=== PATIENT | female | born 1940 | race African-American/Black ===

== ENCOUNTER 2017-05-11 15:29 | Inpatient (IN) | payer OTHER, MEDICAID ==
--- NOTE | 2017-05-11 17:21 | DR.GENAD ---
HPI - PCP Primary Care Physician: RACHEAL - Complaint/Symptoms Chief Complaint Doctors Comments: Patient sent from [facility] for evaluation of stool coming from her vaginal tract today. Family states she has been in the [facility] for five years and they are not sure if she has ever had a colonoscopy. States she has not had a escudero cath recently. Family denies fever , chills, or SOB. Chief Complaint:: [facility] STAFF STATES PT HAS STOOL COMING FROM VAGINA. UPON ARRIVAL TO ED NOTED SOFT STOOL TO BE COMING FROM VAGINA. - Nurses notes reviewed Nurses Notes Review: Yes - Source History Provided: Family Member, EMS - Mode of Arrival Mode of Arrival: Stretcher - Timing Onset of Chief Complaint: 05/11/17 Came on: Suddenly - Duration Duration: Constant How lon Duration: Days - Location Location: stool from vaginal area - Severity Severity: Mild - Modifying Factors Worsens:: nothing Improves:: nothing PMH - PMH Past Medical History: Yes Past Medical History: Alzheimers, Arthritis, CHF, Hypertension Past Surgical History: Yes Surgical History: Joint Replacement - Family History History of Family Medical Conditions: Yes Family Medical History: Diabetes Mellitus, Cancer, Hypertension - Social History Does any household member use tobacco: No Alcohol Use: None Do you use any recreational Drugs:: No Lives With: Other Lives Where: Care Home - infectious screening In the last 2 months have you had wt loss of >10#?: NO Have you had fever, night sweats or hemotysis?: No Have you traveled outside the country in the last 6 months?: No Isolation: Standard ROS - Review of Systems Constitutional: No Symptoms Reported Eyes: No Symptoms Reported ENTM: No Symptoms Reported Respiratoy: No Symptoms Reported Cardiovascular: No Symptoms Reported Gastrointestinal/Abdominal: No Symptoms Reported Genitourinary: No Symptoms Reported Neurological: No Symptoms Reported, Problems Walking Musculoskeletal: No Symptoms Reported Integumentary: No Symptoms Reported Hematologic/Lymphatic: No Symptoms Reported Endocrine: No Symptoms Reported Psychiatric: No Symptoms Reported PE - Vital Signs Vitals: Temperature 98.6 F Pulse Rate 73 Respiratory Rate 20 Blood Pressure [Right Arm] 133/66 Blood Pressure [Left Arm] 122/67 Blood Pressure 114/77 O2 Sat by Pulse Oximetry 98 - General Limitations: Language Barrier, Altered Mental Status General Appearance: Alert, In No Apparent Distress - Head Head Exam: Normal Inspection, Atraumatic, Normocephalic - Eyes Eye exam: Normal Appearance, PERRL, EOMI. negative: Scleral Icterus, Conjunctival Injection, Nystagmus, Miosis, Mydrasis, Periorbital Swelling, Periorbital Tenderness, Other - ENT ENT Exam: Normal Exam, Normal Oropharynx, Normal External Ear Exam, Mucous Membranes Moist, TM's Normal Bilaterally External Ear Exam: Normal External Inspection TM/Canal Exam: Bilateral Normal Nose Exam: Normal Nose Exam Mouth Exam: Normal Inspection Throat Exam: Normal Inspection - Neck Neck Exam: Normal Inspection, Full ROM, Trachea Midline - Chest Chest Inspection: Normal Inspection, Symmetric Chest Wall Rise - Respiratory Respiratory Exam: Bilateral Clear to Auscultation - Cardiovascular Cardiovascular Exam: Regular Rate, Normal Rhythm, Normal Heart Sounds - Abdominal Exam Abdominal Exam: Normal Inspection, Normal Bowel Sounds, Soft Abdominal Tenderness: negative: RUQ, RLQ, LUQ, LLQ, Epigastrium, Suprapubic, Diffuse, Mild, Moderate, Severe, Other - Extremities Extremities Exam: Normal Inspection, Normal Capillary Refill. negative: Full ROM - Back Back Exam: Normal Inspection, Full ROM - Neurologic Neurological Exam: Alert, Reflexes Normal. negative: Oriented X3 (non verbal), Normal Gait (gait not tested) - Psychiatric Psychiatric Exam: Normal Affect, Normal Mood (patient non verbal) - Skin Skin Exam: Warm, Dry, Intact, Normal Color - Other Exam Other Exam: Vaginal area with copious brown watery stool in posterior vaginal vault; unable to palpate a defiet in vaginal wall. Course - Consultation Called: 19:58 Call Returned: 19:58 (Dr. Camejo states to admit to hospitalist) Consultation Comments: 2020 Dr. Bill said to admit. - Education/Counseling Education/Counseling: Family Educated On: Treatment, Diagnosis, Needs for Follow Up ROR - Labs Reviewed Laboratory Results Reviewed?: Yes (all labs and x-ray results reviewed and discussed with patient) Result Diagrams: 05/11/17 18:05 05/11/17 18:05 Laboratory: WBC 6.9 X10^3/uL (3.6-10.0) 05/11/17 18:05 RBC 4.56 X10^6/uL (3.5-5.4) 05/11/17 18:05 Hgb 13.6 g/dL (12.0-16.0) 05/11/17 18:05 Hct 40.0 % (36.0-47.0) 05/11/17 18:05 MCV 87.7 fL (80.0-100.0) 05/11/17 18:05 MCH 29.9 pg (27.0-34.0) 05/11/17 18:05 MCHC 34.1 g/dL (33.0-35.0) 05/11/17 18:05 RDW 13.0 % (11.6-16.5) 05/11/17 18: Plt Count 206 X10^3/uL (150.0-450.0) 05/11/17 18:05 Plt Count Comment Adequate (ADEQUATE) 05/11/17 18: MPV 8.1 fL (7.4-11.0) 05/11/17 18:05 Neut % 38.6 % (42.0-75.0) L 05/11/17 18: Lymph % 50.7 % (21.0-51.0) 05/11/17 18:05 [place] % 8.7 % (0.0-13.0) 05/11/17 18:05 Eos % 1.2 % (0.9-2.9) 05/11/17 18:05 Baso % 0.8 % (0.2-1.0) 05/11/17 18:05 Neut # 2.6 x10^3/uL (2.2-4.8) 05/11/17 18:05 Lymph # 3.5 X10^3/uL (1.3-2.9) H 05/11/17 18:05 [place] # 0.6 x10^3/uL (0.3-0.8) 05/11/17 18:05 Eos # 0.1 x10^3/uL (0.0-0.2) 05/11/17 18:05 Baso # 0.1 X10^3/uL (0.0-0.1) 05/11/17 18:05 Absolute Nucleated RBC 0.2 /100WBC 05/11/17 18:05 Plt Clumps, EDTA Few 05/11/17 18:05 Plt Morphology Comment Normal (NORMAL) 05/11/17 18: RBC Morphology Normal (NORMAL) 05/11/17 18:05 Sodium 137 mmol/L (136-145) 05/11/17 18:05 Corrected Sodium 137 mmol/L (136-145) 05/11/17 18:05 Potassium 4.9 mmol/L (3.5-5.1) 05/11/17 18:05 Chloride 102 mmol/L (98-107) 05/11/17 18:05 Carbon Dioxide 22.7 mmol/L (21-32) 05/11/17 18:05 BUN 16 mg/dL (7-18) 05/11/17 18:05 Creatinine 0.68 mg/dL (0.55-1.02) 05/11/17 18:05 Est GFR (MDRD) Af Amer > 60 (>60) 05/11/17 18:05 Est GFR (MDRD) Non-Af > 60 (>60) 05/11/17 18:05 Glucose 111 mg/dL (65-99) H 05/11/17 18:05 Calcium 9.5 mg/dL (8.5-10.1) 05/11/17 18:05 Corrected Calcium 10.1 mg/dL (8.5-10.1) 05/11/17 18:05 Total Bilirubin 0.40 mg/dL (0.2-1.0) 05/11/17 18:05 AST 37 Units/L (15-37) 05/11/17 18:05 ALT 20 Units/L (12-78) 05/11/17 18:05 Alkaline Phosphatase 89 Units/L (46-116) 05/11/17 18:05 Total Protein 7.3 g/dL (6.4-8.2) 05/11/17 18:05 Albumin 3.3 g/dL (3.4-5.0) L 05/11/17 18:05 Globulin 4.0 g/dL (2.5-4.5) 05/11/17 18:05 Albumin/Globulin Ratio 0.8 Ratio (1.1-2.1) L 05/11/17 18:05 Amylase 45 Units/L (25-115) 05/11/17 18:05 Lipase 94 Units/L (73-393) 05/11/17 18:05 Specimen Type Catherized urine 05/11/17 18:22 Urine Color Yellow (YELLOW) 05/11/17 18: Urine Appearance Clear (CLEAR) 05/11/17 18:22 Urine pH 5.0 (5.0 - 8.0) 05/11/17 18:22 Ur Specific [place] 1.025 (1.000-1.030) 05/11/17 18:22 Urine Protein Negative (NEGATIVE) 05/11/17 18:22 Urine Glucose (UA) Negative (NEGATIVE) 05/11/17 18:22 Urine Ketones Negative (NEGATIVE) 05/11/17 18:22 Urine Occult Blood 2+ (NEGATIVE) 05/11/17 18:22 Urine Nitrite Negative (NEGATIVE) 05/11/17 18:22 Urine Bilirubin Negative (NEGATIVE) 05/11/17 18:22 Urine Urobilinogen 1+ (NORMAL) 05/11/17 18:22 Ur Leukocyte Esterase 1+ (NEGATIVE) 05/11/17 18:22 Urine RBC 3-7 /HPF (NONE SEEN) 05/11/17 18:22 Urine WBC 0-2 /HPF (NONE SEEN) 05/11/17 18:22 Ur Squamous Epith Cells Rare /HPF (NEGATIVE) 05/11/17 18:22 Urine Bacteria Negative /HPF (NEGATIVE) 05/11/17 18:22 Ur Culture Indicated? No/not indicated 05/11/17 18:22 - XRAY XRAY Interpreted by: Radiologist (CT abdomen: small amount of air within vagina suggest colo vaginal fistula) - Diagnosis Discharge Problem: Colovaginal fistula, Hyperglycemia, Alzheimer disease, Diabetes mellitus - Discharge Plan Disposition: 09 ADMITTED INPATIENT Condition: Stable - Follow ups/Referrals Follow ups/Referrals: Dao Ugalde [Primary Care Provider] - 3 days - Instructions
--- NOTE | 2017-05-11 18:00 | CT ---
HISTORY: Stool coming from vagina Study: CT abdomen pelvis without contrast Comparison: None Technique: Axial noncontrast images with coronal and sagittal reformats. Dose reduction procedures we re used with mA/kv adjusted for body size. This examination is limited due to the lack of intravenous and the lack of oral contrast. Resolution is also decreased due to artifact from the patient's arms being with over the abdomen. This represents suboptimal positioning. Findings: The lung bases are clear. The liver, spleen, adrenal glands, and pancreas are within normal limits on ly to the limitations of an unenhanced examination. No opaque stones are visible within the gallbladd er. The kidneys are unobstructed and without stones. Calcific atherosclerotic change is present in a nondilated abdominal aorta. No intraperitoneal or retroperitoneal lymphadenopathy of significance is identified. There are no findings suggestive of colitis. The appendix is not identified with absolute certainty. There are no secondary signs of appendicitis present. Examination of the pelvis demonstra jami no evidence for pelvic masses, pelvic fluid, or pelvic lymphadenopathy. No bladder abnormality is identified. There is some air within the vagina which could be related to a colovaginal fistula or c ould be related to recent instrumentation if the history is consistent. Further evaluation could incl ude barium enema, flexible sigmoidoscopy, or colposcopy. No lytic or blastic skeletal lesions are malorie ntified. IMPRESSION: Small amount of air within the vagina which could be related to a colo vaginal fistula or recent inst rumentation/examination if the history is consistent. A colo vaginal fistula is not identified but ca nnot be excluded. Further evaluation could include flexible sigmoidoscopy, barium enema, or colposcop y Reported By:
[2017-05-11 18:36] LABS: BILIRUBIN,URINE NEGATIVE (NEGATIVE); BLOOD/HEMOGLOBIN,URINE 2+ (NEGATIVE); GLUCOSE, URINE NEGATIVE (NEGATIVE); KETONES,URINE NEGATIVE (NEGATIVE); LEUKOCYTE ESTERASE ,URINE 1+ (NEGATIVE); NITRITES,URINE NEGATIVE (NEGATIVE); PROTEIN,URINE NEGATIVE (NEGATIVE); UROBILINOGEN,URINE 1+ (NORMAL)
[2017-05-11 18:46] LABS: ALANINE AMINOTRANSFERASE 20 Units/L (12-78); ALBUMIN 3.3 g/dL (3.4-5.0); ALKALINE PHOSPHATASE 89 Units/L (46-116); AMYLASE 45 Units/L (25-115); BLOOD UREA NITROGEN 16 mg/dL (7-18); CALCIUM 9.5 mg/dL (8.5-10.1); CARBON DIOXIDE 22.7 mmol/L (21-32); CHLORIDE 102 mmol/L (98-107); COR CA(FOR HYPOALB) 10.1 mg/dL (8.5-10.1); COR NA(FOR HYPERGLY) 137 mmol/L (136-145); CREATININE 0.68 mg/dL (0.55-1.02); LIPASE 94 Units/L (73-393); SODIUM 137 mmol/L (136-145); TOTAL PROTEIN 7.3 g/dL (6.4-8.2); eGFR BLACK RACES > 60 (>60); eGFR NON BLACK RACES > 60 (>60)
[2017-05-11 18:49] LABS: ASPARTATE AMINO TRANSFERASE 37 Units/L (15-37)
[2017-05-11 18:55] LABS: BASOPHILS # (AUTO) 0.1 X10^3/uL (0.0-0.1); BASOPHILS % (AUTO) 0.8 % (0.2-1.0); EOSINOPHILS # (AUTO) 0.1 x10^3/uL (0.0-0.2); EOSINOPHILS % (AUTO) 1.2 % (0.9-2.9); HEMOGLOBIN 13.6 g/dL (12.0-16.0); LYMPHOCYTES # (AUTO) 3.5 X10^3/uL (1.3-2.9); LYMPHOCYTES % (AUTO) 50.7 % (21.0-51.0); MEAN CORPUSCULAR HEMOGLOBIN 29.9 pg (27.0-34.0); MEAN CORPUSCULAR HGB CONC 34.1 g/dL (33.0-35.0); MEAN CORPUSCULAR VOLUME 87.7 fL (80.0-100.0); MEAN PLATELET VOLUME 8.1 fL (7.4-11.0); MONOCYTES # (AUTO) 0.6 x10^3/uL (0.3-0.8); MONOCYTES % (AUTO) 8.7 % (0.0-13.0); NEUTROPHILS # (AUTO) 2.6 x10^3/uL (2.2-4.8); NEUTROPHILS % (AUTO) 38.6 % (42.0-75.0); PLATELET COUNT 206 X10^3/uL (150.0-450.0); RED BLOOD COUNT 4.56 X10^6/uL (3.5-5.4)
[2017-05-11 19:01] LABS: APPEARANCE,URINE CLEAR (CLEAR); BACTERIA,URINE NEGATIVE /HPF (NEGATIVE); COLOR,URINE YELLOW (YELLOW); SQUAMOUS EPITHELIAL CELL,UR RARE /HPF (NEGATIVE)
[2017-05-11 19:05] LABS: PLATELET MORPHOLOGY COMMENT NORMAL (NORMAL); WHITE BLOOD COUNT 6.9 X10^3/uL (3.6-10.0)
[2017-05-11] MEDS ORDERED: ZOSYN VIAL 3.375 GM 3.375 GM in NS 100 ML IV + SPIKE MINIBAG* 100 ML IV ONE (19:53)
[2017-05-11] MEDS ORDERED: PEPCID TAB 20 MG PO PRN (20:27)
[2017-05-11] MEDS ORDERED: ZOFRAN INJ 4 MG VIAL IVP PRN (20:27)
[2017-05-11] MEDS ORDERED: MORPHINE SULFATE INJ 2 MG INJ IVP PRN (20:27)
[2017-05-11] MEDS: ZOSYN VIAL 3.375 GM 3.375 GM in NS 100 ML IV + SPIKE MINIBAG* 100 ML IV SCH (22:45)
[2017-05-11] MEDS: NS 1/2 + KCL 20 MEQ/L 1,000 ML IV SCH (22:45)
[2017-05-12] MEDS: ZOSYN VIAL 3.375 GM 3.375 GM in NS 100 ML IV + SPIKE MINIBAG* 100 ML IV SCH ×4 (00:55→21:14)
[2017-05-12] MEDS: NS 1/2 + KCL 20 MEQ/L 1,000 ML IV SCH ×4 (06:09→20:27)
[2017-05-12 06:25] VITALS: BMI 24.6
[2017-05-12 06:41] LABS: BASOPHILS % (AUTO) 0.9 % (0.2-1.0); EOSINOPHILS # (AUTO) 0.1 x10^3/uL (0.0-0.2); EOSINOPHILS % (AUTO) 1.9 % (0.9-2.9); HEMATOCRIT 37.5 % (36.0-47.0); HEMOGLOBIN 12.7 g/dL (12.0-16.0); LYMPHOCYTES # (AUTO) 2.1 X10^3/uL (1.3-2.9); LYMPHOCYTES % (AUTO) 46.3 % (21.0-51.0); MEAN CORPUSCULAR HEMOGLOBIN 29.9 pg (27.0-34.0); MEAN PLATELET VOLUME 7.4 fL (7.4-11.0); MONOCYTES # (AUTO) 0.5 x10^3/uL (0.3-0.8); MONOCYTES % (AUTO) 10.5 % (0.0-13.0); NEUTROPHILS # (AUTO) 1.8 x10^3/uL (2.2-4.8); NEUTROPHILS % (AUTO) 40.4 % (42.0-75.0); PLATELET COUNT 259 X10^3/uL (150.0-450.0); RED BLOOD COUNT 4.26 X10^6/uL (3.5-5.4); RED CELL DISTRIBUTION WIDTH 12.9 % (11.6-16.5); WHITE BLOOD COUNT 4.5 X10^3/uL (3.6-10.0)
[2017-05-12 06:54] LABS: ALANINE AMINOTRANSFERASE 14 Units/L (12-78); ALBUMIN 3.1 g/dL (3.4-5.0); ALKALINE PHOSPHATASE 81 Units/L (46-116); ASPARTATE AMINO TRANSFERASE 16 Units/L (15-37); BLOOD UREA NITROGEN 12 mg/dL (7-18); CALCIUM 9.2 mg/dL (8.5-10.1); CARBON DIOXIDE 23.3 mmol/L (21-32); CHLORIDE 104 mmol/L (98-107); COR CA(FOR HYPOALB) 9.9 mg/dL (8.5-10.1); CREATININE 0.51 mg/dL (0.55-1.02); SODIUM 137 mmol/L (136-145); TOTAL PROTEIN 6.8 g/dL (6.4-8.2); eGFR BLACK RACES > 60 (>60); eGFR NON BLACK RACES > 60 (>60)
[2017-05-12] MEDS ORDERED: PATIENT'S HOME MEDICATION (Amlodipine Besylate [Amlodipine Besylate] 5 MG) PO SCH (09:15)
[2017-05-12] MEDS: NAMENDA TAB 10 MG PO SCH ×2 (11:51→20:28)
[2017-05-12] MEDS: GLUCOPHAGE XR PO SCH ×2 (11:51→20:27)
[2017-05-12] MEDS: LOTENSIN TAB 10 MG PO SCH ×2 (11:51→20:27)
[2017-05-12] MEDS: NORVASC TAB 5 MG PO SCH ×2 (11:51→20:28)
[2017-05-12] MEDS ORDERED: NS 250 ML IV 250 ML IV ONE (15:28)
[2017-05-12] MEDS: LIPITOR TAB 20 MG PO SCH (20:28)
[2017-05-12] MEDS ORDERED: ATORVASTATIN CALCIUM 20 MG PO SCH (21:00)
[2017-05-13] MEDS: NS 1/2 + KCL 20 MEQ/L 1,000 ML IV SCH ×4 (05:15→21:19)
[2017-05-13] MEDS: ZOSYN VIAL 3.375 GM 3.375 GM in NS 100 ML IV + SPIKE MINIBAG* 100 ML IV SCH ×3 (05:15→21:22)
[2017-05-13 06:12] LABS: BASOPHILS # (AUTO) 0.1 X10^3/uL (0.0-0.1); EOSINOPHILS % (AUTO) 0.7 % (0.9-2.9); HEMATOCRIT 39.2 % (36.0-47.0); HEMOGLOBIN 13.3 g/dL (12.0-16.0); LYMPHOCYTES % (AUTO) 34.1 % (21.0-51.0); MEAN CORPUSCULAR HEMOGLOBIN 29.8 pg (27.0-34.0); MEAN CORPUSCULAR HGB CONC 33.9 g/dL (33.0-35.0); MEAN CORPUSCULAR VOLUME 87.9 fL (80.0-100.0); MEAN PLATELET VOLUME 7.2 fL (7.4-11.0); MONOCYTES # (AUTO) 0.7 x10^3/uL (0.3-0.8); MONOCYTES % (AUTO) 11.6 % (0.0-13.0); NEUTROPHILS # (AUTO) 3.1 x10^3/uL (2.2-4.8); NEUTROPHILS % (AUTO) 52.6 % (42.0-75.0); PLATELET COUNT 299 X10^3/uL (150.0-450.0); RED BLOOD COUNT 4.46 X10^6/uL (3.5-5.4); RED CELL DISTRIBUTION WIDTH 12.8 % (11.6-16.5); WHITE BLOOD COUNT 5.9 X10^3/uL (3.6-10.0)
[2017-05-13 06:33] LABS: ALANINE AMINOTRANSFERASE 22 Units/L (12-78); ALKALINE PHOSPHATASE 90 Units/L (46-116); ASPARTATE AMINO TRANSFERASE 22 Units/L (15-37); BLOOD UREA NITROGEN 8 mg/dL (7-18); CALCIUM 9.7 mg/dL (8.5-10.1); CARBON DIOXIDE 21.9 mmol/L (21-32); CHLORIDE 103 mmol/L (98-107); COR CA(FOR HYPOALB) 10.5 mg/dL (8.5-10.1); COR NA(FOR HYPERGLY) 137 mmol/L (136-145); SODIUM 136 mmol/L (136-145); TOTAL PROTEIN 7.1 g/dL (6.4-8.2); eGFR BLACK RACES > 60 (>60); eGFR NON BLACK RACES > 60 (>60)
--- NOTE | 2017-05-13 08:13 | DR.H&P ---
H&P - History & Physical for Day of: H&P Date: 05/11/17 - Chief Complaint Chief Complaint: stool from vaginal tract - Allergies Allergies/Adverse Reactions: Allergies Allergy/AdvReac Type Severity Reaction Status Date / Time No Known Drug Allergies Allergy Verified 05/11/17 17:23 - History of Present Illness History of Present Illness: is a 76 year old patient of ours who resides at [facility]. She was brought to ER from [place] with staff reporting that patient has stool coming from her vaginal tract. Patient exam noted copious watery stool in posterior vaginal vault. On arrival, vitals were 98.6, 73, 20, 98%, RA, 114/77. Labs were obtained. Abnormal lab values include the following: Glucose 111, Albumin 3.3, Albumin/Globulin 0.8. Urinalysis revealed: Catherized Urine Color Yellow, Occult blood 2+, Urobilinogen 1+, RBC 3-7, WBC 0-2. An abdomen/pelvis CT was obtained and revealed: Small amount of air within the vagina which could be related to colov aginal fistula or recent instrumentation/examination if the history is consistent. A colo vaginal fistula is not identified but cannot be excluded. Further evaluation could include flexible sigmoidoscopy, barium enema, or colposcopy. We admitted patient for further treatment and evaluation. We will consult with , General surgery. Patient will be gently hydrated with follow up labs in the am. Patient will be treated with aggressive antibiotic therapy as well as pain and nausea. - Past Medical History Past Medical History: Alzheimers, Arthritis, CHF, Dementia, Dyslipidemia, Hypertension - Past Surgical History Surgical History: Joint Replacement - Family History Family Medical History: Diabetes Mellitus, Cancer, Hypertension - Social History Does any household member use tobacco: No Alcohol Use: None Drug Use: None - Medications Home Medications: Memantine HCl [Namenda Tab 10 mg] 10 mg PO BID 05/11/17 [History Confirmed 05/11] Metformin-ER (Ext Rel) [GLUCOPHAGE XR 500 MG (24hr Ext Rel) *] 500 mg PO BID 05/26 [History Confirmed 05/11/17] - Review of Systems Constitutional: No Symptoms Reported. denies: See HPI, Fever, Chills, Sweats, Weakness, Malaise, Other Eyes: No Symptoms Reported. denies: See HPI, Pain, Vision Change, Conjunctivae Inflammation, Eyelid Inflammation, Redness, Other ENT: No Symptoms Reported. denies: See HPI, Ear Pain, Ear Discharge, Nose Pain , Nose Discharge, Nose Congestion, Mouth Pain, Mouth Swelling, Throat Pain, Throat Swelling, Other Respiratory: No Symptoms Reported. denies: See HPI, Cough, Dry, Shortness of Breath, Hemoptysis, SOB with Excertion, Pleuritic Pain, Sputum, Wheezing, Other Cardiovascular: No Symptoms Reported. denies: Chest Pain, See HPI, Palpitations , Orthopnea, Paroxysmal Noc. Dyspnea, Edema, Light Headedness, Other Gastrointestinal: No Symptoms Reported. denies: See HPI, Nausea, Vomiting, Abdominal Pain, Diarrhea, Constipation, Melena, Hematochezia, Other Genitourinary: No Symptoms Reported. denies: See HPI, Dysuria, Frequency, Incontinence, Hematuria, Retention, Other Musculoskeletal: No Symptoms Reported. denies: See HPI, Shoulder Pain, Arm Pain , Back Pain, Hand Pain, Leg Pain, Foot Pain, Neck Pain, Other Skin: No Symptoms Reported. denies: See HPI, Rash, Lesions, Jaundice, Bruising , Wound, Ecchymosis, Other Neurological: Confusion - Physical Exam Vital Signs: Temperature 97.8 F Pulse Rate [Apical] 94 Pulse Rate 73 Respiratory Rate 20 Blood Pressure [Right Arm] 144/69 Blood Pressure [Left Arm] 122/67 Blood Pressure 114/77 O2 Sat by Pulse Oximetry 98 Oriented: Not Oriented (dementia) Eyes: Normal. negative: Blurred Vision, Diplopia, Discharge, Pain, Redness, Photophobia, Other Ear: Normal. negative: Right, Left, Swelling, Ecchymosis, Hemotypanum, Abrasion , Laceration Nose: Normal. negative: Injected, Discharge, Blood, Other Throat: Normal. negative: Tonsillar Hypertrophy, Red, Exudate, Dry, Other Respiratory: Clear Throughout Cardiovascular: Normal. negative: S3, S4, Murmur : Normal. negative: Dysuria, Hematuria, Frequency, Discharge, Testicular Pain , Bleeding, , Other Auscultation: Bowel Sounds: Normal. negative: Bruit, Absent, Increased, Decreased, High Pitched, Other Palpation: Normal. negative: Spleen Enlarged, Liver Enlarged, Mass Pulsatile, Other Tenderness: Normal Skin: Normal Musculoskeletal: Normal Psychiatric: Normal Mood Description: Calm Affect: Normal Speech Pattern: Clear - Assessment/Plan (1) Colovaginal fistula Status: Acute Plan: surgical consult, continue to monitor
[2017-05-13] MEDS ORDERED: DIPRIVAN VIAL ONE (09:29)
[2017-05-13] MEDS ORDERED: NORCURON INJ 10 MG VIAL ONE (09:29)
[2017-05-13] MEDS ORDERED: ULTANE GAS IN ONE (09:29)
[2017-05-13] MEDS ORDERED: LR 1000 ML IV 1,000 ML IV ONE (10:11)
[2017-05-13] MEDS ORDERED: ANCEF 1 GM IV PREMIX* 1 GM/50 ML BAG IV ONE (10:11)
--- NOTE | 2017-05-13 10:29 | RAD ---
History: Preop for fistula repair Study: Portable AP chest Comparison: November 21, 2016 Findings: There is limited inspiration of grossly clear lungs. The heart size is normal and the aorta is tortuous. There is no edema or effusion. Impression: No evidence for acute cardiopulmonary disease Reported By:
[2017-05-13] MEDS ORDERED: DILAUDID INJ ONE (12:07)
[2017-05-13] MEDS ORDERED: FENTANYL INJ 100 mcg ONE (12:07)
[2017-05-13] MEDS ORDERED: BACITRACIN VIAL ONE (12:19)
[2017-05-13] MEDS ORDERED: ROBINUL ONE (12:31)
[2017-05-13] MEDS ORDERED: QUELICIN (OR ANECTINE) ONE (12:31)
[2017-05-13] MEDS ORDERED: NEOSTIGMINE INJ ONE (12:31)
[2017-05-13] MEDS ORDERED: ZOFRAN INJ 4 MG VIAL IVP PRN (13:55)
[2017-05-13] MEDS ORDERED: REGLAN INJ 10 MG VIAL IVP PRN (13:55)
[2017-05-13] MEDS ORDERED: PHENERGAN INJ 25 MG IVP PRN (13:55)
[2017-05-13] MEDS ORDERED: BENADRYL INJ 50 MG VIAL IVP PRN (13:55)
[2017-05-13] MEDS ORDERED: DILAUDID INJ IVP PRN (13:55)
[2017-05-13] MEDS: GLUCOPHAGE XR PO SCH ×2 (14:23→21:20)
[2017-05-13] MEDS: NAMENDA TAB 10 MG PO SCH ×2 (16:39→21:29)
[2017-05-13] MEDS: LOTENSIN TAB 10 MG PO SCH ×2 (16:39→21:21)
[2017-05-13] MEDS: NORVASC TAB 5 MG PO SCH ×2 (16:39→21:21)
--- NOTE | 2017-05-13 21:00 | OR.GENERIC ---
Post-Op Note Generic - Post-Op Note Operative Report: Post operative note . Pt was examined under sedation with a finding of large amount of stool in the vagina and normal rectal exam. laparatomy and completer diverting colostomy of the Transverse Colon was done .. Pt did well with minimal blood loss . will start feeding in Am . on IV ATB ..
[2017-05-13] MEDS: LIPITOR TAB 20 MG PO SCH (21:20)
[2017-05-14] MEDS: NS 1/2 + KCL 20 MEQ/L 1,000 ML IV SCH ×3 (04:00→23:58)
[2017-05-14] MEDS ORDERED: NS 100 ML IV 100 ML IV ONE (04:04)
[2017-05-14] MEDS: ZOSYN VIAL 3.375 GM 3.375 GM in NS 100 ML IV + SPIKE MINIBAG* 100 ML IV SCH ×3 (05:53→22:59)
[2017-05-14 06:14] LABS: BASOPHILS # (AUTO) 0.1 X10^3/uL (0.0-0.1); BASOPHILS % (AUTO) 0.7 % (0.2-1.0); EOSINOPHILS % (AUTO) 0.1 % (0.9-2.9); HEMATOCRIT 36.3 % (36.0-47.0); HEMOGLOBIN 12.4 g/dL (12.0-16.0); LYMPHOCYTES # (AUTO) 1.7 X10^3/uL (1.3-2.9); MEAN CORPUSCULAR HGB CONC 34.3 g/dL (33.0-35.0); MEAN CORPUSCULAR VOLUME 87.5 fL (80.0-100.0); MEAN PLATELET VOLUME 7.3 fL (7.4-11.0); MONOCYTES # (AUTO) 0.8 x10^3/uL (0.3-0.8); NEUTROPHILS # (AUTO) 6.9 x10^3/uL (2.2-4.8); NEUTROPHILS % (AUTO) 73.2 % (42.0-75.0); PLATELET COUNT 238 X10^3/uL (150.0-450.0); RED BLOOD COUNT 4.14 X10^6/uL (3.5-5.4); RED CELL DISTRIBUTION WIDTH 12.7 % (11.6-16.5); WHITE BLOOD COUNT 9.4 X10^3/uL (3.6-10.0)
[2017-05-14 06:23] LABS: ALANINE AMINOTRANSFERASE 20 Units/L (12-78); ALBUMIN 2.8 g/dL (3.4-5.0); ALKALINE PHOSPHATASE 81 Units/L (46-116); ASPARTATE AMINO TRANSFERASE 24 Units/L (15-37); BLOOD UREA NITROGEN 7 mg/dL (7-18); CALCIUM 9.3 mg/dL (8.5-10.1); CARBON DIOXIDE 23.5 mmol/L (21-32); CHLORIDE 103 mmol/L (98-107); COR CA(FOR HYPOALB) 10.3 mg/dL (8.5-10.1); COR NA(FOR HYPERGLY) 136 mmol/L (136-145); CREATININE 0.67 mg/dL (0.55-1.02); SODIUM 135 mmol/L (136-145); TOTAL PROTEIN 6.9 g/dL (6.4-8.2); eGFR BLACK RACES > 60 (>60); eGFR NON BLACK RACES > 60 (>60)
--- NOTE | 2017-05-14 08:43 | DR.PROGNOT ---
Hospital Progress Notes - Progress Note for Day of: Progress Note Date: 05/14/17 - Chief Complaint Chief Complaint: S/P diverting colostomy for colo- vaginal fistula day 1 . doing fairly well , no nausea or vomiting ,. will advance her diet . - Past Medical Family Social History Past Med/Fam/Surg Hx: No changes since H&P Allergies: Allergies No Known Drug Allergies Allergy (Verified 05/11/17 17:23) - Review Of Systems ROS: No change since H&P - Vital Signs Vital Signs: Temperature 98.4 F Pulse Rate [Apical] 82 Pulse Rate 67 Respiratory Rate 16 Blood Pressure [Right Arm] 129/60 Blood Pressure [Left Arm] 122/67 Blood Pressure 103/58 O2 Sat by Pulse Oximetry 98 - Physical Exam Oriented: Not Oriented (dementia) Eyes: Normal. negative: Blurred Vision, Diplopia, Discharge, Pain, Redness, Photophobia, Other Ear: Normal. negative: Right, Left, Swelling, Ecchymosis, Hemotypanum, Abrasion , Laceration Nose: Normal. negative: Injected, Discharge, Blood, Other Throat: Normal. negative: Tonsillar Hypertrophy, Red, Exudate, Dry, Other Cardiovascular: Normal. negative: S3, S4, Murmur : negative: Dysuria, Hematuria, Frequency, Discharge, Testicular Pain, Bleeding, , Other (stool in the vagina) GI:Auscultation: Normal. negative: Bruit, Absent, Increased, Decreased, High Pitched, Other GI:Palpation: Normal. negative: Spleen Enlarged, Liver Enlarged, Mass Pulsatile , Other GI: Tenderness: Epigastric (small amount of stool in the colostomy bag , soft abdomen , BS+) Skin: Normal Musculoskeletal: Normal Psychiatric: Normal Mood Description: Calm Affect: Normal Speech Pattern: Unclear, Delayed - Laboratory and Diagnostics Result Diagrams: 05/14/17 05:45 05/14/17 05:45 Labs: Laboratory WBC 9.4 X10^3/uL (3.6-10.0) 05/14/17 05:45 RBC 4.14 X10^6/uL (3.5-5.4) 05/14/17 05:45 Hgb 12.4 g/dL (12.0-16.0) 05/14/17 05:45 Hct 36.3 % (36.0-47.0) 05/14/17 05:45 MCV 87.5 fL (80.0-100.0) 05/14/17 05:45 MCH 30.0 pg (27.0-34.0) 05/14/17 05:45 MCHC 34.3 g/dL (33.0-35.0) 05/14/17 05:45 RDW 12.7 % (11.6-16.5) 05/14/17 05:45 Plt Count 238 X10^3/uL (150.0-450.0) 05/14/17 05:45 Plt Count Comment Adequate (ADEQUATE) 05/11/17 18:05 MPV 7.3 fL (7.4-11.0) L 05/14/17 05:45 Neut % 73.2 % (42.0-75.0) 05/14/17 05:45 Lymph % 18.0 % (21.0-51.0) L 05/14/17 05:45 [place] % 8.0 % (0.0-13.0) 05/14/17 05:45 Eos % 0.1 % (0.9-2.9) L 05/14/17 05:45 Baso % 0.7 % (0.2-1.0) 05/14/17 05:45 Neut # 6.9 x10^3/uL (2.2-4.8) H 05/14/17 05:45 Lymph # 1.7 X10^3/uL (1.3-2.9) 05/14/17 05:45 [place] # 0.8 x10^3/uL (0.3-0.8) 05/14/17 05:45 Eos # 0.0 x10^3/uL (0.0-0.2) 05/14/17 05:45 Baso # 0.1 X10^3/uL (0.0-0.1) 05/14/17 05:45 Absolute Nucleated RBC 0.0 /100WBC 05/14/17 05:45 Plt Clumps, EDTA Few 05/11/17 18:05 Plt Morphology Comment Normal (NORMAL) 05/11/17 18:05 RBC Morphology Normal (NORMAL) 05/11/17 18:05 Sodium 135 mmol/L (136-145) L 05/14/17 05:45 Corrected Sodium 136 mmol/L (136-145) 05/14/17 05:45 Potassium 4.6 mmol/L (3.5-5.1) 05/14/17 05:45 Chloride 103 mmol/L (98-107) 05/14/17 05:45 Carbon Dioxide 23.5 mmol/L (21-32) 05/14/17 05:45 BUN 7 mg/dL (7-18) 05/14/17 05:45 Creatinine 0.67 mg/dL (0.55-1.02) 05/14/17 05:45 Est GFR (MDRD) Af Amer > 60 (>60) 05/14/17 05:45 Est GFR (MDRD) Non-Af > 60 (>60) 05/14/17 05:45 Glucose 133 mg/dL (65-99) H 05/14/17 05:45 POC Glucose (mg/dL) 131 mg/dL (65-99) H 05/14/17 05:45 Calcium 9.3 mg/dL (8.5-10.1) 05/14/17 05:45 Corrected Calcium 10.3 mg/dL (8.5-10.1) H 05/14/17 05:45 Total Bilirubin 0.80 mg/dL (0.2-1.0) 05/14/17 05:45 AST 24 Units/L (15-37) 05/14/17 05:45 ALT 20 Units/L (12-78) 05/14/17 05:45 Alkaline Phosphatase 81 Units/L (46-116) 05/14/17 05:45 Total Protein 6.9 g/dL (6.4-8.2) 05/14/17 05:45 Albumin 2.8 g/dL (3.4-5.0) L 05/14/17 05:45 Globulin 4.1 g/dL (2.5-4.5) 05/14/17 05:45 Albumin/Globulin Ratio 0.7 Ratio (1.1-2.1) L 05/14/17 05:45 Amylase 45 Units/L (25-115) 05/11/17 18:05 Lipase 94 Units/L (73-393) 05/11/17 18:05 Specimen Type Catherized urine 05/11/17 18:22 Urine Color Yellow (YELLOW) 05/11/17 18:22 Urine Appearance Clear (CLEAR) 05/11/17 18:22 Urine pH 5.0 (5.0 - 8.0) 05/11/17 18:22 Ur Specific [place] 1.025 (1.000-1.030) 05/11/17 18:22 Urine Protein Negative (NEGATIVE) 05/11/17 18:22 Urine Glucose (UA) Negative (NEGATIVE) 05/11/17 18:22 Urine Ketones Negative (NEGATIVE) 05/11/17 18:22 Urine Occult Blood 2+ (NEGATIVE) 05/11/17 18:22 Urine Nitrite Negative (NEGATIVE) 05/11/17 18:22 Urine Bilirubin Negative (NEGATIVE) 05/11/17 18:22 Urine Urobilinogen 1+ (NORMAL) 05/11/17 18:22 Ur Leukocyte Esterase 1+ (NEGATIVE) 05/11/17 18:22 Urine RBC 3-7 /HPF (NONE SEEN) 05/11/17 18:22 Urine WBC 0-2 /HPF (NONE SEEN) 05/11/17 18:22 Ur Squamous Epith Cells Rare /HPF (NEGATIVE) 05/11/17 18:22 Urine Bacteria Negative /HPF (NEGATIVE) 05/11/17 18:22 Ur Culture Indicated? No/not indicated 05/11/17 18:22 - Assessment and Plan 1: colo vaginal fistula , s/p diverting colostomy. started on liquid diet . when tolerated and the colostomy is functioning Pt could be d/c and will follow in the long-term .. - Problem Patient Problems: Patient Problems Colovaginal fistula (Acute) N82.4 Hyperglycemia (Acute) R73.9 Alzheimer disease (Chronic) G30.9 Diabetes mellitus (Chronic) E11.9
--- NOTE | 2017-05-14 11:28 | PCM.PROG ---
Progress Note - Progress Note for Day of Date: 05/12/17 - Subjective Subjective: WAS ADMITTED FOR A COLOVAGINAL FISTULA AND HYPERGLYCEMIA. TODAY, SHE IS LYING IN BED WITH EYES CLOSED ON MORNING ROUNDS. FAMILY REPORTS THAT PATIENT HAS BEEN IN NO DISTRESS THROUGHOUT THE NIGHT. ON EXAMINATION, HEART IS REGULAR IN RATE AND RHYTHM. BILATERAL LUNGS ARE NOTED WITH DIMINISHED LUNG SOUNDS THROUGHOUT. ABDOMEN IS ROUND, SOFT, AND NON-TENDER. NORMAL BOWEL SOUNDS NOTED IN ALL QUADRANTS. THERE IS A ELISE CATHETER NOTED TO BEDSIDE DRAINAGE. HER VITALS THIS MORNING ARE 98.6-79-14-99%-139/78. LABS WERE OBTAINED. PATIENT IS HEMODYNAMICALLY STABLE TODAY. CONSULTED WITH PATIENT THIS MORNING AND PLANS TO TAKE PATIENT TO THE OR TOMORROW MORNING FOR POSSIBLE COLOSTOMY. WE ARE IN AGREEMENT WITH PLAN. WE WILL CONTINUE WITH CURRENT PLAN OF CARE AND IV ANTIBIOTICS TODAY. WE PLAN TO FOLLOW UP WITH AM LABS AND CONTINUE TO MONITOR PATIENT. - Past Medical Family Social History Past Med/Fam/Surg Hx: No changes since H&P Allergies: Allergies No Known Drug Allergies Allergy (Verified 05/11/17 17:23) - Review of Systems ROS: No change since H&P - Vital Signs and I&O's Vital Signs: Temperature 98.7 F Pulse Rate [Apical] 73 Pulse Rate 67 Respiratory Rate 16 Blood Pressure [Right Arm] 118/58 Blood Pressure [Left Arm] 122/67 Blood Pressure 103/58 O2 Sat by Pulse Oximetry 98 Intake and Output: Intake & Output 05/11/17 05/12/17 05/13/17 05/14/17 11:59 11:59 11:59 11:59 Intake Total 850 3146 2400 Output Total 575 2800 3575 Balance 275 346 -1175 - Physical Exam Oriented: Not Oriented (dementia) Eyes: Normal. negative: Blurred Vision, Diplopia, Discharge, Pain, Redness, Photophobia, Other Ear: Normal. negative: Right, Left, Swelling, Ecchymosis, Hemotypanum, Abrasion , Laceration Nose: Normal. negative: Injected, Discharge, Blood, Other Throat: Normal. negative: Tonsillar Hypertrophy, Red, Exudate, Dry, Other Respiratory: Diminished Cardiovascular: Normal. negative: S3, S4, Murmur : Other (STOOL IN THE VAGINA ) Auscultation: Bowel Sounds: Normal. negative: Bruit, Absent, Increased, Decreased, High Pitched, Other Palpation: Normal Tenderness: Normal Skin: Normal Musculoskeletal: Normal Psychiatric: Normal Mood Description: Calm Affect: Normal Speech Pattern: Unclear, Delayed - Laboratory and Diagnostics Result Diagrams: 05/14/17 05:45 05/14/17 05:45 Labs: Laboratory WBC 9.4 X10^3/uL (3.6-10.0) 05/14/17 05:45 RBC 4.14 X10^6/uL (3.5-5.4) 05/14/17 05:45 Hgb 12.4 g/dL (12.0-16.0) 05/14/17 05:45 Hct 36.3 % (36.0-47.0) 05/14/17 05:45 MCV 87.5 fL (80.0-100.0) 05/14/17 05:45 MCH 30.0 pg (27.0-34.0) 05/14/17 05:45 MCHC 34.3 g/dL (33.0-35.0) 05/14/17 05:45 RDW 12.7 % (11.6-16.5) 05/14/17 05:45 Plt Count 238 X10^3/uL (150.0-450.0) 05/14/17 05:45 Plt Count Comment Adequate (ADEQUATE) 05/11/17 18:05 MPV 7.3 fL (7.4-11.0) L 05/14/17 05:45 Neut % 73.2 % (42.0-75.0) 05/14/17 05:45 Lymph % 18.0 % (21.0-51.0) L 05/14/17 05:45 [place] % 8.0 % (0.0-13.0) 05/14/17 05:45 Eos % 0.1 % (0.9-2.9) L 05/14/17 05:45 Baso % 0.7 % (0.2-1.0) 05/14/17 05:45 Neut # 6.9 x10^3/uL (2.2-4.8) H 05/14/17 05:45 Lymph # 1.7 X10^3/uL (1.3-2.9) 05/14/17 05:45 [place] # 0.8 x10^3/uL (0.3-0.8) 05/14/17 05:45 Eos # 0.0 x10^3/uL (0.0-0.2) 05/14/17 05:45 Baso # 0.1 X10^3/uL (0.0-0.1) 05/14/17 05:45 Absolute Nucleated RBC 0.0 /100WBC 05/14/17 05:45 Plt Clumps, EDTA Few 05/11/17 18:05 Plt Morphology Comment Normal (NORMAL) 05/11/17 18:05 RBC Morphology Normal (NORMAL) 05/11/17 18:05 Sodium 135 mmol/L (136-145) L 05/14/17 05:45 Corrected Sodium 136 mmol/L (136-145) 05/14/17 05:45 Potassium 4.6 mmol/L (3.5-5.1) 05/14/17 05:45 Chloride 103 mmol/L (98-107) 05/14/17 05:45 Carbon Dioxide 23.5 mmol/L (21-32) 05/14/17 05:45 BUN 7 mg/dL (7-18) 05/14/17 05:45 Creatinine 0.67 mg/dL (0.55-1.02) 05/14/17 05:45 Est GFR (MDRD) Af Amer > 60 (>60) 05/14/17 05:45 Est GFR (MDRD) Non-Af > 60 (>60) 05/14/17 05:45 Glucose 133 mg/dL (65-99) H 05/14/17 05:45 POC Glucose (mg/dL) 131 mg/dL (65-99) H 05/14/17 05:45 Calcium 9.3 mg/dL (8.5-10.1) 05/14/17 05:45 Corrected Calcium 10.3 mg/dL (8.5-10.1) H 05/14/17 05:45 Total Bilirubin 0.80 mg/dL (0.2-1.0) 05/14/17 05:45 AST 24 Units/L (15-37) 05/14/17 05:45 ALT 20 Units/L (12-78) 05/14/17 05:45 Alkaline Phosphatase 81 Units/L (46-116) 05/14/17 05:45 Total Protein 6.9 g/dL (6.4-8.2) 05/14/17 05:45 Albumin 2.8 g/dL (3.4-5.0) L 05/14/17 05:45 Globulin 4.1 g/dL (2.5-4.5) 05/14/17 05:45 Albumin/Globulin Ratio 0.7 Ratio (1.1-2.1) L 05/14/17 05:45 Amylase 45 Units/L (25-115) 05/11/17 18:05 Lipase 94 Units/L (73-393) 05/11/17 18:05 Specimen Type Catherized urine 05/11/17 18:22 Urine Color Yellow (YELLOW) 05/11/17 18:22 Urine Appearance Clear (CLEAR) 05/11/17 18:22 Urine pH 5.0 (5.0 - 8.0) 05/11/17 18:22 Ur Specific [place] 1.025 (1.000-1.030) 05/11/17 18:22 Urine Protein Negative (NEGATIVE) 05/11/17 18:22 Urine Glucose (UA) Negative (NEGATIVE) 05/11/17 18:22 Urine Ketones Negative (NEGATIVE) 05/11/17 18:22 Urine Occult Blood 2+ (NEGATIVE) 05/11/17 18:22 Urine Nitrite Negative (NEGATIVE) 05/11/17 18:22 Urine Bilirubin Negative (NEGATIVE) 05/11/17 18:22 Urine Urobilinogen 1+ (NORMAL) 05/11/17 18:22 Ur Leukocyte Esterase 1+ (NEGATIVE) 05/11/17 18:22 Urine RBC 3-7 /HPF (NONE SEEN) 05/11/17 18:22 Urine WBC 0-2 /HPF (NONE SEEN) 05/11/17 18:22 Ur Squamous Epith Cells Rare /HPF (NEGATIVE) 05/11/17 18:22 Urine Bacteria Negative /HPF (NEGATIVE) 05/11/17 18:22 Ur Culture Indicated? No/not indicated 05/11/17 18:22 - Plan (1) Colovaginal fistula Status: Acute Plan: POSSIBLE COLOSTOMY TOMORROW, continue to monitor (2) Alzheimer disease Status: Chronic Qualifiers: Alzheimer's disease onset: unspecified onset Dementia behavioral disturbance: without behavioral disturbance Qualified Code(s): G30.9 - Alzheimer's disease, unspecified; F02.80 - Dementia in other diseases classified elsewhere without behavioral disturbance; F02.80 - Dementia in other diseases classified elsewhere without behavioral disturbance; F02.80 - Dementia in other diseases classified elsewhere without behavioral disturbance Plan: CONTINUE NAMENDA, CONTINUE TO MONITOR (3) Diabetes mellitus Status: Chronic Qualifiers: Diabetes mellitus type: type 2 Diabetes mellitus complication status: with unspecified complications Diabetes mellitus chcf insulin use: with termite control servicer use Qualified Code(s): E11.8 - Type 2 diabetes mellitus with unspecified complications; Z79.4 - senior living (current) use of insulin; Z79.4 - emt intermediate ( current) use of insulin; Z79.4 - emt intermediate (current) use of insulin; Z79.4 - senior living (current) use of insulin Plan: CONTINUE GLUCOPHAGE, CONTINUE TO MONITOR (4) CHF (congestive heart failure) Status: Chronic Qualifiers: Heart failure type: unspecified Heart failure chronicity: chronic Qualified Code(s): I50.9 - Heart failure, unspecified Plan: CONTINUE NORVASC, CONTIUE LOTENSIN, CONTINUE TO MONITOR (5) Hypertension Status: Chronic Qualifiers: Hypertension type: essential hypertension Qualified Code(s): I10 - Essential (primary) hypertension Plan: CONTINUE NORVASC, CONTIUE LOTENSIN, CONTINUE TO MONITOR (6) Hyperlipidemia Status: Acute Qualifiers: Hyperlipidemia type: mixed hyperlipidemia Qualified Code(s): E78.2 - Mixed hyperlipidemia Plan: CONTINUE LIPITOR, CONTINUE TO MONITOR
--- NOTE | 2017-05-14 11:34 | PCM.PROG ---
Progress Note - Progress Note for Day of Date: 05/13/17 - Subjective Subjective: WAS ADMITTED FOR A COLOVAGINAL FISTULA AND HYPERGLYCEMIA. PLANS TO TAKE PATIENT TO THE OR THIS MORNING FOR POSSIBLE COLOSTOMY. TODAY, SHE IS LYING IN BED WITH EYES CLOSED ON MORNING ROUNDS. ON EXAMINATION, HEART IS REGULAR IN RATE AND RHYTHM. BILATERAL LUNGS ARE NOTED WITH DIMINISHED LUNG SOUNDS THROUGHOUT. ABDOMEN IS ROUND, SOFT, AND NON-TENDER. NORMAL BOWEL SOUNDS NOTED IN ALL QUADRANTS. THERE IS A ELISE CATHETER NOTED TO BEDSIDE DRAINAGE. SHE CONTINUES WITH STOOL IN VAGINAL TRACT. HER VITALS THIS MORNING ARE 97.8-94-20-98%-144/69. LABS WERE OBTAINED. PATIENT REMAINS HEMODYNAMICALLY STABLE TODAY. WE WILL CONTINUE WITH CURRENT PLAN OF CARE AND IV ANTIBIOTICS TODAY AND WILL MONITOR PATIENT AFTER SHE RETURNS FROM SURGERY. WE PLAN TO FOLLOW UP WITH AM LABS AND CONTINUE TO MONITOR PATIENT. - Past Medical Family Social History Past Med/Fam/Surg Hx: No changes since H&P Allergies: Allergies No Known Drug Allergies Allergy (Verified 05/11/17 17:23) - Review of Systems ROS: No change since H&P - Vital Signs and I&O's Vital Signs: Temperature 98.7 F Pulse Rate [Apical] 73 Pulse Rate 67 Respiratory Rate 16 Blood Pressure [Right Arm] 118/58 Blood Pressure [Left Arm] 122/67 Blood Pressure 103/58 O2 Sat by Pulse Oximetry 98 Intake and Output: Intake & Output 05/11/17 05/12/17 05/13/17 05/14/17 11:59 11:59 11:59 11:59 Intake Total 850 3146 2400 Output Total 575 2800 3575 Balance 275 346 -1175 - Physical Exam Oriented: Not Oriented (dementia) Eyes: Normal. negative: Blurred Vision, Diplopia, Discharge, Pain, Redness, Photophobia, Other Ear: Normal. negative: Right, Left, Swelling, Ecchymosis, Hemotypanum, Abrasion , Laceration Nose: Normal. negative: Injected, Discharge, Blood, Other Throat: Normal. negative: Tonsillar Hypertrophy, Red, Exudate, Dry, Other Respiratory: Diminished Cardiovascular: Normal. negative: S3, S4, Murmur : Other (STOOL IN THE VAGINA ) Auscultation: Bowel Sounds: Normal. negative: Bruit, Absent, Increased, Decreased, High Pitched, Other Palpation: Normal Tenderness: Normal Skin: Normal Musculoskeletal: Normal Psychiatric: Normal Mood Description: Calm Affect: Normal Speech Pattern: Unclear, Delayed - Laboratory and Diagnostics Result Diagrams: 05/14/17 05:45 05/14/17 05:45 Labs: Laboratory WBC 9.4 X10^3/uL (3.6-10.0) 05/14/17 05:45 RBC 4.14 X10^6/uL (3.5-5.4) 05/14/17 05:45 Hgb 12.4 g/dL (12.0-16.0) 05/14/17 05:45 Hct 36.3 % (36.0-47.0) 05/14/17 05:45 MCV 87.5 fL (80.0-100.0) 05/14/17 05:45 MCH 30.0 pg (27.0-34.0) 05/14/17 05:45 MCHC 34.3 g/dL (33.0-35.0) 05/14/17 05:45 RDW 12.7 % (11.6-16.5) 05/14/17 05:45 Plt Count 238 X10^3/uL (150.0-450.0) 05/14/17 05:45 Plt Count Comment Adequate (ADEQUATE) 05/11/17 18:05 MPV 7.3 fL (7.4-11.0) L 05/14/17 05:45 Neut % 73.2 % (42.0-75.0) 05/14/17 05:45 Lymph % 18.0 % (21.0-51.0) L 05/14/17 05:45 [place] % 8.0 % (0.0-13.0) 05/14/17 05:45 Eos % 0.1 % (0.9-2.9) L 05/14/17 05:45 Baso % 0.7 % (0.2-1.0) 05/14/17 05:45 Neut # 6.9 x10^3/uL (2.2-4.8) H 05/14/17 05:45 Lymph # 1.7 X10^3/uL (1.3-2.9) 05/14/17 05:45 [place] # 0.8 x10^3/uL (0.3-0.8) 05/14/17 05:45 Eos # 0.0 x10^3/uL (0.0-0.2) 05/14/17 05:45 Baso # 0.1 X10^3/uL (0.0-0.1) 05/14/17 05:45 Absolute Nucleated RBC 0.0 /100WBC 05/14/17 05:45 Plt Clumps, EDTA Few 05/11/17 18:05 Plt Morphology Comment Normal (NORMAL) 05/11/17 18:05 RBC Morphology Normal (NORMAL) 05/11/17 18:05 Sodium 135 mmol/L (136-145) L 05/14/17 05:45 Corrected Sodium 136 mmol/L (136-145) 05/14/17 05:45 Potassium 4.6 mmol/L (3.5-5.1) 05/14/17 05:45 Chloride 103 mmol/L (98-107) 05/14/17 05:45 Carbon Dioxide 23.5 mmol/L (21-32) 05/14/17 05:45 BUN 7 mg/dL (7-18) 05/14/17 05:45 Creatinine 0.67 mg/dL (0.55-1.02) 05/14/17 05:45 Est GFR (MDRD) Af Amer > 60 (>60) 05/14/17 05:45 Est GFR (MDRD) Non-Af > 60 (>60) 05/14/17 05:45 Glucose 133 mg/dL (65-99) H 05/14/17 05:45 POC Glucose (mg/dL) 131 mg/dL (65-99) H 05/14/17 05:45 Calcium 9.3 mg/dL (8.5-10.1) 05/14/17 05:45 Corrected Calcium 10.3 mg/dL (8.5-10.1) H 05/14/17 05:45 Total Bilirubin 0.80 mg/dL (0.2-1.0) 05/14/17 05:45 AST 24 Units/L (15-37) 05/14/17 05:45 ALT 20 Units/L (12-78) 05/14/17 05:45 Alkaline Phosphatase 81 Units/L (46-116) 05/14/17 05:45 Total Protein 6.9 g/dL (6.4-8.2) 05/14/17 05:45 Albumin 2.8 g/dL (3.4-5.0) L 05/14/17 05:45 Globulin 4.1 g/dL (2.5-4.5) 05/14/17 05:45 Albumin/Globulin Ratio 0.7 Ratio (1.1-2.1) L 05/14/17 05:45 Amylase 45 Units/L (25-115) 05/11/17 18:05 Lipase 94 Units/L (73-393) 05/11/17 18:05 Specimen Type Catherized urine 05/11/17 18:22 Urine Color Yellow (YELLOW) 05/11/17 18:22 Urine Appearance Clear (CLEAR) 05/11/17 18:22 Urine pH 5.0 (5.0 - 8.0) 05/11/17 18:22 Ur Specific [place] 1.025 (1.000-1.030) 05/11/17 18:22 Urine Protein Negative (NEGATIVE) 05/11/17 18:22 Urine Glucose (UA) Negative (NEGATIVE) 05/11/17 18:22 Urine Ketones Negative (NEGATIVE) 05/11/17 18:22 Urine Occult Blood 2+ (NEGATIVE) 05/11/17 18:22 Urine Nitrite Negative (NEGATIVE) 05/11/17 18:22 Urine Bilirubin Negative (NEGATIVE) 05/11/17 18:22 Urine Urobilinogen 1+ (NORMAL) 05/11/17 18:22 Ur Leukocyte Esterase 1+ (NEGATIVE) 05/11/17 18:22 Urine RBC 3-7 /HPF (NONE SEEN) 05/11/17 18:22 Urine WBC 0-2 /HPF (NONE SEEN) 05/11/17 18:22 Ur Squamous Epith Cells Rare /HPF (NEGATIVE) 05/11/17 18:22 Urine Bacteria Negative /HPF (NEGATIVE) 05/11/17 18:22 Ur Culture Indicated? No/not indicated 05/11/17 18:22 - Plan (1) Colovaginal fistula Status: Acute Plan: POSSIBLE COLOSTOMY TODAY, continue to monitor (2) Alzheimer disease Status: Chronic Qualifiers: Alzheimer's disease onset: unspecified onset Dementia behavioral disturbance: without behavioral disturbance Qualified Code(s): G30.9 - Alzheimer's disease, unspecified; F02.80 - Dementia in other diseases classified elsewhere without behavioral disturbance; F02.80 - Dementia in other diseases classified elsewhere without behavioral disturbance; F02.80 - Dementia in other diseases classified elsewhere without behavioral disturbance Plan: CONTINUE NAMENDA, CONTINUE TO MONITOR (3) Diabetes mellitus Status: Chronic Qualifiers: Diabetes mellitus type: type 2 Diabetes mellitus complication status: with unspecified complications Diabetes mellitus usp insulin use: with buttermaker helper use Qualified Code(s): E11.8 - Type 2 diabetes mellitus with unspecified complications; Z79.4 - vermin exterminator (current) use of insulin; Z79.4 - vermin exterminator ( current) use of insulin; Z79.4 - vermin exterminator (current) use of insulin; Z79.4 - vermin exterminator (current) use of insulin Plan: CONTINUE GLUCOPHAGE, CONTINUE TO MONITOR (4) CHF (congestive heart failure) Status: Chronic Qualifiers: Heart failure type: unspecified Heart failure chronicity: chronic Qualified Code(s): I50.9 - Heart failure, unspecified Plan: CONTINUE NORVASC, CONTIUE LOTENSIN, CONTINUE TO MONITOR (5) Hypertension Status: Chronic Qualifiers: Hypertension type: essential hypertension Qualified Code(s): I10 - Essential (primary) hypertension Plan: CONTINUE NORVASC, CONTIUE LOTENSIN, CONTINUE TO MONITOR (6) Hyperlipidemia Status: Acute Qualifiers: Hyperlipidemia type: mixed hyperlipidemia Qualified Code(s): E78.2 - Mixed hyperlipidemia Plan: CONTINUE LIPITOR, CONTINUE TO MONITOR
[2017-05-14] MEDS: NAMENDA TAB 10 MG PO SCH ×2 (12:59→21:30)
[2017-05-14] MEDS: LOTENSIN TAB 10 MG PO SCH ×2 (12:59→21:30)
[2017-05-14] MEDS: NORVASC TAB 5 MG PO SCH ×2 (12:59→21:30)
[2017-05-14] MEDS: GLUCOPHAGE XR PO SCH ×2 (12:59→21:30)
[2017-05-14 20:07] LABS: HEMATOCRIT 38.7 % (36.0-47.0); HEMOGLOBIN 13.2 g/dL (12.0-16.0)
[2017-05-14] MEDS: LIPITOR TAB 20 MG PO SCH (21:30)
[2017-05-15] MEDS ORDERED: NS 100 ML IV 100 ML IV ONE (05:21)
[2017-05-15] MEDS ORDERED: NS 250 ML IV 250 ML IV ONE (05:36)
[2017-05-15] MEDS: NS 1/2 + KCL 20 MEQ/L 1,000 ML IV SCH ×3 (06:10→21:56)
[2017-05-15] MEDS: ZOSYN VIAL 3.375 GM 3.375 GM in NS 100 ML IV + SPIKE MINIBAG* 100 ML IV SCH (06:11)
[2017-05-15 06:18] LABS: BASOPHILS # (AUTO) 0.1 X10^3/uL (0.0-0.1); BASOPHILS % (AUTO) 0.9 % (0.2-1.0); EOSINOPHILS % (AUTO) 0.4 % (0.9-2.9); HEMOGLOBIN 12.3 g/dL (12.0-16.0); LYMPHOCYTES # (AUTO) 1.8 X10^3/uL (1.3-2.9); LYMPHOCYTES % (AUTO) 22.6 % (21.0-51.0); MEAN CORPUSCULAR HEMOGLOBIN 30.1 pg (27.0-34.0); MEAN CORPUSCULAR HGB CONC 34.2 g/dL (33.0-35.0); MEAN PLATELET VOLUME 7.3 fL (7.4-11.0); MONOCYTES # (AUTO) 0.8 x10^3/uL (0.3-0.8); MONOCYTES % (AUTO) 10.2 % (0.0-13.0); NEUTROPHILS # (AUTO) 5.3 x10^3/uL (2.2-4.8); NEUTROPHILS % (AUTO) 65.9 % (42.0-75.0); PLATELET COUNT 240 X10^3/uL (150.0-450.0); RED CELL DISTRIBUTION WIDTH 12.8 % (11.6-16.5)
[2017-05-15 06:28] LABS: ALANINE AMINOTRANSFERASE 19 Units/L (12-78); ALBUMIN 2.7 g/dL (3.4-5.0); ALKALINE PHOSPHATASE 81 Units/L (46-116); ASPARTATE AMINO TRANSFERASE 20 Units/L (15-37); BLOOD UREA NITROGEN 6 mg/dL (7-18); CALCIUM 9.6 mg/dL (8.5-10.1); CARBON DIOXIDE 21.9 mmol/L (21-32); CHLORIDE 101 mmol/L (98-107); COR CA(FOR HYPOALB) 10.6 mg/dL (8.5-10.1); COR NA(FOR HYPERGLY) 134 mmol/L (136-145); CREATININE 0.68 mg/dL (0.55-1.02); SODIUM 133 mmol/L (136-145); TOTAL PROTEIN 6.8 g/dL (6.4-8.2); eGFR BLACK RACES > 60 (>60); eGFR NON BLACK RACES > 60 (>60)
[2017-05-15] MEDS: GLUCOPHAGE XR PO SCH (09:19)
[2017-05-15] MEDS: NORVASC TAB 5 MG PO SCH ×2 (09:19→21:55)
[2017-05-15] MEDS: NAMENDA TAB 10 MG PO SCH ×2 (09:20→21:56)
[2017-05-15] MEDS: LOTENSIN TAB 10 MG PO SCH ×2 (09:20→21:55)
--- NOTE | 2017-05-15 12:27 | DR.PROGNOT ---
Hospital Progress Notes - Progress Note for Day of: Progress Note Date: 05/15/17 - Chief Complaint Chief Complaint: S/P diverting colostomy for colo- vaginal fistula day 2 . doing fairly well , no nausea or vomiting ,. small amount of stool in colostomy bag. will advance her diet . ok to d/c in am - Past Medical Family Social History Past Med/Fam/Surg Hx: No changes since H&P Allergies: Allergies No Known Drug Allergies Allergy (Verified 05/11/17 17:23) - Review Of Systems ROS: No change since H&P - Vital Signs Vital Signs: Temperature 99.8 F Pulse Rate [Apical] 83 Pulse Rate 67 Respiratory Rate 15 Blood Pressure [Right Arm] 122/65 Blood Pressure [Left Arm] 122/67 Blood Pressure 103/58 O2 Sat by Pulse Oximetry 97 - Physical Exam Oriented: Not Oriented (dementia) Eyes: Normal. negative: Blurred Vision, Diplopia, Discharge, Pain, Redness, Photophobia, Other Ear: Normal. negative: Right, Left, Swelling, Ecchymosis, Hemotypanum, Abrasion , Laceration Nose: Normal. negative: Injected, Discharge, Blood, Other Throat: Normal. negative: Tonsillar Hypertrophy, Red, Exudate, Dry, Other Respiratory: Diminished Cardiovascular: Normal. negative: S3, S4, Murmur : Other (STOOL IN THE VAGINA ) GI:Auscultation: Normal. negative: Bruit, Absent, Increased, Decreased, High Pitched, Other GI:Palpation: Normal GI: Tenderness: Normal (soft abdomrn with good BS . colostomy is functioning now.) Skin: Normal Musculoskeletal: Normal Psychiatric: Normal Mood Description: Calm Affect: Normal Speech Pattern: Unclear, Delayed - Laboratory and Diagnostics Result Diagrams: 05/15/17 05:55 05/15/17 05:55 Labs: Laboratory WBC 8.0 X10^3/uL (3.6-10.0) 05/15/17 05:55 RBC 4.10 X10^6/uL (3.5-5.4) 05/15/17 05:55 Hgb 12.3 g/dL (12.0-16.0) 05/15/17 05:55 Hct 36.0 % (36.0-47.0) 05/15/17 05:55 MCV 88.0 fL (80.0-100.0) 05/15/17 05:55 MCH 30.1 pg (27.0-34.0) 05/15/17 05:55 MCHC 34.2 g/dL (33.0-35.0) 05/15/17 05:55 RDW 12.8 % (11.6-16.5) 05/15/17 05:55 Plt Count 240 X10^3/uL (150.0-450.0) 05/15/17 05:55 Plt Count Comment Adequate (ADEQUATE) 05/11/17 18:05 MPV 7.3 fL (7.4-11.0) L 05/15/17 05:55 Neut % 65.9 % (42.0-75.0) 05/15/17 05:55 Lymph % 22.6 % (21.0-51.0) 05/15/17 05:55 [place] % 10.2 % (0.0-13.0) 05/15/17 05:55 Eos % 0.4 % (0.9-2.9) L 05/15/17 05:55 Baso % 0.9 % (0.2-1.0) 05/15/17 05:55 Neut # 5.3 x10^3/uL (2.2-4.8) H 05/15/17 05:55 Lymph # 1.8 X10^3/uL (1.3-2.9) 05/15/17 05:55 [place] # 0.8 x10^3/uL (0.3-0.8) 05/15/17 05:55 Eos # 0.0 x10^3/uL (0.0-0.2) 05/15/17 05:55 Baso # 0.1 X10^3/uL (0.0-0.1) 05/15/17 05:55 Absolute Nucleated RBC 0.0 /100WBC 05/15/17 05:55 Plt Clumps, EDTA Few 05/11/17 18:05 Plt Morphology Comment Normal (NORMAL) 05/11/17 18:05 RBC Morphology Normal (NORMAL) 05/11/17 18:05 Sodium 133 mmol/L (136-145) L 05/15/17 05:55 Corrected Sodium 134 mmol/L (136-145) L 05/15/17 05:55 Potassium 4.5 mmol/L (3.5-5.1) 05/15/17 05:55 Chloride 101 mmol/L (98-107) 05/15/17 05:55 Carbon Dioxide 21.9 mmol/L (21-32) 05/15/17 05:55 BUN 6 mg/dL (7-18) L 05/15/17 05:55 Creatinine 0.68 mg/dL (0.55-1.02) 05/15/17 05:55 Est GFR (MDRD) Af Amer > 60 (>60) 05/15/17 05:55 Est GFR (MDRD) Non-Af > 60 (>60) 05/15/17 05:55 Glucose 134 mg/dL (65-99) H 05/15/17 05:55 POC Glucose (mg/dL) 131 mg/dL (65-99) H 05/15/17 11:39 Calcium 9.6 mg/dL (8.5-10.1) 05/15/17 05:55 Corrected Calcium 10.6 mg/dL (8.5-10.1) H 05/15/17 05:55 Total Bilirubin 1.00 mg/dL (0.2-1.0) 05/15/17 05:55 AST 20 Units/L (15-37) 05/15/17 05:55 ALT 19 Units/L (12-78) 05/15/17 05:55 Alkaline Phosphatase 81 Units/L (46-116) 05/15/17 05:55 Total Protein 6.8 g/dL (6.4-8.2) 05/15/17 05:55 Albumin 2.7 g/dL (3.4-5.0) L 05/15/17 05:55 Globulin 4.1 g/dL (2.5-4.5) 05/15/17 05:55 Albumin/Globulin Ratio 0.7 Ratio (1.1-2.1) L 05/15/17 05:55 Amylase 45 Units/L (25-115) 05/11/17 18:05 Lipase 94 Units/L (73-393) 05/11/17 18:05 Specimen Type Catherized urine 05/11/17 18:22 Urine Color Yellow (YELLOW) 05/11/17 18:22 Urine Appearance Clear (CLEAR) 05/11/17 18:22 Urine pH 5.0 (5.0 - 8.0) 05/11/17 18:22 Ur Specific [place] 1.025 (1.000-1.030) 05/11/17 18:22 Urine Protein Negative (NEGATIVE) 05/11/17 18:22 Urine Glucose (UA) Negative (NEGATIVE) 05/11/17 18:22 Urine Ketones Negative (NEGATIVE) 05/11/17 18:22 Urine Occult Blood 2+ (NEGATIVE) 05/11/17 18:22 Urine Nitrite Negative (NEGATIVE) 05/11/17 18:22 Urine Bilirubin Negative (NEGATIVE) 05/11/17 18:22 Urine Urobilinogen 1+ (NORMAL) 05/11/17 18:22 Ur Leukocyte Esterase 1+ (NEGATIVE) 05/11/17 18:22 Urine RBC 3-7 /HPF (NONE SEEN) 05/11/17 18:22 Urine WBC 0-2 /HPF (NONE SEEN) 05/11/17 18:22 Ur Squamous Epith Cells Rare /HPF (NEGATIVE) 05/11/17 18:22 Urine Bacteria Negative /HPF (NEGATIVE) 05/11/17 18:22 Ur Culture Indicated? No/not indicated 05/11/17 18:22 - Assessment and Plan 1: colo vaginal fistula , s/p diverting colostomy. started on full liquid diet . could be d/c in am and will follow in the [facility] .. - Problem Patient Problems: Patient Problems Colovaginal fistula (Acute) N82.4 Hyperglycemia (Acute) R73.9 Hyperlipidemia (Acute) E78.5 Alzheimer disease (Chronic) G30.9 Diabetes mellitus (Chronic) E11.9
[2017-05-15] MEDS: ZOSYN VIAL 3.375 GM 3.375 GM in NS 100 ML IV 100 ML IV SCH ×2 (16:05→21:55)
[2017-05-15] MEDS: LIPITOR TAB 20 MG PO SCH (21:56)
[2017-05-16] MEDS: GLUCOPHAGE XR PO SCH ×2 (00:30→09:30)
[2017-05-16] MEDS: NS 1/2 + KCL 20 MEQ/L 1,000 ML IV SCH ×2 (04:50→13:13)
[2017-05-16] MEDS: ZOSYN VIAL 3.375 GM 3.375 GM in NS 100 ML IV 100 ML IV SCH (06:03)
[2017-05-16 06:12] LABS: BASOPHILS # (AUTO) 0.1 X10^3/uL (0.0-0.1); BASOPHILS % (AUTO) 0.6 % (0.2-1.0); HEMATOCRIT 42.1 % (36.0-47.0); HEMOGLOBIN 14.3 g/dL (12.0-16.0); LYMPHOCYTES # (AUTO) 0.9 X10^3/uL (1.3-2.9); LYMPHOCYTES % (AUTO) 8.6 % (21.0-51.0); MEAN CORPUSCULAR HEMOGLOBIN 29.8 pg (27.0-34.0); MEAN CORPUSCULAR HGB CONC 33.9 g/dL (33.0-35.0); MEAN CORPUSCULAR VOLUME 87.9 fL (80.0-100.0); MEAN PLATELET VOLUME 7.4 fL (7.4-11.0); MONOCYTES # (AUTO) 0.6 x10^3/uL (0.3-0.8); MONOCYTES % (AUTO) 5.7 % (0.0-13.0); NEUTROPHILS # (AUTO) 9.1 x10^3/uL (2.2-4.8); NEUTROPHILS % (AUTO) 85.1 % (42.0-75.0); PLATELET COUNT 305 X10^3/uL (150.0-450.0); RED BLOOD COUNT 4.79 X10^6/uL (3.5-5.4); RED CELL DISTRIBUTION WIDTH 12.8 % (11.6-16.5); WHITE BLOOD COUNT 10.7 X10^3/uL (3.6-10.0)
[2017-05-16 06:22] LABS: ALANINE AMINOTRANSFERASE 16 Units/L (12-78); ALBUMIN 2.6 g/dL (3.4-5.0); ALKALINE PHOSPHATASE 87 Units/L (46-116); ASPARTATE AMINO TRANSFERASE 16 Units/L (15-37); BLOOD UREA NITROGEN 11 mg/dL (7-18); CALCIUM 9.7 mg/dL (8.5-10.1); CARBON DIOXIDE 19.3 mmol/L (21-32); CHLORIDE 98 mmol/L (98-107); COR CA(FOR HYPOALB) 10.8 mg/dL (8.5-10.1); COR NA(FOR HYPERGLY) 133 mmol/L (136-145); CREATININE 0.69 mg/dL (0.55-1.02); SODIUM 131 mmol/L (136-145); TOTAL PROTEIN 7.1 g/dL (6.4-8.2); eGFR BLACK RACES > 60 (>60); eGFR NON BLACK RACES > 60 (>60)
[2017-05-16] MEDS: NORVASC TAB 5 MG PO SCH (09:30)
[2017-05-16] MEDS: NAMENDA TAB 10 MG PO SCH (09:30)
[2017-05-16] MEDS: LOTENSIN TAB 10 MG PO SCH (09:30)
[2017-05-16 12:33] VITALS: BP 132/80
== END 2017-05-16 12:45 | DRG 395 ==
LOC: ER 16:01 → ICU 20:26 → MED/SURG 20:26 → UNDOADMIN 20:26
PROVIDERS: ADMIT Internal Medicine; ATTEND Internal Medicine
PROC: 0D1L0Z4 Bypass Transverse Colon to Cutaneous, Open Approach (ICD-10-PCS; principal; 2017-05-12)
DX: N82.4 Other female intestinal-genital tract fistulae (principal); E11.65 Type 2 diabetes mellitus with hyperglycemia; G30.8 Other Alzheimer's disease; F02.80 Dementia in other diseases classified elsewhere, unspecified severity, without behavioral disturbance, psychotic disturbance, mood disturbance, and anxiety; E78.2 Mixed hyperlipidemia; I10 Essential (primary) hypertension; Z79.4 Long term (current) use of insulin; I50.9 Heart failure, unspecified
CPT/HCPCS: 36415; 71045; 74176; 80053; 81001; 82150; 83690; 85014; 85018; 85025; 93005; 99100; 99283; 99285; A4216; A4222; J7030; J0330; J0690; J1170; J2270; J2543; J2710; J3010; J3490; J7120

== ENCOUNTER → 2017-05-17 | Outpatient (CLI) | payer OTHER, MEDICAID ==
[2017-05-16 12:33] VITALS: BP 132/80
[~2017-05-17] MED LIST: ZOSYN VIAL 3.375 GM IV ONE
--- NOTE | 2017-05-17 11:01 | RAD ---
Examination: KUB History: Postop fistula repair Findings: There is gaseous dilatation of scattered segments of small bowel and colon. No extraluminal air is detected. No mass formation or visceral enlargement is noted. The retroperitoneal structures are obscured by bowel content. Impression: Nonobstructive intestinal distention. Reported By:
== END | disposition home or self-care (01) | DRG 392 ==
LOC: RAD 09:48
PROVIDERS: ATTEND Internal Medicine
DX: R11.2 Nausea with vomiting, unspecified (principal); K63.89 Other specified diseases of intestine
CPT/HCPCS: 74018

== ENCOUNTER 2017-05-23 11:09 | Day surgery (SDC) | payer OTHER, MEDICAID ==
[~2017-05-23 11:09] MED LIST changes: +D5 LR 1000 ML 1,000 ML IV ONE; -ZOSYN VIAL 3.375 GM IV ONE
[2017-05-23] MEDS ORDERED: DIPRIVAN VIAL 20 ML ONE (12:30)
[2017-05-23 13:35] VITALS: BP 133/70
[2017-05-23] MEDS ORDERED: ANCEF VIAL 1 GM ONE (14:15)
[2017-05-26] MEDS ORDERED: ZOSYN VIAL 3.375 GM IV ONE (21:40)
[2017-05-26] MEDS ORDERED: NS 100 ML IV + SPIKE MINIBAG* 100 ML IV ONE (21:43)
[2017-05-30] MEDS ORDERED: ZOSYN VIAL 3.375 GM IV ONE (00:39)
== END 2017-05-23 13:25 | DRG 392 ==
LOC: SURG1 11:09
PROVIDERS: ATTEND Internal Medicine Gastroenterology
PROC: 0DH63UZ Insertion of Feeding Device into Stomach, Percutaneous Approach (ICD-10-PCS; 2017-05-23)
PROC: 0DJ08ZZ Inspection of Upper Intestinal Tract, Via Natural or Artificial Opening Endoscopic (ICD-10-PCS; principal; 2017-05-23 18:00)
DX: R13.19 Other dysphagia (principal); K29.60 Other gastritis without bleeding; R63.8 Other symptoms and signs concerning food and fluid intake; K29.80 Duodenitis without bleeding
CPT/HCPCS: 99100; A4217; J0690; J2543; J3490; J7120

== ENCOUNTER 2017-10-22 17:36 | Observation (INO) ==
[2017-10-22] MEDS ORDERED: ZOFRAN INJ 4 MG VIAL IVP PRN (18:46)
[2017-10-22 19:21] LABS: BASOPHILS # (AUTO) 0.1 X10^3/uL (0.0-0.1); BASOPHILS % (AUTO) 0.4 % (0.2-1.0); HEMATOCRIT 43.5 % (36.0-47.0); HEMOGLOBIN 14.6 g/dL (12.0-16.0); LYMPHOCYTES # (AUTO) 0.9 X10^3/uL (1.3-2.9); LYMPHOCYTES % (AUTO) 6.7 % (21.0-51.0); MEAN CORPUSCULAR HEMOGLOBIN 30.3 pg (27.0-34.0); MEAN CORPUSCULAR HGB CONC 33.6 g/dL (33.0-35.0); MEAN CORPUSCULAR VOLUME 90.3 fL (80.0-100.0); MEAN PLATELET VOLUME 7.9 fL (7.4-11.0); MONOCYTES # (AUTO) 0.8 x10^3/uL (0.3-0.8); MONOCYTES % (AUTO) 6.6 % (0.0-13.0); NEUTROPHILS % (AUTO) 86.3 % (42.0-75.0); PLATELET COUNT 357 X10^3/uL (150.0-450.0); RED BLOOD COUNT 4.82 X10^6/uL (3.5-5.4); RED CELL DISTRIBUTION WIDTH 13.7 % (11.6-16.5); WHITE BLOOD COUNT 12.7 X10^3/uL (3.6-10.0)
[2017-10-22 19:32] LABS: ALANINE AMINOTRANSFERASE 26 Units/L (12-78); ALBUMIN 3.7 g/dL (3.4-5.0); ALKALINE PHOSPHATASE 93 Units/L (46-116); ASPARTATE AMINO TRANSFERASE 18 Units/L (15-37); BLOOD UREA NITROGEN 27 mg/dL (7-18); CALCIUM 11.7 mg/dL (8.5-10.1); CARBON DIOXIDE 29.3 mmol/L (21-32); CHLORIDE 99 mmol/L (98-107); COR NA(FOR HYPERGLY) 142 mmol/L (136-145); CREATININE 0.87 mg/dL (0.55-1.02); SODIUM 136 mmol/L (136-145); TOTAL PROTEIN 8.4 g/dL (6.4-8.2); eGFR NON BLACK RACES > 60 (>60)
[2017-10-22] MEDS: NS 1000 ML 1,000 ML IV SCH (21:09)
[2017-10-22] MEDS: PEPCID 20 MG IV PREMIX* 20 MG/50 ML BAG IV SCH ×2 (21:10→21:12)
[2017-10-22] MEDS: HumuLIN R SC PRN (21:10)
[2017-10-22] MEDS: PROTONIX INJ 40 MG VIAL IVP SCH (21:11)
[2017-10-22] MEDS ORDERED: LOPRESSOR TAB 25 MG PO ONE (22:43)
[2017-10-23 05:48] LABS: BASOPHILS # (AUTO) 0.1 X10^3/uL (0.0-0.1); BASOPHILS % (AUTO) 0.6 % (0.2-1.0); HEMATOCRIT 39.9 % (36.0-47.0); HEMOGLOBIN 13.4 g/dL (12.0-16.0); LYMPHOCYTES # (AUTO) 2.3 X10^3/uL (1.3-2.9); LYMPHOCYTES % (AUTO) 17.2 % (21.0-51.0); MEAN CORPUSCULAR HEMOGLOBIN 30.3 pg (27.0-34.0); MEAN CORPUSCULAR HGB CONC 33.7 g/dL (33.0-35.0); MEAN CORPUSCULAR VOLUME 89.9 fL (80.0-100.0); MONOCYTES # (AUTO) 1.5 x10^3/uL (0.3-0.8); MONOCYTES % (AUTO) 11.2 % (0.0-13.0); NEUTROPHILS # (AUTO) 9.4 x10^3/uL (2.2-4.8); PLATELET COUNT 275 X10^3/uL (150.0-450.0); RED BLOOD COUNT 4.44 X10^6/uL (3.5-5.4); RED CELL DISTRIBUTION WIDTH 13.7 % (11.6-16.5); WHITE BLOOD COUNT 13.3 X10^3/uL (3.6-10.0)
[2017-10-23 06:09] LABS: ALANINE AMINOTRANSFERASE 24 Units/L (12-78); ALBUMIN 3.1 g/dL (3.4-5.0); ALKALINE PHOSPHATASE 78 Units/L (46-116); ASPARTATE AMINO TRANSFERASE 23 Units/L (15-37); BLOOD UREA NITROGEN 29 mg/dL (7-18); CARBON DIOXIDE 26.7 mmol/L (21-32); CHLORIDE 105 mmol/L (98-107); COR CA(FOR HYPOALB) 11.7 mg/dL (8.5-10.1); COR NA(FOR HYPERGLY) 140 mmol/L (136-145); CREATININE 0.63 mg/dL (0.55-1.02); SODIUM 139 mmol/L (136-145); TOTAL PROTEIN 7.4 g/dL (6.4-8.2); eGFR NON BLACK RACES > 60 (>60)
--- NOTE | 2017-10-23 06:49 | RAD ---
HISTORY: Nausea, vomiting Study: KUB Comparison: 10/22/2017 Findings: There is a gastrostomy tube present. The abdominal gas pattern is nonspecific and nonobstructive. No abnormal masses or abnormal calcifications are identified. The regional skeleton is intact. IMPRESSION: No significant abnormality identified Reported By:
[2017-10-23] MEDS: PEPCID 20 MG IV PREMIX* 20 MG/50 ML BAG IV SCH ×2 (09:01→20:51)
[2017-10-23] MEDS: PROTONIX INJ 40 MG VIAL IVP SCH ×2 (09:02→20:51)
[2017-10-23] MEDS: NS 1000 ML 1,000 ML IV SCH ×2 (11:26→20:50)
[2017-10-23] MEDS: HumuLIN R SC PRN (12:03)
--- NOTE | 2017-10-23 18:42 | DR.CONSULT ---
Consult - Consultation for Day of: Date: 10/23/17 - Chief Complaint Chief Complaint: Patient referred for coffee ground emesis and peg tube complications. Patient with AMS and will not respond to questions - History of Present Illness History of Present Illness: Patient is a 77yo femalw who was referred for coffee ground emesis and peg tube complications. Patient with AMS and will not respond to questions. Patient was taken to the ER on 10/21/17 due to pulling gastrostomy tube out. gastrostomy tube was replaced in ER, Patient was then taken to the ER on 10/22/17 due to coffee ground emesis that started on 10/21/17. Patient has not had any more coffee ground emesis since admission. gastrostomy tube noted in place without reddness or edema. Patient also noted with colostomy in place that was placed due to colovaginal fistula. Last EGD was 05/23 which showed erosive gastritis and duodenitis and gastrostomy tube was placed at this time. Unable to obtian review of systems. Hgb stable at 13.4 - Past Medical History Past Medical History: Hypertension, Dyslipidemia, Alzheimers, Dementia, Arthritis, CHF Additional Medical History: H/O colovaginal fistula - Past Surgical History Surgical History: Ortho Surgery, Other Additional Surgical History: Complete diverting colostomy of transverse colon - Family History Family Medical History: Diabetes Mellitus, Cancer, Hypertension - Social History Does patient currently use any type of tobacco product: No Have you used tobacco products in the last 12 months: No Type of Tobacco Use: None Does any household member use tobacco: No Alcohol Use: None Drug Use: None - Medications Home Medications: No Known Drug Allergies Allergy (Verified 10/22/17 21:23) CONTINUE taking the following medications amlodipine 5 mg FEEDING TUBE BID 10/22/17 [History] atorvastatin 20 mg FEEDING TUBE HS 10/22/17 [History] memantine 10 mg FEEDING TUBE BID 10/22/17 [History] metformin 500 mg PO BID 10/22/17 [History] metoprolol tartrate 25 mg FEEDING TUBE BID 10/22/17 [History] - Physical Exam Vital Signs: Temperature 98.9 F Pulse Rate [Left Radial] 99 Respiratory Rate 16 Blood Pressure [Right Arm] 115/66 Blood Pressure [Left Arm] 122/67 Blood Pressure 164/84 O2 Sat by Pulse Oximetry 97 Oriented: Unable to test Eyes: Normal Ear: Normal Nose: Normal Throat: Normal Respiratory: Clear Throughout Cardiovascular: Normal : Normal Auscultation: Bowel Sounds: Normal Palpation: Normal. negative: Spleen Enlarged, Liver Enlarged, Mass Pulsatile Tenderness: Normal, Other (gastrostomy tube noted in place, colostomy noted in palce as well) Skin: Normal - Plan Plan: Assessment. 1. Coffee ground emesis r/o gastric ulcer, gastric adenocarcinoma. 2. gastrostomy tube malfunction. 3. GERD. Plan. 1. EGD in am , Hold gastrostomy tube feedings until EGD, Monitor Hgb, Transfuse as needed. 2. Protonix IV. Plan reviewed with Dr. Hatfield - Allergies Allergies/Adverse Reactions: Allergies Allergy/AdvReac Type Severity Reaction Status Date / Time No Known Drug Allergies Allergy Verified 10/22/17 21:23
--- NOTE | 2017-10-23 21:42 | DR.H&P ---
H&P - History & Physical for Day of: H&P Date: 10/22/17 - Chief Complaint Chief Complaint: COFFEE GROUND EMESIS - History of Present Illness History of Present Illness: IS A 77 YEAR OLD PATIENT OF OURS. SHE IS A RESIDENT OF [facility]. PATIENT PRESENTED A DIRECT ADMISSION WITH [facility] COMPLAINING OF PATIENT HAVING COFFEE GROUND EMESIS. SHE WAS TAKEN TO THE ER ON 10/21/17 DUE TO PULLING GASTRSTOMY TUBE OUT. TUBE WAS REPLACED IN THE ER. STAFF REPORTS THAT SHE BEGAN WITH COFFEE GROUND EMESIS TODAY. ON ADMISSION, GASTROSTOMY TUBE IS IN [place] WITH NO REDNESS OR EDEMA NOTED TO SITE. SHE IS ALSO NOTED WITH A COLOSTOMY IN PLACE. ON ARRIVAL, VITALS WERE 97.1-125-22-92%-143/78. LABS WERE OBTAINED. ABNORMAL LAB VALUES INCLUDE THE FOLLOWING: WBC 12.7, BUN 27, GLUCOSE 364, CALCIUUM 11.7, TOTAL PROTEIN 8.4, GLOBULIN 4.7. KUB OBTAINED AND REVEALED NO SIGNIFICACNT ABNORMALITY IDENTIFIED. WE ORDERED FOR STAFF TO COLLECT EMESIS FOR GASTROOCCULT. WE STARTED PATIENT ON PEPCID, PROTONIX, AND NORMAL SALINE AT 80ML/HR. WE PLAN TO MONITOR H&H AND CONSULT , SAND CUTTER. OTHERWISE, WE WILL FOLLOW UP WITH AM LABS AND CONTINUE TO MONITOR PATIENT. - Past Medical History Past Medical History: Hypertension, Dyslipidemia, Alzheimers, Dementia, Arthritis, CHF Additional Medical History: H/O colovaginal fistula - Past Surgical History Surgical History: Ortho Surgery, Other Additional Surgical History: Complete diverting colostomy of transverse colon - Family History Family Medical History: Diabetes Mellitus, Cancer, Hypertension - Social History Does patient currently use any type of tobacco product: No Have you used tobacco products in the last 12 months: No Type of Tobacco Use: None Does any household member use tobacco: No Alcohol Use: None Drug Use: None - Medications Home Medications: No Known Drug Allergies Allergy (Verified 10/22/17 21:23) CONTINUE taking the following medications amlodipine 5 mg FEEDING TUBE BID 10/22/17 [History] atorvastatin 20 mg FEEDING TUBE HS 10/22/17 [History] memantine 10 mg FEEDING TUBE BID 10/22/17 [History] metformin 500 mg PO BID 10/22/17 [History] metoprolol tartrate 25 mg FEEDING TUBE BID 10/22/17 [History] - Review of Systems Constitutional: No Symptoms Reported Eyes: No Symptoms Reported ENT: No Symptoms Reported Respiratory: No Symptoms Reported Cardiovascular: No Symptoms Reported Gastrointestinal: Nausea, Vomiting Genitourinary: No Symptoms Reported Musculoskeletal: No Symptoms Reported Skin: No Symptoms Reported Neurological: Other (ALTERED MENTAL STATUS ) - Physical Exam Vital Signs: Temperature 99.7 F Pulse Rate [Left Radial] 102 Respiratory Rate 18 Blood Pressure [Right Arm] 131/66 Blood Pressure [Left Arm] 122/67 Blood Pressure 164/84 O2 Sat by Pulse Oximetry 98 Oriented: Unable to test Eyes: Normal Ear: Normal Nose: Normal Throat: Normal Respiratory: Diminished Throughout Cardiovascular: Tachycardia. negative: S3, S4, Murmur : Normal Auscultation: Bowel Sounds: Normal Palpation: Normal Tenderness: Normal Skin: Normal Musculoskeletal: Normal Psychiatric: Other (AMS) Mood Description: Calm Affect: Normal - Assessment/Plan (1) Nausea & vomiting Qualifiers: Vomiting type: hematemesis Qualified Code(s): K92.0 - Hematemesis Status: Acute Plan: ADMIT, GASTROOCCULT, MONITOR H&H, CONSULT GI, CONTINUE TO MONITOR (2) Altered mental status Qualifiers: Altered mental status type: transient alteration of awareness Qualified Code(s): R40.4 - Transient alteration of awareness Status: Acute - Allergies Allergies/Adverse Reactions: Allergies Allergy/AdvReac Type Severity Reaction Status Date / Time No Known Drug Allergies Allergy Verified 10/22/17 21:23
[2017-10-24 06:11] LABS: BASOPHILS # (AUTO) 0.1 X10^3/uL (0.0-0.1); EOSINOPHILS % (AUTO) 0.3 % (0.9-2.9); HEMATOCRIT 37.9 % (36.0-47.0); HEMOGLOBIN 12.6 g/dL (12.0-16.0); LYMPHOCYTES # (AUTO) 2.9 X10^3/uL (1.3-2.9); LYMPHOCYTES % (AUTO) 33.8 % (21.0-51.0); MEAN CORPUSCULAR HEMOGLOBIN 30.3 pg (27.0-34.0); MEAN CORPUSCULAR HGB CONC 33.3 g/dL (33.0-35.0); MEAN CORPUSCULAR VOLUME 90.9 fL (80.0-100.0); MONOCYTES # (AUTO) 0.8 x10^3/uL (0.3-0.8); MONOCYTES % (AUTO) 9.3 % (0.0-13.0); NEUTROPHILS # (AUTO) 4.8 x10^3/uL (2.2-4.8); NEUTROPHILS % (AUTO) 55.6 % (42.0-75.0); PLATELET COUNT 236 X10^3/uL (150.0-450.0); RED BLOOD COUNT 4.17 X10^6/uL (3.5-5.4); RED CELL DISTRIBUTION WIDTH 13.9 % (11.6-16.5); WHITE BLOOD COUNT 8.6 X10^3/uL (3.6-10.0)
[2017-10-24 06:23] VITALS: BMI 23.3
[2017-10-24 06:45] LABS: ALANINE AMINOTRANSFERASE 20 Units/L (12-78); ALBUMIN 2.9 g/dL (3.4-5.0); ALKALINE PHOSPHATASE 72 Units/L (46-116); ASPARTATE AMINO TRANSFERASE 22 Units/L (15-37); BLOOD UREA NITROGEN 15 mg/dL (7-18); CALCIUM 9.9 mg/dL (8.5-10.1); CARBON DIOXIDE 25.5 mmol/L (21-32); CHLORIDE 110 mmol/L (98-107); COR CA(FOR HYPOALB) 10.8 mg/dL (8.5-10.1); COR NA(FOR HYPERGLY) 145 mmol/L (136-145); CREATININE 0.62 mg/dL (0.55-1.02); SODIUM 144 mmol/L (136-145); TOTAL PROTEIN 6.8 g/dL (6.4-8.2); eGFR NON BLACK RACES > 60 (>60)
[2017-10-24] MEDS ORDERED: POTASSIUM CHL 60 MEQ/NS 0.45% 500 ML IV PRN (07:14)
[2017-10-24] MEDS ORDERED: POTASSIUM CHL 40 MEQ/NS 0.45% 500 ML IV PRN (07:14)
[2017-10-24] MEDS ORDERED: POTASSIUM CHLORIDE LIQ 20 MEQ UDC PO PRN (07:14)
[2017-10-24] MEDS ORDERED: K-RIDER 10 MEQ/NS 100 ML 10 MEQ/100 ML BAG IV PRN (07:14)
[2017-10-24] MEDS ORDERED: K-LYTE EFFERVESCENT PO PRN (07:14)
[2017-10-24] MEDS: PROTONIX INJ 40 MG VIAL IVP SCH (08:25)
[2017-10-24] MEDS: PEPCID 20 MG IV PREMIX* 20 MG/50 ML BAG IV SCH (08:25)
[2017-10-24] MEDS: NS 1000 ML 1,000 ML IV SCH ×2 (10:07→15:06)
[2017-10-24] MEDS ORDERED: DIPRIVAN VIAL 20 ML ONE (12:41)
[2017-10-24 16:04] VITALS: BP 126/86
--- NOTE | 2017-11-04 08:29 | PCM.PROG ---
Progress Note - Progress Note for Day of Date of Exam: 10/23/17 - Subjective Subjective: WAS ADMITTED FOR REPORTS OF COFFEE GROUND EMESIS AND PEG TUBE COMPLICATIONS. TODAY, SHE IS LYING IN BED WITH EYES CLOSED ON MORNING ROUNDS. SHE IS RESPONSIVE TO VERBAL STIMULI. STAFF AND FAMILY DENY COFFEE GROUND EMESIS SINCE ADMISSION. ON EXAMINATION, HEART IS REGULAR IN RATE AND RHYTHM. BILATERAL LUNGS ARE NOTED WITH DIMINISHED LUNG SOUNDS THROUGHOUT. ABDOMEN IS ROUND, SOFT, AND NOTED WITH A COLOSTOMY AND GASTROSTOMY TUBE IN PLACE WITHOUT REDNESS OR EDEMA. HER VITALS THIS MORNING WERE 99.1-98-20-97%-148/ 67. LABS WERE OBTAINED THIS MORNING. ABNORMAL LAB VALUES INCLUDE THE FOLLOWING: WBC 13.3, BUN 29, GLUCOSE 151, ALBUMIN 3.1. A KUB WAS OBTAINED THIS MORNING AND REVEALED: There is a gastrostomy tube present. The abdominal gas pattern is nonspecific and nonobstructive. No abnormal masses or abnormal calcifications are identified. The regional skeleton is intact. WILL CONSULT WITH PATIENT TODAY. OTHERWISE, WE WILL CONTINUE TO MONITOR H&H AND VITALS. WE WILL FOLLOW UP WITH AM LABS. - Past Medical Family Social History Past Med/Fam/Surg Hx: No changes since H&P Allergies: Allergies No Known Drug Allergies Allergy (Verified 10/22/17 21:23) - Review of Systems ROS: No change since H&P - Vital Signs and I&O's Vital Signs: Temperature 98.2 F Pulse Rate [Left Radial] 92 Respiratory Rate 18 Blood Pressure [Right Arm] 126/86 Blood Pressure [Left Arm] 122/67 Blood Pressure 164/84 O2 Sat by Pulse Oximetry 97 - Physical Exam Oriented: Unable to test Eyes: Normal Ear: Normal Nose: Normal Throat: Normal Respiratory: Normal Cardiovascular: Normal. negative: S3, S4, Murmur : Normal Auscultation: Bowel Sounds: Normal Palpation: Normal Tenderness: Normal Skin: Normal Musculoskeletal: Normal Psychiatric: Other (AMS) Mood Description: Calm Affect: Normal Speech Pattern: Unclear - Laboratory and Diagnostics Result Diagrams: 10/24/17 05:30 10/24/17 16:10 Labs: Laboratory WBC 8.6 X10^3/uL (3.6-10.0) 10/24/17 05:30 RBC 4.17 X10^6/uL (3.5-5.4) 10/24/17 05:30 Hgb 12.6 g/dL (12.0-16.0) 10/24/17 05:30 Hct 37.9 % (36.0-47.0) 10/24/17 05:30 MCV 90.9 fL (80.0-100.0) 10/24/17 05:30 MCH 30.3 pg (27.0-34.0) 10/24/17 05:30 MCHC 33.3 g/dL (33.0-35.0) 10/24/17 05:30 RDW 13.9 % (11.6-16.5) 10/24/17 05:30 Plt Count 236 X10^3/uL (150.0-450.0) 10/24/17 05:30 MPV 8.0 fL (7.4-11.0) 10/24/17 05:30 Neut % (Auto) 55.6 % (42.0-75.0) 10/24/17 05:30 Lymph % (Auto) 33.8 % (21.0-51.0) 10/24/17 05:30 [place] % (Auto) 9.3 % (0.0-13.0) 10/24/17 05:30 Eos % (Auto) 0.3 % (0.9-2.9) L 10/24/17 05:30 Baso % (Auto) 1.0 % (0.2-1.0) 10/24/17 05:30 Neut # (Auto) 4.8 x10^3/uL (2.2-4.8) 10/24/17 05:30 Lymph # (Auto) 2.9 X10^3/uL (1.3-2.9) 10/24/17 05:30 [place] # (Auto) 0.8 x10^3/uL (0.3-0.8) 10/24/17 05:30 Eos # (Auto) 0.0 x10^3/uL (0.0-0.2) 10/24/17 05:30 Baso # (Auto) 0.1 X10^3/uL (0.0-0.1) 10/24/17 05:30 Absolute Nucleated RBC 0.0 /100WBC 10/24/17 05:30 Sodium 144 mmol/L (136-145) 10/24/17 05:30 Corrected Sodium 145 mmol/L (136-145) 10/24/17 05:30 Potassium 3.4 mmol/L (3.5-5.1) L 10/24/17 16:10 Chloride 110 mmol/L (98-107) H 10/24/17 05:30 Carbon Dioxide 25.5 mmol/L (21-32) 10/24/17 05:30 BUN 15 mg/dL (7-18) 10/24/17 05:30 Creatinine 0.62 mg/dL (0.55-1.02) 10/24/17 05:30 Est GFR (MDRD) Af Amer > 60 (>60) 10/24/17 05:30 Est GFR (MDRD) Non-Af > 60 (>60) 10/24/17 05:30 Glucose 149 mg/dL (65-99) H 10/24/17 05:30 POC Glucose (mg/dL) 135 mg/dL (65-99) H 10/24/17 11:15 Calcium 9.9 mg/dL (8.5-10.1) 10/24/17 05:30 Corrected Calcium 10.8 mg/dL (8.5-10.1) H 10/24/17 05:30 Magnesium 1.8 mg/dL (1.7-2.9) 10/24/17 05:30 Total Bilirubin 0.60 mg/dL (0.2-1.0) 10/24/17 05:30 AST 22 Units/L (15-37) 10/24/17 05:30 ALT 20 Units/L (12-78) 10/24/17 05:30 Alkaline Phosphatase 72 Units/L (46-116) 10/24/17 05:30 Total Protein 6.8 g/dL (6.4-8.2) 10/24/17 05:30 Albumin 2.9 g/dL (3.4-5.0) L 10/24/17 05:30 Globulin 3.9 g/dL (2.5-4.5) 10/24/17 05:30 Albumin/Globulin Ratio 0.7 Ratio (1.1-2.1) L 10/24/17 05:30 - Plan (1) Nausea & vomiting Status: Acute Qualifiers: Vomiting type: hematemesis Qualified Code(s): K92.0 - Hematemesis Plan: PEPCID, PROTONIX, GASTROOCCULT, MONITOR H&H, CONSULT GI, CONTINUE TO MONITOR (2) Altered mental status Status: Acute Qualifiers: Altered mental status type: transient alteration of awareness Qualified Code(s): R40.4 - Transient alteration of awareness Plan: CONTINUE TO MONITOR
--- NOTE | 2017-12-03 21:49 | DR.CARTERD ---
- Discharge Summary for: Discharge Summary for Date of:: 10/24/17 - Admission Date Date of Admission: 10/22/17 - Admission Diagnoses Admission Diagnosis: (1) Altered mental status (2) Nausea & vomiting - Discharge Date Discharge Date: 10/24/17 - Discharge Diagnoses Discharge Diagnosis: (1) Altered mental status (2) Nausea & vomiting - Hospital Course Hospital Course: DAY ONE, MS. CHAVEZ IS A 77 YEAR OLD PATIENT OF OURS. SHE IS A RESIDENT OF [facility]. PATIENT PRESENTED A DIRECT ADMISSION WITH [facility] COMPLAINING OF PATIENT HAVING COFFEE GROUND EMESIS. SHE WAS TAKEN TO THE ER ON 10/21/17 DUE TO PULLING GASTROSTOMY TUBE OUT. TUBE WAS REPLACED IN THE ER. STAFF REPORTED THAT SHE BEGAN WITH COFFEE GROUND EMESIS THIS DAY. ON ADMISSION, GASTROSTOMY TUBE WAS IN [place] WITH NO REDNESS OR EDEMA NOTED TO SITE. SHE WAS ALSO NOTED WITH A COLOSTOMY IN PLACE. ON ARRIVAL, VITALS WERE 97.1-125-22-92%- 143/78. LABS WERE OBTAINED. ABNORMAL LAB VALUES INCLUDED THE FOLLOWING: WBC 12.7 , BUN 27, GLUCOSE 364, CALCIUUM 11.7, TOTAL PROTEIN 8.4, GLOBULIN 4.7. KUB OBTAINED AND REVEALED NO SIGNIFICACNT ABNORMALITY IDENTIFIED. WE ORDERED FOR STAFF TO COLLECT EMESIS FOR GASTROOCCULT. WE STARTED PATIENT ON PEPCID, PROTONIX , AND NORMAL SALINE AT 80ML/HR. WE MONITOR H&H AND CONSULTED , BAGMAN/WOMAN. WE CONTINUED TO MONITOR PATIENT. DAY TWO, MS. BURROWS WAS ADMITTED FOR REPORTS OF COFFEE GROUND EMESIS AND PEG TUBE COMPLICATIONS. SHE WAS LYING IN BED WITH EYES CLOSED ON MORNING ROUNDS. SHE WAS RESPONSIVE TO VERBAL STIMULI. STAFF AND FAMILY DENIED COFFEE GROUND EMESIS SINCE ADMISSION. ON EXAMINATION, HEART WAS REGULAR IN RATE AND RHYTHM. BILATERAL LUNGS WERE NOTED WITH DIMINISHED LUNG SOUNDS THROUGHOUT. ABDOMEN WAS ROUND, SOFT, AND NOTED WITH A COLOSTOMY AND GASTROSTOMY TUBE IN PLACE WITHOUT REDNESS OR EDEMA. HER VITALS WERE 99.1-98-20-97%-148/67. LABS WERE OBTAINED. ABNORMAL LAB VALUES INCLUDED THE FOLLOWING: WBC 13.3, BUN 29, GLUCOSE 151, ALBUMIN 3.1. A KUB WAS OBTAINED AND REVEALED: There is a gastrostomy tube present. The abdominal gas pattern is nonspecific and nonobstructive. No abnormal masses or abnormal calcifications are identified. The regional skeleton is intact. TONNY COHEN WITH DR. LOO CONSULTED WITH PATIENT AND RECOMMENDED EGD THE FOLLOWING MORNING. WE WERE IN AGREEMENT AND HELD TUBE FEEDINGS. WE CONTINUED TO MONITOR H&H AND VITALS. DAY THREE, PATIENT WAS TAKEN TO THE OR FOR EGD PER DR. LOO. DR. LOO REPORTED : ESOPHAGEAL ULCERS AFFECTING THE LOWER HALF OF THE ESOPHAGUS, LARGE HIATAL HERNIA, ANTRAL GASTRITIS; THE GASTROSTOMY TUBE WAS IN GOOD POSITION. DR. LOO ALSO RECOMMENDED TO CONTINUE PATIENT ON TUBE FEEDINGS AND PPI UPON DISCHARGE. PATIENT NOTED WITH NO FURTHER COFFEE GROUND EMESIS. WE PLANNED FOR DISCHARGE. INSTRUCTIONS FOR MEDICATIONS AND FOLLOW UP WERE DISCUSSED WITH PATIENT AND FAMILY, BOTH VOICED UNDERSTANDING. PATIENT DISCHARGED TO [facility] IN STABLE CONDITION WITH STAFF. - Discharge Medications Discharge Medications: Home Medication List amlodipine 5 mg FEEDING TUBE BID 10/22/17 [History] atorvastatin 20 mg FEEDING TUBE HS 10/22/17 [History] memantine 10 mg FEEDING TUBE BID 10/22/17 [History] metformin 500 mg PO BID 10/22/17 [History] metoprolol tartrate 25 mg FEEDING TUBE BID 10/22/17 [History] famotidine [Pepcid] 40 mg FEEDING TUBE BID #60 tab 10/24/17 [Rx] Prescriptions: famotidine [Pepcid] Dao Ugalde - Discharge Disposition Discharge Disposition: WE WILL FOLLOW UP WITH PATIENT AT [facility] IN ONE WEEK.
== END 2017-10-24 16:10 ==
LOC: MED/SURG
PROVIDERS: ADMIT Internal Medicine; ATTEND Internal Medicine
DX: K29.60 Other gastritis without bleeding; K44.9 Diaphragmatic hernia without obstruction or gangrene; E11.65 Type 2 diabetes mellitus with hyperglycemia; K92.0 Hematemesis; I10 Essential (primary) hypertension; R13.11 Dysphagia, oral phase; E78.2 Mixed hyperlipidemia; K21.9 Gastro-esophageal reflux disease without esophagitis; K94.23 Gastrostomy malfunction; R41.82 Altered mental status, unspecified; K22.10 Ulcer of esophagus without bleeding; D72.828 Other elevated white blood cell count
CPT/HCPCS: 36415; 74000; 74018; 80053; 82947; 83735; 84132; 85025; 94760; 99100; 99282; A4216; A4222; C9113; S0028; A4217; G0378; J1815; J2704; J3480; J7030

== ENCOUNTER 2018-08-20 07:45 | Observation (INO) ==
[2018-08-20] MEDS ORDERED: LR 1000 ML IV 1,000 ML ONE (07:54)
[2018-08-20] MEDS ORDERED: DIPRIVAN VIAL 20 ML ONE ×2 (08:26→08:52)
[2018-08-20] MEDS ORDERED: LEVAQUIN PREMIX IV 500 MG 500 MG/100 ML BAG ONE (08:29)
--- NOTE | 2018-08-20 09:35 | OR.GENERIC ---
Post-Op Note Generic - Post-Op Note Operative Report: po !-EGD 2- removal of an old PEG tube . 3-placement of a new PEG tube more medial to the old one in a new location . Pt did well .. will keep NPO for 24h .
[2018-08-20] MEDS ORDERED: D5 1/2 NS 1000 ML 1,000 ML ONE (09:45)
[2018-08-20] MEDS: D5 1/2 NS 1000 ML 1,000 ML IV SCH ×2 (09:48→17:24)
[2018-08-20] MEDS ORDERED: STERILE WATER IRRIGATION ONE (09:51)
[2018-08-20 10:10] VITALS: BMI 25.7
[2018-08-20] MEDS ORDERED: MORPHINE SULFATE INJ 2 MG INJ IVP PRN (11:51)
--- NOTE | 2018-08-20 13:23 | DR.PROGNOT ---
Hospital Progress Notes - Progress Note for Day of: Progress Note Date: 08/20/18 - Chief Complaint Chief Complaint: Pt is admitted after EGD and placement of a new PEG feeding tube away from the old one which was close to the colostomy .( pt was having feeding material in the colostomy bag raising the possibility of gastro-colic fistula ) . 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 Pt is diabetic as well . 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 DM. h/o colo-vaginal fistula required diverting colostomy . possible new gastro- colic fistula required relocating the PEG tube . 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 on IV ATB for 24h , NPO for now .
[2018-08-20] MEDS ORDERED: PHARMACY CONSULT - DOSE _____ XX SCH (15:00)
[2018-08-21] MEDS: D5 1/2 NS 1000 ML 1,000 ML IV SCH ×3 (01:03→10:00)
[2018-08-21 05:35] LABS: BASOPHILS % (AUTO) 0.5 % (0.2-1.0); EOSINOPHILS % (AUTO) 0.1 % (0.9-2.9); HEMATOCRIT 34.8 % (36.0-47.0); HEMOGLOBIN 11.6 g/dL (12.0-16.0); LYMPHOCYTES # (AUTO) 1.8 X10^3/uL (1.3-2.9); LYMPHOCYTES % (AUTO) 23.6 % (21.0-51.0); MEAN CORPUSCULAR HEMOGLOBIN 30.5 pg (27.0-34.0); MEAN CORPUSCULAR HGB CONC 33.4 g/dL (33.0-35.0); MEAN CORPUSCULAR VOLUME 91.3 fL (80.0-100.0); MEAN PLATELET VOLUME 8.8 fL (7.4-11.0); MONOCYTES # (AUTO) 0.9 x10^3/uL (0.3-0.8); MONOCYTES % (AUTO) 11.5 % (0.0-13.0); NEUTROPHILS # (AUTO) 4.8 x10^3/uL (2.2-4.8); NEUTROPHILS % (AUTO) 64.3 % (42.0-75.0); PLATELET COUNT 237 X10^3/uL (150.0-450.0); RED BLOOD COUNT 3.81 X10^6/uL (3.5-5.4); RED CELL DISTRIBUTION WIDTH 14.2 % (11.6-16.5); WHITE BLOOD COUNT 7.5 X10^3/uL (3.6-10.0)
[2018-08-21 05:44] LABS: ALANINE AMINOTRANSFERASE 41 Units/L (12-78); ALBUMIN 2.6 g/dL (3.4-5.0); ALKALINE PHOSPHATASE 114 Units/L (46-116); ASPARTATE AMINO TRANSFERASE 24 Units/L (15-37); BLOOD UREA NITROGEN 7 mg/dL (7-18); CALCIUM 9.6 mg/dL (8.5-10.1); CARBON DIOXIDE 26.3 mmol/L (21-32); CHLORIDE 101 mmol/L (98-107); COR CA(FOR HYPOALB) 10.7 mg/dL (8.5-10.1); COR NA(FOR HYPERGLY) 138 mmol/L (136-145); CREATININE 0.55 mg/dL (0.55-1.02); SODIUM 135 mmol/L (136-145); TOTAL PROTEIN 6.5 g/dL (6.4-8.2); eGFR NON BLACK RACES > 60 (>60)
[2018-08-21] MEDS ORDERED: LOVENOX INJ 40 MG SYR SC SCH (09:00)
[2018-08-21] MEDS ORDERED: HumuLIN R SUBCUT PRN (10:31)
--- NOTE | 2018-08-21 10:58 | DR.PROGNOT ---
Hospital Progress Notes - Progress Note for Day of: Progress Note Date: 08/21/18 - Chief Complaint Chief Complaint: doing well PO relocating PEG tube awy from colostomy . will start feeding and possible discharge later on .. 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 .) Ear: Normal Nose: Normal Throat: Normal Respiratory: Normal Cardiovascular: Normal : Other (incontinent to urine .) GI:Auscultation: Normal (has new PEG feeding tube and colostomy in the epiga strium .) GI:Palpation: Normal GI: Tenderness: Normal Mood Description: Calm Speech Pattern: Unclear, Aphasic - Laboratory and Diagnostics Result Diagrams: 08/21/18 04:42 08/21/18 04:42 Labs: Laboratory WBC 7.5 X10^3/uL (3.6-10.0) 08/21/18 04:42 RBC 3.81 X10^6/uL (3.5-5.4) 08/21/18 04:42 Hgb 11.6 g/dL (12.0-16.0) L 08/21/18 04:42 Hct 34.8 % (36.0-47.0) L 08/21/18 04:42 MCV 91.3 fL (80.0-100.0) 08/21/18 04:42 MCH 30.5 pg (27.0-34.0) 08/21/18 04:42 MCHC 33.4 g/dL (33.0-35.0) 08/21/18 04:42 RDW 14.2 % (11.6-16.5) 08/21/18 04:42 Plt Count 237 X10^3/uL (150.0-450.0) 08/21/18 04:42 MPV 8.8 fL (7.4-11.0) 08/21/18 04:42 Neut % (Auto) 64.3 % (42.0-75.0) 08/21/18 04:42 Lymph % (Auto) 23.6 % (21.0-51.0) 08/21/18 04:42 [place] % (Auto) 11.5 % (0.0-13.0) 08/21/18 04:42 Eos % (Auto) 0.1 % (0.9-2.9) L 08/21/18 04:42 Baso % (Auto) 0.5 % (0.2-1.0) 08/21/18 04:42 Neut # (Auto) 4.8 x10^3/uL (2.2-4.8) 08/21/18 04:42 Lymph # (Auto) 1.8 X10^3/uL (1.3-2.9) 08/21/18 04:42 [place] # (Auto) 0.9 x10^3/uL (0.3-0.8) H 08/21/18 04:42 Eos # (Auto) 0.0 x10^3/uL (0.0-0.2) 08/21/18 04:42 Baso # (Auto) 0.0 X10^3/uL (0.0-0.1) 08/21/18 04:42 Absolute Nucleated RBC 0.0 /100WBC 08/21/18 04:42 Sodium 135 mmol/L (136-145) L 08/21/18 04:42 Corrected Sodium 138 mmol/L (136-145) 08/21/18 04:42 Potassium 3.6 mmol/L (3.5-5.1) 08/21/18 04:42 Chloride 101 mmol/L (98-107) 08/21/18 04:42 Carbon Dioxide 26.3 mmol/L (21-32) 08/21/18 04:42 BUN 7 mg/dL (7-18) 08/21/18 04:42 Creatinine 0.55 mg/dL (0.55-1.02) 08/21/18 04:42 Est GFR (MDRD) Af Amer > 60 (>60) 08/21/18 04:42 Est GFR (MDRD) Non-Af > 60 (>60) 08/21/18 04:42 Glucose 232 mg/dL (65-99) H 08/21/18 04:42 POC Glucose (mg/dL) 228 mg/dL (65-99) H 08/21/18 05:57 Calcium 9.6 mg/dL (8.5-10.1) 08/21/18 04:42 Corrected Calcium 10.7 mg/dL (8.5-10.1) H 08/21/18 04:42 Total Bilirubin 0.60 mg/dL (0.2-1.0) 08/21/18 04:42 AST 24 Units/L (15-37) 08/21/18 04:42 ALT 41 Units/L (12-78) 08/21/18 04:42 Alkaline Phosphatase 114 Units/L (46-116) 08/21/18 04:42 Total Protein 6.5 g/dL (6.4-8.2) 08/21/18 04:42 Albumin 2.6 g/dL (3.4-5.0) L 08/21/18 04:42 Globulin 3.9 g/dL (2.5-4.5) 08/21/18 04:42 Albumin/Globulin Ratio 0.7 Ratio (1.1-2.1) L 08/21/18 04:42 - Assessment and Plan 1: s/p EGD and placement of new PEG feeding tube away from the old colostomy. D M. h/o colo-vaginal fistula required diverting colostomy . possible new gastro- colic fistula required relocating the PEG tube . 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 on IV ATB for 24h ,. to start feeding this am possible discharge .
[2018-08-21 12:09] VITALS: BP 122/66
[2018-08-21] MEDS ORDERED: SNACK - Diabetic Appropriate PO SCH (20:00)
== END 2018-08-21 13:50 ==
LOC: SURG1 07:45 → MED/SURG 07:45
PROVIDERS: ADMIT Surgery; ATTEND Surgery
DX: K94.29 Other complications of gastrostomy; R62.7 Adult failure to thrive; K94.23 Gastrostomy malfunction; R13.10 Dysphagia, unspecified; K29.70 Gastritis, unspecified, without bleeding
CPT/HCPCS: 36415; 80053; 85025; 99100; A4222; G0378; J1650; J1815; J1956; J2704; J7120; S5010

== ENCOUNTER 2018-08-21 21:18 | Inpatient (IN) ==
--- NOTE | 2018-08-21 22:03 | DR.NAUSEAF ---
HPI Time Seen Time Seen by Provider: 08/21/18 21:56 HPI Comment HPI Comment: PATIENT IS 77YR OLD FEMALE FROM THE SNF WITH VOMITING. HER DAUGHTER SAID SHE IS HAVING ABDOMINAL PAIN. SHE HAD A NEW PEG TUBE PLACE YESTERDAY AND THE OLD PEG TUBE REMOVED BECAUSE HER COLOSTOMY WAS CLOSE TO OLD PEG TUBE WITH POSSIBILITY OF FISTULAR. WENT TO SNF TODAY WHEN VOMING WAS NOTED AFTER TUBE FEEDING AND SHE WAS ALSO RUNNING FEVER. PATIENT HAVE DEMENTIA. SHE IS IMMOBILE. Complaints Chief Complaint Doctors Comments: VOMITING AT SNF TWICE AFTER PEG TUBE FEEDING. Chief Complaint:: STATED THAT PATIENT JUST GOT OUT HOSPITAL TODAY AFTER HAVING A PROCEDURE DONE AND HAS THROWED UP X2 CREAM MILK COLOR EMISIS. Reviewed Nurses Notes Reviewed: Yes Source History Provided: Family Member and Alf Mode of Arrival Mode of Arrival: Stretcher Timing Onset of Chief Complaint: 08/21/18 Context Onset: After Eating (AFTER PRG TUBE FEEDING.) PMH PMH Past Medical History: Yes Past Medical History: Alzheimers, Arthritis, CHF, Dementia, Dyslipidemia and Hypertension Past Surgical History: Yes Surgical History: Other Family History History of Family Medical Conditions: Yes Family Medical History: Diabetes Mellitus, Cancer and Hypertension Social History Alcohol Use: None Do you use any recreational Drugs:: No infectious screening Have you traveled outside the country in the last 6 months?: No ROS Review of Systems Constitutional: See HPI and Fever (AT SNF, FEVER NOTED.) Eyes: See HPI; negative Eye Pain and Discharge ENTM: negative See HPI, Ear Discharge, Nose Discharge, Epistaxis and Nose Congestion Respiratoy: See HPI; negative Moist Cough, Short of Breath and Wheezing Cardiovascular: See HPI; negative Chest Pain, Edema and Palpitations Gastrointestinal/Abdominal: See HPI, Abdominal Pain and Vomiting Genitourinary: See HPI and Other (URINARY INCONTINENCE IN DIAPER.) Neurological: Problems Walking (IMMOBILE IN BED.) Musculoskeletal: See HPI Integumentary: See HPI Hematologic/Lymphatic: Easy Bruising; negative Swollen Glands Endocrine: See HPI Psychiatric: See HPI PE Vital Signs Vitals: Temperature 98.5 F Pulse Rate [Apical] 66 Pulse Rate [Brachial] 76 Pulse Rate 75 Respiratory Rate 18 Blood Pressure [Right Arm] 117/55 Blood Pressure [Left Arm] 114/55 Blood Pressure 129/94 O2 Sat by Pulse Oximetry 96 General Limitations: Altered Mental Status General Appearance: Alert and In No Apparent Distress Head Head Exam: Normal Inspection Eyes Eye exam: PERRL; negative Scleral Icterus and Conjunctival Injection ENT ENT Exam: Normal Oropharynx, Normal External Ear Exam and TM's Normal Bilaterally Neck Neck Exam: Trachea Midline; negative Tenderness and Lymphadenopathy Chest Chest Inspection: Symmetric Chest Wall Rise; negative Tenderness Respiratory Respiratory Exam: negative Accessory Muscle Use, Chest Wall Tenderness and Respiratory Distress Respiratory Exam: Bilateral: Rhonchi and Lower: Rhonchi Cardiovascular Cardiovascular Exam: Regular Rate, Normal Rhythm and Normal Heart Sounds; negative Systolic Murmur and Diastolic Murmur Abdominal Exam Abdominal Exam: Normal Bowel Sounds, Tenderness and Other (PEG TUBE AND COLOSTOMY PRESENT.) Abdominal Tenderness: Diffuse and Moderate Rectal Rectal Exam: Deferred External Exam: Female: Deferred : Speculum Exam (Female): Deferred : Bimanual Exam (female): Deferred Extremities Extremities Exam: Joint Swelling and Calf Tenderness Back Back Exam: Tenderness Neurologic Neurological Exam: Alert and Other (DEMENTIA. ALERT.) Psychiatric Psychiatric Exam: Other (DEMENTIA.) Skin Skin Exam: Dry COURSE Treatment Treatment: SEE ORDERS. Consultation Consultation Comments: DISCUSS PATIENT WITH DR. DAVALOS WHO PLACE G TUBE. WANT PATIENT ADMITTED. DR. SPRINGER WILL ADMIT PATIENT. Education/Counseling Education/Counseling: Family Educated On: Diagnosis ROR Labs Reviewed Laboratory Results Reviewed?: Yes Result Diagrams: 08/27/18 05:45 08/27/18 05:45 Laboratory: 08/23/18 17:54 Blood Blood Culture - Final 08/23/18 17:49 Blood Blood Culture - Final 08/25/18 17:15 Stool Stool Culture - Final 08/25/18 17:15 Stool - Final 08/23/18 08:00 Urine,[place] Urine Culture - Final WBC 5.8 X10^3/uL (3.6-10.0) 08/27/18 05:45 RBC 3.42 X10^6/uL (3.5-5.4) L 08/27/18 05:45 Hgb 10.6 g/dL (12.0-16.0) L 08/27/18 05:45 Hct 31.2 % (36.0-47.0) L 08/27/18 05:45 MCV 91.1 fL (80.0-100.0) 08/27/18 05:45 MCH 31.1 pg (27.0-34.0) 08/27/18 05:45 MCHC 34.1 g/dL (33.0-35.0) 08/27/18 05:45 RDW 14.0 % (11.6-16.5) 08/27/18 05:45 Plt Count 232 X10^3/uL (150.0-450.0) 08/27/18 05:45 MPV 7.5 fL (7.4-11.0) 08/27/18 05:45 Neut % (Auto) 55.7 % (42.0-75.0) 08/27/18 05:45 Lymph % (Auto) 32.1 % (21.0-51.0) 08/27/18 05:45 [place] % (Auto) 9.1 % (0.0-13.0) 08/27/18 05:45 Eos % (Auto) 2.6 % (0.9-2.9) 08/27/18 05:45 Baso % (Auto) 0.5 % (0.2-1.0) 08/27/18 05:45 Neut # (Auto) 3.2 x10^3/uL (2.2-4.8) 08/27/18 05:45 Lymph # (Auto) 1.9 X10^3/uL (1.3-2.9) 08/27/18 05:45 [place] # (Auto) 0.5 x10^3/uL (0.3-0.8) 08/27/18 05:45 Eos # (Auto) 0.2 x10^3/uL (0.0-0.2) 08/27/18 05:45 Baso # (Auto) 0.0 X10^3/uL (0.0-0.1) 08/27/18 05:45 Absolute Nucleated RBC 0.1 /100WBC 08/27/18 05:45 Sodium 142 mmol/L (136-145) 08/27/18 05:45 Corrected Sodium TNP 08/27/18 05:45 Potassium 3.7 mmol/L (3.5-5.1) 08/27/18 05:45 Chloride 107 mmol/L (98-107) 08/27/18 05:45 Carbon Dioxide 26.2 mmol/L (21-32) 08/27/18 05:45 BUN 3 mg/dL (7-18) L 08/27/18 05:45 Creatinine 0.57 mg/dL (0.55-1.02) 08/27/18 05:45 Est GFR (MDRD) Af Amer > 60 (>60) 08/27/18 05:45 Est GFR (MDRD) Non-Af > 60 (>60) 08/27/18 05:45 Glucose 106 mg/dL (65-99) H 08/27/18 05:45 POC Glucose (mg/dL) 167 mg/dL (65-99) H 08/27/18 12:00 Calcium 8.8 mg/dL (8.5-10.1) 08/27/18 05:45 Corrected Calcium 10.3 mg/dL (8.5-10.1) H 08/27/18 05:45 Magnesium 1.7 mg/dL (1.7-2.9) 08/25/18 05:28 Total Bilirubin 0.30 mg/dL (0.2-1.0) 08/27/18 05:45 AST 19 Units/L (15-37) 08/27/18 05:45 ALT 18 Units/L (12-78) 08/27/18 05:45 Alkaline Phosphatase 76 Units/L (46-116) 08/27/18 05:45 Total Protein 5.8 g/dL (6.4-8.2) L 08/27/18 05:45 Albumin 2.1 g/dL (3.4-5.0) L 08/27/18 05:45 Globulin 3.7 g/dL (2.5-4.5) 08/27/18 05:45 Albumin/Globulin Ratio 0.6 Ratio (1.1-2.1) L 08/27/18 05:45 Amylase 44 Units/L (25-115) 08/21/18 23:45 Lipase 69 Units/L (73-393) L 08/21/18 23:45 Specimen Type Catherized urine 08/23/18 08:00 Urine Color Brown (YELLOW) 08/23/18 08:00 Urine Appearance Cloudy (CLEAR) 08/23/18 08:00 Urine pH 6.5 (5.0 - 8.0) 08/23/18 08:00 Ur Specific [place] 1.025 (1.000-1.030) 08/23/18 08:00 Urine Protein 3+ (NEGATIVE) 08/23/18 08:00 Urine Glucose (UA) 3+ (NEGATIVE) 08/23/18 08:00 Urine Ketones 2+ (NEGATIVE) 08/23/18 08:00 Urine Occult Blood 5+ (NEGATIVE) 08/23/18 08:00 Urine Nitrite Positive (NEGATIVE) 08/23/18 08:00 Urine Bilirubin Negative (NEGATIVE) 08/23/18 08:00 Urine Urobilinogen Normal (NORMAL) 08/23/18 08:00 Ur Leukocyte Esterase 2+ (NEGATIVE) 08/23/18 08:00 Urine RBC Tntc /HPF (NONE SEEN) 08/23/18 08:00 Urine WBC 3-5 /HPF (NONE SEEN) 08/23/18 08:00 Ur Squamous Epith Cells Few /HPF (NEGATIVE) 08/23/18 08:00 Calcium Oxalate Crystal Rare /HPF (NEGATIVE) 08/23/18 08:00 Amorphous Sediment 2+ /HPF (NEGATIVE) 08/23/18 08:00 Urine Bacteria Trace /HPF (NEGATIVE) 08/23/18 08:00 Hyaline Casts Rare /LPF (NEGATIVE) 08/23/18 08:00 Urine Mucus Moderate /HPF (NEGATIVE) 08/23/18 08:00 Ur Culture Indicated? Yes/culture set up 08/23/18 08:00 Stool Description 10g,brown,liquid 08/25/18 17:15 Stl Occult Blood (IFOB) Negative (NEGATIVE) 08/25/18 17:15 Stool for White Cells Positive (NEGATIVE) A 08/25/18 17:15 Stl C. diff Tox B Gene Negative (NEGATIVE) 08/25/18 17:15 Stl C. diff [id number] Negative (NEGATIVE) 08/25/18 17:15 XRAY XRAY Interpreted by: Radiologist XRAY Findings: REPORT NOTED. Opioid Opioid Risk Tool Age (Rick box if 16-45): No Total: 0 Total Score Risk Category: Low Risk Copyright: [facility] predicting aberrant behaviors Diagnosis Discharge Problem: Vomiting Qualifiers: Vomiting type: bilious vomiting Nausea presence: with nausea Qualified Code(s): R11.14 - Bilious vomiting Abdominal pain Qualifiers: Abdominal location: generalized Qualified Code(s): R10.84 - Generalized abdominal pain Fever Qualifiers: Fever type: unspecified Qualified Code(s): R50.9 - Fever, unspecified
[2018-08-21 23:54] LABS: BASOPHILS % (AUTO) 0.3 % (0.2-1.0); EOSINOPHILS % (AUTO) 0.3 % (0.9-2.9); HEMOGLOBIN 13.2 g/dL (12.0-16.0); LYMPHOCYTES # (AUTO) 0.5 X10^3/uL (1.3-2.9); LYMPHOCYTES % (AUTO) 5.9 % (21.0-51.0); MEAN CORPUSCULAR HGB CONC 33.9 g/dL (33.0-35.0); MEAN CORPUSCULAR VOLUME 91.6 fL (80.0-100.0); MONOCYTES # (AUTO) 0.5 x10^3/uL (0.3-0.8); MONOCYTES % (AUTO) 6.2 % (0.0-13.0); NEUTROPHILS # (AUTO) 7.4 x10^3/uL (2.2-4.8); NEUTROPHILS % (AUTO) 87.3 % (42.0-75.0); PLATELET COUNT 272 X10^3/uL (150.0-450.0); RED BLOOD COUNT 4.25 X10^6/uL (3.5-5.4); RED CELL DISTRIBUTION WIDTH 14.4 % (11.6-16.5); WHITE BLOOD COUNT 8.4 X10^3/uL (3.6-10.0)
[2018-08-22 00:07] LABS: ALANINE AMINOTRANSFERASE 38 Units/L (12-78); ALBUMIN 3.1 g/dL (3.4-5.0); ALKALINE PHOSPHATASE 132 Units/L (46-116); AMYLASE 44 Units/L (25-115); ASPARTATE AMINO TRANSFERASE 23 Units/L (15-37); BLOOD UREA NITROGEN 7 mg/dL (7-18); CARBON DIOXIDE 24.5 mmol/L (21-32); CHLORIDE 102 mmol/L (98-107); COR CA(FOR HYPOALB) 11.7 mg/dL (8.5-10.1); COR NA(FOR HYPERGLY) 142 mmol/L (136-145); CREATININE 0.68 mg/dL (0.55-1.02); LIPASE 69 Units/L (73-393); SODIUM 137 mmol/L (136-145); TOTAL PROTEIN 7.7 g/dL (6.4-8.2); eGFR NON BLACK RACES > 60 (>60)
--- NOTE | 2018-08-22 01:44 | RAD ---
Abdomen single view : Vomiting and PEG tube placement Comparison: 07/17/2018 Findings: Peg tube projects over the abdomen, with contrast seen in the stomach duodenum. No convincing evidence of extravasation seen. Small-bowel dilatation noted. Impression: After injection, there is contrast seen over the pelvis. This could reflect extravasation. This could be on the surface of the patient as well. Follow-up is recommended to exclude leak. Small bowel obstruction is suggested. Given recent procedure, ileus is possible. THE AVAILABILITY OF THE REPORT AND FINDINGS WERE COMMUNICATED TO Dr. Osuna by Dr. Cunningham on 08/22/2018 Time called 1:40 a.m. Reported By:
[2018-08-22] MEDS: NS 1000 ML 1,000 ML IV SCH (05:15)
[2018-08-22] MEDS: ZOFRAN INJ 4 MG VIAL IVP PRN (05:15)
[2018-08-22] MEDS: PEPCID 20 MG IV PREMIX* 20 MG/50 ML BAG IV PRN (05:15)
[2018-08-22 06:06] VITALS: BMI 26.3
[2018-08-22] MEDS ORDERED: PHARMACY CONSULT - DOSE _____ XX SCH (10:00)
[2018-08-22] MEDS: LEVAQUIN PREMIX IV 500 MG 500 MG/100 ML BAG IV SCH (10:54)
[2018-08-22] MEDS: FORTAZ or TAZICEF VIAL INJ IVP SCH ×3 (10:54→21:47)
--- NOTE | 2018-08-22 16:14 | RAD ---
HISTORY: Small-bowel obstruction Study: Flat and upright views of the abdomen. Comparison: None Findings: Evaluation of the abdomen demonstrates a number of dilated loops of small bowel without distal bowel gas. Oral contrast appears to be within the stomach. No free air. No pathological soft tissue mass or calcification can be observed. The bony structures are grossly intact. IMPRESSION: 1. Findings suggestive high-grade small bowel obstruction. Reported By:
--- NOTE | 2018-08-22 21:50 | DR.PROGNOT ---
Hospital Progress Notes - Progress Note for Day of: Progress Note Date: 08/22/18 - Chief Complaint Chief Complaint: Pt is admitted with nausea , vomiting for several hours . she is S/P relocation of an old PEG feeding tube which was done without complications .last xray showed dilated small bowel loops R/O SBO vs Ileus . - Past Medical Family Social History Past Med/Fam/Surg Hx: No changes since H&P Allergies: Allergies No Known Drug Allergies Allergy (Verified 05/02/18 14:58) - Review Of Systems ROS: No change since H&P - Vital Signs Vital Signs: Temperature 98.6 F Pulse Rate [Brachial] 110 Pulse Rate 119 Respiratory Rate 18 Blood Pressure [Right Arm] 130/86 Blood Pressure [Left Arm] 100/72 Blood Pressure 129/94 O2 Sat by Pulse Oximetry 98 - Physical Exam Oriented: Normal, Unable to test Ear: Normal Nose: Normal Throat: Normal Respiratory: Rhonchi GI:Palpation: Other (soft abdomen with + BS..diffuse tenderness ) Speech Pattern: Unclear - Laboratory and Diagnostics Result Diagrams: 08/21/18 23:45 08/21/18 23:45 Labs: Laboratory WBC 8.4 X10^3/uL (3.6-10.0) 08/21/18 23:45 RBC 4.25 X10^6/uL (3.5-5.4) 08/21/18 23:45 Hgb 13.2 g/dL (12.0-16.0) 08/21/18 23:45 Hct 39.0 % (36.0-47.0) 08/21/18 23:45 MCV 91.6 fL (80.0-100.0) 08/21/18 23:45 MCH 31.0 pg (27.0-34.0) 08/21/18 23:45 MCHC 33.9 g/dL (33.0-35.0) 08/21/18 23:45 RDW 14.4 % (11.6-16.5) 08/21/18 23:45 Plt Count 272 X10^3/uL (150.0-450.0) 08/21/18 23:45 MPV 8.0 fL (7.4-11.0) 08/21/18 23:45 Neut % (Auto) 87.3 % (42.0-75.0) H 08/21/18 23:45 Lymph % (Auto) 5.9 % (21.0-51.0) L 08/21/18 23:45 [place] % (Auto) 6.2 % (0.0-13.0) 08/21/18 23:45 Eos % (Auto) 0.3 % (0.9-2.9) L 08/21/18 23:45 Baso % (Auto) 0.3 % (0.2-1.0) 08/21/18 23:45 Neut # (Auto) 7.4 x10^3/uL (2.2-4.8) H 08/21/18 23:45 Lymph # (Auto) 0.5 X10^3/uL (1.3-2.9) L 08/21/18 23:45 [place] # (Auto) 0.5 x10^3/uL (0.3-0.8) 08/21/18 23:45 Eos # (Auto) 0.0 x10^3/uL (0.0-0.2) 08/21/18 23:45 Baso # (Auto) 0.0 X10^3/uL (0.0-0.1) 08/21/18 23:45 Absolute Nucleated RBC 0.1 /100WBC 08/21/18 23:45 Sodium 137 mmol/L (136-145) 08/21/18 23:45 Corrected Sodium 142 mmol/L (136-145) 08/21/18 23:45 Potassium 3.6 mmol/L (3.5-5.1) 08/21/18 23:45 Chloride 102 mmol/L (98-107) 08/21/18 23:45 Carbon Dioxide 24.5 mmol/L (21-32) 08/21/18 23:45 BUN 7 mg/dL (7-18) 08/21/18 23:45 Creatinine 0.68 mg/dL (0.55-1.02) 08/21/18 23:45 Est GFR (MDRD) Af Amer > 60 (>60) 08/21/18 23:45 Est GFR (MDRD) Non-Af > 60 (>60) 08/21/18 23:45 Glucose 292 mg/dL (65-99) H 08/21/18 23:45 Calcium 11.0 mg/dL (8.5-10.1) H 08/21/18 23:45 Corrected Calcium 11.7 mg/dL (8.5-10.1) H 08/21/18 23:45 Total Bilirubin 0.80 mg/dL (0.2-1.0) 08/21/18 23:45 AST 23 Units/L (15-37) 08/21/18 23:45 ALT 38 Units/L (12-78) 08/21/18 23:45 Alkaline Phosphatase 132 Units/L (46-116) H 08/21/18 23:45 Total Protein 7.7 g/dL (6.4-8.2) 08/21/18 23:45 Albumin 3.1 g/dL (3.4-5.0) L 08/21/18 23:45 Globulin 4.6 g/dL (2.5-4.5) H 08/21/18 23:45 Albumin/Globulin Ratio 0.7 Ratio (1.1-2.1) L 08/21/18 23:45 Amylase 44 Units/L (25-115) 08/21/18 23:45 Lipase 69 Units/L (73-393) L 08/21/18 23:45 - Assessment and Plan 1: partial SBO vs Ileus . s/p new PEG feeding tube and old colostomy . Pt is confined to bed and non verbal . will keep NPO for now ,IVF and observation ..
--- NOTE | 2018-08-22 22:05 | DR.H&P ---
H&P - History & Physical for Day of: H&P Date: 08/22/18 - Chief Complaint Chief Complaint: VOMITING - History of Present Illness History of Present Illness: IS A 77 YEAR OLD PATIENT OF OURS WHO IS A RESIDENT OF [facility] [place]. SHE WAS DISCHARGED HOME FROM THE HOSPITAL YESTERDAY FOLLOWING PLACEMENT OF PEG TUBE. STAFF REPORTS THAT PATIENT WAS TOLERATING HER FEEDINGS WELL PRIOR TO DISCHARGE. ALF STAFF REPORTS THAT AFTER HER BOLUS FEEDINGS, SHE BEGAN TO VOMIT MILK COLORED EMESIS. SHE ALSO HAD AN ELEVATED TEMPERATURE AT HOME. ON ARRIVAL TO THE ER, VITALS WERE 98.7-115-20-93%-112/65. LABS WERE OBTAINED. ABNORMAL LAB VALUES INCLUDE THE FOLLOWING: GLUCOSE 292, CALCIUM 11.0, ALK PHOS 132, ALBUMIN 3.1, GLOBULIN 4.6, LIPASE 69. AN EKG WAS OBTAINED AND REVEALED: SINUS TACHYCARDIA WITH HR 111. KUB OBTAINED AND REVEALED: After injection, there is contrast seen over the pelvis. This could reflect extravasation. This could be on the surface of the patient as well. Follow-up is recommended to exclude leak. Small bowel obstruction is suggested. Given recent procedure, ileus is possible. WAS NOTIFIED AND WILL CONSULT WITH PATIENT THIS MORNING. WE ADMITTED PATIENT FOR FURTHER EVALUATION AND TREATMENT OF SMALL BOWEL OBSTRUCTION, ABDOMINAL PAIN, AND FEVER. SHE WAS STARTED ON NORMAL SALINE AT 125ML/HR AND PEPCID 20MG IV BID. WE WILL ALSO START IV FORTAZ AND LEVAQUIN. OTHERWISE, WE WILL FOLLOW UP WITH AM LABS AND CONTINUE TO MONITOR. - Past Medical History Past Medical History: Hypertension, Dyslipidemia, Alzheimers, Dementia, Arthritis, CHF Additional Medical History: H/O colovaginal fistula - Past Surgical History Surgical History: Bowel Resection, Other Additional Surgical History: Complete diverting colostomy of transverse colon - Family History Family Medical History: Diabetes Mellitus, Cancer, Hypertension - Social History Alcohol Use: None Drug Use: None Prescription drug monitoring program results: PDMP reviewed and no concerns id entified - Medications Home Medications: No Known Drug Allergies Allergy (Verified 05/02/18 14:58) CONTINUE taking the following medications atorvastatin [Lipitor] 20 mg FEEDING TUBE HS 08/22/18 [History] - Review of Systems Constitutional: Fever, Weakness Eyes: No Symptoms Reported ENT: No Symptoms Reported Respiratory: No Symptoms Reported Cardiovascular: No Symptoms Reported Gastrointestinal: Nausea, Vomiting, Abdominal Pain Genitourinary: No Symptoms Reported Musculoskeletal: No Symptoms Reported Skin: No Symptoms Reported Neurological: Weakness - Physical Exam Vital Signs: Temperature 98.6 F Pulse Rate [Brachial] 110 Pulse Rate 119 Respiratory Rate 18 Blood Pressure [Right Arm] 130/86 Blood Pressure [Left Arm] 100/72 Blood Pressure 129/94 O2 Sat by Pulse Oximetry 98 Oriented: Person, Unable to test Eyes: Normal Ear: Normal Nose: Normal Throat: Normal Respiratory: Diminished Throughout Cardiovascular: Normal. negative: S3, S4, Murmur : Normal Auscultation: Bowel Sounds: Normal Palpation: Normal Tenderness: Mild. negative: Rebound, Guarding, Rigidity Skin: Normal Musculoskeletal: Normal Psychiatric: Normal Mood Description: Calm Affect: Normal Speech Pattern: Clear - Assessment/Plan (1) Small bowel obstruction Status: Acute Plan: ADMIT, IV FLUIDS, IV FORTAZ, IV LEVAQUIN, IV PEPCID, CONTINUE TO MONITOR (2) Problem with gastrostomy tube Status: Acute (3) Nausea & vomiting Qualifiers: Vomiting type: hematemesis Qualified Code(s): K92.0 - Hematemesis Status: Acute Plan: IV ZOFRAN, CONTINUE TO MONITOR - Allergies Allergies/Adverse Reactions: Allergies Allergy/AdvReac Type Severity Reaction Status Date / Time No Known Drug Allergies Allergy Verified 05/02/18 14:58
[2018-08-23] MEDS: NS 1000 ML 1,000 ML IV SCH ×3 (02:30→23:19)
[2018-08-23 05:37] LABS: BASOPHILS # (AUTO) 0.1 X10^3/uL (0.0-0.1); BASOPHILS % (AUTO) 0.5 % (0.2-1.0); HEMATOCRIT 36.6 % (36.0-47.0); HEMOGLOBIN 12.1 g/dL (12.0-16.0); LYMPHOCYTES % (AUTO) 9.4 % (21.0-51.0); MEAN CORPUSCULAR HEMOGLOBIN 30.5 pg (27.0-34.0); MEAN CORPUSCULAR VOLUME 92.3 fL (80.0-100.0); MEAN PLATELET VOLUME 8.2 fL (7.4-11.0); MONOCYTES # (AUTO) 0.8 x10^3/uL (0.3-0.8); NEUTROPHILS # (AUTO) 8.3 x10^3/uL (2.2-4.8); NEUTROPHILS % (AUTO) 82.1 % (42.0-75.0); PLATELET COUNT 268 X10^3/uL (150.0-450.0); RED BLOOD COUNT 3.97 X10^6/uL (3.5-5.4); RED CELL DISTRIBUTION WIDTH 14.3 % (11.6-16.5); WHITE BLOOD COUNT 10.1 X10^3/uL (3.6-10.0)
[2018-08-23 05:56] LABS: ALANINE AMINOTRANSFERASE 32 Units/L (12-78); ALBUMIN 2.6 g/dL (3.4-5.0); ALKALINE PHOSPHATASE 106 Units/L (46-116); ASPARTATE AMINO TRANSFERASE 19 Units/L (15-37); BLOOD UREA NITROGEN 11 mg/dL (7-18); CALCIUM 10.2 mg/dL (8.5-10.1); CARBON DIOXIDE 27.6 mmol/L (21-32); CHLORIDE 107 mmol/L (98-107); COR CA(FOR HYPOALB) 11.3 mg/dL (8.5-10.1); COR NA(FOR HYPERGLY) 146 mmol/L (136-145); SODIUM 143 mmol/L (136-145); TOTAL PROTEIN 6.8 g/dL (6.4-8.2); eGFR NON BLACK RACES > 60 (>60)
--- NOTE | 2018-08-23 06:02 | RAD ---
Examination: Abdomen, two views History: Obstruction Comparison 08/22/2018 Findings: Supine and semi-erect views of abdomen demonstrate gaseous distention of bowel, primarily small intestine. There is a paucity of colon gas. Contrast material is noted in the stomach. The right diaphragm is obscured. Airspace disease/pleural effusion may be present at the right base. Impression: Continued selective distention of small bowel which may indicate mechanical obstruction. No definite free air identified although a full upright view of the abdomen was not obtained for confident exclusion of perforation. Pleural-parenchymal opacity right lung base. Correlate with standard chest radiographs. Reported By:
[2018-08-23] MEDS: FORTAZ or TAZICEF VIAL INJ IVP SCH ×3 (06:25→21:05)
[2018-08-23] MEDS ORDERED: POTASSIUM CHL 60 MEQ/NS 0.45% 500 ML IV PRN (07:43)
[2018-08-23] MEDS ORDERED: K-DUR TAB 20 MEQ PO PRN (07:43)
[2018-08-23] MEDS ORDERED: POTASSIUM CHL 40 MEQ/NS 0.45% 500 ML IV PRN (07:43)
[2018-08-23] MEDS ORDERED: POTASSIUM CHLORIDE LIQ 20 MEQ UDC PO PRN (07:43)
[2018-08-23] MEDS ORDERED: MICRO K EXTEN CAP 10 MEQ PO PRN (07:43)
[2018-08-23] MEDS ORDERED: KLOR-CON PO PRN (07:43)
[2018-08-23] MEDS: PEPCID 20 MG IV PREMIX* 20 MG/50 ML BAG IV PRN (08:38)
[2018-08-23] MEDS: LEVAQUIN PREMIX IV 500 MG 500 MG/100 ML BAG IV SCH (08:38)
[2018-08-23 09:13] LABS: APPEARANCE,URINE CLOUDY (CLEAR); BILIRUBIN,URINE NEGATIVE (NEGATIVE); BLOOD/HEMOGLOBIN,URINE 5+ (NEGATIVE); COLOR,URINE BROWN (YELLOW); GLUCOSE, URINE 3+ (NEGATIVE); KETONES,URINE 2+ (NEGATIVE); LEUKOCYTE ESTERASE ,URINE 2+ (NEGATIVE); NITRITES,URINE POSITIVE (NEGATIVE); PH,URINE 6.5 (5.0 - 8.0); PROTEIN,URINE 3+ (NEGATIVE); UROBILINOGEN,URINE NORMAL (NORMAL)
[2018-08-23 09:14] LABS: AMORPHOUS SEDIMENT,UR 2+ /HPF (NEGATIVE); BACTERIA,URINE TRACE /HPF (NEGATIVE); HYALINE CASTS, URINE RARE /LPF (NEGATIVE); RBC,URINE TNTC /HPF (NONE SEEN); SQUAMOUS EPITHELIAL CELL,UR FEW /HPF (NEGATIVE)
[2018-08-23 09:15] LABS: MUCUS,URINE MODERATE /HPF (NEGATIVE)
[2018-08-23] MEDS ORDERED: HumuLIN R SC PRN (09:21)
[2018-08-23] MEDS: MAGNESIUM SULFATE 1 GRAM/100 mL PREMIX 1 GM/100 ML BAG IV PRN ×2 (11:09→12:00)
[2018-08-23 11:21] LABS: CALCIUM OXALATE CRYSTALS,UR RARE /HPF (NEGATIVE)
--- NOTE | 2018-08-23 12:15 | DR.PROGNOT ---
Hospital Progress Notes - Progress Note for Day of: Progress Note Date: 08/23/18 - Chief Complaint Chief Complaint: no vomiting today . having low grade fever ,. abdominal xray still showing moderate dilated small bowel loops . colostomy is not functioning yet . - Past Medical Family Social History Past Med/Fam/Surg Hx: No changes since H&P Allergies: Allergies No Known Drug Allergies Allergy (Verified 05/02/18 14:58) - Review Of Systems ROS: No change since H&P - Vital Signs Vital Signs: Temperature 99.1 F Pulse Rate [Brachial] 107 Pulse Rate 119 Respiratory Rate 18 Blood Pressure [Right Arm] 133/81 Blood Pressure [Left Arm] 100/72 Blood Pressure 129/94 O2 Sat by Pulse Oximetry 98 - Physical Exam Oriented: Not Oriented Eyes: Normal Ear: Normal Nose: Normal Throat: Normal Respiratory: Rhonchi Cardiovascular: Normal. negative: S3, S4, Murmur : Normal GI:Auscultation: Decreased GI:Palpation: Normal (diffuse mid abdominal tenderness , no leakage around the PEG tube , BS + ) GI: Tenderness: Mild. negative: Rebound, Guarding, Rigidity Skin: Normal Musculoskeletal: Normal Psychiatric: Normal Mood Description: Calm Affect: Normal Speech Pattern: Aphasic - Laboratory and Diagnostics Result Diagrams: 08/23/18 05:13 08/23/18 05:13 Labs: Laboratory WBC 10.1 X10^3/uL (3.6-10.0) H 08/23/18 05:13 RBC 3.97 X10^6/uL (3.5-5.4) 08/23/18 05:13 Hgb 12.1 g/dL (12.0-16.0) 08/23/18 05:13 Hct 36.6 % (36.0-47.0) 08/23/18 05:13 MCV 92.3 fL (80.0-100.0) 08/23/18 05:13 MCH 30.5 pg (27.0-34.0) 08/23/18 05:13 MCHC 33.0 g/dL (33.0-35.0) 08/23/18 05:13 RDW 14.3 % (11.6-16.5) 08/23/18 05:13 Plt Count 268 X10^3/uL (150.0-450.0) 08/23/18 05:13 MPV 8.2 fL (7.4-11.0) 08/23/18 05:13 Neut % (Auto) 82.1 % (42.0-75.0) H 08/23/18 05:13 Lymph % (Auto) 9.4 % (21.0-51.0) L 08/23/18 05:13 [place] % (Auto) 8.0 % (0.0-13.0) 08/23/18 05:13 Eos % (Auto) 0.0 % (0.9-2.9) L 08/23/18 05:13 Baso % (Auto) 0.5 % (0.2-1.0) 08/23/18 05:13 Neut # (Auto) 8.3 x10^3/uL (2.2-4.8) H 08/23/18 05:13 Lymph # (Auto) 1.0 X10^3/uL (1.3-2.9) L 08/23/18 05:13 [place] # (Auto) 0.8 x10^3/uL (0.3-0.8) 08/23/18 05:13 Eos # (Auto) 0.0 x10^3/uL (0.0-0.2) 08/23/18 05:13 Baso # (Auto) 0.1 X10^3/uL (0.0-0.1) 08/23/18 05:13 Absolute Nucleated RBC 0.0 /100WBC 08/23/18 05:13 Sodium 143 mmol/L (136-145) 08/23/18 05:13 Corrected Sodium 146 mmol/L (136-145) H 08/23/18 05:13 Potassium 3.6 mmol/L (3.5-5.1) 08/23/18 05:13 Chloride 107 mmol/L (98-107) 08/23/18 05:13 Carbon Dioxide 27.6 mmol/L (21-32) 08/23/18 05:13 BUN 11 mg/dL (7-18) 08/23/18 05:13 Creatinine 0.50 mg/dL (0.55-1.02) L 08/23/18 05:13 Est GFR (MDRD) Af Amer > 60 (>60) 08/23/18 05:13 Est GFR (MDRD) Non-Af > 60 (>60) 08/23/18 05:13 Glucose 226 mg/dL (65-99) H 08/23/18 05:13 POC Glucose (mg/dL) 248 mg/dL (65-99) H 08/23/18 11:03 Calcium 10.2 mg/dL (8.5-10.1) H 08/23/18 05:13 Corrected Calcium 11.3 mg/dL (8.5-10.1) H 08/23/18 05:13 Magnesium 1.8 mg/dL (1.7-2.9) 08/23/18 05:13 Total Bilirubin 0.60 mg/dL (0.2-1.0) 08/23/18 05:13 AST 19 Units/L (15-37) 08/23/18 05:13 ALT 32 Units/L (12-78) 08/23/18 05:13 Alkaline Phosphatase 106 Units/L (46-116) 08/23/18 05:13 Total Protein 6.8 g/dL (6.4-8.2) 08/23/18 05:13 Albumin 2.6 g/dL (3.4-5.0) L 08/23/18 05:13 Globulin 4.2 g/dL (2.5-4.5) 08/23/18 05:13 Albumin/Globulin Ratio 0.6 Ratio (1.1-2.1) L 08/23/18 05:13 Amylase 44 Units/L (25-115) 08/21/18 23:45 Lipase 69 Units/L (73-393) L 08/21/18 23:45 Specimen Type Catherized urine 08/23/18 08:00 Urine Color Brown (YELLOW) 08/23/18 08:00 Urine Appearance Cloudy (CLEAR) 08/23/18 08:00 Urine pH 6.5 (5.0 - 8.0) 08/23/18 08:00 Ur Specific [place] 1.025 (1.000-1.030) 08/23/18 08:00 Urine Protein 3+ (NEGATIVE) 08/23/18 08:00 Urine Glucose (UA) 3+ (NEGATIVE) 08/23/18 08:00 Urine Ketones 2+ (NEGATIVE) 08/23/18 08:00 Urine Occult Blood 5+ (NEGATIVE) 08/23/18 08:00 Urine Nitrite Positive (NEGATIVE) 08/23/18 08:00 Urine Bilirubin Negative (NEGATIVE) 08/23/18 08:00 Urine Urobilinogen Normal (NORMAL) 08/23/18 08:00 Ur Leukocyte Esterase 2+ (NEGATIVE) 08/23/18 08:00 Urine RBC Tntc /HPF (NONE SEEN) 08/23/18 08:00 Urine WBC 3-5 /HPF (NONE SEEN) 08/23/18 08:00 Ur Squamous Epith Cells Few /HPF (NEGATIVE) 08/23/18 08:00 Calcium Oxalate Crystal Rare /HPF (NEGATIVE) 08/23/18 08:00 Amorphous Sediment 2+ /HPF (NEGATIVE) 08/23/18 08:00 Urine Bacteria Trace /HPF (NEGATIVE) 08/23/18 08:00 Hyaline Casts Rare /LPF (NEGATIVE) 08/23/18 08:00 Urine Mucus Moderate /HPF (NEGATIVE) 08/23/18 08:00 Ur Culture Indicated? Yes/culture set up 08/23/18 08:00 - Assessment and Plan 1: partial SBO vs Ileus . s/p new PEG feeding tube and old colostomy . Pt is confined to bed and nonverbal . will keep NPO for now , PEG tube to gravity drainage , IVF and control of Diabetes . DVT prophylaxis . repeat abdominal and chest xray . - Problem Patient Problems: Patient Problems Small bowel obstruction (Acute) K56.687
--- NOTE | 2018-08-23 12:27 | RAD ---
Examination: Portable AP chest History: Follow-up Comparison reference: Earlier today, 08/23/2018 Findings: A follow-up portable AP view of the chest was obtained and submitted. There is no image designation that the study was performed with the patient either recumbent or upright. Pulmonary volumes are reduced. Bibasal atelectasis identified with possible small right pleural effusion. There is contrast material noted within the stomach. Distended bowel is noted in the upper abdomen. Impression: Intestinal distention as before which may explain the elevated diaphragm and reduced pulmonary volumes. Mild bibasal atelectasis and possible small right pleural effusion. Reported By:
[2018-08-23] MEDS: TOPROL XL PO SCH ×2 (13:33→20:47)
[2018-08-23] MEDS: K-RIDER 10 MEQ/NS 100 ML 10 MEQ/100 ML BAG IV PRN ×2 (13:34→15:00)
[2018-08-23] MEDS: LOVENOX INJ 40 MG SYR SC SCH (20:45)
[2018-08-23] MEDS: MORPHINE SULFATE INJ 2 MG INJ IVP PRN (22:05)
[2018-08-24] MEDS: FORTAZ or TAZICEF VIAL INJ IVP SCH ×3 (05:28→21:06)
[2018-08-24 05:34] LABS: BASOPHILS % (AUTO) 0.3 % (0.2-1.0); EOSINOPHILS % (AUTO) 0.1 % (0.9-2.9); HEMATOCRIT 34.6 % (36.0-47.0); HEMOGLOBIN 11.4 g/dL (12.0-16.0); LYMPHOCYTES # (AUTO) 1.2 X10^3/uL (1.3-2.9); LYMPHOCYTES % (AUTO) 18.7 % (21.0-51.0); MEAN CORPUSCULAR HEMOGLOBIN 30.6 pg (27.0-34.0); MEAN CORPUSCULAR VOLUME 92.7 fL (80.0-100.0); MEAN PLATELET VOLUME 7.8 fL (7.4-11.0); MONOCYTES # (AUTO) 0.6 x10^3/uL (0.3-0.8); MONOCYTES % (AUTO) 9.5 % (0.0-13.0); NEUTROPHILS # (AUTO) 4.8 x10^3/uL (2.2-4.8); NEUTROPHILS % (AUTO) 71.4 % (42.0-75.0); PLATELET COUNT 235 X10^3/uL (150.0-450.0); RED BLOOD COUNT 3.73 X10^6/uL (3.5-5.4); RED CELL DISTRIBUTION WIDTH 14.3 % (11.6-16.5); WHITE BLOOD COUNT 6.7 X10^3/uL (3.6-10.0)
[2018-08-24 05:56] LABS: ALANINE AMINOTRANSFERASE 24 Units/L (12-78); ALBUMIN 2.3 g/dL (3.4-5.0); ALKALINE PHOSPHATASE 89 Units/L (46-116); ASPARTATE AMINO TRANSFERASE 17 Units/L (15-37); BLOOD UREA NITROGEN 10 mg/dL (7-18); CALCIUM 9.6 mg/dL (8.5-10.1); CARBON DIOXIDE 29.2 mmol/L (21-32); CHLORIDE 110 mmol/L (98-107); COR NA(FOR HYPERGLY) 148 mmol/L (136-145); CREATININE 0.56 mg/dL (0.55-1.02); SODIUM 147 mmol/L (136-145); eGFR NON BLACK RACES > 60 (>60)
--- NOTE | 2018-08-24 06:02 | RAD ---
Acute abdominal series, three views Indication: G-tube drainage, SBO Comparison: Chest and abdominal radiograph 08/23/2018 Findings: The heart is stable in size. Lungs are again hypoinflated. Hazy right basilar opacities, suggestive for a small layering effusion and mild bibasilar atelectasis are unchanged. No definite acute alveolar infiltrate is identified. No pneumothorax. Percutaneous gastrostomy tube projecting over the mid abdomen noted. There is persistent diffuse small bowel dilatation with relative paucity of bowel gas within the distal colon and rectum, appearing overall unchanged since prior exam. No definite free air is identified. Impression: Stable small right pleural effusion and bibasilar atelectasis. Diffuse small bowel dilatation with paucity of distal colonic gas, unchanged since prior exam and suggestive for persistent small bowel obstruction. Reported By:
[2018-08-24] MEDS: K-RIDER 10 MEQ/NS 100 ML 10 MEQ/100 ML BAG IV PRN ×4 (06:39→11:36)
[2018-08-24] MEDS: PEPCID 20 MG IV PREMIX* 20 MG/50 ML BAG IV PRN (07:09)
[2018-08-24] MEDS: ZOFRAN INJ 4 MG VIAL IVP PRN (07:10)
[2018-08-24] MEDS: LEVAQUIN PREMIX IV 500 MG 500 MG/100 ML BAG IV SCH (08:42)
[2018-08-24] MEDS: LOVENOX INJ 40 MG SYR SC SCH (08:42)
[2018-08-24] MEDS: TOPROL XL PO SCH ×2 (08:43→21:06)
[2018-08-24] MEDS: NS 1000 ML 1,000 ML IV SCH ×3 (08:43→21:06)
--- NOTE | 2018-08-24 19:04 | DR.PROGNOT ---
Hospital Progress Notes - Progress Note for Day of: Progress Note Date: 08/24/18 - Chief Complaint Chief Complaint: no vomiting today . having low grade fever ,. abdominal xray still showing moderate dilated small bowel loops . colostomy is not functioning yet . - Past Medical Family Social History Past Med/Fam/Surg Hx: No changes since H&P Allergies: Allergies No Known Drug Allergies Allergy (Verified 05/02/18 14:58) - Review Of Systems ROS: No change since H&P - Vital Signs Vital Signs: Temperature 97.9 F Pulse Rate [Apical] 80 Pulse Rate [Brachial] 78 Pulse Rate 82 Respiratory Rate 18 Blood Pressure [Right Arm] 119/68 Blood Pressure [Left Arm] 100/72 Blood Pressure 129/94 O2 Sat by Pulse Oximetry 98 - Physical Exam Oriented: Not Oriented Eyes: Normal Ear: Normal Nose: Normal Throat: Normal Respiratory: Rhonchi Cardiovascular: Normal. negative: S3, S4, Murmur : Normal GI:Auscultation: Decreased GI:Palpation: Normal (diffuse mid abdominal tenderness , no leakage around the PEG tube , BS + ) GI: Tenderness: Mild. negative: Rebound, Guarding, Rigidity Skin: Normal Musculoskeletal: Normal Psychiatric: Normal Mood Description: Calm Affect: Normal Speech Pattern: Aphasic - Laboratory and Diagnostics Result Diagrams: 08/24/18 05:15 08/24/18 13:22 Labs: 08/23/18 08:00 Urine,[place] Urine Culture - Preliminary Laboratory WBC 6.7 X10^3/uL (3.6-10.0) 08/24/18 05:15 RBC 3.73 X10^6/uL (3.5-5.4) 08/24/18 05:15 Hgb 11.4 g/dL (12.0-16.0) L 08/24/18 05:15 Hct 34.6 % (36.0-47.0) L 08/24/18 05:15 MCV 92.7 fL (80.0-100.0) 08/24/18 05:15 MCH 30.6 pg (27.0-34.0) 08/24/18 05:15 MCHC 33.0 g/dL (33.0-35.0) 08/24/18 05:15 RDW 14.3 % (11.6-16.5) 08/24/18 05:15 Plt Count 235 X10^3/uL (150.0-450.0) 08/24/18 05:15 MPV 7.8 fL (7.4-11.0) 08/24/18 05:15 Neut % (Auto) 71.4 % (42.0-75.0) 08/24/18 05:15 Lymph % (Auto) 18.7 % (21.0-51.0) L 08/24/18 05:15 [place] % (Auto) 9.5 % (0.0-13.0) 08/24/18 05:15 Eos % (Auto) 0.1 % (0.9-2.9) L 08/24/18 05:15 Baso % (Auto) 0.3 % (0.2-1.0) 08/24/18 05:15 Neut # (Auto) 4.8 x10^3/uL (2.2-4.8) 08/24/18 05:15 Lymph # (Auto) 1.2 X10^3/uL (1.3-2.9) L 08/24/18 05:15 [place] # (Auto) 0.6 x10^3/uL (0.3-0.8) 08/24/18 05:15 Eos # (Auto) 0.0 x10^3/uL (0.0-0.2) 08/24/18 05:15 Baso # (Auto) 0.0 X10^3/uL (0.0-0.1) 08/24/18 05:15 Absolute Nucleated RBC 0.0 /100WBC 08/24/18 05:15 Sodium 147 mmol/L (136-145) H 08/24/18 05:15 Corrected Sodium 148 mmol/L (136-145) H 08/24/18 05:15 Potassium 3.8 mmol/L (3.5-5.1) 08/24/18 13:22 Chloride 110 mmol/L (98-107) H 08/24/18 05:15 Carbon Dioxide 29.2 mmol/L (21-32) 08/24/18 05:15 BUN 10 mg/dL (7-18) 08/24/18 05:15 Creatinine 0.56 mg/dL (0.55-1.02) 08/24/18 05:15 Est GFR (MDRD) Af Amer > 60 (>60) 08/24/18 05:15 Est GFR (MDRD) Non-Af > 60 (>60) 08/24/18 05:15 Glucose 159 mg/dL (65-99) H 08/24/18 05:15 POC Glucose (mg/dL) 117 mg/dL (65-99) H 08/24/18 16:53 Calcium 9.6 mg/dL (8.5-10.1) 08/24/18 05:15 Corrected Calcium 11.0 mg/dL (8.5-10.1) H 08/24/18 05:15 Magnesium 2.0 mg/dL (1.7-2.9) 08/24/18 05:15 Total Bilirubin 0.50 mg/dL (0.2-1.0) 08/24/18 05:15 AST 17 Units/L (15-37) 08/24/18 05:15 ALT 24 Units/L (12-78) 08/24/18 05:15 Alkaline Phosphatase 89 Units/L (46-116) 08/24/18 05:15 Total Protein 6.0 g/dL (6.4-8.2) L 08/24/18 05:15 Albumin 2.3 g/dL (3.4-5.0) L 08/24/18 05:15 Globulin 3.7 g/dL (2.5-4.5) 08/24/18 05:15 Albumin/Globulin Ratio 0.6 Ratio (1.1-2.1) L 08/24/18 05:15 Amylase 44 Units/L (25-115) 08/21/18 23:45 Lipase 69 Units/L (73-393) L 08/21/18 23:45 Specimen Type Catherized urine 08/23/18 08:00 Urine Color Brown (YELLOW) 08/23/18 08:00 Urine Appearance Cloudy (CLEAR) 08/23/18 08:00 Urine pH 6.5 (5.0 - 8.0) 08/23/18 08:00 Ur Specific [place] 1.025 (1.000-1.030) 08/23/18 08:00 Urine Protein 3+ (NEGATIVE) 08/23/18 08:00 Urine Glucose (UA) 3+ (NEGATIVE) 08/23/18 08:00 Urine Ketones 2+ (NEGATIVE) 08/23/18 08:00 Urine Occult Blood 5+ (NEGATIVE) 08/23/18 08:00 Urine Nitrite Positive (NEGATIVE) 08/23/18 08:00 Urine Bilirubin Negative (NEGATIVE) 08/23/18 08:00 Urine Urobilinogen Normal (NORMAL) 08/23/18 08:00 Ur Leukocyte Esterase 2+ (NEGATIVE) 08/23/18 08:00 Urine RBC Tntc /HPF (NONE SEEN) 08/23/18 08:00 Urine WBC 3-5 /HPF (NONE SEEN) 08/23/18 08:00 Ur Squamous Epith Cells Few /HPF (NEGATIVE) 08/23/18 08:00 Calcium Oxalate Crystal Rare /HPF (NEGATIVE) 08/23/18 08:00 Amorphous Sediment 2+ /HPF (NEGATIVE) 08/23/18 08:00 Urine Bacteria Trace /HPF (NEGATIVE) 08/23/18 08:00 Hyaline Casts Rare /LPF (NEGATIVE) 08/23/18 08:00 Urine Mucus Moderate /HPF (NEGATIVE) 08/23/18 08:00 Ur Culture Indicated? Yes/culture set up 08/23/18 08:00 - Assessment and Plan 1: partial SBO vs Ileus . s/p placement of a new PEG feeding tube. Pt is confined to bed and nonverbal . will keep NPO for now except for meds . PEG tube to gravity drainage , IVF and control of Diabetes . DVT prophylaxis . repeat abdominal in am - Problem Patient Problems: Patient Problems Small bowel obstruction (Acute) K56.324
--- NOTE | 2018-08-24 21:28 | PCM.PROG ---
Progress Note - Progress Note for Day of Date of Exam: 08/23/18 - Subjective Subjective: WAS ADMITTED FOR SMALL BOWEL OBSTRUCTION, NAUSEA/VOMITING, AND DRAINING FROM PEG TUBE. TODAY, SHE IS LYING IN BED WITH EYES CLOSED ON MORNING ROUNDS. SHE OPENS EYES TO VERBAL STIMULI, BUT SHE IS NON-VERBAL. SHE HAS A HISTORY OF DEMENTIA. ON EXAMINATION, HEART IS REGULAR IN RATE AND RHYTHM. BILATERAL LUNGS ARE NOTED WITH DIMINISHED LUNG SOUNDS THROUGHOUT. ABDOMEN IS NOTED WITH COLOSTOMY AND PEG TUBE. HER VITALS THIS MORNING ARE 99.1-107-18-98%-133/81. LABS WERE OBTAINED. ABNORMAL LAB VALUES INCLUDE THE FOLLOWING: WBC 10.1, CREATININE 0.50, GLUCOSE 226, ALBUMIN 2.6. A URINALYSIS WAS OBTAINED THIS MORNING AND REVEALED: WBC 3-5, RBC TNTC, LEUKOCYTES 2+, BACTERIA TRACE. URINE AND BLOOD CULTURES PENDING. AN ABDOMINAL SERIES WAS OBTAINED AND REVEALED: Continued selective distention of small bowel which may indicate mechanical obstruction. No definite free air identified although a full upright view of the abdomen was not obtained for confident exclusion of perforation. Pleural-parenchymal opacity right lung base. Correlate with standard chest radiographs. A CHEST XRAY WAS OBTAINED AND REVEALED: Intestinal distention as before which may explain the elevated diaphragm and reduced pulmonary volumes. Mild bibasal atelectasis and possible small right pleural effusion. WILL CONTINUE TO MONITOR PATIENT. OTHERWISE, WE WILL CONTINUE TO KEEP PATIENT NPO TODAY AND CONTINUE WITH CURRENT PLAN OF CARE. WE WILL FOLLOW UP WITH AM LABS AND CONTINUE TO MONITOR. - Past Medical Family Social History Past Med/Fam/Surg Hx: No changes since H&P Allergies: Allergies No Known Drug Allergies Allergy (Verified 05/02/18 14:58) - Review of Systems ROS: No change since H&P - Vital Signs and I&O's Vital Signs: Temperature 97.9 F Pulse Rate [Apical] 80 Pulse Rate [Brachial] 86 Pulse Rate 82 Respiratory Rate 18 Blood Pressure [Right Arm] 128/82 Blood Pressure [Left Arm] 100/72 Blood Pressure 129/94 O2 Sat by Pulse Oximetry 100 Intake and Output: Intake & Output 08/22/18 08/23/18 08/24/18 08/25/18 11:59 11:59 11:59 11:59 Intake Total 2100 / 2100 2460 / 2460 1560 / 1560 Output Total 450 / 450 1550 / 1550 550 / 550 Balance 1650 / 1650 910 / 910 1010 / 1010 - Physical Exam Oriented: Not Oriented Eyes: Normal Ear: Normal Nose: Normal Throat: Normal Respiratory: Diminished Cardiovascular: Normal. negative: S3, S4, Murmur : Normal Auscultation: Bowel Sounds: Decreased Palpation: Normal Tenderness: Mild. negative: Rebound, Guarding, Rigidity Skin: Normal Musculoskeletal: Normal Psychiatric: Normal Mood Description: Calm Affect: Normal Speech Pattern: Aphasic - Laboratory and Diagnostics Result Diagrams: 08/24/18 05:15 08/24/18 13:22 Labs: 08/23/18 08:00 Urine,[place] Urine Culture - Preliminary Laboratory WBC 6.7 X10^3/uL (3.6-10.0) 08/24/18 05:15 RBC 3.73 X10^6/uL (3.5-5.4) 08/24/18 05:15 Hgb 11.4 g/dL (12.0-16.0) L 08/24/18 05:15 Hct 34.6 % (36.0-47.0) L 08/24/18 05:15 MCV 92.7 fL (80.0-100.0) 08/24/18 05:15 MCH 30.6 pg (27.0-34.0) 08/24/18 05:15 MCHC 33.0 g/dL (33.0-35.0) 08/24/18 05:15 RDW 14.3 % (11.6-16.5) 08/24/18 05:15 Plt Count 235 X10^3/uL (150.0-450.0) 08/24/18 05:15 MPV 7.8 fL (7.4-11.0) 08/24/18 05:15 Neut % (Auto) 71.4 % (42.0-75.0) 08/24/18 05:15 Lymph % (Auto) 18.7 % (21.0-51.0) L 08/24/18 05:15 [place] % (Auto) 9.5 % (0.0-13.0) 08/24/18 05:15 Eos % (Auto) 0.1 % (0.9-2.9) L 08/24/18 05:15 Baso % (Auto) 0.3 % (0.2-1.0) 08/24/18 05:15 Neut # (Auto) 4.8 x10^3/uL (2.2-4.8) 08/24/18 05:15 Lymph # (Auto) 1.2 X10^3/uL (1.3-2.9) L 08/24/18 05:15 [place] # (Auto) 0.6 x10^3/uL (0.3-0.8) 08/24/18 05:15 Eos # (Auto) 0.0 x10^3/uL (0.0-0.2) 08/24/18 05:15 Baso # (Auto) 0.0 X10^3/uL (0.0-0.1) 08/24/18 05:15 Absolute Nucleated RBC 0.0 /100WBC 08/24/18 05:15 Sodium 147 mmol/L (136-145) H 08/24/18 05:15 Corrected Sodium 148 mmol/L (136-145) H 08/24/18 05:15 Potassium 3.8 mmol/L (3.5-5.1) 08/24/18 13:22 Chloride 110 mmol/L (98-107) H 08/24/18 05:15 Carbon Dioxide 29.2 mmol/L (21-32) 08/24/18 05:15 BUN 10 mg/dL (7-18) 08/24/18 05:15 Creatinine 0.56 mg/dL (0.55-1.02) 08/24/18 05:15 Est GFR (MDRD) Af Amer > 60 (>60) 08/24/18 05:15 Est GFR (MDRD) Non-Af > 60 (>60) 08/24/18 05:15 Glucose 159 mg/dL (65-99) H 08/24/18 05:15 POC Glucose (mg/dL) 87 mg/dL (65-99) 08/24/18 20:54 Calcium 9.6 mg/dL (8.5-10.1) 08/24/18 05:15 Corrected Calcium 11.0 mg/dL (8.5-10.1) H 08/24/18 05:15 Magnesium 2.0 mg/dL (1.7-2.9) 08/24/18 05:15 Total Bilirubin 0.50 mg/dL (0.2-1.0) 08/24/18 05:15 AST 17 Units/L (15-37) 08/24/18 05:15 ALT 24 Units/L (12-78) 08/24/18 05:15 Alkaline Phosphatase 89 Units/L (46-116) 08/24/18 05:15 Total Protein 6.0 g/dL (6.4-8.2) L 08/24/18 05:15 Albumin 2.3 g/dL (3.4-5.0) L 08/24/18 05:15 Globulin 3.7 g/dL (2.5-4.5) 08/24/18 05:15 Albumin/Globulin Ratio 0.6 Ratio (1.1-2.1) L 08/24/18 05:15 Amylase 44 Units/L (25-115) 08/21/18 23:45 Lipase 69 Units/L (73-393) L 08/21/18 23:45 Specimen Type Catherized urine 08/23/18 08:00 Urine Color Brown (YELLOW) 08/23/18 08:00 Urine Appearance Cloudy (CLEAR) 08/23/18 08:00 Urine pH 6.5 (5.0 - 8.0) 08/23/18 08:00 Ur Specific [place] 1.025 (1.000-1.030) 08/23/18 08:00 Urine Protein 3+ (NEGATIVE) 08/23/18 08:00 Urine Glucose (UA) 3+ (NEGATIVE) 08/23/18 08:00 Urine Ketones 2+ (NEGATIVE) 08/23/18 08:00 Urine Occult Blood 5+ (NEGATIVE) 08/23/18 08:00 Urine Nitrite Positive (NEGATIVE) 08/23/18 08:00 Urine Bilirubin Negative (NEGATIVE) 08/23/18 08:00 Urine Urobilinogen Normal (NORMAL) 08/23/18 08:00 Ur Leukocyte Esterase 2+ (NEGATIVE) 08/23/18 08:00 Urine RBC Tntc /HPF (NONE SEEN) 08/23/18 08:00 Urine WBC 3-5 /HPF (NONE SEEN) 08/23/18 08:00 Ur Squamous Epith Cells Few /HPF (NEGATIVE) 08/23/18 08:00 Calcium Oxalate Crystal Rare /HPF (NEGATIVE) 08/23/18 08:00 Amorphous Sediment 2+ /HPF (NEGATIVE) 08/23/18 08:00 Urine Bacteria Trace /HPF (NEGATIVE) 08/23/18 08:00 Hyaline Casts Rare /LPF (NEGATIVE) 08/23/18 08:00 Urine Mucus Moderate /HPF (NEGATIVE) 08/23/18 08:00 Ur Culture Indicated? Yes/culture set up 08/23/18 08:00 - Plan (1) Small bowel obstruction Status: Acute Plan: ADMIT, IV FLUIDS, IV FORTAZ, IV LEVAQUIN, IV PEPCID, CONTINUE TO MONITOR (2) Problem with gastrostomy tube Status: Acute (3) Nausea & vomiting Status: Acute Qualifiers: Vomiting type: hematemesis Qualified Code(s): K92.0 - Hematemesis Plan: IV ZOFRAN, CONTINUE TO MONITOR (4) Urinary tract infection Status: Acute Qualifiers: Urinary tract infection type: acute cystitis Hematuria presence: with hematuria Qualified Code(s): N30.01 - Acute cystitis with hematuria Plan: IV ANTIBIOTICS, IV FLUIDS, CONTINUE TO MONITOR
[2018-08-25] MEDS: NS 1000 ML 1,000 ML IV SCH ×2 (04:48→18:00)
[2018-08-25] MEDS: FORTAZ or TAZICEF VIAL INJ IVP SCH ×3 (05:45→21:00)
[2018-08-25 06:12] LABS: BASOPHILS % (AUTO) 0.8 % (0.2-1.0); EOSINOPHILS # (AUTO) 0.1 x10^3/uL (0.0-0.2); HEMATOCRIT 31.5 % (36.0-47.0); HEMOGLOBIN 10.5 g/dL (12.0-16.0); LYMPHOCYTES # (AUTO) 1.6 X10^3/uL (1.3-2.9); LYMPHOCYTES % (AUTO) 29.1 % (21.0-51.0); MEAN CORPUSCULAR HEMOGLOBIN 30.7 pg (27.0-34.0); MEAN CORPUSCULAR HGB CONC 33.5 g/dL (33.0-35.0); MEAN CORPUSCULAR VOLUME 91.6 fL (80.0-100.0); MEAN PLATELET VOLUME 7.5 fL (7.4-11.0); MONOCYTES # (AUTO) 0.5 x10^3/uL (0.3-0.8); MONOCYTES % (AUTO) 9.5 % (0.0-13.0); NEUTROPHILS # (AUTO) 3.4 x10^3/uL (2.2-4.8); NEUTROPHILS % (AUTO) 59.6 % (42.0-75.0); PLATELET COUNT 231 X10^3/uL (150.0-450.0); RED BLOOD COUNT 3.44 X10^6/uL (3.5-5.4); RED CELL DISTRIBUTION WIDTH 13.4 % (11.6-16.5); WHITE BLOOD COUNT 5.6 X10^3/uL (3.6-10.0)
[2018-08-25 06:36] LABS: ALANINE AMINOTRANSFERASE 21 Units/L (12-78); ALBUMIN 2.1 g/dL (3.4-5.0); ALKALINE PHOSPHATASE 79 Units/L (46-116); ASPARTATE AMINO TRANSFERASE 19 Units/L (15-37); BLOOD UREA NITROGEN 5 mg/dL (7-18); CALCIUM 9.2 mg/dL (8.5-10.1); CARBON DIOXIDE 30.2 mmol/L (21-32); CHLORIDE 107 mmol/L (98-107); COR CA(FOR HYPOALB) 10.7 mg/dL (8.5-10.1); CREATININE 0.49 mg/dL (0.55-1.02); SODIUM 144 mmol/L (136-145); TOTAL PROTEIN 5.7 g/dL (6.4-8.2); eGFR NON BLACK RACES > 60 (>60)
--- NOTE | 2018-08-25 06:38 | RAD ---
HISTORY: G-tube drainage Study: Flat and upright abdomen, AP chest Comparison: 08/24/2018 Findings: There is an ostomy in the left mid abdomen. There is a G-tube present with its tip to the right of the lumbar spine. Its precise location is indeterminate. There is some contrast present in the right colon and appendix. The abdominal gas pattern is nonspecific and nonobstructive. No abnormal masses or abnormal calcifications are identified. The heart remains enlarged. Pulmonary venous congestion is present. The lungs are hypo inflated. Right pleural effusion and right lung infiltrates are present. The left lung is clear. IMPRESSION: Nonspecific bowel gas pattern. G tube tip in the upper abdomen to the right the lumbar spine. Its precise location is indeterminate. Nonspecific bowel gas pattern Moderate cardiomegaly with pulmonary venous congestion Right lung infiltrates and right pleural effusion Reported By:
[2018-08-25] MEDS: K-RIDER 10 MEQ/NS 100 ML 10 MEQ/100 ML BAG IV PRN ×2 (06:42→08:30)
[2018-08-25] MEDS: LEVAQUIN PREMIX IV 500 MG 500 MG/100 ML BAG IV SCH (08:21)
[2018-08-25] MEDS: LOVENOX INJ 40 MG SYR SC SCH (08:21)
[2018-08-25] MEDS: TOPROL XL PO SCH (08:21)
[2018-08-25] MEDS: DUONEB 0.5 MG/3 MG NEB SCH ×4 (09:45→20:00)
--- NOTE | 2018-08-25 13:36 | DR.PROGNOT ---
Hospital Progress Notes - Progress Note for Day of: Progress Note Date: 08/25/18 - Chief Complaint Chief Complaint: colostomy is functioning today and abdominal xray showed no obstruction . Pt is more alert today . - Past Medical Family Social History Past Med/Fam/Surg Hx: No changes since H&P Allergies: Allergies No Known Drug Allergies Allergy (Verified 05/02/18 14:58) - Review Of Systems ROS: No change since H&P - Vital Signs Vital Signs: Temperature 98.8 F Pulse Rate [Apical] 83 Pulse Rate [Brachial] 96 Pulse Rate 90 Respiratory Rate 18 Blood Pressure [Right Arm] 128/57 Blood Pressure [Left Arm] 100/72 Blood Pressure 129/94 O2 Sat by Pulse Oximetry 98 - Physical Exam Oriented: Not Oriented Eyes: Normal Ear: Normal Nose: Normal Throat: Normal Respiratory: Diminished Cardiovascular: Normal. negative: S3, S4, Murmur : Normal GI:Auscultation: Decreased GI:Palpation: Normal GI: Tenderness: Mild. negative: Rebound, Guarding, Rigidity Skin: Normal Musculoskeletal: Normal Psychiatric: Normal Mood Description: Calm Affect: Normal Speech Pattern: Aphasic - Laboratory and Diagnostics Result Diagrams: 08/25/18 05:28 08/25/18 05:28 Labs: 08/23/18 17:54 Blood Blood Culture - Preliminary 08/23/18 17:49 Blood Blood Culture - Preliminary 08/23/18 08:00 Urine,[place] Urine Culture - Final Laboratory WBC 5.6 X10^3/uL (3.6-10.0) 08/25/18 05:28 RBC 3.44 X10^6/uL (3.5-5.4) L 08/25/18 05:28 Hgb 10.5 g/dL (12.0-16.0) L 08/25/18 05:28 Hct 31.5 % (36.0-47.0) L 08/25/18 05:28 MCV 91.6 fL (80.0-100.0) 08/25/18 05:28 MCH 30.7 pg (27.0-34.0) 08/25/18 05:28 MCHC 33.5 g/dL (33.0-35.0) 08/25/18 05:28 RDW 13.4 % (11.6-16.5) 08/25/18 05:28 Plt Count 231 X10^3/uL (150.0-450.0) 08/25/18 05:28 MPV 7.5 fL (7.4-11.0) 08/25/18 05:28 Neut % (Auto) 59.6 % (42.0-75.0) 08/25/18 05:28 Lymph % (Auto) 29.1 % (21.0-51.0) 08/25/18 05:28 [place] % (Auto) 9.5 % (0.0-13.0) 08/25/18 05:28 Eos % (Auto) 1.0 % (0.9-2.9) 08/25/18 05:28 Baso % (Auto) 0.8 % (0.2-1.0) 08/25/18 05:28 Neut # (Auto) 3.4 x10^3/uL (2.2-4.8) 08/25/18 05:28 Lymph # (Auto) 1.6 X10^3/uL (1.3-2.9) 08/25/18 05:28 [place] # (Auto) 0.5 x10^3/uL (0.3-0.8) 08/25/18 05:28 Eos # (Auto) 0.1 x10^3/uL (0.0-0.2) 08/25/18 05:28 Baso # (Auto) 0.0 X10^3/uL (0.0-0.1) 08/25/18 05:28 Absolute Nucleated RBC 0.2 /100WBC 08/25/18 05:28 Sodium 144 mmol/L (136-145) 08/25/18 05:28 Corrected Sodium TNP 08/25/18 05:28 Potassium 3.1 mmol/L (3.5-5.1) L 08/25/18 05:28 Chloride 107 mmol/L (98-107) 08/25/18 05:28 Carbon Dioxide 30.2 mmol/L (21-32) 08/25/18 05:28 BUN 5 mg/dL (7-18) L 08/25/18 05:28 Creatinine 0.49 mg/dL (0.55-1.02) L 08/25/18 05:28 Est GFR (MDRD) Af Amer > 60 (>60) 08/25/18 05:28 Est GFR (MDRD) Non-Af > 60 (>60) 08/25/18 05:28 Glucose 93 mg/dL (65-99) 08/25/18 05:28 POC Glucose (mg/dL) 146 mg/dL (65-99) H 08/25/18 12:06 Calcium 9.2 mg/dL (8.5-10.1) 08/25/18 05:28 Corrected Calcium 10.7 mg/dL (8.5-10.1) H 08/25/18 05:28 Magnesium 1.7 mg/dL (1.7-2.9) 08/25/18 05:28 Total Bilirubin 0.40 mg/dL (0.2-1.0) 08/25/18 05:28 AST 19 Units/L (15-37) 08/25/18 05:28 ALT 21 Units/L (12-78) 08/25/18 05:28 Alkaline Phosphatase 79 Units/L (46-116) 08/25/18 05:28 Total Protein 5.7 g/dL (6.4-8.2) L 08/25/18 05:28 Albumin 2.1 g/dL (3.4-5.0) L 08/25/18 05:28 Globulin 3.6 g/dL (2.5-4.5) 08/25/18 05:28 Albumin/Globulin Ratio 0.6 Ratio (1.1-2.1) L 08/25/18 05:28 Amylase 44 Units/L (25-115) 08/21/18 23:45 Lipase 69 Units/L (73-393) L 08/21/18 23:45 Specimen Type Catherized urine 08/23/18 08:00 Urine Color Brown (YELLOW) 08/23/18 08:00 Urine Appearance Cloudy (CLEAR) 08/23/18 08:00 Urine pH 6.5 (5.0 - 8.0) 08/23/18 08:00 Ur Specific [place] 1.025 (1.000-1.030) 08/23/18 08:00 Urine Protein 3+ (NEGATIVE) 08/23/18 08:00 Urine Glucose (UA) 3+ (NEGATIVE) 08/23/18 08:00 Urine Ketones 2+ (NEGATIVE) 08/23/18 08:00 Urine Occult Blood 5+ (NEGATIVE) 08/23/18 08:00 Urine Nitrite Positive (NEGATIVE) 08/23/18 08:00 Urine Bilirubin Negative (NEGATIVE) 08/23/18 08:00 Urine Urobilinogen Normal (NORMAL) 08/23/18 08:00 Ur Leukocyte Esterase 2+ (NEGATIVE) 08/23/18 08:00 Urine RBC Tntc /HPF (NONE SEEN) 08/23/18 08:00 Urine WBC 3-5 /HPF (NONE SEEN) 08/23/18 08:00 Ur Squamous Epith Cells Few /HPF (NEGATIVE) 08/23/18 08:00 Calcium Oxalate Crystal Rare /HPF (NEGATIVE) 08/23/18 08:00 Amorphous Sediment 2+ /HPF (NEGATIVE) 08/23/18 08:00 Urine Bacteria Trace /HPF (NEGATIVE) 08/23/18 08:00 Hyaline Casts Rare /LPF (NEGATIVE) 08/23/18 08:00 Urine Mucus Moderate /HPF (NEGATIVE) 08/23/18 08:00 Ur Culture Indicated? Yes/culture set up 08/23/18 08:00 - Assessment and Plan 1: resolving partial SBO vs Ileus . s/p placement of a new PEG feeding tube . Pt is confined to bed. will start fedding today . - Problem Patient Problems: Patient Problems Small bowel obstruction (Acute) K56.609 Urinary tract infection (Acute) N39.0
[2018-08-25 17:58] LABS: STOOL FOR WBC POSITIVE (NEGATIVE)
--- NOTE | 2018-08-25 19:41 | PCM.PROG ---
Progress Note - Progress Note for Day of Date of Exam: 08/24/18 - Subjective Subjective: WAS ADMITTED FOR SMALL BOWEL OBSTRUCTION, NAUSEA/VOMITING, AND DRAINING FROM PEG TUBE. TODAY, SHE IS LYING IN BED WITH EYES CLOSED ON MORNING ROUNDS. SHE OPENS EYES TO VERBAL STIMULI, BUT SHE IS NON-VERBAL. SHE HAS A HISTORY OF DEMENTIA. ON EXAMINATION, HEART IS REGULAR IN RATE AND RHYTHM. BILATERAL LUNGS ARE NOTED WITH DIMINISHED LUNG SOUNDS THROUGHOUT. ABDOMEN IS NOTED WITH COLOSTOMY AND PEG TUBE. HER VITALS THIS MORNING ARE 99.0-80-18-100%-130/63. LABS WERE OBTAINED. ABNORMAL LAB VALUES INCLUDE THE FOLLOWING: HGB 11.4, HCT 34.6, SODIUM 147, POTASSIUM 3.1, CHLORIDE 110, GLUCOSE 159, TOTAL PROTEIN 6.0, ALBUMIN 2.3. AN ABDOMINAL SERIES WAS OBTAINED AND REVEALED: Stable small right pleural effusion and bibasilar atelectasis. Diffuse small bowel dilatation with paucity of distal colonic gas, unchanged since prior exam and suggestive for persistent small bowel obstruction. COLOSTOMY IS NOT FUNCTIONING AT THIS TIME. SHE IS CURRENTLY RECEIVING IV FLUIDS AND IV ANTIBIOTICS. NG TUBE IS HOOKED TO DRAINAGE BY GRAVITY. WILL CONTINUE TO MONITOR PATIENT. OTHERWISE, WE WILL CONTINUE TO KEEP PATIENT NPO TODAY AND CONTINUE WITH CURRENT PLAN OF CARE. WE WILL FOLLOW UP WITH AM LABS AND CONTINUE TO MONITOR. - Past Medical Family Social History Past Med/Fam/Surg Hx: No changes since H&P Allergies: Allergies No Known Drug Allergies Allergy (Verified 05/02/18 14:58) - Review of Systems ROS: No change since H&P - Vital Signs and I&O's Vital Signs: Temperature 97.5 F Pulse Rate [Apical] 93 Pulse Rate [Brachial] 79 Pulse Rate 72 Respiratory Rate 18 Blood Pressure [Right Arm] 125/64 Blood Pressure [Left Arm] 127/74 Blood Pressure 129/94 O2 Sat by Pulse Oximetry 95 Intake and Output: Intake & Output 08/23/18 08/24/18 08/25/18 08/26/18 11:59 11:59 11:59 11:59 Intake Total 2100 / 2100 2460 / 2460 3572 / 3572 0 / 0 Output Total 450 / 450 1550 / 1550 2200 / 2200 450 / 450 Balance 1650 / 1650 910 / 910 1372 / 1372 -450 / -450 - Physical Exam Oriented: Not Oriented Eyes: Normal Ear: Normal Nose: Normal Throat: Normal Respiratory: Diminished Cardiovascular: Normal. negative: S3, S4, Murmur : Normal Auscultation: Bowel Sounds: Decreased Tenderness: Mild. negative: Rebound, Guarding, Rigidity Skin: Normal Musculoskeletal: Normal Psychiatric: Normal Mood Description: Calm Affect: Normal Speech Pattern: Aphasic - Laboratory and Diagnostics Result Diagrams: 08/25/18 05:28 08/25/18 05:28 Labs: 08/25/18 17:15 Stool - Final 08/23/18 17:54 Blood Blood Culture - Preliminary 08/23/18 17:49 Blood Blood Culture - Preliminary 08/23/18 08:00 Urine,[place] Urine Culture - Final Laboratory WBC 5.6 X10^3/uL (3.6-10.0) 08/25/18 05:28 RBC 3.44 X10^6/uL (3.5-5.4) L 08/25/18 05:28 Hgb 10.5 g/dL (12.0-16.0) L 08/25/18 05:28 Hct 31.5 % (36.0-47.0) L 08/25/18 05:28 MCV 91.6 fL (80.0-100.0) 08/25/18 05:28 MCH 30.7 pg (27.0-34.0) 08/25/18 05:28 MCHC 33.5 g/dL (33.0-35.0) 08/25/18 05:28 RDW 13.4 % (11.6-16.5) 08/25/18 05:28 Plt Count 231 X10^3/uL (150.0-450.0) 08/25/18 05:28 MPV 7.5 fL (7.4-11.0) 08/25/18 05:28 Neut % (Auto) 59.6 % (42.0-75.0) 08/25/18 05:28 Lymph % (Auto) 29.1 % (21.0-51.0) 08/25/18 05:28 [place] % (Auto) 9.5 % (0.0-13.0) 08/25/18 05:28 Eos % (Auto) 1.0 % (0.9-2.9) 08/25/18 05:28 Baso % (Auto) 0.8 % (0.2-1.0) 08/25/18 05:28 Neut # (Auto) 3.4 x10^3/uL (2.2-4.8) 08/25/18 05:28 Lymph # (Auto) 1.6 X10^3/uL (1.3-2.9) 08/25/18 05:28 [place] # (Auto) 0.5 x10^3/uL (0.3-0.8) 08/25/18 05:28 Eos # (Auto) 0.1 x10^3/uL (0.0-0.2) 08/25/18 05:28 Baso # (Auto) 0.0 X10^3/uL (0.0-0.1) 08/25/18 05:28 Absolute Nucleated RBC 0.2 /100WBC 08/25/18 05:28 Sodium 144 mmol/L (136-145) 08/25/18 05:28 Corrected Sodium TNP 08/25/18 05:28 Potassium 3.1 mmol/L (3.5-5.1) L 08/25/18 05:28 Chloride 107 mmol/L (98-107) 08/25/18 05:28 Carbon Dioxide 30.2 mmol/L (21-32) 08/25/18 05:28 BUN 5 mg/dL (7-18) L 08/25/18 05:28 Creatinine 0.49 mg/dL (0.55-1.02) L 08/25/18 05:28 Est GFR (MDRD) Af Amer > 60 (>60) 08/25/18 05:28 Est GFR (MDRD) Non-Af > 60 (>60) 08/25/18 05:28 Glucose 93 mg/dL (65-99) 08/25/18 05:28 POC Glucose (mg/dL) 109 mg/dL (65-99) H 08/25/18 16:54 Calcium 9.2 mg/dL (8.5-10.1) 08/25/18 05:28 Corrected Calcium 10.7 mg/dL (8.5-10.1) H 08/25/18 05:28 Magnesium 1.7 mg/dL (1.7-2.9) 08/25/18 05:28 Total Bilirubin 0.40 mg/dL (0.2-1.0) 08/25/18 05:28 AST 19 Units/L (15-37) 08/25/18 05:28 ALT 21 Units/L (12-78) 08/25/18 05:28 Alkaline Phosphatase 79 Units/L (46-116) 08/25/18 05:28 Total Protein 5.7 g/dL (6.4-8.2) L 08/25/18 05:28 Albumin 2.1 g/dL (3.4-5.0) L 08/25/18 05:28 Globulin 3.6 g/dL (2.5-4.5) 08/25/18 05:28 Albumin/Globulin Ratio 0.6 Ratio (1.1-2.1) L 08/25/18 05:28 Amylase 44 Units/L (25-115) 08/21/18 23:45 Lipase 69 Units/L (73-393) L 08/21/18 23:45 Specimen Type Catherized urine 08/23/18 08:00 Urine Color Brown (YELLOW) 08/23/18 08:00 Urine Appearance Cloudy (CLEAR) 08/23/18 08:00 Urine pH 6.5 (5.0 - 8.0) 08/23/18 08:00 Ur Specific [place] 1.025 (1.000-1.030) 08/23/18 08:00 Urine Protein 3+ (NEGATIVE) 08/23/18 08:00 Urine Glucose (UA) 3+ (NEGATIVE) 08/23/18 08:00 Urine Ketones 2+ (NEGATIVE) 08/23/18 08:00 Urine Occult Blood 5+ (NEGATIVE) 08/23/18 08:00 Urine Nitrite Positive (NEGATIVE) 08/23/18 08:00 Urine Bilirubin Negative (NEGATIVE) 08/23/18 08:00 Urine Urobilinogen Normal (NORMAL) 08/23/18 08:00 Ur Leukocyte Esterase 2+ (NEGATIVE) 08/23/18 08:00 Urine RBC Tntc /HPF (NONE SEEN) 08/23/18 08:00 Urine WBC 3-5 /HPF (NONE SEEN) 08/23/18 08:00 Ur Squamous Epith Cells Few /HPF (NEGATIVE) 08/23/18 08:00 Calcium Oxalate Crystal Rare /HPF (NEGATIVE) 08/23/18 08:00 Amorphous Sediment 2+ /HPF (NEGATIVE) 08/23/18 08:00 Urine Bacteria Trace /HPF (NEGATIVE) 08/23/18 08:00 Hyaline Casts Rare /LPF (NEGATIVE) 08/23/18 08:00 Urine Mucus Moderate /HPF (NEGATIVE) 08/23/18 08:00 Ur Culture Indicated? Yes/culture set up 08/23/18 08:00 Stool Description 10g,brown,liquid 08/25/18 17:15 Stl Occult Blood (IFOB) Negative (NEGATIVE) 08/25/18 17:15 Stool for White Cells Positive (NEGATIVE) A 08/25/18 17:15 Stl C. diff Tox B Gene Negative (NEGATIVE) 08/25/18 17:15 Stl C. diff [id number]-NAP1-BI Negative (NEGATIVE) 08/25/18 17:15 - Plan (1) Small bowel obstruction Status: Acute Plan: ADMIT, IV FLUIDS, IV FORTAZ, IV LEVAQUIN, IV PEPCID, CONTINUE TO MONITOR (2) Problem with gastrostomy tube Status: Acute (3) Nausea & vomiting Status: Acute Qualifiers: Vomiting type: hematemesis Qualified Code(s): K92.0 - Hematemesis Plan: IV ZOFRAN, CONTINUE TO MONITOR (4) Urinary tract infection Status: Acute Qualifiers: Urinary tract infection type: acute cystitis Hematuria presence: with hematuria Qualified Code(s): N30.01 - Acute cystitis with hematuria Plan: IV ANTIBIOTICS, IV FLUIDS, CONTINUE TO MONITOR
[2018-08-25] MEDS: LOPRESSOR TAB 25 MG PO SCH (20:35)
[2018-08-26] MEDS: NORCO 5/325 MG TAB PO PRN ×2 (01:37→15:15)
[2018-08-26] MEDS: NS 1000 ML 1,000 ML IV SCH ×3 (03:00→22:00)
[2018-08-26] MEDS: FORTAZ or TAZICEF VIAL INJ IVP SCH ×3 (06:00→22:00)
--- NOTE | 2018-08-26 06:05 | RAD ---
HISTORY: Small-bowel obstruction Study: Flat and upright abdomen, AP chest Comparison: 08/25/2018 Findings: The heart is enlarged. Pulmonary venous congestion is present. Right pleural effusion and right lung infiltrates are unchanged. There is now a left pleural effusion present. The visualized left lung appears clear. There is a PEG tube present in the right upper quadrant its precise location is indeterminate. The abdominal gas pattern is nonspecific and nonobstructive. No pneumoperitoneum is identified. The regional skeleton is intact. IMPRESSION: Nonspecific bowel gas pattern Moderate cardiomegaly with pulmonary venous congestion No change right lung infiltrates right pleural effusion Small left pleural effusion Reported By:
[2018-08-26 06:08] LABS: BASOPHILS % (AUTO) 0.5 % (0.2-1.0); EOSINOPHILS # (AUTO) 0.1 x10^3/uL (0.0-0.2); EOSINOPHILS % (AUTO) 0.9 % (0.9-2.9); HEMATOCRIT 30.5 % (36.0-47.0); HEMOGLOBIN 10.3 g/dL (12.0-16.0); LYMPHOCYTES % (AUTO) 27.1 % (21.0-51.0); MEAN CORPUSCULAR HEMOGLOBIN 30.9 pg (27.0-34.0); MEAN CORPUSCULAR HGB CONC 33.9 g/dL (33.0-35.0); MEAN CORPUSCULAR VOLUME 91.2 fL (80.0-100.0); MEAN PLATELET VOLUME 7.2 fL (7.4-11.0); MONOCYTES # (AUTO) 0.6 x10^3/uL (0.3-0.8); MONOCYTES % (AUTO) 8.4 % (0.0-13.0); NEUTROPHILS # (AUTO) 4.6 x10^3/uL (2.2-4.8); NEUTROPHILS % (AUTO) 63.1 % (42.0-75.0); PLATELET COUNT 233 X10^3/uL (150.0-450.0); RED BLOOD COUNT 3.34 X10^6/uL (3.5-5.4); RED CELL DISTRIBUTION WIDTH 13.8 % (11.6-16.5); WHITE BLOOD COUNT 7.3 X10^3/uL (3.6-10.0)
[2018-08-26 06:27] LABS: ALANINE AMINOTRANSFERASE 15 Units/L (12-78); ALKALINE PHOSPHATASE 75 Units/L (46-116); ASPARTATE AMINO TRANSFERASE 19 Units/L (15-37); BLOOD UREA NITROGEN 5 mg/dL (7-18); CALCIUM 8.9 mg/dL (8.5-10.1); CARBON DIOXIDE 28.2 mmol/L (21-32); CHLORIDE 104 mmol/L (98-107); COR CA(FOR HYPOALB) 10.5 mg/dL (8.5-10.1); COR NA(FOR HYPERGLY) 138 mmol/L (136-145); SODIUM 138 mmol/L (136-145); TOTAL PROTEIN 5.5 g/dL (6.4-8.2); eGFR NON BLACK RACES > 60 (>60)
[2018-08-26] MEDS: LEVAQUIN PREMIX IV 500 MG 500 MG/100 ML BAG IV SCH (08:41)
[2018-08-26] MEDS: LOVENOX INJ 40 MG SYR SC SCH (08:41)
[2018-08-26] MEDS: LOPRESSOR TAB 25 MG PO SCH ×2 (08:41→20:56)
[2018-08-26] MEDS: DUONEB 0.5 MG/3 MG NEB SCH ×4 (09:07→21:07)
--- NOTE | 2018-08-26 14:06 | PCM.PROG ---
Progress Note - Progress Note for Day of Date of Exam: 08/25/18 - Subjective Subjective: WAS ADMITTED FOR SMALL BOWEL OBSTRUCTION, NAUSEA/VOMITING, AND DRAINING FROM PEG TUBE. TODAY, SHE IS ALERT, SITTING UP IN BED ON MORNING ROUNDS. SHE HAS A HISTORY OF DEMENTIA. ON EXAMINATION, HEART IS REGULAR IN RATE AND RHYTHM. BILATERAL LUNGS ARE NOTED WITH DIMINISHED LUNG SOUNDS THROUGHOUT. ABDOMEN IS NOTED WITH COLOSTOMY AND PEG TUBE. THERE IS DECREASED DRAINAGE FROM PEG TUBE NOTED. THERE IS STOOL IN HER COLOSTOMY BAG THIS MORNING. HER VITALS THIS MORNING ARE 98.8-83-18-100%-128/58. LABS WERE OBTAINED. ABNORMAL LAB VALUES INCLUDE THE FOLLOWING: RBC 3.44, HGB 10.5, HCT 31.5, POTASSIUM 3.1, BUN 5, CREATININ 0.49, TOTAL PROTEIN 5.7, ALBUMIN 2.1. STOOLS WERE POSTIVE FOR WHITE CELLS. AN ABDOMINAL SERIES WAS OBTAINED AND REVEALED: Nonspecific bowel gas pattern. G tube tip in the upper abdomen to the right the lumbar spine. Its precise location is indeterminate. Nonspecific bowel gas pattern. Moderate cardiomegaly with pulmonary venous congestion. Right lung infiltrates and right pleural effusion. SHE IS CURRENTLY RECEIVING IV FLUIDS AND IV ANTIBIOTICS. PEG TUBE IS HOOKED TO DRAINAGE BY GRAVITY. WILL CONTINUE TO MONITOR PATIENT. OTHERWISE, WE WILL CONTINUE WITH CURRENT PLAN OF CARE TODAY. WE WILL FOLLOW UP WITH AM LABS AND CONTINUE TO MONITOR. - Past Medical Family Social History Past Med/Fam/Surg Hx: No changes since H&P Allergies: Allergies No Known Drug Allergies Allergy (Verified 05/02/18 14:58) - Review of Systems ROS: No change since H&P - Vital Signs and I&O's Vital Signs: Temperature 99.2 F Pulse Rate [Apical] 66 Pulse Rate [Brachial] 80 Pulse Rate 76 Respiratory Rate 18 Blood Pressure [Right Arm] 119/62 Blood Pressure [Left Arm] 114/55 Blood Pressure 129/94 O2 Sat by Pulse Oximetry 94 Intake and Output: Intake & Output 08/24/18 08/25/18 08/26/18 08/27/18 11:59 11:59 11:59 11:59 Intake Total 2460 / 2460 3572 / 3572 2300 / 2300 Output Total 1550 / 1550 2200 / 2200 900 / 900 Balance 910 / 910 1372 / 1372 1400 / 1400 - Physical Exam Oriented: Not Oriented Eyes: Normal Ear: Normal Nose: Normal Throat: Normal Respiratory: Diminished Cardiovascular: Normal. negative: S3, S4, Murmur : Normal Auscultation: Bowel Sounds: Decreased Tenderness: Mild. negative: Rebound, Guarding, Rigidity Skin: Normal Musculoskeletal: Normal Psychiatric: Normal Mood Description: Calm Affect: Normal Speech Pattern: Aphasic - Laboratory and Diagnostics Result Diagrams: 08/26/18 05:45 08/26/18 05:45 Labs: 08/25/18 17:15 Stool Stool Culture - Preliminary 08/25/18 17:15 Stool - Final 08/23/18 17:54 Blood Blood Culture - Preliminary 08/23/18 17:49 Blood Blood Culture - Preliminary 08/23/18 08:00 Urine,[place] Urine Culture - Final Laboratory WBC 7.3 X10^3/uL (3.6-10.0) 08/26/18 05:45 RBC 3.34 X10^6/uL (3.5-5.4) L 08/26/18 05:45 Hgb 10.3 g/dL (12.0-16.0) L 08/26/18 05:45 Hct 30.5 % (36.0-47.0) L 08/26/18 05:45 MCV 91.2 fL (80.0-100.0) 08/26/18 05:45 MCH 30.9 pg (27.0-34.0) 08/26/18 05:45 MCHC 33.9 g/dL (33.0-35.0) 08/26/18 05:45 RDW 13.8 % (11.6-16.5) 08/26/18 05:45 Plt Count 233 X10^3/uL (150.0-450.0) 08/26/18 05:45 MPV 7.2 fL (7.4-11.0) L 08/26/18 05:45 Neut % (Auto) 63.1 % (42.0-75.0) 08/26/18 05:45 Lymph % (Auto) 27.1 % (21.0-51.0) 08/26/18 05:45 [place] % (Auto) 8.4 % (0.0-13.0) 08/26/18 05:45 Eos % (Auto) 0.9 % (0.9-2.9) 08/26/18 05:45 Baso % (Auto) 0.5 % (0.2-1.0) 08/26/18 05:45 Neut # (Auto) 4.6 x10^3/uL (2.2-4.8) 08/26/18 05:45 Lymph # (Auto) 2.0 X10^3/uL (1.3-2.9) 08/26/18 05:45 [place] # (Auto) 0.6 x10^3/uL (0.3-0.8) 08/26/18 05:45 Eos # (Auto) 0.1 x10^3/uL (0.0-0.2) 08/26/18 05:45 Baso # (Auto) 0.0 X10^3/uL (0.0-0.1) 08/26/18 05:45 Absolute Nucleated RBC 0.0 /100WBC 08/26/18 05:45 Sodium 138 mmol/L (136-145) 08/26/18 05:45 Corrected Sodium 138 mmol/L (136-145) 08/26/18 05:45 Potassium 3.9 mmol/L (3.5-5.1) 08/26/18 05:45 Chloride 104 mmol/L (98-107) 08/26/18 05:45 Carbon Dioxide 28.2 mmol/L (21-32) 08/26/18 05:45 BUN 5 mg/dL (7-18) L 08/26/18 05:45 Creatinine 0.50 mg/dL (0.55-1.02) L 08/26/18 05:45 Est GFR (MDRD) Af Amer > 60 (>60) 08/26/18 05:45 Est GFR (MDRD) Non-Af > 60 (>60) 08/26/18 05:45 Glucose 115 mg/dL (65-99) H 08/26/18 05:45 POC Glucose (mg/dL) 163 mg/dL (65-99) H 08/26/18 11:46 Calcium 8.9 mg/dL (8.5-10.1) 08/26/18 05:45 Corrected Calcium 10.5 mg/dL (8.5-10.1) H 08/26/18 05:45 Magnesium 1.7 mg/dL (1.7-2.9) 08/25/18 05:28 Total Bilirubin 0.40 mg/dL (0.2-1.0) 08/26/18 05:45 AST 19 Units/L (15-37) 08/26/18 05:45 ALT 15 Units/L (12-78) 08/26/18 05:45 Alkaline Phosphatase 75 Units/L (46-116) 08/26/18 05:45 Total Protein 5.5 g/dL (6.4-8.2) L 08/26/18 05:45 Albumin 2.0 g/dL (3.4-5.0) L 08/26/18 05:45 Globulin 3.5 g/dL (2.5-4.5) 08/26/18 05:45 Albumin/Globulin Ratio 0.6 Ratio (1.1-2.1) L 08/26/18 05:45 Amylase 44 Units/L (25-115) 08/21/18 23:45 Lipase 69 Units/L (73-393) L 08/21/18 23:45 Specimen Type Catherized urine 08/23/18 08:00 Urine Color Brown (YELLOW) 08/23/18 08:00 Urine Appearance Cloudy (CLEAR) 08/23/18 08:00 Urine pH 6.5 (5.0 - 8.0) 08/23/18 08:00 Ur Specific [place] 1.025 (1.000-1.030) 08/23/18 08:00 Urine Protein 3+ (NEGATIVE) 08/23/18 08:00 Urine Glucose (UA) 3+ (NEGATIVE) 08/23/18 08:00 Urine Ketones 2+ (NEGATIVE) 08/23/18 08:00 Urine Occult Blood 5+ (NEGATIVE) 08/23/18 08:00 Urine Nitrite Positive (NEGATIVE) 08/23/18 08:00 Urine Bilirubin Negative (NEGATIVE) 08/23/18 08:00 Urine Urobilinogen Normal (NORMAL) 08/23/18 08:00 Ur Leukocyte Esterase 2+ (NEGATIVE) 08/23/18 08:00 Urine RBC Tntc /HPF (NONE SEEN) 08/23/18 08:00 Urine WBC 3-5 /HPF (NONE SEEN) 08/23/18 08:00 Ur Squamous Epith Cells Few /HPF (NEGATIVE) 08/23/18 08:00 Calcium Oxalate Crystal Rare /HPF (NEGATIVE) 08/23/18 08:00 Amorphous Sediment 2+ /HPF (NEGATIVE) 08/23/18 08:00 Urine Bacteria Trace /HPF (NEGATIVE) 08/23/18 08:00 Hyaline Casts Rare /LPF (NEGATIVE) 08/23/18 08:00 Urine Mucus Moderate /HPF (NEGATIVE) 08/23/18 08:00 Ur Culture Indicated? Yes/culture set up 08/23/18 08:00 Stool Description 10g,brown,liquid 08/25/18 17:15 Stl Occult Blood (IFOB) Negative (NEGATIVE) 08/25/18 17:15 Stool for White Cells Positive (NEGATIVE) A 08/25/18 17:15 Stl C. diff Tox B Gene Negative (NEGATIVE) 08/25/18 17:15 Stl C. diff [id number]-BI Negative (NEGATIVE) 08/25/18 17:15 - Plan (1) Small bowel obstruction Status: Acute Plan: ADMIT, IV FLUIDS, IV FORTAZ, IV LEVAQUIN, IV PEPCID, CONTINUE TO MONITOR (2) Problem with gastrostomy tube Status: Acute (3) Nausea & vomiting Status: Acute Qualifiers: Vomiting type: hematemesis Qualified Code(s): K92.0 - Hematemesis Plan: IV ZOFRAN, CONTINUE TO MONITOR (4) Urinary tract infection Status: Acute Qualifiers: Urinary tract infection type: acute cystitis Hematuria presence: with hematuria Qualified Code(s): N30.01 - Acute cystitis with hematuria Plan: IV ANTIBIOTICS, IV FLUIDS, CONTINUE TO MONITOR
--- NOTE | 2018-08-26 14:56 | PCM.PROG ---
Progress Note - Progress Note for Day of Date of Exam: 08/26/18 - Subjective Subjective: WAS ADMITTED FOR SMALL BOWEL OBSTRUCTION, NAUSEA/VOMITING, AND DRAINING FROM PEG TUBE. TODAY, SHE IS ALERT, SITTING UP IN BED ON MORNING ROUNDS. SHE HAS A HISTORY OF DEMENTIA. ON EXAMINATION, HEART IS REGULAR IN RATE AND RHYTHM. BILATERAL LUNGS ARE NOTED WITH DIMINISHED LUNG SOUNDS THROUGHOUT. ABDOMEN IS NOTED WITH COLOSTOMY AND PEG TUBE. THERE IS DECREASED DRAINAGE FROM PEG TUBE NOTED. THERE IS STOOL IN HER COLOSTOMY BAG THIS MORNING. HER VITALS THIS MORNING ARE 98.9-77-18-96%-119/62. LABS WERE OBTAINED. ABNORMAL LAB VALUES INCLUDE THE FOLLOWING: RBC 3.34, HGB 10.3, HCT 30.5, BUN 5, CREATININE 0.50, GLUCOSE 115, TOTAL PROTEIN 5.5, ALBUMIN 2.0. STOOLS WERE POSTIVE FOR WHITE CELLS. AN ABDOMINAL SERIES WAS OBTAINED AND REVEALED: Nonspecific bowel gas pattern. Moderate cardiomegaly with pulmonary venous congestion. No change right lung infiltrates right pleural effusion. Small left pleural effusion. SHE IS CURRENTLY RECEIVING IV FLUIDS AND IV ANTIBIOTICS. STARTED FEEDING THROUGH THE PEG TUBE YESTERDAY. SHE HAS TOLERATED WELL. WILL CONTINUE TO MONITOR PATIENT. WE WILL CONTINUE WITH CURRENT PLAN OF CARE TODAY. OTHERWISE, WE WILL FOLLOW UP WITH AM LABS AND CONTINUE TO MONITOR. - Past Medical Family Social History Past Med/Fam/Surg Hx: No changes since H&P Allergies: Allergies No Known Drug Allergies Allergy (Verified 05/02/18 14:58) - Review of Systems ROS: No change since H&P - Vital Signs and I&O's Vital Signs: Temperature 99.2 F Pulse Rate [Apical] 66 Pulse Rate [Brachial] 80 Pulse Rate 76 Respiratory Rate 18 Blood Pressure [Right Arm] 119/62 Blood Pressure [Left Arm] 114/55 Blood Pressure 129/94 O2 Sat by Pulse Oximetry 94 Intake and Output: Intake & Output 08/24/18 08/25/18 08/26/18 08/27/18 11:59 11:59 11:59 11:59 Intake Total 2460 / 2460 3572 / 3572 2300 / 2300 Output Total 1550 / 1550 2200 / 2200 900 / 900 Balance 910 / 910 1372 / 1372 1400 / 1400 - Physical Exam Oriented: Not Oriented Eyes: Normal Ear: Normal Nose: Normal Throat: Normal Respiratory: Diminished Cardiovascular: Normal. negative: S3, S4, Murmur : Normal Auscultation: Bowel Sounds: Decreased Tenderness: Mild. negative: Rebound, Guarding, Rigidity Skin: Normal Musculoskeletal: Normal Psychiatric: Normal Mood Description: Calm Affect: Normal Speech Pattern: Aphasic - Laboratory and Diagnostics Result Diagrams: 08/26/18 05:45 08/26/18 05:45 Labs: 08/25/18 17:15 Stool Stool Culture - Preliminary 08/25/18 17:15 Stool - Final 08/23/18 17:54 Blood Blood Culture - Preliminary 08/23/18 17:49 Blood Blood Culture - Preliminary 08/23/18 08:00 Urine,[place] Urine Culture - Final Laboratory WBC 7.3 X10^3/uL (3.6-10.0) 08/26/18 05:45 RBC 3.34 X10^6/uL (3.5-5.4) L 08/26/18 05:45 Hgb 10.3 g/dL (12.0-16.0) L 08/26/18 05:45 Hct 30.5 % (36.0-47.0) L 08/26/18 05:45 MCV 91.2 fL (80.0-100.0) 08/26/18 05:45 MCH 30.9 pg (27.0-34.0) 08/26/18 05:45 MCHC 33.9 g/dL (33.0-35.0) 08/26/18 05:45 RDW 13.8 % (11.6-16.5) 08/26/18 05:45 Plt Count 233 X10^3/uL (150.0-450.0) 08/26/18 05:45 MPV 7.2 fL (7.4-11.0) L 08/26/18 05:45 Neut % (Auto) 63.1 % (42.0-75.0) 08/26/18 05:45 Lymph % (Auto) 27.1 % (21.0-51.0) 08/26/18 05:45 [place] % (Auto) 8.4 % (0.0-13.0) 08/26/18 05:45 Eos % (Auto) 0.9 % (0.9-2.9) 08/26/18 05:45 Baso % (Auto) 0.5 % (0.2-1.0) 08/26/18 05:45 Neut # (Auto) 4.6 x10^3/uL (2.2-4.8) 08/26/18 05:45 Lymph # (Auto) 2.0 X10^3/uL (1.3-2.9) 08/26/18 05:45 [place] # (Auto) 0.6 x10^3/uL (0.3-0.8) 08/26/18 05:45 Eos # (Auto) 0.1 x10^3/uL (0.0-0.2) 08/26/18 05:45 Baso # (Auto) 0.0 X10^3/uL (0.0-0.1) 08/26/18 05:45 Absolute Nucleated RBC 0.0 /100WBC 08/26/18 05:45 Sodium 138 mmol/L (136-145) 08/26/18 05:45 Corrected Sodium 138 mmol/L (136-145) 08/26/18 05:45 Potassium 3.9 mmol/L (3.5-5.1) 08/26/18 05:45 Chloride 104 mmol/L (98-107) 08/26/18 05:45 Carbon Dioxide 28.2 mmol/L (21-32) 08/26/18 05:45 BUN 5 mg/dL (7-18) L 08/26/18 05:45 Creatinine 0.50 mg/dL (0.55-1.02) L 08/26/18 05:45 Est GFR (MDRD) Af Amer > 60 (>60) 08/26/18 05:45 Est GFR (MDRD) Non-Af > 60 (>60) 08/26/18 05:45 Glucose 115 mg/dL (65-99) H 08/26/18 05:45 POC Glucose (mg/dL) 163 mg/dL (65-99) H 08/26/18 11:46 Calcium 8.9 mg/dL (8.5-10.1) 08/26/18 05:45 Corrected Calcium 10.5 mg/dL (8.5-10.1) H 08/26/18 05:45 Magnesium 1.7 mg/dL (1.7-2.9) 08/25/18 05:28 Total Bilirubin 0.40 mg/dL (0.2-1.0) 08/26/18 05:45 AST 19 Units/L (15-37) 08/26/18 05:45 ALT 15 Units/L (12-78) 08/26/18 05:45 Alkaline Phosphatase 75 Units/L (46-116) 08/26/18 05:45 Total Protein 5.5 g/dL (6.4-8.2) L 08/26/18 05:45 Albumin 2.0 g/dL (3.4-5.0) L 08/26/18 05:45 Globulin 3.5 g/dL (2.5-4.5) 08/26/18 05:45 Albumin/Globulin Ratio 0.6 Ratio (1.1-2.1) L 08/26/18 05:45 Amylase 44 Units/L (25-115) 08/21/18 23:45 Lipase 69 Units/L (73-393) L 08/21/18 23:45 Specimen Type Catherized urine 08/23/18 08:00 Urine Color Brown (YELLOW) 08/23/18 08:00 Urine Appearance Cloudy (CLEAR) 08/23/18 08:00 Urine pH 6.5 (5.0 - 8.0) 08/23/18 08:00 Ur Specific [place] 1.025 (1.000-1.030) 08/23/18 08:00 Urine Protein 3+ (NEGATIVE) 08/23/18 08:00 Urine Glucose (UA) 3+ (NEGATIVE) 08/23/18 08:00 Urine Ketones 2+ (NEGATIVE) 08/23/18 08:00 Urine Occult Blood 5+ (NEGATIVE) 08/23/18 08:00 Urine Nitrite Positive (NEGATIVE) 08/23/18 08:00 Urine Bilirubin Negative (NEGATIVE) 08/23/18 08:00 Urine Urobilinogen Normal (NORMAL) 08/23/18 08:00 Ur Leukocyte Esterase 2+ (NEGATIVE) 08/23/18 08:00 Urine RBC Tntc /HPF (NONE SEEN) 08/23/18 08:00 Urine WBC 3-5 /HPF (NONE SEEN) 08/23/18 08:00 Ur Squamous Epith Cells Few /HPF (NEGATIVE) 08/23/18 08:00 Calcium Oxalate Crystal Rare /HPF (NEGATIVE) 08/23/18 08:00 Amorphous Sediment 2+ /HPF (NEGATIVE) 08/23/18 08:00 Urine Bacteria Trace /HPF (NEGATIVE) 08/23/18 08:00 Hyaline Casts Rare /LPF (NEGATIVE) 08/23/18 08:00 Urine Mucus Moderate /HPF (NEGATIVE) 08/23/18 08:00 Ur Culture Indicated? Yes/culture set up 08/23/18 08:00 Stool Description 10g,brown,liquid 08/25/18 17:15 Stl Occult Blood (IFOB) Negative (NEGATIVE) 08/25/18 17:15 Stool for White Cells Positive (NEGATIVE) A 08/25/18 17:15 Stl C. diff Tox B Gene Negative (NEGATIVE) 08/25/18 17:15 Stl C. diff [id number] Negative (NEGATIVE) 08/25/18 17:15 - Plan (1) Small bowel obstruction Status: Acute Plan: ADMIT, IV FLUIDS, IV FORTAZ, IV LEVAQUIN, IV PEPCID, CONTINUE TO MONITOR (2) Problem with gastrostomy tube Status: Acute (3) Nausea & vomiting Status: Acute Qualifiers: Vomiting type: hematemesis Qualified Code(s): K92.0 - Hematemesis Plan: IV ZOFRAN, CONTINUE TO MONITOR (4) Urinary tract infection Status: Acute Qualifiers: Urinary tract infection type: acute cystitis Hematuria presence: with hematuria Qualified Code(s): N30.01 - Acute cystitis with hematuria Plan: IV ANTIBIOTICS, IV FLUIDS, CONTINUE TO MONITOR
--- NOTE | 2018-08-26 15:23 | DR.PROGNOT ---
Hospital Progress Notes - Progress Note for Day of: Progress Note Date: 08/26/18 - Chief Complaint Chief Complaint: colostomy is functioning today and abdominal xray showed no obstruction . tolerating tube feeding. Pt is more alert today . chest xray still showing Rt pleural effusion - Past Medical Family Social History Past Med/Fam/Surg Hx: No changes since H&P Allergies: Allergies No Known Drug Allergies Allergy (Verified 05/02/18 14:58) - Review Of Systems ROS: No change since H&P - Vital Signs Vital Signs: Temperature 99.2 F Pulse Rate [Apical] 66 Pulse Rate [Brachial] 80 Pulse Rate 76 Respiratory Rate 18 Blood Pressure [Right Arm] 119/62 Blood Pressure [Left Arm] 114/55 Blood Pressure 129/94 O2 Sat by Pulse Oximetry 94 - Physical Exam Oriented: Not Oriented Eyes: Normal Ear: Normal Nose: Normal Throat: Normal Respiratory: Diminished Cardiovascular: Normal. negative: S3, S4, Murmur : Normal GI:Auscultation: Decreased GI:Palpation: Normal GI: Tenderness: Mild. negative: Rebound, Guarding, Rigidity Skin: Normal Musculoskeletal: Normal Psychiatric: Normal Mood Description: Calm Affect: Normal Speech Pattern: Aphasic - Laboratory and Diagnostics Result Diagrams: 08/26/18 05:45 08/26/18 05:45 Labs: 08/25/18 17:15 Stool Stool Culture - Preliminary 08/25/18 17:15 Stool - Final 08/23/18 17:54 Blood Blood Culture - Preliminary 08/23/18 17:49 Blood Blood Culture - Preliminary 08/23/18 08:00 Urine,[place] Urine Culture - Final Laboratory WBC 7.3 X10^3/uL (3.6-10.0) 08/26/18 05:45 RBC 3.34 X10^6/uL (3.5-5.4) L 08/26/18 05:45 Hgb 10.3 g/dL (12.0-16.0) L 08/26/18 05:45 Hct 30.5 % (36.0-47.0) L 08/26/18 05:45 MCV 91.2 fL (80.0-100.0) 08/26/18 05:45 MCH 30.9 pg (27.0-34.0) 08/26/18 05:45 MCHC 33.9 g/dL (33.0-35.0) 08/26/18 05:45 RDW 13.8 % (11.6-16.5) 08/26/18 05:45 Plt Count 233 X10^3/uL (150.0-450.0) 08/26/18 05:45 MPV 7.2 fL (7.4-11.0) L 08/26/18 05:45 Neut % (Auto) 63.1 % (42.0-75.0) 08/26/18 05:45 Lymph % (Auto) 27.1 % (21.0-51.0) 08/26/18 05:45 [place] % (Auto) 8.4 % (0.0-13.0) 08/26/18 05:45 Eos % (Auto) 0.9 % (0.9-2.9) 08/26/18 05:45 Baso % (Auto) 0.5 % (0.2-1.0) 08/26/18 05:45 Neut # (Auto) 4.6 x10^3/uL (2.2-4.8) 08/26/18 05:45 Lymph # (Auto) 2.0 X10^3/uL (1.3-2.9) 08/26/18 05:45 [place] # (Auto) 0.6 x10^3/uL (0.3-0.8) 08/26/18 05:45 Eos # (Auto) 0.1 x10^3/uL (0.0-0.2) 08/26/18 05:45 Baso # (Auto) 0.0 X10^3/uL (0.0-0.1) 08/26/18 05:45 Absolute Nucleated RBC 0.0 /100WBC 08/26/18 05:45 Sodium 138 mmol/L (136-145) 08/26/18 05:45 Corrected Sodium 138 mmol/L (136-145) 08/26/18 05:45 Potassium 3.9 mmol/L (3.5-5.1) 08/26/18 05:45 Chloride 104 mmol/L (98-107) 08/26/18 05:45 Carbon Dioxide 28.2 mmol/L (21-32) 08/26/18 05:45 BUN 5 mg/dL (7-18) L 08/26/18 05:45 Creatinine 0.50 mg/dL (0.55-1.02) L 08/26/18 05:45 Est GFR (MDRD) Af Amer > 60 (>60) 08/26/18 05:45 Est GFR (MDRD) Non-Af > 60 (>60) 08/26/18 05:45 Glucose 115 mg/dL (65-99) H 08/26/18 05:45 POC Glucose (mg/dL) 163 mg/dL (65-99) H 08/26/18 11:46 Calcium 8.9 mg/dL (8.5-10.1) 08/26/18 05:45 Corrected Calcium 10.5 mg/dL (8.5-10.1) H 08/26/18 05:45 Magnesium 1.7 mg/dL (1.7-2.9) 08/25/18 05:28 Total Bilirubin 0.40 mg/dL (0.2-1.0) 08/26/18 05:45 AST 19 Units/L (15-37) 08/26/18 05:45 ALT 15 Units/L (12-78) 08/26/18 05:45 Alkaline Phosphatase 75 Units/L (46-116) 08/26/18 05:45 Total Protein 5.5 g/dL (6.4-8.2) L 08/26/18 05:45 Albumin 2.0 g/dL (3.4-5.0) L 08/26/18 05:45 Globulin 3.5 g/dL (2.5-4.5) 08/26/18 05:45 Albumin/Globulin Ratio 0.6 Ratio (1.1-2.1) L 08/26/18 05:45 Amylase 44 Units/L (25-115) 08/21/18 23:45 Lipase 69 Units/L (73-393) L 08/21/18 23:45 Specimen Type Catherized urine 08/23/18 08:00 Urine Color Brown (YELLOW) 08/23/18 08:00 Urine Appearance Cloudy (CLEAR) 08/23/18 08:00 Urine pH 6.5 (5.0 - 8.0) 08/23/18 08:00 Ur Specific [place] 1.025 (1.000-1.030) 08/23/18 08:00 Urine Protein 3+ (NEGATIVE) 08/23/18 08:00 Urine Glucose (UA) 3+ (NEGATIVE) 08/23/18 08:00 Urine Ketones 2+ (NEGATIVE) 08/23/18 08:00 Urine Occult Blood 5+ (NEGATIVE) 08/23/18 08:00 Urine Nitrite Positive (NEGATIVE) 08/23/18 08:00 Urine Bilirubin Negative (NEGATIVE) 08/23/18 08:00 Urine Urobilinogen Normal (NORMAL) 08/23/18 08:00 Ur Leukocyte Esterase 2+ (NEGATIVE) 08/23/18 08:00 Urine RBC Tntc /HPF (NONE SEEN) 08/23/18 08:00 Urine WBC 3-5 /HPF (NONE SEEN) 08/23/18 08:00 Ur Squamous Epith Cells Few /HPF (NEGATIVE) 08/23/18 08:00 Calcium Oxalate Crystal Rare /HPF (NEGATIVE) 08/23/18 08:00 Amorphous Sediment 2+ /HPF (NEGATIVE) 08/23/18 08:00 Urine Bacteria Trace /HPF (NEGATIVE) 08/23/18 08:00 Hyaline Casts Rare /LPF (NEGATIVE) 08/23/18 08:00 Urine Mucus Moderate /HPF (NEGATIVE) 08/23/18 08:00 Ur Culture Indicated? Yes/culture set up 08/23/18 08:00 Stool Description 10g,brown,liquid 08/25/18 17:15 Stl Occult Blood (IFOB) Negative (NEGATIVE) 08/25/18 17:15 Stool for White Cells Positive (NEGATIVE) A 08/25/18 17:15 Stl C. diff Tox B Gene Negative (NEGATIVE) 08/25/18 17:15 Stl C. diff [id number] Negative (NEGATIVE) 08/25/18 17:15 - Assessment and Plan 1: resolving partial SBO vs Ileus . s/p placement of a new PEG feeding tube . Pt is confined to bed. Rt pleural effusion . same feeding .. - Problem Patient Problems: Patient Problems Small bowel obstruction (Acute) K56.609 Urinary tract infection (Acute) N39.0
[2018-08-26] MEDS: PEPCID 20 MG IV PREMIX* 20 MG/50 ML BAG IV PRN (15:30)
[2018-08-27] MEDS: NS 1000 ML 1,000 ML IV SCH ×2 (03:25→13:11)
[2018-08-27] MEDS: FORTAZ or TAZICEF VIAL INJ IVP SCH ×2 (05:45→14:31)
[2018-08-27] MEDS: MORPHINE SULFATE INJ 2 MG INJ IVP PRN (05:46)
[2018-08-27 06:13] LABS: BASOPHILS % (AUTO) 0.5 % (0.2-1.0); EOSINOPHILS # (AUTO) 0.2 x10^3/uL (0.0-0.2); EOSINOPHILS % (AUTO) 2.6 % (0.9-2.9); HEMATOCRIT 31.2 % (36.0-47.0); HEMOGLOBIN 10.6 g/dL (12.0-16.0); LYMPHOCYTES # (AUTO) 1.9 X10^3/uL (1.3-2.9); LYMPHOCYTES % (AUTO) 32.1 % (21.0-51.0); MEAN CORPUSCULAR HEMOGLOBIN 31.1 pg (27.0-34.0); MEAN CORPUSCULAR HGB CONC 34.1 g/dL (33.0-35.0); MEAN CORPUSCULAR VOLUME 91.1 fL (80.0-100.0); MEAN PLATELET VOLUME 7.5 fL (7.4-11.0); MONOCYTES # (AUTO) 0.5 x10^3/uL (0.3-0.8); MONOCYTES % (AUTO) 9.1 % (0.0-13.0); NEUTROPHILS # (AUTO) 3.2 x10^3/uL (2.2-4.8); NEUTROPHILS % (AUTO) 55.7 % (42.0-75.0); PLATELET COUNT 232 X10^3/uL (150.0-450.0); RED BLOOD COUNT 3.42 X10^6/uL (3.5-5.4); WHITE BLOOD COUNT 5.8 X10^3/uL (3.6-10.0)
--- NOTE | 2018-08-27 06:16 | RAD ---
Chest, one view Indication: Shortness of breath Comparison: 08/26/2018 Findings: There is stable enlargement of the cardiac silhouette. There is persistent pulmonary vascular congestion. Right lung infiltrate and right greater than left pleural effusions are essentially stable since prior exam. No pneumothorax. Impression: Stable moderate cardiomegaly and pulmonary vascular congestion. Unchanged right sided airspace disease and right greater than left pleural effusions. Reported By:
[2018-08-27 06:41] LABS: ALANINE AMINOTRANSFERASE 18 Units/L (12-78); ALBUMIN 2.1 g/dL (3.4-5.0); ALKALINE PHOSPHATASE 76 Units/L (46-116); ASPARTATE AMINO TRANSFERASE 19 Units/L (15-37); BLOOD UREA NITROGEN 3 mg/dL (7-18); CALCIUM 8.8 mg/dL (8.5-10.1); CARBON DIOXIDE 26.2 mmol/L (21-32); CHLORIDE 107 mmol/L (98-107); COR CA(FOR HYPOALB) 10.3 mg/dL (8.5-10.1); CREATININE 0.57 mg/dL (0.55-1.02); SODIUM 142 mmol/L (136-145); TOTAL PROTEIN 5.8 g/dL (6.4-8.2); eGFR NON BLACK RACES > 60 (>60)
--- NOTE | 2018-08-27 08:15 | DR.PROGNOT ---
Hospital Progress Notes - Progress Note for Day of: Progress Note Date: 08/27/18 - Chief Complaint Chief Complaint: colostomy is functioning well . abdominal xray showed no obstruction . tolerating tube feeding. chest xray still showing bilateral pleural effusion Rt more than the Lt . - Past Medical Family Social History Past Med/Fam/Surg Hx: No changes since H&P Allergies: Allergies No Known Drug Allergies Allergy (Verified 05/02/18 14:58) - Review Of Systems ROS: No change since H&P - Vital Signs Vital Signs: Temperature 99.0 F Pulse Rate [Apical] 66 Pulse Rate [Brachial] 76 Pulse Rate 68 Respiratory Rate 18 Blood Pressure [Right Arm] 118/74 Blood Pressure [Left Arm] 114/55 Blood Pressure 129/94 O2 Sat by Pulse Oximetry 99 - Physical Exam Oriented: Not Oriented Eyes: Normal Ear: Normal Nose: Normal Throat: Normal Respiratory: Diminished Cardiovascular: Normal. negative: S3, S4, Murmur : Normal GI:Auscultation: Decreased GI:Palpation: Normal GI: Tenderness: Mild. negative: Rebound, Guarding, Rigidity Skin: Normal Musculoskeletal: Normal Psychiatric: Normal Mood Description: Calm Affect: Normal Speech Pattern: Aphasic - Laboratory and Diagnostics Result Diagrams: 08/27/18 05:45 08/27/18 05:45 Labs: 08/25/18 17:15 Stool Stool Culture - Preliminary 08/25/18 17:15 Stool - Final 08/23/18 17:54 Blood Blood Culture - Preliminary 08/23/18 17:49 Blood Blood Culture - Preliminary 08/23/18 08:00 Urine,[place] Urine Culture - Final Laboratory WBC 5.8 X10^3/uL (3.6-10.0) 08/27/18 05:45 RBC 3.42 X10^6/uL (3.5-5.4) L 08/27/18 05:45 Hgb 10.6 g/dL (12.0-16.0) L 08/27/18 05:45 Hct 31.2 % (36.0-47.0) L 08/27/18 05:45 MCV 91.1 fL (80.0-100.0) 08/27/18 05:45 MCH 31.1 pg (27.0-34.0) 08/27/18 05:45 MCHC 34.1 g/dL (33.0-35.0) 08/27/18 05:45 RDW 14.0 % (11.6-16.5) 08/27/18 05:45 Plt Count 232 X10^3/uL (150.0-450.0) 08/27/18 05:45 MPV 7.5 fL (7.4-11.0) 08/27/18 05:45 Neut % (Auto) 55.7 % (42.0-75.0) 08/27/18 05:45 Lymph % (Auto) 32.1 % (21.0-51.0) 08/27/18 05:45 [place] % (Auto) 9.1 % (0.0-13.0) 08/27/18 05:45 Eos % (Auto) 2.6 % (0.9-2.9) 08/27/18 05:45 Baso % (Auto) 0.5 % (0.2-1.0) 08/27/18 05:45 Neut # (Auto) 3.2 x10^3/uL (2.2-4.8) 08/27/18 05:45 Lymph # (Auto) 1.9 X10^3/uL (1.3-2.9) 08/27/18 05:45 [place] # (Auto) 0.5 x10^3/uL (0.3-0.8) 08/27/18 05:45 Eos # (Auto) 0.2 x10^3/uL (0.0-0.2) 08/27/18 05:45 Baso # (Auto) 0.0 X10^3/uL (0.0-0.1) 08/27/18 05:45 Absolute Nucleated RBC 0.1 /100WBC 08/27/18 05:45 Sodium 142 mmol/L (136-145) 08/27/18 05:45 Corrected Sodium TNP 08/27/18 05:45 Potassium 3.7 mmol/L (3.5-5.1) 08/27/18 05:45 Chloride 107 mmol/L (98-107) 08/27/18 05:45 Carbon Dioxide 26.2 mmol/L (21-32) 08/27/18 05:45 BUN 3 mg/dL (7-18) L 08/27/18 05:45 Creatinine 0.57 mg/dL (0.55-1.02) 08/27/18 05:45 Est GFR (MDRD) Af Amer > 60 (>60) 08/27/18 05:45 Est GFR (MDRD) Non-Af > 60 (>60) 08/27/18 05:45 Glucose 106 mg/dL (65-99) H 08/27/18 05:45 POC Glucose (mg/dL) 109 mg/dL (65-99) H 08/27/18 05:36 Calcium 8.8 mg/dL (8.5-10.1) 08/27/18 05:45 Corrected Calcium 10.3 mg/dL (8.5-10.1) H 08/27/18 05:45 Magnesium 1.7 mg/dL (1.7-2.9) 08/25/18 05:28 Total Bilirubin 0.30 mg/dL (0.2-1.0) 08/27/18 05:45 AST 19 Units/L (15-37) 08/27/18 05:45 ALT 18 Units/L (12-78) 08/27/18 05:45 Alkaline Phosphatase 76 Units/L (46-116) 08/27/18 05:45 Total Protein 5.8 g/dL (6.4-8.2) L 08/27/18 05:45 Albumin 2.1 g/dL (3.4-5.0) L 08/27/18 05:45 Globulin 3.7 g/dL (2.5-4.5) 08/27/18 05:45 Albumin/Globulin Ratio 0.6 Ratio (1.1-2.1) L 08/27/18 05:45 Amylase 44 Units/L (25-115) 08/21/18 23:45 Lipase 69 Units/L (73-393) L 08/21/18 23:45 Specimen Type Catherized urine 08/23/18 08:00 Urine Color Brown (YELLOW) 08/23/18 08:00 Urine Appearance Cloudy (CLEAR) 08/23/18 08:00 Urine pH 6.5 (5.0 - 8.0) 08/23/18 08:00 Ur Specific [place] 1.025 (1.000-1.030) 08/23/18 08:00 Urine Protein 3+ (NEGATIVE) 08/23/18 08:00 Urine Glucose (UA) 3+ (NEGATIVE) 08/23/18 08:00 Urine Ketones 2+ (NEGATIVE) 08/23/18 08:00 Urine Occult Blood 5+ (NEGATIVE) 08/23/18 08:00 Urine Nitrite Positive (NEGATIVE) 08/23/18 08:00 Urine Bilirubin Negative (NEGATIVE) 08/23/18 08:00 Urine Urobilinogen Normal (NORMAL) 08/23/18 08:00 Ur Leukocyte Esterase 2+ (NEGATIVE) 08/23/18 08:00 Urine RBC Tntc /HPF (NONE SEEN) 08/23/18 08:00 Urine WBC 3-5 /HPF (NONE SEEN) 08/23/18 08:00 Ur Squamous Epith Cells Few /HPF (NEGATIVE) 08/23/18 08:00 Calcium Oxalate Crystal Rare /HPF (NEGATIVE) 08/23/18 08:00 Amorphous Sediment 2+ /HPF (NEGATIVE) 08/23/18 08:00 Urine Bacteria Trace /HPF (NEGATIVE) 08/23/18 08:00 Hyaline Casts Rare /LPF (NEGATIVE) 08/23/18 08:00 Urine Mucus Moderate /HPF (NEGATIVE) 08/23/18 08:00 Ur Culture Indicated? Yes/culture set up 08/23/18 08:00 Stool Description 10g,brown,liquid 08/25/18 17:15 Stl Occult Blood (IFOB) Negative (NEGATIVE) 08/25/18 17:15 Stool for White Cells Positive (NEGATIVE) A 08/25/18 17:15 Stl C. diff Tox B Gene Negative (NEGATIVE) 08/25/18 17:15 Stl C. diff [id number] Negative (NEGATIVE) 08/25/18 17:15 - Assessment and Plan 1: resolved partial SBO . s/p placement of a new PEG feeding tube . Rt pleural effusion . same feeding via PEG tube .. - Problem Patient Problems: Patient Problems Small bowel obstruction (Acute) K56.609 Urinary tract infection (Acute) N39.0
[2018-08-27] MEDS: DUONEB 0.5 MG/3 MG NEB SCH (08:55)
[2018-08-27] MEDS: LOPRESSOR TAB 25 MG PO SCH (09:15)
[2018-08-27] MEDS: LOVENOX INJ 40 MG SYR SC SCH (09:15)
[2018-08-27] MEDS: LEVAQUIN PREMIX IV 500 MG 500 MG/100 ML BAG IV SCH (09:15)
[2018-08-27 14:30] VITALS: BP 117/55
== END 2018-08-27 15:00 | DRG 394 ==
LOC: MED/SURG 21:18 → ER 21:18 → MED/SURG 08-22 05:32
PROVIDERS: ADMIT Internal Medicine; ATTEND Internal Medicine
DX: R10.84 Generalized abdominal pain; N30.01 Acute cystitis with hematuria; E11.65 Type 2 diabetes mellitus with hyperglycemia; K91.89 Other postprocedural complications and disorders of digestive system; I10 Essential (primary) hypertension; F02.80 Dementia in other diseases classified elsewhere, unspecified severity, without behavioral disturbance, psychotic disturbance, mood disturbance, and anxiety; J90 Pleural effusion, not elsewhere classified; E78.2 Mixed hyperlipidemia; J98.11 Atelectasis; G30.8 Other Alzheimer's disease; K94.29 Other complications of gastrostomy; K94.09 Other complications of colostomy; Z74.01 Bed confinement status
CPT/HCPCS: 36415; 71010; 71045; 74000; 74018; 74022; 80053; 81001; 82150; 82270; 83630; 83690; 83735; 84132; 85025; 87040; 87045; 87086; 87427; 87449; 87493; 87899; 93005; 94640; 94760; 96365; 96374; 96375; 99284; A4222; S0028; G0378; J0713; J1650; J1815; J1956; J2270; J2405; J3475; J3480; J7030; J7620

== ENCOUNTER 2018-11-14 15:25 | Inpatient (IN) ==
--- NOTE | 2018-11-14 15:48 | DR.GENAD ---
HPI - PCP Primary Care Physician: Aftab - HPI Comment HPI Comment: Brought in from [place] by daughter who is concerned pt "has not been herself" for the past few days; she appears more somnolent and does not open her eyes when she's called;she has been "spitting up thick, white stuff" after she's fed; she coughs intermittently; no wheezing,fever,chills,abd pain, diarrhea or skin issues per daughter; last in hospital earlier in the year when gt was moved. - Nurses notes reviewed Nurses Notes Review: Yes - Source History Provided: Family Member PMH - PMH Past Medical History: Hypertension, Dyslipidemia, Alzheimers, Dementia, Arthritis, CHF Past Surgical History: Yes Surgical History: Bowel Resection, Other - Family History Family Medical History: Diabetes Mellitus, Cancer, Hypertension - Social History Do you use any recreational Drugs:: No ROS - Review of Systems Constitutional: See HPI, Malaise Eyes: No Symptoms Reported ENTM: No Symptoms Reported Respiratoy: See HPI, Productive Cough Cardiovascular: No Symptoms Reported Gastrointestinal/Abdominal: See HPI, Vomiting Genitourinary: No Symptoms Reported (escudero in place) Neurological: Other (mental status change) Musculoskeletal: No Symptoms Reported Integumentary: No Symptoms Reported Hematologic/Lymphatic: No Symptoms Reported Endocrine: No Symptoms Reported Psychiatric: No Symptoms Reported PE - General Limitations: Altered Mental Status (does not respond verbally) General Appearance: Alert, In No Apparent Distress - Head Head Exam: Normal Inspection, Atraumatic - Neck Neck Exam: Normal Inspection, Trachea Midline - Chest Chest Inspection: Normal Inspection, Symmetric Chest Wall Rise - Respiratory Respiratory Exam: Normal Lung Sounds Bilat Respiratory Exam: Bilateral Clear to Auscultation (anteriorly) - Cardiovascular Cardiovascular Exam: Regular Rate, Normal Rhythm - Abdominal Exam Abdominal Exam: Normal Inspection, Normal Bowel Sounds, Soft - Extremities Extremities Exam: Normal Inspection - Neurologic Neurological Exam: Other (no response although she fights against opening eyelids manually) - Skin Skin Exam: Warm, Dry - Vital Signs Vitals: Temperature 98.6 F Pulse Rate 81 Respiratory Rate 18 Blood Pressure [Right Arm] 117/55 Blood Pressure [Left Arm] 114/55 Blood Pressure 111/67 O2 Sat by Pulse Oximetry 98 Course - Reevaluation 1st: Unchanged ROR - Labs Reviewed Result Diagrams: 11/14/18 15:54 11/14/18 15:54 - XRAY XRAY Interpreted by: Radiologist (limited inspiraion; no definite acute cp disease; ns prominent intestinalgas that may represent gastroenteritis or mild ileus) - Labs Reviewed Laboratory: WBC 19.4 X10^3/uL (3.6-10.0) H 11/14/18 15:54 RBC 4.94 X10^6/uL (3.5-5.4) 11/14/18 15:54 Hgb 14.9 g/dL (12.0-16.0) 11/14/18 15:54 Hct 44.1 % (36.0-47.0) 11/14/18 15:54 MCV 89.2 fL (80.0-100.0) 11/14/18 15:54 MCH 30.1 pg (27.0-34.0) 11/14/18 15:54 MCHC 33.8 g/dL (33.0-35.0) 11/14/18 15:54 RDW 14.1 % (11.6-16.5) 11/14/18 15:54 Plt Count 337 X10^3/uL (150.0-450.0) 11/14/18 15:54 Plt Count Comment Adequate (ADEQUATE) 11/14/18 15:54 MPV 7.2 fL (7.4-11.0) L 11/14/18 15:54 Neut % (Auto) 92.5 % (42.0-75.0) H 11/14/18 15:54 Lymph % (Auto) 2.8 % (21.0-51.0) L 11/14/18 15:54 [place] % (Auto) 4.4 % (0.0-13.0) 11/14/18 15:54 Eos % (Auto) 0.1 % (0.9-2.9) L 11/14/18 15:54 Baso % (Auto) 0.2 % (0.2-1.0) 11/14/18 15:54 Neut # (Auto) 18.0 x10^3/uL (2.2-4.8) H 11/14/18 15:54 Lymph # (Auto) 0.5 X10^3/uL (1.3-2.9) L 11/14/18 15:54 [place] # (Auto) 0.9 x10^3/uL (0.3-0.8) H 11/14/18 15:54 Eos # (Auto) 0.0 x10^3/uL (0.0-0.2) 11/14/18 15:54 Baso # (Auto) 0.0 X10^3/uL (0.0-0.1) 11/14/18 15:54 Absolute Nucleated RBC 0.0 /100WBC 11/14/18 15:54 Total Counted 10 11/14/18 15:54 Neutrophils % (Manual) 91 % (39-76) H 11/14/18 15:54 Band Neutrophils % 3 % (0-10) 11/14/18 15:54 Lymphocytes % (Manual) 5 % (13-43) L 11/14/18 15:54 Monocytes % (Manual) 1 % (4-9) L 11/14/18 15:54 Plt Morphology Comment Normal (NORMAL) 11/14/18 15:54 RBC Morphology Normal (NORMAL) 11/14/18 15:54 Sodium 128 mmol/L (136-145) L 11/14/18 15:54 Corrected Sodium 137 mmol/L (136-145) 11/14/18 15:54 Potassium 2.8 mmol/L (3.5-5.1) L* 11/14/18 15:54 Chloride 92 mmol/L (98-107) L 11/14/18 15:54 Carbon Dioxide 16.9 mmol/L (21-32) L 11/14/18 15:54 BUN 50 mg/dL (7-18) H 11/14/18 15:54 Creatinine 1.32 mg/dL (0.55-1.02) H 11/14/18 15:54 Est GFR (MDRD) Af Amer 50 (>60) L 11/14/18 15:54 Est GFR (MDRD) Non-Af 41 (>60) L 11/14/18 15:54 Glucose 465 mg/dL (65-99) H 11/14/18 15:54 Calcium 10.6 mg/dL (8.5-10.1) H 11/14/18 15:54 Corrected Calcium 11.3 mg/dL (8.5-10.1) H 11/14/18 15:54 Total Bilirubin 0.80 mg/dL (0.2-1.0) 11/14/18 15:54 AST 34 Units/L (15-37) 11/14/18 15:54 ALT 35 Units/L (12-78) 11/14/18 15:54 Alkaline Phosphatase 105 Units/L (46-116) 11/14/18 15:54 Total Protein 7.9 g/dL (6.4-8.2) 11/14/18 15:54 Albumin 3.1 g/dL (3.4-5.0) L 11/14/18 15:54 Globulin 4.8 g/dL (2.5-4.5) H 11/14/18 15:54 Albumin/Globulin Ratio 0.6 Ratio (1.1-2.1) L 11/14/18 15:54 Specimen Type Catherized urine 11/14/18 16:40 Urine Color Yellow (YELLOW) 11/14/18 16:40 Urine Appearance Clear (CLEAR) 11/14/18 16:40 Urine pH 6.0 (5.0 - 8.0) 11/14/18 16:40 Ur Specific [place] 1.015 (1.000-1.030) 11/14/18 16:40 Urine Protein 2+ (NEGATIVE) 11/14/18 16:40 Urine Glucose (UA) 3+ (NEGATIVE) 11/14/18 16:40 Urine Ketones Negative (NEGATIVE) 11/14/18 16:40 Urine Occult Blood 1+ (NEGATIVE) 11/14/18 16:40 Urine Nitrite Negative (NEGATIVE) 11/14/18 16:40 Urine Bilirubin Negative (NEGATIVE) 11/14/18 16:40 Urine Urobilinogen Normal (NORMAL) 11/14/18 16:40 Ur Leukocyte Esterase 1+ (NEGATIVE) 11/14/18 16:40 Urine RBC 0-2 /HPF (0-3) 11/14/18 16:40 Urine WBC 5-10 /HPF (0-5) A 11/14/18 16:40 Ur Squamous Epith Cells Rare /HPF (NEGATIVE) 11/14/18 16:40 Urine Bacteria Negative /HPF (NEGATIVE) 11/14/18 16:40 Hyaline Casts Numerous /LPF (NEGATIVE) 11/14/18 16:40 Urine Mucus Moderate /HPF (NEGATIVE) 11/14/18 16:40 Ur Culture Indicated? Yes/culture set up 11/14/18 16:40 Acetone, Semi-Quant Negative (NEGATIVE) 11/14/18 15:54 Opioid - Opioid Risk Tool Total: 0 Total Score Risk Category: Low Risk - Diagnosis Discharge Problem: Hyponatremia, Hypokalemia, Cystitis Altered mental status Qualifiers: Altered mental status type: somnolence Qualified Code(s): R40.0 - Somnolence - Discharge Plan Disposition: ADMITTED INPATIENT Condition: Stable
[2018-11-14 16:03] LABS: BASOPHILS % (AUTO) 0.2 % (0.2-1.0); EOSINOPHILS % (AUTO) 0.1 % (0.9-2.9); HEMATOCRIT 44.1 % (36.0-47.0); HEMOGLOBIN 14.9 g/dL (12.0-16.0); LYMPHOCYTES # (AUTO) 0.5 X10^3/uL (1.3-2.9); LYMPHOCYTES % (AUTO) 2.8 % (21.0-51.0); MEAN CORPUSCULAR HEMOGLOBIN 30.1 pg (27.0-34.0); MEAN CORPUSCULAR HGB CONC 33.8 g/dL (33.0-35.0); MEAN CORPUSCULAR VOLUME 89.2 fL (80.0-100.0); MEAN PLATELET VOLUME 7.2 fL (7.4-11.0); MONOCYTES # (AUTO) 0.9 x10^3/uL (0.3-0.8); MONOCYTES % (AUTO) 4.4 % (0.0-13.0); NEUTROPHILS % (AUTO) 92.5 % (42.0-75.0); PLATELET COUNT 337 X10^3/uL (150.0-450.0); RED BLOOD COUNT 4.94 X10^6/uL (3.5-5.4); RED CELL DISTRIBUTION WIDTH 14.1 % (11.6-16.5); WHITE BLOOD COUNT 19.4 X10^3/uL (3.6-10.0)
[2018-11-14 16:08] LABS: CALCIUM 10.6 mg/dL (8.5-10.1); CARBON DIOXIDE 16.9 mmol/L (21-32); CREATININE 1.32 mg/dL (0.55-1.02)
[2018-11-14 16:13] LABS: ALBUMIN 3.1 g/dL (3.4-5.0); COR CA(FOR HYPOALB) 11.3 mg/dL (8.5-10.1); TOTAL PROTEIN 7.9 g/dL (6.4-8.2)
[2018-11-14 16:15] LABS: BAND NEUTROPHILS % 3 % (0-10); PLATELET MORPHOLOGY COMMENT NORMAL (NORMAL)
[2018-11-14 16:51] LABS: BILIRUBIN,URINE NEGATIVE (NEGATIVE); BLOOD/HEMOGLOBIN,URINE 1+ (NEGATIVE); GLUCOSE, URINE 3+ (NEGATIVE); KETONES,URINE NEGATIVE (NEGATIVE); LEUKOCYTE ESTERASE ,URINE 1+ (NEGATIVE); NITRITES,URINE NEGATIVE (NEGATIVE); PROTEIN,URINE 2+ (NEGATIVE); UROBILINOGEN,URINE NORMAL (NORMAL)
[2018-11-14] MEDS ORDERED: NS + KCL 40 MEQ/L 1,000 ML IV SCH (17:00)
[2018-11-14 17:01] LABS: APPEARANCE,URINE CLEAR (CLEAR); BACTERIA,URINE NEGATIVE /HPF (NEGATIVE); COLOR,URINE YELLOW (YELLOW); HYALINE CASTS, URINE NUMEROUS /LPF (NEGATIVE); MUCUS,URINE MODERATE /HPF (NEGATIVE); RBC,URINE 0-2 /HPF (0-3); SQUAMOUS EPITHELIAL CELL,UR RARE /HPF (NEGATIVE)
[2018-11-14] MEDS ORDERED: NS + KCL 20 MEQ/L 1,000 ML ONE (17:08)
[2018-11-14] MEDS: NS + KCL 20 MEQ/L 1,000 ML IV SCH (17:11)
[2018-11-14] MEDS ORDERED: ROCEPHIN VIAL 1 GRAM IVP ONE (17:42)
[2018-11-14] MEDS ORDERED: NS + KCL 20 MEQ/L 1,000 ML IV SCH (18:00)
[2018-11-14] MEDS: HumuLIN R SC PRN ×2 (18:04→22:44)
[2018-11-14 18:49] VITALS: BMI 23.1
[2018-11-15] MEDS: NS + KCL 20 MEQ/L 1,000 ML IV SCH ×3 (02:35→18:26)
[2018-11-15] MEDS: HumuLIN R SC PRN ×4 (05:36→20:44)
[2018-11-15 06:09] LABS: ALANINE AMINOTRANSFERASE 36 Units/L (12-78); ALBUMIN 2.7 g/dL (3.4-5.0); ALKALINE PHOSPHATASE 107 Units/L (46-116); ASPARTATE AMINO TRANSFERASE 37 Units/L (15-37); BLOOD UREA NITROGEN 43 mg/dL (7-18); CALCIUM 10.4 mg/dL (8.5-10.1); CARBON DIOXIDE 21.1 mmol/L (21-32); CHLORIDE 99 mmol/L (98-107); COR CA(FOR HYPOALB) 11.4 mg/dL (8.5-10.1); COR NA(FOR HYPERGLY) 137 mmol/L (136-145); CREATININE 0.93 mg/dL (0.55-1.02); MAGNESIUM 2.1 mg/dL (1.7-2.9); SODIUM 134 mmol/L (136-145); TOTAL PROTEIN 7.6 g/dL (6.4-8.2); eGFR NON BLACK RACES > 60 (>60)
[2018-11-15] MEDS ORDERED: POTASSIUM CHL 60 MEQ/NS 0.45% 500 ML IV PRN (06:13)
[2018-11-15] MEDS ORDERED: POTASSIUM CHLORIDE LIQ 20 MEQ UDC PO PRN (06:13)
[2018-11-15] MEDS ORDERED: POTASSIUM CHL 40 MEQ/NS 0.45% 500 ML IV PRN (06:13)
[2018-11-15] MEDS ORDERED: K-RIDER 10 MEQ/NS 100 ML 10 MEQ/100 ML BAG IV PRN (06:13)
[2018-11-15] MEDS ORDERED: K-DUR TAB 20 MEQ PO PRN (06:13)
[2018-11-15] MEDS ORDERED: MICRO K EXTEN CAP 10 MEQ PO PRN (06:13)
[2018-11-15] MEDS ORDERED: KLOR-CON PO PRN (06:13)
[2018-11-15 07:04] LABS: HEMOGLOBIN 14.7 g/dL (12.0-16.0)
[2018-11-15 07:08] LABS: BASOPHILS % (AUTO) 0.2 % (0.2-1.0); HEMATOCRIT 43.5 % (36.0-47.0); LYMPHOCYTES % (AUTO) 4.7 % (21.0-51.0); MEAN CORPUSCULAR HEMOGLOBIN 29.8 pg (27.0-34.0); MEAN CORPUSCULAR HGB CONC 33.8 g/dL (33.0-35.0); MEAN CORPUSCULAR VOLUME 88.3 fL (80.0-100.0); MONOCYTES # (AUTO) 1.3 x10^3/uL (0.3-0.8); MONOCYTES % (AUTO) 6.2 % (0.0-13.0); NEUTROPHILS # (AUTO) 19.3 x10^3/uL (2.2-4.8); NEUTROPHILS % (AUTO) 88.9 % (42.0-75.0); PLATELET COUNT 347 X10^3/uL (150.0-450.0); RED BLOOD COUNT 4.93 X10^6/uL (3.5-5.4); RED CELL DISTRIBUTION WIDTH 14.2 % (11.6-16.5); WHITE BLOOD COUNT 21.7 X10^3/uL (3.6-10.0)
[2018-11-15 07:36] LABS: BAND NEUTROPHILS % 12 % (0-10); PLATELET MORPHOLOGY COMMENT NORMAL (NORMAL)
[2018-11-15] MEDS: ROCEPHIN VIAL 1 GRAM IVP SCH (08:58)
[2018-11-15] MEDS: DUONEB 0.5 MG/3 MG NEB SCH ×4 (09:56→21:14)
--- NOTE | 2018-11-15 11:05 | RAD ---
Examination: AP chest History: CHF CAD Comparison 11/14/2018 Findings: Heart size probably normal although the cardiac margins are partly obscured by marked elevation of the diaphragm and low lung volumes. There is mild bibasal atelectasis, accentuated by diaphragm position. Impression: Bibasal dependent atelectasis, associated with marked expiratory phase exam. Reported By:
[2018-11-15] MEDS: PEPCID 20 MG IV PREMIX* 20 MG/50 ML BAG IV SCH ×2 (11:25→20:20)
[2018-11-15] MEDS: NORCO 5/325 MG TAB PO PRN ×2 (11:26→20:21)
[2018-11-15] MEDS: NORVASC TAB 5 MG PO SCH ×2 (11:26→20:22)
[2018-11-15] MEDS: LOPRESSOR TAB 25 MG PO SCH ×2 (11:26→20:23)
[2018-11-15] MEDS: MILK OF MAGNESIA PO SCH ×2 (11:26→20:21)
[2018-11-15] MEDS: NAMENDA TAB 10 MG PO SCH ×2 (11:26→20:22)
[2018-11-15] MEDS: LIPITOR TAB 20 MG PO SCH (20:22)
[2018-11-15 22:56] LABS: BILIRUBIN,URINE NEGATIVE (NEGATIVE); BLOOD/HEMOGLOBIN,URINE 4+ (NEGATIVE); GLUCOSE, URINE 1+ (NEGATIVE); KETONES,URINE NEGATIVE (NEGATIVE); LEUKOCYTE ESTERASE ,URINE 1+ (NEGATIVE); NITRITES,URINE NEGATIVE (NEGATIVE); PROTEIN,URINE 2+ (NEGATIVE); UROBILINOGEN,URINE NORMAL (NORMAL)
[2018-11-15 23:08] LABS: APPEARANCE,URINE CLEAR (CLEAR); COLOR,URINE YELLOW (YELLOW)
[2018-11-15 23:22] LABS: BACTERIA,URINE NEGATIVE /HPF (NEGATIVE); SQUAMOUS EPITHELIAL CELL,UR FEW /HPF (NEGATIVE)
[2018-11-16] MEDS: NS + KCL 20 MEQ/L 1,000 ML IV SCH ×4 (04:18→18:24)
[2018-11-16] MEDS: DUONEB 0.5 MG/3 MG NEB SCH ×4 (05:21→23:30)
[2018-11-16 05:55] LABS: BASOPHILS % (AUTO) 0.3 % (0.2-1.0); HEMATOCRIT 40.8 % (36.0-47.0); HEMOGLOBIN 14.1 g/dL (12.0-16.0); LYMPHOCYTES # (AUTO) 1.1 X10^3/uL (1.3-2.9); LYMPHOCYTES % (AUTO) 7.1 % (21.0-51.0); MEAN CORPUSCULAR HEMOGLOBIN 30.3 pg (27.0-34.0); MEAN CORPUSCULAR HGB CONC 34.5 g/dL (33.0-35.0); MEAN CORPUSCULAR VOLUME 87.8 fL (80.0-100.0); MEAN PLATELET VOLUME 8.1 fL (7.4-11.0); MONOCYTES # (AUTO) 1.6 x10^3/uL (0.3-0.8); MONOCYTES % (AUTO) 10.8 % (0.0-13.0); NEUTROPHILS # (AUTO) 12.3 x10^3/uL (2.2-4.8); NEUTROPHILS % (AUTO) 81.8 % (42.0-75.0); PLATELET COUNT 300 X10^3/uL (150.0-450.0); RED BLOOD COUNT 4.64 X10^6/uL (3.5-5.4)
[2018-11-16 06:02] LABS: ALANINE AMINOTRANSFERASE 60 Units/L (12-78); ALBUMIN 2.4 g/dL (3.4-5.0); ALKALINE PHOSPHATASE 116 Units/L (46-116); ASPARTATE AMINO TRANSFERASE 72 Units/L (15-37); BLOOD UREA NITROGEN 35 mg/dL (7-18); CALCIUM 9.9 mg/dL (8.5-10.1); CARBON DIOXIDE 20.9 mmol/L (21-32); CHLORIDE 105 mmol/L (98-107); COR CA(FOR HYPOALB) 11.2 mg/dL (8.5-10.1); COR NA(FOR HYPERGLY) 139 mmol/L (136-145); CREATININE 0.83 mg/dL (0.55-1.02); SODIUM 137 mmol/L (136-145); eGFR NON BLACK RACES > 60 (>60)
[2018-11-16] MEDS: HumuLIN R SC PRN ×3 (06:35→16:50)
[2018-11-16] MEDS: LOPRESSOR TAB 25 MG PO SCH ×2 (08:46→20:17)
[2018-11-16] MEDS: MILK OF MAGNESIA PO SCH ×2 (08:46→20:17)
[2018-11-16] MEDS: NAMENDA TAB 10 MG PO SCH ×2 (08:46→20:18)
[2018-11-16] MEDS: ROCEPHIN VIAL 1 GRAM IVP SCH (08:47)
[2018-11-16] MEDS: PEPCID 20 MG IV PREMIX* 20 MG/50 ML BAG IV SCH ×2 (08:47→20:16)
[2018-11-16] MEDS: NORVASC TAB 5 MG PO SCH ×2 (08:47→20:18)
[2018-11-16] MEDS ORDERED: PHARMACY CONSULT - DOSE _____ XX SCH (12:00)
[2018-11-16] MEDS: REQUIP PO SCH ×2 (13:32→21:16)
--- NOTE | 2018-11-16 19:41 | DR.H&P ---
H&P - History & Physical for Day of: H&P Date: 11/14/18 - Chief Complaint Chief Complaint: ALTERED MENTAL STATUS, DROWSINESS - History of Present Illness History of Present Illness: IS A 78 YEAR OLD PATIENT OF OURS WHO IS A RESIDENT OF [facility]. SHE PRESENTED TO THE ER WITH PATIENTS DAUGHTER REPORTING ALTERED MENTAL STATUS. 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 PATIENTS DAUGHTER REPORTS THAT SHE IS DROWSIER THAN USUAL AND IS COUGHING UP THICK, WHITE SPUTUM. DAUGHTER REPORTS THAT THERE IS NO WHEEZING, FEVER, OR DIARRHEA. ON ARRIVAL, VITALS WERE 98.6-81-18-98%-111/67. LABS WERE OBTAINED. ABNORMAL LAB VALUES INCLUDE THE FOLLOWING: WBC 19.4, SODIUM 128, POTASSIUM 2.8, CHLORIDE 92, CARBON DIOXIDE 16.9, BUN 50, CREATININE 1.32, GLUCOSE 465, CALCIUM 10.6, ALBUMIN 3.1, GLOBULIN 4.8, ACETONES NEGATIVE. A URINALYSIS WAS OBTIANED AND REVEALED: WBC 5-10, RBC 0- 2, LEUKOCYTES 1+, BACTERIA NEGATIVE, OCCULT BLOOD 1+. URINE CULTURE AND BLOOD CULTURES ARE PENDING. SHE WAS GIVEN ROCEPHIN 1G IV DAILY IN THE ER. SHE WAS ADMITTED FOR FURTHER EVALUATION AND TREATMENT OF CYSTITIS, AMS, HYPONATREMIA, HYPOKALEMIA, AND DIABETES WITH HYPERTENSION. SHE WAS STARTED ON NORMAL SALINE WITH 20MEQ KCL AT 100ML/HR, ROCEPHIN 1G IV DAILY, AND HUMULIN R SLIDING SCALE. WE PLAN TO FOLLOW UP WITH AM LABS AND CONTINUE TO MONITOR. - Past Medical History Past Medical History: Hypertension, Dyslipidemia, Alzheimers, Dementia, Arthritis, CHF Additional Medical History: H/O colovaginal fistula - Past Surgical History Surgical History: Bowel Resection, Other Additional Surgical History: Complete diverting colostomy of transverse colon - Family History Family Medical History: Diabetes Mellitus, Cancer, Hypertension - Social History Does patient currently use any type of tobacco product: No Have you used tobacco products in the last 12 months: No Type of Tobacco Use: None Does any household member use tobacco: No Alcohol Use: None Drug Use: Prescription Drugs Prescription drug monitoring program results: PDMP was not reviewed - Medications Home Medications: No Known Drug Allergies Allergy (Verified 05/02/18 14:58) - Review of Systems Constitutional: Weakness. denies: Fever Eyes: No Symptoms Reported ENT: No Symptoms Reported Respiratory: Cough, Sputum Cardiovascular: No Symptoms Reported Gastrointestinal: No Symptoms Reported Genitourinary: No Symptoms Reported Musculoskeletal: No Symptoms Reported Skin: No Symptoms Reported Neurological: Weakness - Physical Exam Vital Signs: Temperature 98.0 F Pulse Rate [Left Radial] 95 Pulse Rate 121 Respiratory Rate 18 Blood Pressure [Right Arm] 111/67 Blood Pressure [Left Arm] 114/74 Blood Pressure 128/70 O2 Sat by Pulse Oximetry 95 Oriented: Unable to test Eyes: Normal Ear: Normal Nose: Normal Throat: Normal Respiratory: Diminished Throughout Cardiovascular: Tachycardia. negative: S3, S4, Murmur : Normal Auscultation: Bowel Sounds: Normal Palpation: Normal Tenderness: Suprapubic, Mild. negative: Rebound, Guarding, Rigidity Skin: Normal Musculoskeletal: Normal Psychiatric: Other Mood Description: Calm, Flat Affect: Flat Speech Pattern: Aphasic - Assessment/Plan (1) Cystitis Status: Acute Plan: ADMIT, IV FLUIDS, ROCEPHIN 1G IV DAILY, CONTINUE TO MONITOR (2) Hyponatremia Status: Acute Plan: NORMAL SALINE WITH 20MEQ KCL AT 100ML/HR, CONTINUE TO MONITOR (3) Hypokalemia Status: Acute Plan: NORMAL SALINE WITH 20MEQ KCL AT 100ML/HR, CONTINUE TO MONITOR (4) Altered mental status Qualifiers: Altered mental status type: somnolence Qualified Code(s): R40.0 - Somnolence Status: Acute (5) Diabetes mellitus Qualifiers: Diabetes mellitus type: type 2 Diabetes mellitus terminal supervisor insulin use: with detention use Diabetes mellitus complication status: with other specified complication Qualified Code(s): E11.69 - Type 2 diabetes mellitus with other specified complication; 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
[2018-11-16] MEDS: NORCO 5/325 MG TAB PO PRN (20:17)
[2018-11-16] MEDS: LIPITOR TAB 20 MG PO SCH (20:18)
[2018-11-16] MEDS ORDERED: ZOFRAN INJ 4 MG VIAL IVP PRN (21:23)
[2018-11-16] MEDS ORDERED: ZOFRAN INJ 4 MG VIAL ONE (21:25)
[2018-11-17] MEDS: NORCO 5/325 MG TAB PO PRN ×2 (01:45→10:14)
[2018-11-17] MEDS: NS + KCL 20 MEQ/L 1,000 ML IV SCH ×2 (01:46→10:02)
[2018-11-17] MEDS: REQUIP PO SCH ×3 (05:26→21:17)
[2018-11-17 05:38] LABS: BASOPHILS % (AUTO) 0.4 % (0.2-1.0); EOSINOPHILS % (AUTO) 0.3 % (0.9-2.9); HEMATOCRIT 37.7 % (36.0-47.0); HEMOGLOBIN 12.7 g/dL (12.0-16.0); LYMPHOCYTES % (AUTO) 10.6 % (21.0-51.0); MEAN CORPUSCULAR HEMOGLOBIN 30.2 pg (27.0-34.0); MEAN CORPUSCULAR HGB CONC 33.8 g/dL (33.0-35.0); MEAN CORPUSCULAR VOLUME 89.3 fL (80.0-100.0); MONOCYTES % (AUTO) 10.5 % (0.0-13.0); NEUTROPHILS # (AUTO) 7.2 x10^3/uL (2.2-4.8); NEUTROPHILS % (AUTO) 78.2 % (42.0-75.0); PLATELET COUNT 300 X10^3/uL (150.0-450.0); RED BLOOD COUNT 4.22 X10^6/uL (3.5-5.4); RED CELL DISTRIBUTION WIDTH 14.1 % (11.6-16.5); WHITE BLOOD COUNT 9.2 X10^3/uL (3.6-10.0)
[2018-11-17] MEDS: DUONEB 0.5 MG/3 MG NEB SCH ×3 (05:51→21:22)
[2018-11-17 06:03] LABS: ALANINE AMINOTRANSFERASE 163 Units/L (12-78); ALBUMIN 2.3 g/dL (3.4-5.0); ALKALINE PHOSPHATASE 135 Units/L (46-116); ASPARTATE AMINO TRANSFERASE 214 Units/L (15-37); BLOOD UREA NITROGEN 29 mg/dL (7-18); CALCIUM 9.7 mg/dL (8.5-10.1); CHLORIDE 111 mmol/L (98-107); COR CA(FOR HYPOALB) 11.1 mg/dL (8.5-10.1); COR NA(FOR HYPERGLY) 145 mmol/L (136-145); CREATININE 0.82 mg/dL (0.55-1.02); SODIUM 143 mmol/L (136-145); TOTAL PROTEIN 6.8 g/dL (6.4-8.2); eGFR NON BLACK RACES > 60 (>60)
[2018-11-17 06:14] LABS: ERYTHROCYTE SEDIMENTATION RATE 76 MM/HOUR (0-20)
--- NOTE | 2018-11-17 07:16 | RAD ---
HISTORY: Hypoxia Study: Chest AP portable Comparison: 11/15/2018, 11/14/2018 Findings: The heart is upper limits normal in size. No congestive heart failure is noted. The lungs are markedly hypo inflated but free of acute infiltrates. Bibasilar subsegmental atelectasis is present. No pleural effusions are identified. The bony thorax is unremarkable. IMPRESSION: Lungs hypo inflated but free of acute infiltrates Bibasilar subsegmental atelectasis Reported By:
--- NOTE | 2018-11-17 07:17 | RAD ---
HISTORY: Vomiting Study: KUB Comparison: 11/14/2018 Findings: There is an ostomy in the left mid abdomen. There is a PEG tube present. The abdominal gas pattern is nonspecific and nonobstructive. A large amount of stool is not identified. No abnormal masses or significant abnormal calcifications are identified. IMPRESSION: Nonspecific nonobstructive bowel gas pattern with very little stool identified. Reported By:
[2018-11-17] MEDS: ROCEPHIN VIAL 1 GRAM IVP SCH (09:54)
[2018-11-17] MEDS: LOVENOX INJ 40 MG SYR SC SCH (09:54)
[2018-11-17] MEDS: MILK OF MAGNESIA PO SCH ×2 (09:54→21:17)
[2018-11-17] MEDS: NAMENDA TAB 10 MG PO SCH ×2 (09:55→21:17)
[2018-11-17] MEDS: NORVASC TAB 5 MG PO SCH ×2 (09:55→21:17)
[2018-11-17] MEDS: PEPCID 20 MG IV PREMIX* 20 MG/50 ML BAG IV SCH ×2 (09:56→20:51)
[2018-11-17] MEDS: LOPRESSOR TAB 25 MG PO SCH ×2 (09:56→21:16)
[2018-11-17] MEDS: GLUCOPHAGE XR PO SCH ×2 (10:19→21:16)
[2018-11-17] MEDS ORDERED: STERILE WATER IRRIGATION ONE (10:32)
[2018-11-17] MEDS: HumuLIN R SC PRN (12:46)
[2018-11-17] MEDS ORDERED: NS 1000 ML 1,000 ML ONE (16:39)
[2018-11-17] MEDS: NS 1000 ML 1,000 ML IV SCH (17:45)
--- NOTE | 2018-11-17 19:55 | PCM.PROG ---
Progress Note - Progress Note for Day of Date of Exam: 11/15/18 - Subjective Subjective: WAS ADMITTED FOR TREATMENT OF CYSTITIS, AMS, HYPONATREMIA, AND HYPOKALEMIA. SHE REMAINS LETHARGIC THIS MORNING. ON EXAMINATION, HEART IS REGULAR IN RATE AND RHYTHM. BILATERAL LUNGS ARE NOTED WITH DIMINISHED LUNG SOUNDS. ABDOMEN IS ROUND, SOFT, AND NOTED WITH NORMAL BOWEL SOUNDS THROUGHOUT. THERE IS PURULENT DRAINAGE NOTED FROM SITE OF PEG TUBE. HER VITALS THIS MORNING ARE 98.8-513-84-18-128/79. LABS WERE OBTAINED. ABNORMAL LAB VALUES INCLUDE THE FOLLOWING: WBC 21.7, SODIUM 134, POTASSIUM 2.7, BUN 43, GLUCOSE 214, CALCIUM 10.4, ALBUMIN 2.7, GLOBULIN 4.9. BLOOD AND URINE CULTURES ARE PENDING. A CHEST XRAY WAS OBTAINED AND REVEALED: Bibasal dependent atelectasis, associated with marked expiratory phase exam. WE WILL CULTURE DRAINAGE FROM PEG TUBE TODAY. SHE IS CURRENTLY RECEIVING IV FLUIDS, ROCEPHIN 1G IV DAILY, AND RESPIRATORY TREATMENTS. TODAY, WE WILL START PEPCID IV AND WILL RESUME HER HOME MEDICATIONS. WE WILL START THE POTASSIUM PROTOCOL. OTHERWISE, WE WILL CONTINUE WITH CURRENT PLAN OF CARE. WE PLAN TO FOLLOW UP WITH AM LABS AND CONTINUE TO MONITOR. - Past Medical Family Social History Past Med/Fam/Surg Hx: No changes since H&P Allergies: Allergies No Known Drug Allergies Allergy (Verified 05/02/18 14:58) - Review of Systems ROS: No change since H&P - Vital Signs and I&O's Vital Signs: Temperature 97.6 F Pulse Rate [Left Radial] 95 Pulse Rate 101 Respiratory Rate 13 Blood Pressure [Right Arm] 111/67 Blood Pressure [Left Arm] 114/74 Blood Pressure 110/66 O2 Sat by Pulse Oximetry 91 Intake and Output: Intake & Output 11/15/18 11/16/18 11/17/18 11/18/18 11:59 11:59 11:59 11:59 Intake Total 1175 / 1175 2510 / 2510 2731 / 2731 741 / 741 Output Total 1350 / 1350 700 / 700 900 / 900 Balance 1175 / 1175 1160 / 1160 2030 / 2030 -159 / -159 - Physical Exam Oriented: Unable to test Eyes: Normal Ear: Normal Nose: Normal Throat: Normal Respiratory: Generalized, Diminished Cardiovascular: Normal. negative: S3, S4, Murmur : Normal Auscultation: Bowel Sounds: Normal Palpation: Normal Tenderness: Diffuse. negative: Rebound, Guarding, Rigidity Skin: Normal Musculoskeletal: Normal Psychiatric: Other Mood Description: Calm, Flat Affect: Flat Speech Pattern: Aphasic - Laboratory and Diagnostics Result Diagrams: 11/17/18 03:56 11/17/18 03:56 Labs: 11/16/18 02:45 Peg Tube Wound Culture - Preliminary 11/15/18 22:30 Urine,Catheterized Urine Culture - Preliminary 11/14/18 17:57 Blood Blood Culture - Preliminary 11/14/18 17:48 Blood Blood Culture - Preliminary 11/14/18 16:40 Urine,Catheterized Urine Culture - Final Laboratory WBC 9.2 X10^3/uL (3.6-10.0) 11/17/18 03:56 RBC 4.22 X10^6/uL (3.5-5.4) 11/17/18 03:56 Hgb 12.7 g/dL (12.0-16.0) 11/17/18 03:56 Hct 37.7 % (36.0-47.0) 11/17/18 03:56 MCV 89.3 fL (80.0-100.0) 11/17/18 03:56 MCH 30.2 pg (27.0-34.0) 11/17/18 03:56 MCHC 33.8 g/dL (33.0-35.0) 11/17/18 03:56 RDW 14.1 % (11.6-16.5) 11/17/18 03:56 Plt Count 300 X10^3/uL (150.0-450.0) 11/17/18 03:56 Plt Count Comment Adequate (ADEQUATE) 11/15/18 04:10 MPV 8.0 fL (7.4-11.0) 11/17/18 03:56 Neut % (Auto) 78.2 % (42.0-75.0) H 11/17/18 03:56 Lymph % (Auto) 10.6 % (21.0-51.0) L 11/17/18 03:56 [place] % (Auto) 10.5 % (0.0-13.0) 11/17/18 03:56 Eos % (Auto) 0.3 % (0.9-2.9) L 11/17/18 03:56 Baso % (Auto) 0.4 % (0.2-1.0) 11/17/18 03:56 Neut # (Auto) 7.2 x10^3/uL (2.2-4.8) H 11/17/18 03:56 Lymph # (Auto) 1.0 X10^3/uL (1.3-2.9) L 11/17/18 03:56 [place] # (Auto) 1.0 x10^3/uL (0.3-0.8) H 11/17/18 03:56 Eos # (Auto) 0.0 x10^3/uL (0.0-0.2) 11/17/18 03:56 Baso # (Auto) 0.0 X10^3/uL (0.0-0.1) 11/17/18 03:56 Absolute Nucleated RBC 0.1 /100WBC 11/17/18 03:56 Total Counted 100 11/15/18 04:10 Neutrophils % (Manual) 80 % (39-76) H 11/15/18 04:10 Band Neutrophils % 12 % (0-10) H 11/15/18 04:10 Lymphocytes % (Manual) 4 % (13-43) L 11/15/18 04:10 Monocytes % (Manual) 4 % (4-9) 11/15/18 04:10 Plt Morphology Comment Normal (NORMAL) 11/15/18 04:10 RBC Morphology Normal (NORMAL) 11/15/18 04:10 ESR 76 MM/HOUR (0-20) H 11/17/18 03:56 Sodium 143 mmol/L (136-145) 11/17/18 03:56 Corrected Sodium 145 mmol/L (136-145) 11/17/18 03:56 Potassium 4.8 mmol/L (3.5-5.1) 11/17/18 03:56 Chloride 111 mmol/L (98-107) H 11/17/18 03:56 Carbon Dioxide 22.0 mmol/L (21-32) 11/17/18 03:56 BUN 29 mg/dL (7-18) H 11/17/18 03:56 Creatinine 0.82 mg/dL (0.55-1.02) 11/17/18 03:56 Est GFR (MDRD) Af Amer > 60 (>60) 11/17/18 03:56 Est GFR (MDRD) Non-Af > 60 (>60) 11/17/18 03:56 Glucose 187 mg/dL (65-99) H 11/17/18 03:56 POC Glucose (mg/dL) 157 mg/dL (65-99) H 11/17/18 16:25 Lactic Acid 2.7 mmol/L (0.4-2.0) H 11/15/18 07:30 Calcium 9.7 mg/dL (8.5-10.1) 11/17/18 03:56 Corrected Calcium 11.1 mg/dL (8.5-10.1) H 11/17/18 03:56 Magnesium 2.1 mg/dL (1.7-2.9) 11/15/18 04:10 Total Bilirubin 1.00 mg/dL (0.2-1.0) 11/17/18 03:56 AST 214 Units/L (15-37) H 11/17/18 03:56 ALT 163 Units/L (12-78) H 11/17/18 03:56 Alkaline Phosphatase 135 Units/L (46-116) H 11/17/18 03:56 Total Protein 6.8 g/dL (6.4-8.2) 11/17/18 03:56 Albumin 2.3 g/dL (3.4-5.0) L 11/17/18 03:56 Globulin 4.5 g/dL (2.5-4.5) 11/17/18 03:56 Albumin/Globulin Ratio 0.5 Ratio (1.1-2.1) L 11/17/18 03:56 Specimen Type Catherized urine 11/15/18 22:30 Urine Color Yellow (YELLOW) 11/15/18 22:30 Urine Appearance Clear (CLEAR) 11/15/18 22:30 Urine pH 6.0 (5.0 - 8.0) 11/15/18 22:30 Ur Specific [place] 1.015 (1.000-1.030) 11/15/18 22:30 Urine Protein 2+ (NEGATIVE) 11/15/18 22:30 Urine Glucose (UA) 1+ (NEGATIVE) 11/15/18 22:30 Urine Ketones Negative (NEGATIVE) 11/15/18 22:30 Urine Occult Blood 4+ (NEGATIVE) 11/15/18 22:30 Urine Nitrite Negative (NEGATIVE) 11/15/18 22:30 Urine Bilirubin Negative (NEGATIVE) 11/15/18 22:30 Urine Urobilinogen Normal (NORMAL) 11/15/18 22:30 Ur Leukocyte Esterase 1+ (NEGATIVE) 11/15/18 22:30 Urine RBC 5-10 /HPF (0-3) A 11/15/18 22:30 Urine WBC 3-5 /HPF (0-5) 11/15/18 22:30 Ur Squamous Epith Cells Few /HPF (NEGATIVE) 11/15/18 22:30 Urine Bacteria Negative /HPF (NEGATIVE) 11/15/18 22:30 Hyaline Casts Numerous /LPF (NEGATIVE) 11/14/18 16:40 Urine Mucus Moderate /HPF (NEGATIVE) 11/14/18 16:40 Ur Culture Indicated? Yes/culture set up 11/15/18 22:30 Acetone, Semi-Quant Negative (NEGATIVE) 11/14/18 15:54 - Plan (1) Cystitis Status: Acute Plan: IV FLUIDS, ROCEPHIN 1G IV DAILY, CONTINUE TO MONITOR (2) Hyponatremia Status: Acute Plan: NORMAL SALINE WITH 20MEQ KCL AT 100ML/HR, CONTINUE TO MONITOR (3) Hypokalemia Status: Acute Plan: NORMAL SALINE WITH 20MEQ KCL AT 100ML/HR, CONTINUE TO MONITOR (4) Altered mental status Status: Acute Qualifiers: Altered mental status type: somnolence Qualified Code(s): R40.0 - Somnolence (5) Diabetes mellitus Status: Chronic Qualifiers: Diabetes mellitus type: type 2 Diabetes mellitus joint terminal attack controller insulin use: with care home use Diabetes mellitus complication status: with other specified complication Qualified Code(s): E11.69 - Type 2 diabetes mellitus with other specified complication; Z79.4 - middle or intermediate school principal (current) use of insulin Plan: HUMULIN R SLIDING SCALE, MONITOR OTBS, CONTINUE TO MONITOR
[2018-11-17] MEDS: LIPITOR TAB 20 MG PO SCH (21:16)
[2018-11-18] MEDS: NS 1000 ML 1,000 ML IV SCH (02:13)
[2018-11-18 04:55] LABS: BASOPHILS % (AUTO) 0.3 % (0.2-1.0); EOSINOPHILS % (AUTO) 0.1 % (0.9-2.9); HEMATOCRIT 34.7 % (36.0-47.0); HEMOGLOBIN 11.6 g/dL (12.0-16.0); LYMPHOCYTES # (AUTO) 1.2 X10^3/uL (1.3-2.9); LYMPHOCYTES % (AUTO) 13.5 % (21.0-51.0); MEAN CORPUSCULAR HEMOGLOBIN 30.3 pg (27.0-34.0); MEAN CORPUSCULAR HGB CONC 33.6 g/dL (33.0-35.0); MEAN CORPUSCULAR VOLUME 90.1 fL (80.0-100.0); MEAN PLATELET VOLUME 7.5 fL (7.4-11.0); MONOCYTES % (AUTO) 11.6 % (0.0-13.0); NEUTROPHILS # (AUTO) 6.4 x10^3/uL (2.2-4.8); NEUTROPHILS % (AUTO) 74.5 % (42.0-75.0); PLATELET COUNT 241 X10^3/uL (150.0-450.0); RED BLOOD COUNT 3.85 X10^6/uL (3.5-5.4); RED CELL DISTRIBUTION WIDTH 14.3 % (11.6-16.5); WHITE BLOOD COUNT 8.7 X10^3/uL (3.6-10.0)
[2018-11-18 05:06] LABS: ALANINE AMINOTRANSFERASE 142 Units/L (12-78); ALBUMIN 2.1 g/dL (3.4-5.0); ALKALINE PHOSPHATASE 130 Units/L (46-116); ASPARTATE AMINO TRANSFERASE 129 Units/L (15-37); BLOOD UREA NITROGEN 21 mg/dL (7-18); CALCIUM 9.1 mg/dL (8.5-10.1); CARBON DIOXIDE 23.5 mmol/L (21-32); COR CA(FOR HYPOALB) 10.6 mg/dL (8.5-10.1); COR NA(FOR HYPERGLY) 150 mmol/L (136-145); CREATININE 0.69 mg/dL (0.55-1.02); SODIUM 149 mmol/L (136-145); TOTAL PROTEIN 6.1 g/dL (6.4-8.2); eGFR NON BLACK RACES > 60 (>60)
[2018-11-18 05:09] LABS: CHLORIDE 116 mmol/L (98-107)
[2018-11-18] MEDS ORDERED: NS 1/2 1000 ML IV 1,000 ML IV ONE ×2 (05:39→16:45)
[2018-11-18] MEDS: NS 1/2 1000 ML IV 1,000 ML IV SCH ×2 (05:42→20:37)
[2018-11-18] MEDS: DUONEB 0.5 MG/3 MG NEB SCH ×5 (06:00→21:08)
[2018-11-18] MEDS: REQUIP PO SCH ×3 (06:10→21:04)
[2018-11-18] MEDS: LOPRESSOR TAB 25 MG PO SCH ×2 (08:01→20:44)
[2018-11-18] MEDS: ROCEPHIN VIAL 1 GRAM IVP SCH (08:01)
[2018-11-18] MEDS: LOVENOX INJ 40 MG SYR SC SCH (08:01)
[2018-11-18] MEDS: NORCO 5/325 MG TAB PO PRN ×2 (08:02→20:45)
[2018-11-18] MEDS: PEPCID 20 MG IV PREMIX* 20 MG/50 ML BAG IV SCH ×2 (08:03→20:44)
[2018-11-18] MEDS: NORVASC TAB 5 MG PO SCH ×2 (08:03→20:44)
[2018-11-18] MEDS: NAMENDA TAB 10 MG PO SCH ×2 (08:03→20:46)
--- NOTE | 2018-11-18 08:58 | CT ---
HISTORY: Abdominal pain, G-tube drainage Study: CT abdomen pelvis with contrast Comparison: 07/18/2018 Technique: Axial post-contrast images with coronal and sagittal reformats. Dose reduction procedures were used with mA/kv adjusted for body size. Findings: There is a small right pleural effusion present. Right basilar lung infiltrate and atelectatic change is present. Left basilar subsegmental atelectatic changes present. The heart is enlarged. There is a small amount of fluid surrounding the liver. The liver appears normal in size and configuration and without significant focal space-occupying disease. The gallbladder is distended and demonstrates stones to be present. There is no evidence for gallbladder wall thickening or pericholecystic fluid to suggest cholecystitis. However if cholecystitis is a clinical consideration nuclear medicine biliary scan would be of further diagnostic value. The spleen is absent. The adrenal glands and pancreas appear within normal limits. The kidneys are unobstructed and without stones or masses. No ureteral calculi are identified. There is a gastrostomy tube intraluminal within the distal stomach. There is an ostomy present in the lower mid abdomen. There does appear to be a parastomal hernia present with a dilated loop of small bowel within the parastomal hernia. More proximally the small bowel is dilated suggestive of at least a partial obstruction. The abdominal aorta demonstrates calcific atherosclerotic change but no significant dilatation. No adenopathy is identified. There are no findings suggestive of diverticulitis or colitis. Examination of the pelvis demonstrated no evidence for pelvic masses, pelvic fluid, or pelvic lymphadenopathy. No bladder abnormality is identified. No lytic or blastic skeletal lesions of significance are identified. 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 Findings indicate at least a partial small bowel obstruction at the level of the ostomy due to the parastomal hernia. Cholelithiasis within a distended gallbladder. No radiographic findings of cholecystitis however if cholecystitis is a clinical consideration nuclear medicine biliary scan would be of further diagnostic value Right basilar lung infiltrate Small right pleural effusion Reported By:
[2018-11-18] MEDS ORDERED: NS IV NR (10:00)
[2018-11-18] MEDS ORDERED: GENTAMICIN IV NR (10:00)
--- NOTE | 2018-11-18 10:28 | PCM.PROG ---
Progress Note - Progress Note for Day of Date of Exam: 11/16/18 - Subjective Subjective: WAS ADMITTED FOR TREATMENT OF CYSTITIS, AMS, HYPONATREMIA, AND HYPOKALEMIA. SHE REMAINS DROWSY THIS MORNING. FAMILY REPORTS THAT SHE HAS BEEN HAVING JERKING MOVEMENTS TO HER LOWER EXTREMITIES. ON EXAMINATION, HEART IS REGULAR IN RATE AND RHYTHM. BILATERAL LUNGS ARE NOTED WITH DIMINISHED LUNG SOUNDS. ABDOMEN IS ROUND, SOFT, AND NOTED WITH NORMAL BOWEL SOUNDS THROUGHOUT. THERE CONTINUES TO BE PURULENT DRAINAGE NOTED FROM SITE OF PEG TUBE. HER VITALS THIS MORNING ARE 97.6-126-21-95%-147/82. LABS WERE OBTAINED. ABNORMAL LAB VALUES INCLUDE THE FOLLOWING: WBC 15.0, CARBON DIOXIDE 20.9, BUN 35, GLUCOSE 200, AST 72, ALBUMIN 2.4, GLOBULIN 4.6. BLOOD, URINE, AND WOUND CULTURES ARE PENDING. SHE IS CURRENTLY RECEIVING IV FLUIDS, ROCEPHIN 1G IV DAILY, PEPCID IV, RESPIRATORY TREATMENTS, AND THE POTASSIUM AND MAGNESIUM PROTOCOL. HER HOME MEDICATIONS WERE RESUMED. TODAY, WE WILL ADD REQUIP 0.5MG PO TID. OTHERWISE, WE WILL CONTINUE WITH CURRENT PLAN OF CARE. WE PLAN TO FOLLOW UP WITH AM LABS AND CONTINUE TO MONITOR. - Past Medical Family Social History Past Med/Fam/Surg Hx: No changes since H&P Allergies: Allergies No Known Drug Allergies Allergy (Verified 05/02/18 14:58) - Review of Systems ROS: No change since H&P - Vital Signs and I&O's Vital Signs: Temperature 97.8 F Pulse Rate [Left Radial] 95 Pulse Rate 111 Respiratory Rate 22 Blood Pressure [Right Arm] 111/67 Blood Pressure [Left Arm] 114/74 Blood Pressure 133/78 O2 Sat by Pulse Oximetry 93 Intake and Output: Intake & Output 11/15/18 11/16/18 11/17/18 11/18/18 11:59 11:59 11:59 11:59 Intake Total 1175 / 1175 2510 / 2510 2731 / 2731 2330 / 2330 Output Total 1350 / 1350 700 / 700 1500 / 1500 Balance 1175 / 1175 1160 / 1160 2030 / 2030 830 / 830 - Physical Exam Oriented: Unable to test Eyes: Normal Ear: Normal Nose: Normal Throat: Normal Respiratory: Generalized, Diminished Cardiovascular: Normal. negative: S3, S4, Murmur : Normal Auscultation: Bowel Sounds: Normal Palpation: Normal Tenderness: Diffuse. negative: Rebound, Guarding, Rigidity Skin: Normal Musculoskeletal: Normal Psychiatric: Other Mood Description: Calm, Flat Affect: Flat Speech Pattern: Aphasic - Laboratory and Diagnostics Result Diagrams: 11/18/18 03:57 11/18/18 03:57 Labs: 11/15/18 22:30 Urine,Catheterized Urine Culture - Final 11/16/18 02:45 Peg Tube Wound Culture - Final Acinetobacter Baumanii/Haemoly Staphylococcus Aureus 11/14/18 17:57 Blood Blood Culture - Preliminary 11/14/18 17:48 Blood Blood Culture - Preliminary 11/14/18 16:40 Urine,Catheterized Urine Culture - Final Laboratory WBC 8.7 X10^3/uL (3.6-10.0) 11/18/18 03:57 RBC 3.85 X10^6/uL (3.5-5.4) 11/18/18 03:57 Hgb 11.6 g/dL (12.0-16.0) L 11/18/18 03:57 Hct 34.7 % (36.0-47.0) L 11/18/18 03:57 MCV 90.1 fL (80.0-100.0) 11/18/18 03:57 MCH 30.3 pg (27.0-34.0) 11/18/18 03:57 MCHC 33.6 g/dL (33.0-35.0) 11/18/18 03:57 RDW 14.3 % (11.6-16.5) 11/18/18 03:57 Plt Count 241 X10^3/uL (150.0-450.0) 11/18/18 03:57 Plt Count Comment Adequate (ADEQUATE) 11/15/18 04:10 MPV 7.5 fL (7.4-11.0) 11/18/18 03:57 Neut % (Auto) 74.5 % (42.0-75.0) 11/18/18 03:57 Lymph % (Auto) 13.5 % (21.0-51.0) L 11/18/18 03:57 [place] % (Auto) 11.6 % (0.0-13.0) 11/18/18 03:57 Eos % (Auto) 0.1 % (0.9-2.9) L 11/18/18 03:57 Baso % (Auto) 0.3 % (0.2-1.0) 11/18/18 03:57 Neut # (Auto) 6.4 x10^3/uL (2.2-4.8) H 11/18/18 03:57 Lymph # (Auto) 1.2 X10^3/uL (1.3-2.9) L 11/18/18 03:57 [place] # (Auto) 1.0 x10^3/uL (0.3-0.8) H 11/18/18 03:57 Eos # (Auto) 0.0 x10^3/uL (0.0-0.2) 11/18/18 03:57 Baso # (Auto) 0.0 X10^3/uL (0.0-0.1) 11/18/18 03:57 Absolute Nucleated RBC 0.0 /100WBC 11/18/18 03:57 Total Counted 100 11/15/18 04:10 Neutrophils % (Manual) 80 % (39-76) H 11/15/18 04:10 Band Neutrophils % 12 % (0-10) H 11/15/18 04:10 Lymphocytes % (Manual) 4 % (13-43) L 11/15/18 04:10 Monocytes % (Manual) 4 % (4-9) 11/15/18 04:10 Plt Morphology Comment Normal (NORMAL) 11/15/18 04:10 RBC Morphology Normal (NORMAL) 11/15/18 04:10 ESR 76 MM/HOUR (0-20) H 11/17/18 03:56 Sodium 149 mmol/L (136-145) H 11/18/18 03:57 Corrected Sodium 150 mmol/L (136-145) H 11/18/18 03:57 Potassium 4.7 mmol/L (3.5-5.1) 11/18/18 03:57 Chloride 116 mmol/L (98-107) H* 11/18/18 03:57 Carbon Dioxide 23.5 mmol/L (21-32) 11/18/18 03:57 BUN 21 mg/dL (7-18) H 11/18/18 03:57 Creatinine 0.69 mg/dL (0.55-1.02) 11/18/18 03:57 Est GFR (MDRD) Af Amer > 60 (>60) 11/18/18 03:57 Est GFR (MDRD) Non-Af > 60 (>60) 11/18/18 03:57 Glucose 154 mg/dL (65-99) H 11/18/18 03:57 POC Glucose (mg/dL) 139 mg/dL (65-99) H 11/18/18 05:47 Lactic Acid 2.7 mmol/L (0.4-2.0) H 11/15/18 07:30 Calcium 9.1 mg/dL (8.5-10.1) 11/18/18 03:57 Corrected Calcium 10.6 mg/dL (8.5-10.1) H 11/18/18 03:57 Magnesium 2.1 mg/dL (1.7-2.9) 11/15/18 04:10 Total Bilirubin 0.70 mg/dL (0.2-1.0) 11/18/18 03:57 AST 129 Units/L (15-37) H 11/18/18 03:57 ALT 142 Units/L (12-78) H 11/18/18 03:57 Alkaline Phosphatase 130 Units/L (46-116) H 11/18/18 03:57 Total Protein 6.1 g/dL (6.4-8.2) L 11/18/18 03:57 Albumin 2.1 g/dL (3.4-5.0) L 11/18/18 03:57 Globulin 4.0 g/dL (2.5-4.5) 11/18/18 03:57 Albumin/Globulin Ratio 0.5 Ratio (1.1-2.1) L 11/18/18 03:57 Specimen Type Catherized urine 11/15/18 22:30 Urine Color Yellow (YELLOW) 11/15/18 22:30 Urine Appearance Clear (CLEAR) 11/15/18 22:30 Urine pH 6.0 (5.0 - 8.0) 11/15/18 22:30 Ur Specific [place] 1.015 (1.000-1.030) 11/15/18 22:30 Urine Protein 2+ (NEGATIVE) 11/15/18 22:30 Urine Glucose (UA) 1+ (NEGATIVE) 11/15/18 22:30 Urine Ketones Negative (NEGATIVE) 11/15/18 22:30 Urine Occult Blood 4+ (NEGATIVE) 11/15/18 22:30 Urine Nitrite Negative (NEGATIVE) 11/15/18 22:30 Urine Bilirubin Negative (NEGATIVE) 11/15/18 22:30 Urine Urobilinogen Normal (NORMAL) 11/15/18 22:30 Ur Leukocyte Esterase 1+ (NEGATIVE) 11/15/18 22:30 Urine RBC 5-10 /HPF (0-3) A 11/15/18 22:30 Urine WBC 3-5 /HPF (0-5) 11/15/18 22:30 Ur Squamous Epith Cells Few /HPF (NEGATIVE) 11/15/18 22:30 Urine Bacteria Negative /HPF (NEGATIVE) 11/15/18 22:30 Hyaline Casts Numerous /LPF (NEGATIVE) 11/14/18 16:40 Urine Mucus Moderate /HPF (NEGATIVE) 11/14/18 16:40 Ur Culture Indicated? Yes/culture set up 11/15/18 22:30 Acetone, Semi-Quant Negative (NEGATIVE) 11/14/18 15:54 - Plan (1) Cystitis Status: Acute Plan: IV FLUIDS, ROCEPHIN 1G IV DAILY, CONTINUE TO MONITOR (2) Hyponatremia Status: Acute Plan: NORMAL SALINE WITH 20MEQ KCL AT 100ML/HR, CONTINUE TO MONITOR (3) Hypokalemia Status: Acute Plan: NORMAL SALINE WITH 20MEQ KCL AT 100ML/HR, CONTINUE TO MONITOR (4) Altered mental status Status: Acute Qualifiers: Altered mental status type: somnolence Qualified Code(s): R40.0 - Somnolence (5) Diabetes mellitus Status: Chronic Qualifiers: Diabetes mellitus type: type 2 Diabetes mellitus custodial insulin use: with custodial use Diabetes mellitus complication status: with other specified complication Qualified Code(s): E11.69 - Type 2 diabetes mellitus with other specified complication; Z79.4 - watermelon harvesting supervisor (current) use of insulin Plan: HUMULIN R SLIDING SCALE, MONITOR OTBS, CONTINUE TO MONITOR
[2018-11-18] MEDS: MILK OF MAGNESIA PO SCH ×2 (10:56→20:47)
[2018-11-18] MEDS ORDERED: GLUCOPHAGE ONE (20:13)
[2018-11-18] MEDS: GLUCOPHAGE PO SCH (20:46)
[2018-11-18] MEDS: LIPITOR TAB 20 MG PO SCH (20:46)
[2018-11-18] MEDS ORDERED: PHARMACY COMMENT IV NR (22:00)
[2018-11-18 22:16] LABS: CREATININE 0.74 mg/dL (0.55-1.02)
[2018-11-18 22:32] LABS: GENTAMICIN,TROUGH 4.7 ug/mL (0-1.9)
--- NOTE | 2018-11-18 23:05 | DR.PROGNOT ---
Hospital Progress Notes - Progress Note for Day of: Progress Note Date: 11/18/18 - Chief Complaint Chief Complaint: colostomy is functioning well and Pt is tolerating tube feeding . no significant leakage around feeding tube .. still dehydrated . - Past Medical Family Social History Past Med/Fam/Surg Hx: No changes since H&P Allergies: Allergies No Known Drug Allergies Allergy (Verified 05/02/18 14:58) - Review Of Systems ROS: No change since H&P - Vital Signs Vital Signs: Temperature 99.9 F Pulse Rate [Left Radial] 95 Pulse Rate 123 Respiratory Rate 26 Blood Pressure [Right Arm] 111/67 Blood Pressure [Left Arm] 114/74 Blood Pressure 119/69 O2 Sat by Pulse Oximetry 95 - Physical Exam Oriented: Unable to test Eyes: Normal Ear: Normal Nose: Normal Throat: Normal Respiratory: Generalized, Diminished Cardiovascular: Normal. negative: S3, S4, Murmur : Normal GI:Auscultation: Normal GI:Palpation: Normal GI: Tenderness: Diffuse (soft abdomen , BS+ ). negative: Rebound, Guarding, Rigidity Skin: Normal Musculoskeletal: Normal Psychiatric: Other Mood Description: Calm, Flat Affect: Flat Speech Pattern: Aphasic - Laboratory and Diagnostics Result Diagrams: 11/18/18 03:57 11/18/18 21:57 Labs: 11/15/18 22:30 Urine,Catheterized Urine Culture - Final 11/16/18 02:45 Peg Tube Wound Culture - Final Acinetobacter Baumanii/Haemoly Staphylococcus Aureus 11/14/18 17:57 Blood Blood Culture - Preliminary 11/14/18 17:48 Blood Blood Culture - Preliminary 11/14/18 16:40 Urine,Catheterized Urine Culture - Final Laboratory WBC 8.7 X10^3/uL (3.6-10.0) 11/18/18 03:57 RBC 3.85 X10^6/uL (3.5-5.4) 11/18/18 03:57 Hgb 11.6 g/dL (12.0-16.0) L 11/18/18 03:57 Hct 34.7 % (36.0-47.0) L 11/18/18 03:57 MCV 90.1 fL (80.0-100.0) 11/18/18 03:57 MCH 30.3 pg (27.0-34.0) 11/18/18 03:57 MCHC 33.6 g/dL (33.0-35.0) 11/18/18 03:57 RDW 14.3 % (11.6-16.5) 11/18/18 03:57 Plt Count 241 X10^3/uL (150.0-450.0) 11/18/18 03:57 Plt Count Comment Adequate (ADEQUATE) 11/15/18 04:10 MPV 7.5 fL (7.4-11.0) 11/18/18 03:57 Neut % (Auto) 74.5 % (42.0-75.0) 11/18/18 03:57 Lymph % (Auto) 13.5 % (21.0-51.0) L 11/18/18 03:57 [place] % (Auto) 11.6 % (0.0-13.0) 11/18/18 03:57 Eos % (Auto) 0.1 % (0.9-2.9) L 11/18/18 03:57 Baso % (Auto) 0.3 % (0.2-1.0) 11/18/18 03:57 Neut # (Auto) 6.4 x10^3/uL (2.2-4.8) H 11/18/18 03:57 Lymph # (Auto) 1.2 X10^3/uL (1.3-2.9) L 11/18/18 03:57 [place] # (Auto) 1.0 x10^3/uL (0.3-0.8) H 11/18/18 03:57 Eos # (Auto) 0.0 x10^3/uL (0.0-0.2) 11/18/18 03:57 Baso # (Auto) 0.0 X10^3/uL (0.0-0.1) 11/18/18 03:57 Absolute Nucleated RBC 0.0 /100WBC 11/18/18 03:57 Total Counted 100 11/15/18 04:10 Neutrophils % (Manual) 80 % (39-76) H 11/15/18 04:10 Band Neutrophils % 12 % (0-10) H 11/15/18 04:10 Lymphocytes % (Manual) 4 % (13-43) L 11/15/18 04:10 Monocytes % (Manual) 4 % (4-9) 11/15/18 04:10 Plt Morphology Comment Normal (NORMAL) 11/15/18 04:10 RBC Morphology Normal (NORMAL) 11/15/18 04:10 ESR 76 MM/HOUR (0-20) H 11/17/18 03:56 Sodium 149 mmol/L (136-145) H 11/18/18 03:57 Corrected Sodium 150 mmol/L (136-145) H 11/18/18 03:57 Potassium 4.7 mmol/L (3.5-5.1) 11/18/18 03:57 Chloride 116 mmol/L (98-107) H* 11/18/18 03:57 Carbon Dioxide 23.5 mmol/L (21-32) 11/18/18 03:57 BUN 21 mg/dL (7-18) H 11/18/18 03:57 Creatinine 0.74 mg/dL (0.55-1.02) 11/18/18 21:57 Est GFR (MDRD) Af Amer > 60 (>60) 11/18/18 03:57 Est GFR (MDRD) Non-Af > 60 (>60) 11/18/18 03:57 Glucose 154 mg/dL (65-99) H 11/18/18 03:57 POC Glucose (mg/dL) 146 mg/dL (65-99) H 11/18/18 20:04 Lactic Acid 2.7 mmol/L (0.4-2.0) H 11/15/18 07:30 Calcium 9.1 mg/dL (8.5-10.1) 11/18/18 03:57 Corrected Calcium 10.6 mg/dL (8.5-10.1) H 11/18/18 03:57 Magnesium 2.1 mg/dL (1.7-2.9) 11/15/18 04:10 Total Bilirubin 0.70 mg/dL (0.2-1.0) 11/18/18 03:57 AST 129 Units/L (15-37) H 11/18/18 03:57 ALT 142 Units/L (12-78) H 11/18/18 03:57 Alkaline Phosphatase 130 Units/L (46-116) H 11/18/18 03:57 Total Protein 6.1 g/dL (6.4-8.2) L 11/18/18 03:57 Albumin 2.1 g/dL (3.4-5.0) L 11/18/18 03:57 Globulin 4.0 g/dL (2.5-4.5) 11/18/18 03:57 Albumin/Globulin Ratio 0.5 Ratio (1.1-2.1) L 11/18/18 03:57 Specimen Type Catherized urine 11/15/18 22:30 Urine Color Yellow (YELLOW) 11/15/18 22:30 Urine Appearance Clear (CLEAR) 11/15/18 22:30 Urine pH 6.0 (5.0 - 8.0) 11/15/18 22:30 Ur Specific [place] 1.015 (1.000-1.030) 11/15/18 22:30 Urine Protein 2+ (NEGATIVE) 11/15/18 22:30 Urine Glucose (UA) 1+ (NEGATIVE) 11/15/18 22:30 Urine Ketones Negative (NEGATIVE) 11/15/18 22:30 Urine Occult Blood 4+ (NEGATIVE) 11/15/18 22:30 Urine Nitrite Negative (NEGATIVE) 11/15/18 22:30 Urine Bilirubin Negative (NEGATIVE) 11/15/18 22:30 Urine Urobilinogen Normal (NORMAL) 11/15/18 22:30 Ur Leukocyte Esterase 1+ (NEGATIVE) 11/15/18 22:30 Urine RBC 5-10 /HPF (0-3) A 11/15/18 22:30 Urine WBC 3-5 /HPF (0-5) 11/15/18 22:30 Ur Squamous Epith Cells Few /HPF (NEGATIVE) 11/15/18 22:30 Urine Bacteria Negative /HPF (NEGATIVE) 11/15/18 22:30 Hyaline Casts Numerous /LPF (NEGATIVE) 11/14/18 16:40 Urine Mucus Moderate /HPF (NEGATIVE) 11/14/18 16:40 Ur Culture Indicated? Yes/culture set up 11/15/18 22:30 Gentamicin Trough 4.7 ug/mL (0-1.9) H 11/18/18 21:57 Acetone, Semi-Quant Negative (NEGATIVE) 11/14/18 15:54 - Assessment and Plan 1: .stoma hernia with improving partial SBO and . electrolyte imbalance and dehydration. to increase feeding and and same care of skin around the PEG tube . - Problem Patient Problems: Patient Problems Altered mental status (Acute) R41.82 Hyponatremia (Acute) E87.1 Hypokalemia (Acute) E87.6 Cystitis (Acute) N30.90
[2018-11-19] MEDS ORDERED: NS 1/2 1000 ML IV 1,000 ML IV ONE ×2 (04:25→15:18)
[2018-11-19] MEDS: NS 1/2 1000 ML IV 1,000 ML IV SCH ×3 (04:50→15:18)
[2018-11-19] MEDS: DUONEB 0.5 MG/3 MG NEB SCH ×5 (04:58→21:48)
[2018-11-19 05:07] LABS: BASOPHILS % (AUTO) 0.2 % (0.2-1.0); EOSINOPHILS % (AUTO) 0.2 % (0.9-2.9); HEMATOCRIT 32.5 % (36.0-47.0); HEMOGLOBIN 10.9 g/dL (12.0-16.0); LYMPHOCYTES # (AUTO) 1.7 X10^3/uL (1.3-2.9); LYMPHOCYTES % (AUTO) 17.7 % (21.0-51.0); MEAN CORPUSCULAR HEMOGLOBIN 30.1 pg (27.0-34.0); MEAN CORPUSCULAR HGB CONC 33.5 g/dL (33.0-35.0); MEAN CORPUSCULAR VOLUME 89.7 fL (80.0-100.0); MEAN PLATELET VOLUME 7.4 fL (7.4-11.0); MONOCYTES # (AUTO) 0.9 x10^3/uL (0.3-0.8); MONOCYTES % (AUTO) 8.7 % (0.0-13.0); NEUTROPHILS # (AUTO) 7.1 x10^3/uL (2.2-4.8); NEUTROPHILS % (AUTO) 73.2 % (42.0-75.0); PLATELET COUNT 233 X10^3/uL (150.0-450.0); RED BLOOD COUNT 3.62 X10^6/uL (3.5-5.4); RED CELL DISTRIBUTION WIDTH 14.1 % (11.6-16.5); WHITE BLOOD COUNT 9.7 X10^3/uL (3.6-10.0)
[2018-11-19 05:26] LABS: ALANINE AMINOTRANSFERASE 101 Units/L (12-78); ALKALINE PHOSPHATASE 142 Units/L (46-116); ASPARTATE AMINO TRANSFERASE 74 Units/L (15-37); BLOOD UREA NITROGEN 15 mg/dL (7-18); CALCIUM 8.6 mg/dL (8.5-10.1); CARBON DIOXIDE 23.4 mmol/L (21-32); CHLORIDE 113 mmol/L (98-107); COR CA(FOR HYPOALB) 10.2 mg/dL (8.5-10.1); COR NA(FOR HYPERGLY) 147 mmol/L (136-145); CREATININE 0.62 mg/dL (0.55-1.02); SODIUM 147 mmol/L (136-145); eGFR NON BLACK RACES > 60 (>60)
[2018-11-19] MEDS: REQUIP PO SCH ×3 (05:55→21:38)
[2018-11-19] MEDS ORDERED: GLUCOPHAGE ONE ×2 (07:53→20:25)
[2018-11-19] MEDS: LOPRESSOR TAB 25 MG PO SCH ×2 (09:55→20:41)
[2018-11-19] MEDS: NORVASC TAB 5 MG PO SCH ×2 (09:55→20:42)
[2018-11-19] MEDS: NAMENDA TAB 10 MG PO SCH ×2 (09:55→20:42)
[2018-11-19] MEDS: ROCEPHIN VIAL 1 GRAM IVP SCH (09:55)
[2018-11-19] MEDS: MILK OF MAGNESIA PO SCH (09:56)
[2018-11-19] MEDS: GLUCOPHAGE PO SCH ×2 (09:56→20:40)
[2018-11-19] MEDS: PEPCID 20 MG IV PREMIX* 20 MG/50 ML BAG IV SCH ×2 (09:56→20:41)
[2018-11-19] MEDS: LOVENOX INJ 40 MG SYR SC SCH (09:57)
[2018-11-19] MEDS: NORCO 5/325 MG TAB PO PRN ×2 (13:40→23:23)
--- NOTE | 2018-11-19 19:19 | PCM.PROG ---
Progress Note - Progress Note for Day of Date of Exam: 11/17/18 - Subjective Subjective: WAS ADMITTED FOR TREATMENT OF CYSTITIS, AMS, HYPONATREMIA, AND HYPOKALEMIA. TODAY, SHE IS LYING IN BED WITH EYES OPEN ON MORNING ROUNDS. FAMILY REPORTS THAT SHE SEEMS TO HAVE RESTED BETTER THROUGHOUT THE NIGHT. ON EXAMINATION, HEART IS REGULAR IN RATE AND RHYTHM. BILATERAL LUNGS ARE NOTED WITH DIMINISHED LUNG SOUNDS. ABDOMEN IS ROUND, SOFT, AND NOTED WITH NORMAL BOWEL SOUNDS THROUGHOUT. THERE CONTINUES TO BE PURULENT DRAINAGE NOTED FROM SITE OF PEG TUBE AND PATIENT MOANS WHEN HER LOWER ABDOMEN IS PALPATED. HER COLOSTOMY HAS BEEN PUTTING OUT VERY LITTLE STOOL. HER VITALS THIS MORNING ARE 98.4-128-20-91%RA-125/69. LABS WERE OBTAINED. ABNORMAL LAB VALUES INCLUDE THE FOLLOWING: CHLORIDE 111, BUN 29, GLUCOSE 187, AST 214, ALT 163, ALK PHOS 135, ALUBMIN 2.3. BLOOD, URINE, AND WOUND CULTURES ARE PENDING. SHE IS CURRENTLY RECEIVING IV FLUIDS, ROCEPHIN 1G IV DAILY, PEPCID IV, RESPIRATORY TREATMENTS, AND THE POTASSIUM AND MAGNESIUM PROTOCOL. HER HOME MEDICATIONS WERE RESUMED. TO DAY, WE WILL OBTAIN AN ABDOMEN/PELVIS CT WITH IV CONTRAST. OTHERWISE, WE WILL CONTINUE WITH CURRENT PLAN OF CARE. WE PLAN TO FOLLOW UP WITH AM LABS AND CONTINUE TO MONITOR. - Past Medical Family Social History Past Med/Fam/Surg Hx: No changes since H&P Allergies: Allergies No Known Drug Allergies Allergy (Verified 05/02/18 14:58) - Review of Systems ROS: No change since H&P - Vital Signs and I&O's Vital Signs: Temperature 97.9 F Pulse Rate [Left Radial] 95 Pulse Rate 94 Respiratory Rate 26 Blood Pressure [Right Arm] 111/67 Blood Pressure [Left Arm] 114/74 Blood Pressure 117/71 O2 Sat by Pulse Oximetry 93 Intake and Output: Intake & Output 11/17/18 11/18/18 11/19/18 11/20/18 11:59 11:59 11:59 11:59 Intake Total 2731 / 2731 2450 / 2450 1967 1020 / 1020 Output Total 700 / 700 1500 / 1500 1200 / 1200 475 / 475 Balance 2030 950 / 950 768 / 768 545 / 545 - Physical Exam Oriented: Unable to test Eyes: Normal Ear: Normal Nose: Normal Throat: Normal Respiratory: Generalized, Diminished Cardiovascular: Normal. negative: S3, S4, Murmur : Normal Auscultation: Bowel Sounds: Normal Palpation: Normal Tenderness: Diffuse (soft abdomen , BS+ ). negative: Rebound, Guarding, Rigidity Skin: Normal Musculoskeletal: Normal Psychiatric: Other Mood Description: Calm, Flat Affect: Flat Speech Pattern: Aphasic - Laboratory and Diagnostics Result Diagrams: 11/19/18 04:01 11/19/18 04:01 Labs: 11/14/18 17:57 Blood Blood Culture - Preliminary 11/14/18 17:48 Blood Blood Culture - Final 11/15/18 22:30 Urine,Catheterized Urine Culture - Final 11/16/18 02:45 Peg Tube Wound Culture - Final Acinetobacter Baumanii/Haemoly Staphylococcus Aureus 11/14/18 16:40 Urine,Catheterized Urine Culture - Final Laboratory WBC 9.7 X10^3/uL (3.6-10.0) 11/19/18 04:01 RBC 3.62 X10^6/uL (3.5-5.4) 11/19/18 04:01 Hgb 10.9 g/dL (12.0-16.0) L 11/19/18 04:01 Hct 32.5 % (36.0-47.0) L 11/19/18 04:01 MCV 89.7 fL (80.0-100.0) 11/19/18 04:01 MCH 30.1 pg (27.0-34.0) 11/19/18 04:01 MCHC 33.5 g/dL (33.0-35.0) 11/19/18 04:01 RDW 14.1 % (11.6-16.5) 11/19/18 04:01 Plt Count 233 X10^3/uL (150.0-450.0) 11/19/18 04:01 Plt Count Comment Adequate (ADEQUATE) 11/15/18 04:10 MPV 7.4 fL (7.4-11.0) 11/19/18 04:01 Neut % (Auto) 73.2 % (42.0-75.0) 11/19/18 04:01 Lymph % (Auto) 17.7 % (21.0-51.0) L 11/19/18 04:01 [place] % (Auto) 8.7 % (0.0-13.0) 11/19/18 04:01 Eos % (Auto) 0.2 % (0.9-2.9) L 11/19/18 04:01 Baso % (Auto) 0.2 % (0.2-1.0) 11/19/18 04:01 Neut # (Auto) 7.1 x10^3/uL (2.2-4.8) H 11/19/18 04:01 Lymph # (Auto) 1.7 X10^3/uL (1.3-2.9) 11/19/18 04:01 [place] # (Auto) 0.9 x10^3/uL (0.3-0.8) H 11/19/18 04:01 Eos # (Auto) 0.0 x10^3/uL (0.0-0.2) 11/19/18 04:01 Baso # (Auto) 0.0 X10^3/uL (0.0-0.1) 11/19/18 04:01 Absolute Nucleated RBC 0.3 /100WBC 11/19/18 04:01 Total Counted 100 11/15/18 04:10 Neutrophils % (Manual) 80 % (39-76) H 11/15/18 04:10 Band Neutrophils % 12 % (0-10) H 11/15/18 04:10 Lymphocytes % (Manual) 4 % (13-43) L 11/15/18 04:10 Monocytes % (Manual) 4 % (4-9) 11/15/18 04:10 Plt Morphology Comment Normal (NORMAL) 11/15/18 04:10 RBC Morphology Normal (NORMAL) 11/15/18 04:10 ESR 76 MM/HOUR (0-20) H 11/17/18 03:56 Sodium 147 mmol/L (136-145) H 11/19/18 04:01 Corrected Sodium 147 mmol/L (136-145) H 11/19/18 04:01 Potassium 3.8 mmol/L (3.5-5.1) 11/19/18 04:01 Chloride 113 mmol/L (98-107) H 11/19/18 04:01 Carbon Dioxide 23.4 mmol/L (21-32) 11/19/18 04:01 BUN 15 mg/dL (7-18) 11/19/18 04:01 Creatinine 0.62 mg/dL (0.55-1.02) 11/19/18 04:01 Est GFR (MDRD) Af Amer > 60 (>60) 11/19/18 04:01 Est GFR (MDRD) Non-Af > 60 (>60) 11/19/18 04:01 Glucose 113 mg/dL (65-99) H 11/19/18 04:01 POC Glucose (mg/dL) 118 mg/dL (65-99) H 11/19/18 16:51 Lactic Acid 2.7 mmol/L (0.4-2.0) H 11/15/18 07:30 Calcium 8.6 mg/dL (8.5-10.1) 11/19/18 04:01 Corrected Calcium 10.2 mg/dL (8.5-10.1) H 11/19/18 04:01 Magnesium 2.1 mg/dL (1.7-2.9) 11/15/18 04:10 Total Bilirubin 0.80 mg/dL (0.2-1.0) 11/19/18 04:01 AST 74 Units/L (15-37) H 11/19/18 04:01 ALT 101 Units/L (12-78) H 11/19/18 04:01 Alkaline Phosphatase 142 Units/L (46-116) H 11/19/18 04:01 Total Protein 6.0 g/dL (6.4-8.2) L 11/19/18 04:01 Albumin 2.0 g/dL (3.4-5.0) L 11/19/18 04:01 Globulin 4.0 g/dL (2.5-4.5) 11/19/18 04:01 Albumin/Globulin Ratio 0.5 Ratio (1.1-2.1) L 11/19/18 04:01 Specimen Type Catherized urine 11/15/18 22:30 Urine Color Yellow (YELLOW) 11/15/18 22:30 Urine Appearance Clear (CLEAR) 11/15/18 22:30 Urine pH 6.0 (5.0 - 8.0) 11/15/18 22:30 Ur Specific [place] 1.015 (1.000-1.030) 11/15/18 22:30 Urine Protein 2+ (NEGATIVE) 11/15/18 22:30 Urine Glucose (UA) 1+ (NEGATIVE) 11/15/18 22:30 Urine Ketones Negative (NEGATIVE) 11/15/18 22:30 Urine Occult Blood 4+ (NEGATIVE) 11/15/18 22:30 Urine Nitrite Negative (NEGATIVE) 11/15/18 22:30 Urine Bilirubin Negative (NEGATIVE) 11/15/18 22:30 Urine Urobilinogen Normal (NORMAL) 11/15/18 22:30 Ur Leukocyte Esterase 1+ (NEGATIVE) 11/15/18 22:30 Urine RBC 5-10 /HPF (0-3) A 11/15/18 22:30 Urine WBC 3-5 /HPF (0-5) 11/15/18 22:30 Ur Squamous Epith Cells Few /HPF (NEGATIVE) 11/15/18 22:30 Urine Bacteria Negative /HPF (NEGATIVE) 11/15/18 22:30 Hyaline Casts Numerous /LPF (NEGATIVE) 11/14/18 16:40 Urine Mucus Moderate /HPF (NEGATIVE) 11/14/18 16:40 Ur Culture Indicated? Yes/culture set up 11/15/18 22:30 Gentamicin Trough 4.7 ug/mL (0-1.9) H 11/18/18 21:57 Random Gentamicin 2.6 ug/mL 11/19/18 04:01 Acetone, Semi-Quant Negative (NEGATIVE) 11/14/18 15:54 - Plan (1) Cystitis Status: Acute Plan: IV FLUIDS, ROCEPHIN 1G IV DAILY, CONTINUE TO MONITOR (2) Abdominal pain Status: Acute Qualifiers: Abdominal location: generalized Qualified Code(s): R10.84 - Generalized abdominal pain Plan: ABDOMEN/PELVIS CT, CONTINUE TO MONITOR (3) Hyponatremia Status: Acute Plan: NORMAL SALINE WITH 20MEQ KCL AT 100ML/HR, CONTINUE TO MONITOR (4) Hypokalemia Status: Acute Plan: NORMAL SALINE WITH 20MEQ KCL AT 100ML/HR, CONTINUE TO MONITOR (5) Altered mental status Status: Acute Qualifiers: Altered mental status type: somnolence Qualified Code(s): R40.0 - Somnolence (6) Diabetes mellitus Status: Chronic Qualifiers: Diabetes mellitus type: type 2 Diabetes mellitus chcf insulin use: with auditing specialist use Diabetes mellitus complication status: with other specified complication Qualified Code(s): E11.69 - Type 2 diabetes mellitus with other specified complication; Z79.4 - alf (current) use of insulin Plan: HUMULIN R SLIDING SCALE, MONITOR OTBS, CONTINUE TO MONITOR
[2018-11-19] MEDS: LIPITOR TAB 20 MG PO SCH (20:41)
--- NOTE | 2018-11-19 21:53 | PCM.PROG ---
Progress Note - Progress Note for Day of Date of Exam: 11/18/18 - Subjective Subjective: WAS ADMITTED FOR TREATMENT OF CYSTITIS, AMS, HYPONATREMIA, AND HYPOKALEMIA. TODAY, SHE IS LYING IN BED WITH EYES CLOSED ON MORNING ROUNDS. SHE AWAKENS TO VERBAL STIMULI. ON EXAMINATION, SHE IS NOTED TO BE TACHYCARDIC. BILATERAL LUNGS ARE NOTED WITH DIMINISHED LUNG SOUNDS. ABDOMEN IS ROUND, SOFT, AND NOTED WITH NORMAL BOWEL SOUNDS THROUGHOUT. DRAINAGE FROM PEG TUBE HAS DECREASED. HER COLOSTOMY IS PUTTING OUT MORE STOOL THIS MORNING. HER VITALS THIS MORNING ARE 98.5-118-22-93%-115/71. LABS WERE OBTAINED. ABNORMAL LAB VALUES INCLUDE THE FOLLOWING: HGB 11.6, HCT 34.7, SODIUM 149, CHLORIDE 116, BUN 21, GLUCOSE 154, AST 129, AST 142, ALK PHOS 130, TOTAL PROTEIN 6.1, ALBUMIN 2.1. B LOOD, URINE, AND WOUND CULTURES ARE PENDING. AN ABDOMEN/PELVIS CT WAS OBTAINED THIS MORNING. 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 Findings indicate at least a partial small bowel obstruction at the level of the ostomy due to the parastomal hernia. Cholelithiasis within a distended gallbladder. No radiographic findings of cholecystitis however if cholecystitis is a clinical consideration nuclear medicine biliary scan would be of further diagnostic value. Right basilar lung infiltrate. Small right pleural effusion. SHE IS CURRENTLY RECEIVING IV FLUIDS, ROCEPHIN 1G IV DAILY, PEPCID IV, RESPIRATORY TREATMENTS, AND THE POTASSIUM AND MAGNESIUM PROTOCOL. HER HOME MEDICATIONS WERE RESUMED. WAS CONSULTED AND WILL FOLLOW UP ON CT TODAY. OTHERWISE, WE WILL CONTINUE WITH CURRENT PLAN OF CARE. WE PLAN TO FOLLOW UP WITH AM LABS AND Krystle SALAZAR TO MONITOR. - Past Medical Family Social History Past Med/Fam/Surg Hx: No changes since H&P Allergies: Allergies No Known Drug Allergies Allergy (Verified 05/02/18 14:58) - Review of Systems ROS: No change since H&P - Vital Signs and I&O's Vital Signs: Temperature 98.1 F Pulse Rate [Left Radial] 95 Pulse Rate 94 Respiratory Rate 16 Blood Pressure [Right Arm] 111/67 Blood Pressure [Left Arm] 114/74 Blood Pressure 116/66 O2 Sat by Pulse Oximetry 94 Intake and Output: Intake & Output 11/17/18 11/18/18 11/19/18 11/20/18 11:59 11:59 11:59 11:59 Intake Total 2731 / 2731 2450 / 2450 1967 1020 / 1020 Output Total 700 / 700 1500 / 1500 1200 / 1200 475 / 475 Balance 2030 / 2030 950 / 950 768 / 768 545 / 545 - Physical Exam Oriented: Unable to test Eyes: Normal Ear: Normal Nose: Normal Throat: Normal Respiratory: Generalized, Diminished Cardiovascular: Normal. negative: S3, S4, Murmur : Normal Auscultation: Bowel Sounds: Normal Palpation: Normal Tenderness: Diffuse (soft abdomen , BS+ ). negative: Rebound, Guarding, Rigidity Skin: Normal Musculoskeletal: Normal Psychiatric: Other Mood Description: Calm, Flat Affect: Flat Speech Pattern: Aphasic - Laboratory and Diagnostics Result Diagrams: 11/19/18 04:01 11/19/18 04:01 Labs: 11/14/18 17:57 Blood Blood Culture - Preliminary 11/14/18 17:48 Blood Blood Culture - Final 11/15/18 22:30 Urine,Catheterized Urine Culture - Final 11/16/18 02:45 Peg Tube Wound Culture - Final Acinetobacter Baumanii/Haemoly Staphylococcus Aureus 11/14/18 16:40 Urine,Catheterized Urine Culture - Final Laboratory WBC 9.7 X10^3/uL (3.6-10.0) 11/19/18 04:01 RBC 3.62 X10^6/uL (3.5-5.4) 11/19/18 04:01 Hgb 10.9 g/dL (12.0-16.0) L 11/19/18 04:01 Hct 32.5 % (36.0-47.0) L 11/19/18 04:01 MCV 89.7 fL (80.0-100.0) 11/19/18 04:01 MCH 30.1 pg (27.0-34.0) 11/19/18 04:01 MCHC 33.5 g/dL (33.0-35.0) 11/19/18 04:01 RDW 14.1 % (11.6-16.5) 11/19/18 04:01 Plt Count 233 X10^3/uL (150.0-450.0) 11/19/18 04:01 Plt Count Comment Adequate (ADEQUATE) 11/15/18 04:10 MPV 7.4 fL (7.4-11.0) 11/19/18 04:01 Neut % (Auto) 73.2 % (42.0-75.0) 11/19/18 04:01 Lymph % (Auto) 17.7 % (21.0-51.0) L 11/19/18 04:01 [place] % (Auto) 8.7 % (0.0-13.0) 11/19/18 04:01 Eos % (Auto) 0.2 % (0.9-2.9) L 11/19/18 04:01 Baso % (Auto) 0.2 % (0.2-1.0) 11/19/18 04:01 Neut # (Auto) 7.1 x10^3/uL (2.2-4.8) H 11/19/18 04:01 Lymph # (Auto) 1.7 X10^3/uL (1.3-2.9) 11/19/18 04:01 [place] # (Auto) 0.9 x10^3/uL (0.3-0.8) H 11/19/18 04:01 Eos # (Auto) 0.0 x10^3/uL (0.0-0.2) 11/19/18 04:01 Baso # (Auto) 0.0 X10^3/uL (0.0-0.1) 11/19/18 04:01 Absolute Nucleated RBC 0.3 /100WBC 11/19/18 04:01 Total Counted 100 11/15/18 04:10 Neutrophils % (Manual) 80 % (39-76) H 11/15/18 04:10 Band Neutrophils % 12 % (0-10) H 11/15/18 04:10 Lymphocytes % (Manual) 4 % (13-43) L 11/15/18 04:10 Monocytes % (Manual) 4 % (4-9) 11/15/18 04:10 Plt Morphology Comment Normal (NORMAL) 11/15/18 04:10 RBC Morphology Normal (NORMAL) 11/15/18 04:10 ESR 76 MM/HOUR (0-20) H 11/17/18 03:56 Sodium 147 mmol/L (136-145) H 11/19/18 04:01 Corrected Sodium 147 mmol/L (136-145) H 11/19/18 04:01 Potassium 3.8 mmol/L (3.5-5.1) 11/19/18 04:01 Chloride 113 mmol/L (98-107) H 11/19/18 04:01 Carbon Dioxide 23.4 mmol/L (21-32) 11/19/18 04:01 BUN 15 mg/dL (7-18) 11/19/18 04:01 Creatinine 0.62 mg/dL (0.55-1.02) 11/19/18 04:01 Est GFR (MDRD) Af Amer > 60 (>60) 11/19/18 04:01 Est GFR (MDRD) Non-Af > 60 (>60) 11/19/18 04:01 Glucose 113 mg/dL (65-99) H 11/19/18 04:01 POC Glucose (mg/dL) 80 mg/dL (65-99) 11/19/18 20:11 Lactic Acid 2.7 mmol/L (0.4-2.0) H 11/15/18 07:30 Calcium 8.6 mg/dL (8.5-10.1) 11/19/18 04:01 Corrected Calcium 10.2 mg/dL (8.5-10.1) H 11/19/18 04:01 Magnesium 2.1 mg/dL (1.7-2.9) 11/15/18 04:10 Total Bilirubin 0.80 mg/dL (0.2-1.0) 11/19/18 04:01 AST 74 Units/L (15-37) H 11/19/18 04:01 ALT 101 Units/L (12-78) H 11/19/18 04:01 Alkaline Phosphatase 142 Units/L (46-116) H 11/19/18 04:01 Total Protein 6.0 g/dL (6.4-8.2) L 11/19/18 04:01 Albumin 2.0 g/dL (3.4-5.0) L 11/19/18 04:01 Globulin 4.0 g/dL (2.5-4.5) 11/19/18 04:01 Albumin/Globulin Ratio 0.5 Ratio (1.1-2.1) L 11/19/18 04:01 Specimen Type Catherized urine 11/15/18 22:30 Urine Color Yellow (YELLOW) 11/15/18 22:30 Urine Appearance Clear (CLEAR) 11/15/18 22:30 Urine pH 6.0 (5.0 - 8.0) 11/15/18 22:30 Ur Specific [place] 1.015 (1.000-1.030) 11/15/18 22:30 Urine Protein 2+ (NEGATIVE) 11/15/18 22:30 Urine Glucose (UA) 1+ (NEGATIVE) 11/15/18 22:30 Urine Ketones Negative (NEGATIVE) 11/15/18 22: Urine Occult Blood 4+ (NEGATIVE) 11/15/18 22:30 Urine Nitrite Negative (NEGATIVE) 11/15/18 22:30 Urine Bilirubin Negative (NEGATIVE) 11/15/18 22:30 Urine Urobilinogen Normal (NORMAL) 11/15/18 22:30 Ur Leukocyte Esterase 1+ (NEGATIVE) 11/15/18 22:30 Urine RBC 5-10 /HPF (0-3) A 11/15/18 22:30 Urine WBC 3-5 /HPF (0-5) 11/15/18 22:30 Ur Squamous Epith Cells Few /HPF (NEGATIVE) 11/15/18 22:30 Urine Bacteria Negative /HPF (NEGATIVE) 11/15/18 22:30 Hyaline Casts Numerous /LPF (NEGATIVE) 11/14/18 16:40 Urine Mucus Moderate /HPF (NEGATIVE) 11/14/18 16:40 Ur Culture Indicated? Yes/culture set up 11/15/18 22:30 Gentamicin Trough 4.7 ug/mL (0-1.9) H 11/18/18 21:57 Random Gentamicin 2.6 ug/mL 11/19/18 04:01 Acetone, Semi-Quant Negative (NEGATIVE) 11/14/18 15:54 - Plan (1) Cystitis Status: Acute Plan: IV FLUIDS, ROCEPHIN 1G IV DAILY, CONTINUE TO MONITOR (2) Abdominal pain Status: Acute Qualifiers: Abdominal location: generalized Qualified Code(s): R10.84 - Generalized abdominal pain Plan: CONTINUE TO MONITOR (3) Hyponatremia Status: Acute Plan: NORMAL SALINE WITH 20MEQ KCL AT 100ML/HR, CONTINUE TO MONITOR (4) Hypokalemia Status: Acute Plan: NORMAL SALINE WITH 20MEQ KCL AT 100ML/HR, CONTINUE TO MONITOR (5) Altered mental status Status: Acute Qualifiers: Altered mental status type: somnolence Qualified Code(s): R40.0 - Somnolence (6) Diabetes mellitus Status: Chronic Qualifiers: Diabetes mellitus type: type 2 Diabetes mellitus snf insulin use: with tank terminal gauger use Diabetes mellitus complication status: with other specified complication Qualified Code(s): E11.69 - Type 2 diabetes mellitus with other specified complication; Z79.4 - local company intermodal truck driver (current) use of insulin Plan: HUMULIN R SLIDING SCALE, MONITOR OTBS, CONTINUE TO MONITOR
[2018-11-20] MEDS: NS 1/2 1000 ML IV 1,000 ML IV SCH ×4 (01:30→22:24)
[2018-11-20] MEDS ORDERED: NS 1/2 1000 ML IV 1,000 ML IV ONE ×3 (01:35→22:24)
[2018-11-20] MEDS: DUONEB 0.5 MG/3 MG NEB SCH ×4 (05:07→21:20)
[2018-11-20 05:21] LABS: BASOPHILS % (AUTO) 0.1 % (0.2-1.0); EOSINOPHILS % (AUTO) 0.3 % (0.9-2.9); HEMATOCRIT 31.2 % (36.0-47.0); HEMOGLOBIN 10.6 g/dL (12.0-16.0); LYMPHOCYTES # (AUTO) 1.6 X10^3/uL (1.3-2.9); LYMPHOCYTES % (AUTO) 14.6 % (21.0-51.0); MEAN CORPUSCULAR HEMOGLOBIN 30.3 pg (27.0-34.0); MEAN CORPUSCULAR VOLUME 89.2 fL (80.0-100.0); MEAN PLATELET VOLUME 7.3 fL (7.4-11.0); MONOCYTES # (AUTO) 0.7 x10^3/uL (0.3-0.8); MONOCYTES % (AUTO) 6.3 % (0.0-13.0); NEUTROPHILS # (AUTO) 8.4 x10^3/uL (2.2-4.8); NEUTROPHILS % (AUTO) 78.7 % (42.0-75.0); PLATELET COUNT 245 X10^3/uL (150.0-450.0); RED CELL DISTRIBUTION WIDTH 14.2 % (11.6-16.5); WHITE BLOOD COUNT 10.7 X10^3/uL (3.6-10.0)
[2018-11-20 05:23] LABS: ALANINE AMINOTRANSFERASE 74 Units/L (12-78); ALBUMIN 1.7 g/dL (3.4-5.0); ALKALINE PHOSPHATASE 133 Units/L (46-116); ASPARTATE AMINO TRANSFERASE 55 Units/L (15-37); BLOOD UREA NITROGEN 12 mg/dL (7-18); CALCIUM 8.2 mg/dL (8.5-10.1); CARBON DIOXIDE 23.3 mmol/L (21-32); CHLORIDE 108 mmol/L (98-107); CREATININE 0.59 mg/dL (0.55-1.02); SODIUM 143 mmol/L (136-145); TOTAL PROTEIN 5.6 g/dL (6.4-8.2); eGFR NON BLACK RACES > 60 (>60)
[2018-11-20] MEDS: REQUIP PO SCH ×3 (06:22→22:15)
[2018-11-20] MEDS ORDERED: GLUCOPHAGE ONE ×2 (07:43→21:46)
[2018-11-20] MEDS: GLUCOPHAGE PO SCH ×2 (08:05→22:16)
[2018-11-20] MEDS: LOVENOX INJ 40 MG SYR SC SCH (08:40)
[2018-11-20] MEDS: PEPCID 20 MG IV PREMIX* 20 MG/50 ML BAG IV SCH ×2 (08:41→22:15)
[2018-11-20] MEDS: ROCEPHIN VIAL 1 GRAM IVP SCH (08:42)
[2018-11-20] MEDS: LOPRESSOR TAB 25 MG PO SCH ×2 (08:42→22:16)
[2018-11-20] MEDS: NORVASC TAB 5 MG PO SCH ×2 (08:42→22:16)
[2018-11-20] MEDS: NAMENDA TAB 10 MG PO SCH ×2 (08:42→22:15)
[2018-11-20] MEDS: NORCO 5/325 MG TAB PO PRN ×2 (08:57→16:41)
[2018-11-20] MEDS ORDERED: GENTAMICIN IV NR (09:00)
[2018-11-20] MEDS ORDERED: NS IV NR (09:00)
[2018-11-20] MEDS: MAGNESIUM SULFATE 1 GRAM/100 mL PREMIX 1 GM/100 ML BAG IV PRN ×2 (11:33→13:29)
--- NOTE | 2018-11-20 17:59 | PCM.PROG ---
Progress Note - Progress Note for Day of Date of Exam: 11/19/18 - Subjective Subjective: WAS ADMITTED FOR TREATMENT OF CYSTITIS, AMS, HYPONATREMIA, AND HYPOKALEMIA. ABDOMEN CT ALSO REVEALED A PARASTOMAL HERNIA CONTAINING A KINKED LOOP OF SMALL BOWEL. TODAY, SHE IS LYING IN BED WITH EYES CLOSED ON MORNING ROUNDS. SHE AWAKENS TO VERBAL STIMULI. ON EXAMINATION, SHE IS NOTED TO BE TACHYCARDIC. BILATERAL LUNGS ARE NOTED WITH DIMINISHED LUNG SOUNDS. ABDOMEN IS ROUND, SOFT, AND NOTED WITH NORMAL BOWEL SOUNDS THROUGHOUT. DRAINAGE FROM PEG TUBE HAS DECREASED. HER COLOSTOMY IS FUNCTIONING WELL. HER VITALS THIS MORNING ARE 98.9-119-28-94%-127/63. LABS WERE OBTAINED. ABNORMAL LAB VALUES INCLUDE THE FOLLOWING: HGB 10.9, HCT 32.5, SODIUM 147, CHLORIDE 113, GLUCOSE 113, AST 74, ALT 101, ALK PHOS 142, TOTAL PROTEIN 6.0, ALBUMIN 2.0. WOUND CULTURES FROM PEG TUBE REVEALED GROWTH OF ACINETOBACTER BAUMANII/HAEMOLY AND STAPHYLOCOCCUS AURESU. SHE IS CURRENTLY RECEIVING IV FLUIDS, ROCEPHIN 1G IV DAILY, PEPCID IV, RESPIRATORY TREATMENTS, AND THE POTASSIUM AND MAGNESIUM PROTOCOL. HER HOME MEDICATIONS WERE RESUMED. WE WILL ADD GENTAMYCIN IV TODAY. PLANS TO RESUME HER TUBE FEEDINGS TODAY. WE ARE IN AGREEMENT WITH PLAN. OTHERWISE, WE WILL CONTINUE WITH CURRENT PLAN OF CARE. WE PLAN TO FOLLOW UP WITH AM LABS AND CONTINUE TO MONITOR. - Past Medical Family Social History Past Med/Fam/Surg Hx: No changes since H&P Allergies: Allergies No Known Drug Allergies Allergy (Verified 05/02/18 14:58) - Review of Systems ROS: No change since H&P - Vital Signs and I&O's Vital Signs: Temperature 98.5 F Pulse Rate [Left Radial] 95 Pulse Rate 105 Respiratory Rate 28 Blood Pressure [Right Arm] 111/67 Blood Pressure [Left Arm] 114/74 Blood Pressure 142/72 O2 Sat by Pulse Oximetry 94 Intake and Output: Intake & Output 11/18/18 11/19/18 11/20/18 11/21/18 11:59 11:59 11:59 11:59 Intake Total 2450 / 2450 1967 / 1967 1898 / 1898 1620 / 1620 Output Total 1500 / 1500 1200 / 1200 695 / 695 305 / 305 Balance 950 / 950 768 / 768 1203 / 1203 1315 / 1315 - Physical Exam Oriented: Unable to test Eyes: Normal Ear: Normal Nose: Normal Throat: Normal Respiratory: Generalized, Diminished Cardiovascular: Normal. negative: S3, S4, Murmur : Normal Auscultation: Bowel Sounds: Normal Palpation: Normal Tenderness: Diffuse (soft abdomen , BS+ ). negative: Rebound, Guarding, Rigidity Skin: Normal Musculoskeletal: Normal Psychiatric: Other Mood Description: Calm, Flat Affect: Flat Speech Pattern: Aphasic - Laboratory and Diagnostics Result Diagrams: 11/20/18 04:19 11/20/18 08:30 Labs: 11/14/18 17:57 Blood Blood Culture - Final 11/14/18 17:48 Blood Blood Culture - Final 11/15/18 22:30 Urine,Catheterized Urine Culture - Final 11/16/18 02:45 Peg Tube Wound Culture - Final Acinetobacter Baumanii/Haemoly Staphylococcus Aureus 11/14/18 16:40 Urine,Catheterized Urine Culture - Final Laboratory WBC 10.7 X10^3/uL (3.6-10.0) H 11/20/18 04:19 RBC 3.50 X10^6/uL (3.5-5.4) 11/20/18 04:19 Hgb 10.6 g/dL (12.0-16.0) L 11/20/18 04:19 Hct 31.2 % (36.0-47.0) L 11/20/18 04:19 MCV 89.2 fL (80.0-100.0) 11/20/18 04:19 MCH 30.3 pg (27.0-34.0) 11/20/18 04:19 MCHC 34.0 g/dL (33.0-35.0) 11/20/18 04:19 RDW 14.2 % (11.6-16.5) 11/20/18 04:19 Plt Count 245 X10^3/uL (150.0-450.0) 11/20/18 04:19 Plt Count Comment Adequate (ADEQUATE) 11/15/18 04:10 MPV 7.3 fL (7.4-11.0) L 11/20/18 04:19 Neut % (Auto) 78.7 % (42.0-75.0) H 11/20/18 04:19 Lymph % (Auto) 14.6 % (21.0-51.0) L 11/20/18 04:19 [place] % (Auto) 6.3 % (0.0-13.0) 11/20/18 04:19 Eos % (Auto) 0.3 % (0.9-2.9) L 11/20/18 04:19 Baso % (Auto) 0.1 % (0.2-1.0) L 11/20/18 04:19 Neut # (Auto) 8.4 x10^3/uL (2.2-4.8) H 11/20/18 04:19 Lymph # (Auto) 1.6 X10^3/uL (1.3-2.9) 11/20/18 04:19 [place] # (Auto) 0.7 x10^3/uL (0.3-0.8) 11/20/18 04:19 Eos # (Auto) 0.0 x10^3/uL (0.0-0.2) 11/20/18 04:19 Baso # (Auto) 0.0 X10^3/uL (0.0-0.1) 11/20/18 04:19 Absolute Nucleated RBC 0.3 /100WBC 11/20/18 04:19 Total Counted 100 11/15/18 04:10 Neutrophils % (Manual) 80 % (39-76) H 11/15/18 04:10 Band Neutrophils % 12 % (0-10) H 11/15/18 04:10 Lymphocytes % (Manual) 4 % (13-43) L 11/15/18 04:10 Monocytes % (Manual) 4 % (4-9) 11/15/18 04:10 Plt Morphology Comment Normal (NORMAL) 11/15/18 04:10 RBC Morphology Normal (NORMAL) 11/15/18 04:10 ESR 76 MM/HOUR (0-20) H 11/17/18 03:56 Sodium 143 mmol/L (136-145) 11/20/18 04:19 Corrected Sodium TNP 11/20/18 04:19 Potassium 3.7 mmol/L (3.5-5.1) 11/20/18 08:30 Chloride 108 mmol/L (98-107) H 11/20/18 04:19 Carbon Dioxide 23.3 mmol/L (21-32) 11/20/18 04:19 BUN 12 mg/dL (7-18) 11/20/18 04:19 Creatinine 0.59 mg/dL (0.55-1.02) 11/20/18 04:19 Est GFR (MDRD) Af Amer > 60 (>60) 11/20/18 04:19 Est GFR (MDRD) Non-Af > 60 (>60) 11/20/18 04:19 Glucose 85 mg/dL (65-99) 11/20/18 04:19 POC Glucose (mg/dL) 134 mg/dL (65-99) H 11/20/18 16:27 Lactic Acid 2.7 mmol/L (0.4-2.0) H 11/15/18 07:30 Calcium 8.2 mg/dL (8.5-10.1) L 11/20/18 04:19 Corrected Calcium 10.0 mg/dL (8.5-10.1) 11/20/18 04:19 Magnesium 1.7 mg/dL (1.7-2.9) 11/20/18 04:19 Total Bilirubin 0.70 mg/dL (0.2-1.0) 11/20/18 04:19 AST 55 Units/L (15-37) H 11/20/18 04:19 ALT 74 Units/L (12-78) 11/20/18 04:19 Alkaline Phosphatase 133 Units/L (46-116) H 11/20/18 04:19 Total Protein 5.6 g/dL (6.4-8.2) L 11/20/18 04:19 Albumin 1.7 g/dL (3.4-5.0) L 11/20/18 04:19 Globulin 3.9 g/dL (2.5-4.5) 11/20/18 04:19 Albumin/Globulin Ratio 0.4 Ratio (1.1-2.1) L 11/20/18 04:19 Specimen Type Catherized urine 11/15/18 22:30 Urine Color Yellow (YELLOW) 11/15/18 22:30 Urine Appearance Clear (CLEAR) 11/15/18 22:30 Urine pH 6.0 (5.0 - 8.0) 11/15/18 22:30 Ur Specific [place] 1.015 (1.000-1.030) 11/15/18 22:30 Urine Protein 2+ (NEGATIVE) 11/15/18 22:30 Urine Glucose (UA) 1+ (NEGATIVE) 11/15/18 22:30 Urine Ketones Negative (NEGATIVE) 11/15/18 22:30 Urine Occult Blood 4+ (NEGATIVE) 11/15/18 22:30 Urine Nitrite Negative (NEGATIVE) 11/15/18 22:30 Urine Bilirubin Negative (NEGATIVE) 11/15/18 22:30 Urine Urobilinogen Normal (NORMAL) 11/15/18 22:30 Ur Leukocyte Esterase 1+ (NEGATIVE) 11/15/18 22:30 Urine RBC 5-10 /HPF (0-3) A 11/15/18 22:30 Urine WBC 3-5 /HPF (0-5) 11/15/18 22:30 Ur Squamous Epith Cells Few /HPF (NEGATIVE) 11/15/18 22:30 Urine Bacteria Negative /HPF (NEGATIVE) 11/15/18 22:30 Hyaline Casts Numerous /LPF (NEGATIVE) 11/14/18 16:40 Urine Mucus Moderate /HPF (NEGATIVE) 11/14/18 16:40 Ur Culture Indicated? Yes/culture set up 11/15/18 22:30 Gentamicin Trough 4.7 ug/mL (0-1.9) H 11/18/18 21:57 Random Gentamicin 2.6 ug/mL 11/19/18 04:01 Acetone, Semi-Quant Negative (NEGATIVE) 11/14/18 15:54 - Plan (1) Cystitis Status: Acute Plan: IV FLUIDS, ROCEPHIN 1G IV DAILY, CONTINUE TO MONITOR (2) Abdominal pain Status: Acute Qualifiers: Abdominal location: generalized Qualified Code(s): R10.84 - Generalized abdominal pain Plan: CONTINUE TO MONITOR (3) Infection of PEG site Status: Acute Plan: IV GENT, IV ROCEPHIN, CONTINUE TO MONITOR (4) Hyponatremia Status: Acute Plan: NORMAL SALINE WITH 20MEQ KCL AT 100ML/HR, CONTINUE TO MONITOR (5) Hypokalemia Status: Acute Plan: NORMAL SALINE WITH 20MEQ KCL AT 100ML/HR, CONTINUE TO MONITOR (6) Altered mental status Status: Acute Qualifiers: Altered mental status type: somnolence Qualified Code(s): R40.0 - Somnolence (7) Diabetes mellitus Status: Chronic Qualifiers: Diabetes mellitus type: type 2 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
[2018-11-20] MEDS ORDERED: PHARMACY COMMENT IV NR (21:00)
[2018-11-20] MEDS: LIPITOR TAB 20 MG PO SCH (22:15)
[2018-11-21] MEDS: NORCO 5/325 MG TAB PO PRN (00:01)
[2018-11-21] MEDS: DUONEB 0.5 MG/3 MG NEB SCH ×2 (05:50→13:00)
[2018-11-21] MEDS: REQUIP PO SCH (05:51)
[2018-11-21] MEDS: HumuLIN R SC PRN (05:52)
[2018-11-21 06:37] LABS: ALANINE AMINOTRANSFERASE 66 Units/L (12-78); ALBUMIN 1.9 g/dL (3.4-5.0); ALKALINE PHOSPHATASE 164 Units/L (46-116); ASPARTATE AMINO TRANSFERASE 61 Units/L (15-37); BLOOD UREA NITROGEN 11 mg/dL (7-18); CALCIUM 8.4 mg/dL (8.5-10.1); CARBON DIOXIDE 22.3 mmol/L (21-32); CHLORIDE 103 mmol/L (98-107); COR CA(FOR HYPOALB) 10.1 mg/dL (8.5-10.1); COR NA(FOR HYPERGLY) 138 mmol/L (136-145); CREATININE 0.71 mg/dL (0.55-1.02); MAGNESIUM 1.8 mg/dL (1.7-2.9); SODIUM 136 mmol/L (136-145); TOTAL PROTEIN 6.4 g/dL (6.4-8.2); eGFR NON BLACK RACES > 60 (>60)
[2018-11-21] MEDS ORDERED: LASIX IVP ONE (09:50)
[2018-11-21] MEDS: LOVENOX INJ 40 MG SYR SC SCH (10:01)
[2018-11-21] MEDS: NORVASC TAB 5 MG PO SCH (10:02)
[2018-11-21] MEDS: LOPRESSOR TAB 25 MG PO SCH (10:02)
[2018-11-21] MEDS: NAMENDA TAB 10 MG PO SCH (10:02)
[2018-11-21] MEDS: PEPCID 20 MG IV PREMIX* 20 MG/50 ML BAG IV SCH (10:02)
[2018-11-21] MEDS: GLUCOPHAGE PO SCH (10:09)
[2018-11-21] MEDS ORDERED: GLUCOPHAGE ONE (10:11)
[2018-11-21 14:02] VITALS: BP 146/91
== END 2018-11-21 14:03 | DRG 690 ==
LOC: ER 15:25 → ICU 17:32
PROVIDERS: ADMIT Internal Medicine; ATTEND Internal Medicine
DX: E11.65 Type 2 diabetes mellitus with hyperglycemia; E86.0 Dehydration; B96.89 Other specified bacterial agents as the cause of diseases classified elsewhere; N30.90 Cystitis, unspecified without hematuria; I10 Essential (primary) hypertension; E87.6 Hypokalemia; K43.5 Parastomal hernia without obstruction or gangrene; R94.31 Abnormal electrocardiogram [ECG] [EKG]; K94.22 Gastrostomy infection; Z79.4 Long term (current) use of insulin; R47.01 Aphasia; E87.1 Hypo-osmolality and hyponatremia; E78.2 Mixed hyperlipidemia; G30.9 Alzheimer's disease, unspecified; K56.690 Other partial intestinal obstruction; B95.61 Methicillin susceptible Staphylococcus aureus infection as the cause of diseases classified elsewhere; R13.11 Dysphagia, oral phase; J90 Pleural effusion, not elsewhere classified; R40.0 Somnolence; Z74.01 Bed confinement status
CPT/HCPCS: 36415; 51701; 71010; 71045; 74000; 74018; 74177; 80053; 80170; 81001; 82009; 82565; 83605; 83735; 84132; 85025; 85652; 87040; 87070; 87075; 87077; 87086; 87186; 93005; 94640; 96365; 96372; 96374; 99284; A4217; A4222; S0028; J0696; J1580; J1650; J1815; J1940; J2405; J3475; J3480; J7030; J7050; J7620

== ENCOUNTER 2018-12-20 03:49 | Inpatient (IN) ==
[2018-12-20 04:16] VITALS: BMI 23.1
[2018-12-20] MEDS ORDERED: NS 1000 ML 1,000 ML IV ONE (04:30)
[2018-12-20] MEDS ORDERED: ROCEPHIN VIAL 1 GRAM 1 G in NS 100 ML IV + SPIKE MINIBAG* 100 ML IV ONE (04:30)
[2018-12-20] MEDS ORDERED: ADVIL SUSP 100 MG/5 ML PO STA (04:31)
--- NOTE | 2018-12-20 04:32 | DR.FEVERAD ---
HPI - Time seen Time seen: 04:27 - PCP Primary Care Physician: RACHEAL - Complaints/Symptoms Chief Complaint Doctor Comments: Patient brought to the emergency room from the residential with a temp 105 for evaluation. Nurse states patient is a DNR and she could not get in touch with the manager relationship doctor and decided she needed to be evaluated for the temp of 105. States they gave her tylenol and she did not have a temp earlier to night when they checked on her. No family members or residential staff her to answer questions. Chief Complaint:: IVCENTE MACDONALD LPN FROM [facility] STATED PATIENT HAD A RECTAL TEMP OF 105.8. PATIENT BROUGHT OVER ON STRETCHER NO DISTRESS NOTED. - Nurses notes reviewed Nurses Notes Review: Yes - Source History Provided: Correction - Mode of Arrival Mode of Arrival: Stretcher - Timing Onset of Chief Complaint: 12/20/18 Came on: Suddenly - Duration Duration: Constant Duration: Minutes - Severity Fever Severity/Quality: greater than 102 F - Context Recent: None Symptoms: Fever History of: Chronic Illness - Modifying factors Modifying factors: Tylenol - Associated signs and symptoms Associated signs and symptoms: None (patient not responding to verbal stimuli and no family members available) PMH - PMH Past Medical History: Yes Past Medical History: Hypertension, Dyslipidemia, Alzheimers, Dementia, Arthritis, CHF Past Surgical History: Yes Surgical History: Bowel Resection, Other - Family History History of Family Medical Conditions: Yes Family Medical History: Diabetes Mellitus, Cancer, Hypertension - Social History Alcohol Use: None Do you use any recreational Drugs:: No Lives Where: [place] - infectious screening Have you traveled outside the country in the last 6 months?: No Isolation: Standard ROS - Review of Systems Constitutional: Fever Eyes: No Symptoms Reported, Other (left eye severe cataract) ENTM: No Symptoms Reported Respiratoy: No Symptoms Reported Cardiovascular: No Symptoms Reported Gastrointestinal/Abdominal: No Symptoms Reported Genitourinary: No Symptoms Reported Neurological: No Symptoms Reported (patient non-verbal) Musculoskeletal: No Symptoms Reported Integumentary: No Symptoms Reported Hematologic/Lymphatic: No Symptoms Reported Psychiatric: No Symptoms Reported PE - General Limitations: Altered Mental Status (patient non-verbal) General Appearance: Lethargic, In Distress (moderate) - Head Head Exam: Normal Inspection, Atraumatic, Normocephalic - Eyes Eye exam: Normal Appearance, EOMI. negative: PERRL (mature left cataract unable to see pupil), Scleral Icterus - ENT ENT Exam: Normal Exam, Normal Oropharynx, Normal External Ear Exam, Mucous Membranes Moist, TM's Normal Bilaterally External Ear Exam: Normal External Inspection TM/Canal Exam: Bilateral Normal Nose Exam: Normal Nose Exam Nasal Speculum Exam: Bilateral Normal Mouth Exam: Normal Inspection (patient edentulous) Teeth Exam: Normal Inspection (patient edentulous) Throat Exam: Normal Inspection - Neck Neck Exam: Normal Inspection, Full ROM, Trachea Midline - Respiratory Respiratory Exam: Normal Lung Sounds Bilat Respiratory Exam: Bilateral Decreased Breath Sounds, Left Rales (left basilar rales) - Cardiovascular Cardiovascular Exam: Regular Rate, Normal Rhythm, Tachycardia, Systolic Murmur - Abdominal Exam Abdominal Exam: Normal Inspection, Normal Bowel Sounds, Soft, Dimnished Bowel Sounds, Other (colostomy noted in right hypogastric area; feeding tube noted) Abdominal Tenderness: negative: RUQ, RLQ, LUQ, LLQ, Epigastrium, Suprapubic, Diffuse, Mild, Moderate, Severe, Other - Extremities Extremities Exam: Normal Capillary Refill. negative: Normal Inspection (contractures lower extremities) - Back Back Exam: Normal Inspection, Full ROM - Neurologic Neurological Exam: negative: Alert (patient unresponsive), Oriented X3 (patient non-verbal; not responding to verbal or tactile stimulation), Normal Gait (gait not tested) - Psychiatric Psychiatric Exam: Normal Affect (unable to assess; patient non-verbal) - Skin Skin Exam: Intact Type of Lesion: negative: Rash, Abscess, Laceration, Foreign Body, Bite/Sting, Abrasion, Other Distribution: negative: Generalized, Involves Palms/Soles, Head, Face, Neck, Thorax, Chest, Back, Abdomen, Genitals, LUE, LLE, RUE, RLE, Other - Vital Signs Vitals: Temperature 103.0 F Pulse Rate 129 Respiratory Rate 34 Blood Pressure [Right Arm] 132/76 Blood Pressure [Left Arm] 114/74 Blood Pressure 134/64 O2 Sat by Pulse Oximetry 97 Course - Reevaluation 1st: Improved - Consultation Called: 07:47 Call Returned: 07:47 (Dr. Wolff to admit) ROR - Labs Reviewed Laboratory Results Reviewed?: Yes (All labs and x-ray results reviewed and discussed with patient) Result Diagrams: 12/20/18 04:40 12/20/18 04:40 - XRAY XRAY Interpreted by: Radiologist (CXR: No acute acardiopulmonary abnormality) - EKG Rate: 134 Rhythm: ST Block: None Hypertrophy: LAE ST: Ant, Lat, Nonsp - Labs Reviewed Laboratory: 12/20/18 05:24 Sputum - Endotracheal Wash - Final WBC 13.0 X10^3/uL (3.6-10.0) H 12/20/18 04:40 RBC 4.22 X10^6/uL (3.5-5.4) 12/20/18 04:40 Hgb 12.4 g/dL (12.0-16.0) 12/20/18 04:40 Hct 38.7 % (36.0-47.0) 12/20/18 04:40 MCV 91.6 fL (80.0-100.0) 12/20/18 04:40 MCH 29.3 pg (27.0-34.0) 12/20/18 04:40 MCHC 32.0 g/dL (33.0-35.0) L 12/20/18 04:40 RDW 17.1 % (11.6-16.5) H 12/20/18 04:40 Plt Count 410 X10^3/uL (150.0-450.0) 12/20/18 04:40 MPV 7.9 fL (7.4-11.0) 12/20/18 04:40 Neut % (Auto) 85.8 % (42.0-75.0) H 12/20/18 04:40 Lymph % (Auto) 8.6 % (21.0-51.0) L 12/20/18 04:40 [place] % (Auto) 4.6 % (0.0-13.0) 12/20/18 04:40 Eos % (Auto) 0.0 % (0.9-2.9) L 12/20/18 04:40 Baso % (Auto) 1.0 % (0.2-1.0) 12/20/18 04:40 Neut # (Auto) 11.2 x10^3/uL (2.2-4.8) H 12/20/18 04:40 Lymph # (Auto) 1.1 X10^3/uL (1.3-2.9) L 12/20/18 04:40 [place] # (Auto) 0.6 x10^3/uL (0.3-0.8) 12/20/18 04:40 Eos # (Auto) 0.0 x10^3/uL (0.0-0.2) 12/20/18 04:40 Baso # (Auto) 0.1 X10^3/uL (0.0-0.1) 12/20/18 04:40 Absolute Nucleated RBC 0.0 /100WBC 12/20/18 04:40 PT 19.3 SECONDS (11.8-14.3) 12/20/18 04:40 INR Target Range - 12/20/18 04:40 INR 1.69 (0.8-1.3) H 12/20/18 04:40 APTT 25.9 SECONDS (22.9-36.5) 12/20/18 04:40 PTT Comment - 12/20/18 04:40 Sodium 142 mmol/L (136-145) 12/20/18 04:40 Corrected Sodium 156 mmol/L (136-145) H 12/20/18 04:40 Potassium 2.1 mmol/L (3.5-5.1) L* 12/20/18 04:40 Chloride 101 mmol/L (98-107) 12/20/18 04:40 Carbon Dioxide 23.0 mmol/L (21-32) 12/20/18 04:40 BUN 57 mg/dL (7-18) H 12/20/18 04:40 Creatinine 1.69 mg/dL (0.55-1.02) H 12/20/18 04:40 Est GFR (MDRD) Af Amer 38 (>60) L 12/20/18 04:40 Est GFR (MDRD) Non-Af 31 (>60) L 12/20/18 04:40 Glucose 686 mg/dL (65-99) H* 12/20/18 04:40 POC Glucose (mg/dL) > 600 mg/dL (65-99) 12/20/18 05:25 Lactic Acid 6.0 mmol/L (0.4-2.0) H 12/20/18 07:27 Calcium 10.5 mg/dL (8.5-10.1) H 12/20/18 04:40 Corrected Calcium 11.5 mg/dL (8.5-10.1) H 12/20/18 04:40 Magnesium 1.9 mg/dL (1.7-2.9) 12/20/18 04:40 Total Bilirubin 4.30 mg/dL (0.2-1.0) H 12/20/18 04:40 AST 416 Units/L (15-37) H 12/20/18 04:40 ALT 526 Units/L (12-78) H 12/20/18 04:40 Alkaline Phosphatase 437 Units/L (46-116) H 12/20/18 04:40 Creatine Kinase 209 Units/L (26-192) H 12/20/18 04:40 CK-MB (CK-2) < 1.0 ng/mL (0-4.0) 12/20/18 04:40 CK/CKMB % Calc 0.5 % (<4) 12/20/18 04:40 Troponin I 1.06 ng/mL (0-1.5) 12/20/18 04:40 Total Protein 8.2 g/dL (6.4-8.2) 12/20/18 04:40 Albumin 2.7 g/dL (3.4-5.0) L 12/20/18 04:40 Globulin 5.5 g/dL (2.5-4.5) H 12/20/18 04:40 Albumin/Globulin Ratio 0.5 Ratio (1.1-2.1) L 12/20/18 04:40 Specimen Type Catherized urine 12/20/18 06:18 Urine Color Yellow (YELLOW) 12/20/18 06:18 Urine Appearance Cloudy (CLEAR) 12/20/18 06:18 Urine pH 5.0 (5.0 - 8.0) 12/20/18 06:18 Ur Specific [place] 1.015 (1.000-1.030) 12/20/18 06:18 Urine Protein 2+ (NEGATIVE) 12/20/18 06:18 Urine Glucose (UA) 4+ (NEGATIVE) 12/20/18 06:18 Urine Ketones Negative (NEGATIVE) 12/20/18 06:18 Urine Occult Blood 4+ (NEGATIVE) 12/20/18 06:18 Urine Nitrite Negative (NEGATIVE) 12/20/18 06:18 Urine Bilirubin Negative (NEGATIVE) 12/20/18 06:18 Urine Urobilinogen Normal (NORMAL) 12/20/18 06:18 Ur Leukocyte Esterase 3+ (NEGATIVE) 12/20/18 06:18 Urine RBC 5-10 /HPF (0-3) A 12/20/18 06:18 Urine WBC Tntc /HPF (0-5) A 12/20/18 06:18 Ur Squamous Epith Cells Negative /HPF (NEGATIVE) 12/20/18 06:18 Urine Bacteria Negative /HPF (NEGATIVE) 12/20/18 06:18 Urine Yeast Numerous /HPF (NEGATIVE) 12/20/18 06:18 Ur Culture Indicated? Yes/culture set up 12/20/18 06:18 Opioid - Opioid Risk Tool Age (Rick box if 16-45): No History of Preadolescent Sexual Abuse: No Total: 0 Total Score Risk Category: Low Risk - Diagnosis Discharge Problem: Diabetes mellitus type 2, uncontrolled, Hypokalemia, Abnormal liver enzymes, SIRS (systemic inflammatory response syndrome), Sinus tachycardia, DNR (do not resuscitate) Urinary tract infection Qualifiers: Urinary tract infection type: acute cystitis Chronic kidney disease (CKD) Qualifiers: Chronic kidney disease stage: stage 3 (moderate) Qualified Code(s): N18.3 - Chronic kidney disease, stage 3 (moderate) - Discharge Plan Disposition: 09 ADMITTED INPATIENT Condition: Stable - Follow ups/Referrals Follow ups/Referrals: Dao Ugalde [Primary Care Provider] - 3 days - Instructions
[2018-12-20] MEDS ORDERED: ROCEPHIN VIAL 1 GRAM IVP ONE (04:47)
[2018-12-20] MEDS ORDERED: ROCEPHIN VIAL 1 GRAM ONE (04:49)
[2018-12-20] MEDS ORDERED: ADVIL SUSP 100 MG/5 ML ONE (04:49)
[2018-12-20 04:52] LABS: BASOPHILS # (AUTO) 0.1 X10^3/uL (0.0-0.1); HEMATOCRIT 38.7 % (36.0-47.0); HEMOGLOBIN 12.4 g/dL (12.0-16.0); LYMPHOCYTES # (AUTO) 1.1 X10^3/uL (1.3-2.9); LYMPHOCYTES % (AUTO) 8.6 % (21.0-51.0); MEAN CORPUSCULAR HEMOGLOBIN 29.3 pg (27.0-34.0); MEAN CORPUSCULAR VOLUME 91.6 fL (80.0-100.0); MEAN PLATELET VOLUME 7.9 fL (7.4-11.0); MONOCYTES # (AUTO) 0.6 x10^3/uL (0.3-0.8); MONOCYTES % (AUTO) 4.6 % (0.0-13.0); NEUTROPHILS # (AUTO) 11.2 x10^3/uL (2.2-4.8); NEUTROPHILS % (AUTO) 85.8 % (42.0-75.0); PLATELET COUNT 410 X10^3/uL (150.0-450.0); RED BLOOD COUNT 4.22 X10^6/uL (3.5-5.4); RED CELL DISTRIBUTION WIDTH 17.1 % (11.6-16.5)
[2018-12-20] MEDS ORDERED: NS 1000 ML 1,000 ML IV SCH (05:00)
[2018-12-20 05:06] LABS: BLOOD UREA NITROGEN 57 mg/dL (7-18); CALCIUM 10.5 mg/dL (8.5-10.1); CHLORIDE 101 mmol/L (98-107); CREATININE 1.69 mg/dL (0.55-1.02); SODIUM 142 mmol/L (136-145); TROPONIN I 1.06 ng/mL (0-1.5); eGFR NON BLACK RACES 31 (>60)
--- NOTE | 2018-12-20 05:08 | RAD ---
Chest, one view Indication: Fever Comparison: Findings: Heart is stable in size. Mild bibasilar atelectasis noted. No acute alveolar infiltrate or significant effusion is identified. No pneumothorax. Impression: No acute cardiopulmonary abnormality. Reported By:
[2018-12-20 05:15] LABS: ALANINE AMINOTRANSFERASE 526 Units/L (12-78); ALBUMIN 2.7 g/dL (3.4-5.0); ALKALINE PHOSPHATASE 437 Units/L (46-116); ASPARTATE AMINO TRANSFERASE 416 Units/L (15-37); CKMB % 0.5 % (<4); COR CA(FOR HYPOALB) 11.5 mg/dL (8.5-10.1); CREATINE KINASE 209 Units/L (26-192); CREATINE KINASE MB < 1.0 ng/mL (0-4.0); MAGNESIUM 1.9 mg/dL (1.7-2.9); TOTAL PROTEIN 8.2 g/dL (6.4-8.2)
[2018-12-20 05:27] LABS: COR NA(FOR HYPERGLY) 156 mmol/L (136-145)
[2018-12-20 06:27] LABS: BILIRUBIN,URINE NEGATIVE (NEGATIVE); BLOOD/HEMOGLOBIN,URINE 4+ (NEGATIVE); GLUCOSE, URINE 4+ (NEGATIVE); KETONES,URINE NEGATIVE (NEGATIVE); LEUKOCYTE ESTERASE ,URINE 3+ (NEGATIVE); NITRITES,URINE NEGATIVE (NEGATIVE); PROTEIN,URINE 2+ (NEGATIVE); UROBILINOGEN,URINE NORMAL (NORMAL)
[2018-12-20 06:36] LABS: APPEARANCE,URINE CLOUDY (CLEAR); BACTERIA,URINE NEGATIVE /HPF (NEGATIVE); COLOR,URINE YELLOW (YELLOW); SQUAMOUS EPITHELIAL CELL,UR NEGATIVE /HPF (NEGATIVE)
[2018-12-20 06:37] LABS: YEAST,URINE NUMEROUS /HPF (NEGATIVE)
[2018-12-20] MEDS ORDERED: HumuLIN R IV STA (07:13)
[2018-12-20] MEDS ORDERED: NS 1/2 + KCL 20 MEQ/L 1,000 ML IV ONE (07:15)
[2018-12-20] MEDS ORDERED: HumuLIN R ONE (07:20)
[2018-12-20] MEDS ORDERED: K-LYTE EFFERVESCENT PO STA (07:21)
[2018-12-20] MEDS ORDERED: K-LYTE EFFERVESCENT ONE (07:25)
[2018-12-20] MEDS ORDERED: HumuLIN R SUBCUT PRN (08:09)
[2018-12-20] MEDS ORDERED: DIFLUCAN 100 MG IV (MIX by PHARMACY)* 100 MG/50 ML BAG IV STA (08:12)
[2018-12-20] MEDS: ROCEPHIN VIAL 1 GRAM 1 G in NS 100 ML IV + SPIKE MINIBAG* 100 ML IV SCH ×2 (08:25→09:31)
[2018-12-20] MEDS ORDERED: LEVAQUIN PREMIX IV 750 MG 750 MG/150 ML BAG IV SCH ×2 (09:00)
[2018-12-20] MEDS ORDERED: MAGNESIUM SULFATE 1 GRAM/100 mL PREMIX 1 GM/100 ML BAG IV PRN (09:32)
[2018-12-20] MEDS ORDERED: NS 100 ML IV 100 ML IV SCH (10:00)
[2018-12-20] MEDS ORDERED: NS + KCL 40 MEQ/L 1,000 ML IV SCH (10:00)
[2018-12-20] MEDS ORDERED: D5W 1000 ML IV 1,000 ML IV SCH (10:00)
[2018-12-20 10:01] LABS: ABG BASE EXCESS 1.6 mmol/L (-2.0-2.0); ABG HCO3 23.4 mmol/L (22-26)
[2018-12-20 10:02] LABS: ABG ALLEN TEST POSITIVE
[2018-12-20] MEDS ORDERED: ZOSYN VIAL 3.375 GRAMS 3.375 G in NS 100 ML IV + SPIKE MINIBAG* 100 ML IV SCH (10:19)
[2018-12-20] MEDS: HumuLIN R SC PRN ×2 (10:40→11:55)
[2018-12-20] MEDS ORDERED: PHARMACY CONSULT - VANCOMYCIN XX SCH (11:00)
[2018-12-20 11:41] LABS: ALBUMIN 2.5 g/dL (3.4-5.0); CALCIUM 10.1 mg/dL (8.5-10.1); CARBON DIOXIDE 21.7 mmol/L (21-32); COR CA(FOR HYPOALB) 11.3 mg/dL (8.5-10.1); CREATININE 1.75 mg/dL (0.55-1.02); TOTAL PROTEIN 7.8 g/dL (6.4-8.2)
[2018-12-20 11:46] LABS: TROPONIN I 1.78 ng/mL (0-1.5)
--- NOTE | 2018-12-20 11:51 | DR.H&P ---
H&P History & Physical for Day of: H&P Date: 12/20/18 Chief Complaint Chief Complaint: AMS, fever Allergies Allergies Allergy/AdvReac Type Severity Reaction Status Date / Time No Known Drug Allergies Allergy Verified 05/02/18 14:58 History of Present Illness History of Present Illness: Ms. Lopez is a 78y/o female patient who has been residing in the [facility]. She was found to have a temp of 105 overnight, therefore sent to ED for further evaluation. Patient's baseline is that she is non-verbal and non-responsive to commands due to a prior stroke. Work-up in the ED showed WBC 13, hgb: 12.4. Lactic acid 6, Ca:11.5, K: 2.1 INR: 1.69, trop 1.06, elevated AST/ALT and Alk Phos. CXR was negative for acute process. UA suggestive of infection. CTAP could not be done due to patient having contractures of upper ext and not being able to cooperate with exam. She was started on Rocephin and Levaquin. On exam, patient is non-verbal, opens eyes intermittently but does not follow commands. Patient not able to provide any history, all information was obtained from reviewing medical records and discussion with staff. Patient admitted to ICU for closer monitoring and further care. Patient's condition worsening with increased troponin and lactate. Discussed patient's condition with daughter Madalyn Issa on the phone. She wants her mother to be aggressively treated and discussed transfer to higher level of care. Daughter ok with transfer. She states she does not want her mother to be on a ventilator but ok with CPR. Discussed transfer with [facility] driver license agent Dr. Martinez. Patient will be transferred to higher level of care. Critical care time spent on evaluation, reviewing previous records, clinical diagnostics, management and transfer to higher level of care > 74 mins. Past Medical History Past Medical History: Alzheimers, Arthritis, CHF, Dementia, Diabetes, Dyslipidemia, Hypertension and Renal Disease Additional Medical History: H/O colovaginal fistula Past Surgical History Surgical History: Bowel Resection and Other Additional Surgical History: Complete diverting colostomy of transverse colon Family History Family Medical History: Diabetes Mellitus, Cancer and Hypertension Social History Does patient currently use any type of tobacco product: No Have you used tobacco products in the last 12 months: No Type of Tobacco Use: None Does any household member use tobacco: No Alcohol Use: None Drug Use: None Prescription drug monitoring program results: PDMP was not reviewed Medications Home Medications: No Known Drug Allergies Allergy (Verified 05/02/18 14:58) CONTINUE taking the following medications nystatin 100,000 unit TOPICAL BID 12/20/18 [History] Labs Result Diagrams: 12/20/18 04:40 12/20/18 11:05 Labs: 12/20/18 05:24 Sputum - Endotracheal Wash - Final Laboratory WBC 13.0 X10^3/uL (3.6-10.0) H 12/20/18 04:40 RBC 4.22 X10^6/uL (3.5-5.4) 12/20/18 04:40 Hgb 12.4 g/dL (12.0-16.0) 12/20/18 04:40 Hct 38.7 % (36.0-47.0) 12/20/18 04:40 MCV 91.6 fL (80.0-100.0) 12/20/18 04:40 MCH 29.3 pg (27.0-34.0) 12/20/18 04:40 MCHC 32.0 g/dL (33.0-35.0) L 12/20/18 04:40 RDW 17.1 % (11.6-16.5) H 12/20/18 04:40 Plt Count 410 X10^3/uL (150.0-450.0) 12/20/18 04:40 MPV 7.9 fL (7.4-11.0) 12/20/18 04:40 Neut % (Auto) 85.8 % (42.0-75.0) H 12/20/18 04:40 Lymph % (Auto) 8.6 % (21.0-51.0) L 12/20/18 04:40 [place] % (Auto) 4.6 % (0.0-13.0) 12/20/18 04:40 Eos % (Auto) 0.0 % (0.9-2.9) L 12/20/18 04:40 Baso % (Auto) 1.0 % (0.2-1.0) 12/20/18 04:40 Neut # (Auto) 11.2 x10^3/uL (2.2-4.8) H 12/20/18 04:40 Lymph # (Auto) 1.1 X10^3/uL (1.3-2.9) L 12/20/18 04:40 [place] # (Auto) 0.6 x10^3/uL (0.3-0.8) 12/20/18 04:40 Eos # (Auto) 0.0 x10^3/uL (0.0-0.2) 12/20/18 04:40 Baso # (Auto) 0.1 X10^3/uL (0.0-0.1) 12/20/18 04:40 Absolute Nucleated RBC 0.0 /100WBC 12/20/18 04:40 PT 19.3 SECONDS (11.8-14.3) 12/20/18 04:40 INR Target Range - 12/20/18 04:40 INR 1.69 (0.8-1.3) H 12/20/18 04:40 APTT 25.9 SECONDS (22.9-36.5) 12/20/18 04:40 PTT Comment - 12/20/18 04:40 Sample Site Left radial 12/20/18 09:50 ABG pH 7.530 (7.35-7.45) H 12/20/18 09:50 ABG pCO2 28.0 mmHg (35.0-45.0) L 12/20/18 09:50 ABG pO2 69.0 mmHg (80.0-100.0) L 12/20/18 09:50 ABG HCO3 23.4 mmol/L (22-26) 12/20/18 09:50 ABG O2 Saturation 96.0 % (90-100) 12/20/18 09:50 ABG Base Excess 1.6 mmol/L (-2.0-2.0) 12/20/18 09:50 Enrrique Test Positive 12/20/18 09:50 A-a Gradient 96.0 mmHg 12/20/18 09:50 FiO2 28.0 12/20/18 09:50 Blood Gas Comments Patient yvon abg well 12/20/18 09:50 Sodium 142 mmol/L (136-145) 12/20/18 04:40 Corrected Sodium 156 mmol/L (136-145) H 12/20/18 04:40 Potassium Cancelled 12/20/18 11:05 Chloride 101 mmol/L (98-107) 12/20/18 04:40 Carbon Dioxide 23.0 mmol/L (21-32) 12/20/18 04:40 BUN 57 mg/dL (7-18) H 12/20/18 04:40 Creatinine 1.69 mg/dL (0.55-1.02) H 12/20/18 04:40 Est GFR (MDRD) Af Amer 38 (>60) L 12/20/18 04:40 Est GFR (MDRD) Non-Af 31 (>60) L 12/20/18 04:40 Glucose 543 mg/dL (65-99) H* 12/20/18 10:05 POC Glucose (mg/dL) 498 mg/dL (65-99) H 12/20/18 09:51 Lactic Acid 6.0 mmol/L (0.4-2.0) H 12/20/18 07:27 Calcium 10.5 mg/dL (8.5-10.1) H 12/20/18 04:40 Corrected Calcium 11.5 mg/dL (8.5-10.1) H 12/20/18 04:40 Magnesium 1.9 mg/dL (1.7-2.9) 12/20/18 04:40 Total Bilirubin 4.30 mg/dL (0.2-1.0) H 12/20/18 04:40 AST 416 Units/L (15-37) H 12/20/18 04:40 ALT 526 Units/L (12-78) H 12/20/18 04:40 Alkaline Phosphatase 437 Units/L (46-116) H 12/20/18 04:40 Creatine Kinase 209 Units/L (26-192) H 12/20/18 04:40 CK-MB (CK-2) < 1.0 ng/mL (0-4.0) 12/20/18 04:40 CK/CKMB % Calc 0.5 % (<4) 12/20/18 04:40 Troponin I 1.06 ng/mL (0-1.5) 12/20/18 04:40 Total Protein 8.2 g/dL (6.4-8.2) 12/20/18 04:40 Albumin 2.7 g/dL (3.4-5.0) L 12/20/18 04:40 Globulin 5.5 g/dL (2.5-4.5) H 12/20/18 04:40 Albumin/Globulin Ratio 0.5 Ratio (1.1-2.1) L 12/20/18 04:40 Specimen Type Catherized urine 12/20/18 06:18 Urine Color Yellow (YELLOW) 12/20/18 06:18 Urine Appearance Cloudy (CLEAR) 12/20/18 06:18 Urine pH 5.0 (5.0 - 8.0) 12/20/18 06:18 Ur Specific [place] 1.015 (1.000-1.030) 12/20/18 06:18 Urine Protein 2+ (NEGATIVE) 12/20/18 06:18 Urine Glucose (UA) 4+ (NEGATIVE) 12/20/18 06:18 Urine Ketones Negative (NEGATIVE) 12/20/18 06:18 Urine Occult Blood 4+ (NEGATIVE) 12/20/18 06:18 Urine Nitrite Negative (NEGATIVE) 12/20/18 06:18 Urine Bilirubin Negative (NEGATIVE) 12/20/18 06:18 Urine Urobilinogen Normal (NORMAL) 12/20/18 06:18 Ur Leukocyte Esterase 3+ (NEGATIVE) 12/20/18 06:18 Urine RBC 5-10 /HPF (0-3) A 12/20/18 06:18 Urine WBC Tntc /HPF (0-5) A 12/20/18 06:18 Ur Squamous Epith Cells Negative /HPF (NEGATIVE) 12/20/18 06:18 Urine Bacteria Negative /HPF (NEGATIVE) 12/20/18 06:18 Urine Yeast Numerous /HPF (NEGATIVE) 12/20/18 06:18 Ur Culture Indicated? Yes/culture set up 12/20/18 06:18 Influenza Type A (PCR) Negative (NEGATIVE) 12/20/18 09:46 Influenza Type B (PCR) Negative (NEGATIVE) 12/20/18 09:46 Review of Systems Constitutional: Fever Eyes: No Symptoms Reported ENT: No Symptoms Reported Respiratory: No Symptoms Reported Cardiovascular: No Symptoms Reported Gastrointestinal: No Symptoms Reported Genitourinary: No Symptoms Reported Musculoskeletal: No Symptoms Reported Skin: No Symptoms Reported Neurological: See HPI Physical Exam Vital Signs: Temperature 103 F Pulse Rate 130 Respiratory Rate 34 Blood Pressure [Right Arm] 132/76 Blood Pressure [Left Arm] 114/74 Blood Pressure 102/68 O2 Sat by Pulse Oximetry 99 Oriented: Unable to test Eyes: Discharge Ear: Normal Nose: Normal Throat: Dry Respiratory: Rhonchi Throughout Cardiovascular: Normal and Tachycardia Auscultation: Bowel Sounds: Normal Palpation: Other (not able to assess) Tenderness: Other (not able to assess, patient did not show signs of distress . Colostomy intact. Stool noted. ) Skin: Other (ext warm to touch); negative Rash Musculoskeletal: Arm (b/l arm contractures) Assessment/Plan (1) Acute renal failure: Status: Acute Plan: Cr trending up (2) Multiorgan failure: Status: Acute (3) NSTEMI (non-ST elevated myocardial infarction): Status: Acute Plan: troponin 1.06, trending up 1.78 (4) Fever: Qualifiers: Fever type: unspecified Qualified Code(s): R50.9 - Fever, unspecified Status: Acute Plan: temp of 105 in ED, decreased to 103. Cultures collected. CXR (-) for pneumonia. CTAP could not be done due to patient with contractures. UA consistent with UTI. Started on Levaquin and Rocephin. Will switch to Vancomycin and Zosyn to broaden coverage. Patient needs further imaging to identify source of infection, possible LP to rule out meningitis. (5) Altered mental status: Qualifiers: Altered mental status type: somnolence Qualified Code(s): R40.0 - Somnolence Status: Acute Plan: unclear, baseline patient is non-verbal and does not follow commands. Could be worse due to current infection. Needs further imaging and LP to rule out meningitis. (6) Urinary tract infection: Qualifiers: Urinary tract infection type: acute cystitis Status: Acute Plan: follow cultures, continue antibiotics (7) Hypokalemia: Status: Acute Plan: K:2.1, replace as per protocol (8) Abnormal liver enzymes: Status: Acute Plan: continue to monitor, daily CMP, avoid Tylenol. Could be due to infectious process or biliary disease, CTAP not done due to patient with upper ext contracture and not cooperating. (9) SIRS (systemic inflammatory response syndrome): Status: Acute (10) Diabetes mellitus type 2, uncontrolled: Status: Acute Plan: BG over 600, received SSI regular insulin. Anion gap: 18, cannot start insulin drip due to low potassium (11) Sinus tachycardia: Status: Acute (12) Lactic acidosis: Status: Acute Plan: On admission: 6, trend, continue hydration (13) Hyperglycemia: Status: Acute (14) DNR (do not resuscitate): Status: Acute (15) Chronic kidney disease (CKD): Qualifiers: Chronic kidney disease stage: stage 3 (moderate) Qualified Code(s): N18.3 - Chronic kidney disease, stage 3 (moderate) Status: Acute (16) Gastrointestinal tube present: Status: Acute
[2018-12-20 12:21] VITALS: BP 121/62
[2018-12-20] MEDS ORDERED: VANCOMYCIN HCL 1 G in NS 250 ML IV 250 ML IV SCH (13:00)
[2018-12-20] MEDS ORDERED: XOPENEX 1.25 MG/3 ML NEBULE NEB SCH (14:00)
[2018-12-20] MEDS ORDERED: ZOSYN VIAL 2.25 GRAMS 2.25 G in NS 100 ML IV + SPIKE MINIBAG* 100 ML IV SCH (15:00)
[2018-12-20] MEDS ORDERED: SNACK - Diabetic Appropriate PO SCH ×2 (20:00)
[2018-12-23] MEDS ORDERED: PHARMACY COMMENT IV NR (08:30)
--- NOTE | 2018-12-23 15:00 | W.DIS.FURT ---
Summary of Discharge Discharge Summary of Date Date of Exam: 12/20/18 Admission Date Date of Admission: 12/20/18 Admission Diagnosis Hospital Course: Ms. Lopez is a 78y/o female patient who has been residing in the [facility]. She was found to have a temp of 105 overnight, therefore sent to ED for further evaluation. Patient's baseline is that she is non-verbal and non- responsive to commands due to a prior stroke. Work-up in the ED showed WBC 13, hgb: 12.4. Lactic acid 6, Ca:11.5, K: 2.1 INR: 1.69, trop 1.06, elevated AST/ALT and Alk Phos. CXR was negative for acute process. UA suggestive of infection. CTAP could not be done due to patient having contractures of upper ext and not being able to cooperate with exam. She was started on Rocephin and Levaquin. On exam, patient is non-verbal, opens eyes intermittently but does not follow commands. Patient not able to provide any history, all information was obtained from reviewing medical records and discussion with staff. Patient admitted to ICU for closer monitoring and further care. Patient's condition worsening with increased troponin and lactate. Discussed patient's condition with daughter Madalyn Issa on the phone. She wants her mother to be aggressively treated and discussed transfer to higher level of care. Daughter ok with transfer. She states she does not want her mother to be on a ventilator but ok with CPR. Discussed transfer with [facility] handle finisher Dr. Martinez. Patient will be transferred to higher level of care. Critical care time spent on evaluation, reviewing previous records, clinical diagnostics, management and transfer to higher level of care > 74 mins. Labs: Laboratory Last Values WBC 13.0 X10^3/uL (3.6-10.0) H 12/20/18 04:40 RBC 4.22 X10^6/uL (3.5-5.4) 12/20/18 04:40 Hgb 12.4 g/dL (12.0-16.0) 12/20/18 04:40 Hct 38.7 % (36.0-47.0) 12/20/18 04:40 MCV 91.6 fL (80.0-100.0) 12/20/18 04:40 MCH 29.3 pg (27.0-34.0) 12/20/18 04:40 MCHC 32.0 g/dL (33.0-35.0) L 12/20/18 04:40 RDW 17.1 % (11.6-16.5) H 12/20/18 04:40 Plt Count 410 X10^3/uL (150.0-450.0) 12/20/18 04:40 MPV 7.9 fL (7.4-11.0) 12/20/18 04:40 Neut % (Auto) 85.8 % (42.0-75.0) H 12/20/18 04:40 Lymph % (Auto) 8.6 % (21.0-51.0) L 12/20/18 04:40 [place] % (Auto) 4.6 % (0.0-13.0) 12/20/18 04:40 Eos % (Auto) 0.0 % (0.9-2.9) L 12/20/18 04:40 Baso % (Auto) 1.0 % (0.2-1.0) 12/20/18 04:40 Neut # (Auto) 11.2 x10^3/uL (2.2-4.8) H 12/20/18 04:40 Lymph # (Auto) 1.1 X10^3/uL (1.3-2.9) L 12/20/18 04:40 [place] # (Auto) 0.6 x10^3/uL (0.3-0.8) 12/20/18 04:40 Eos # (Auto) 0.0 x10^3/uL (0.0-0.2) 12/20/18 04:40 Baso # (Auto) 0.1 X10^3/uL (0.0-0.1) 12/20/18 04:40 Absolute Nucleated RBC 0.0 /100WBC 12/20/18 04:40 PT 19.3 SECONDS (11.8-14.3) 12/20/18 04:40 INR Target Range - 12/20/18 04:40 INR 1.69 (0.8-1.3) H 12/20/18 04:40 APTT 25.9 SECONDS (22.9-36.5) 12/20/18 04:40 PTT Comment - 12/20/18 04:40 Sample Site Left radial 12/20/18 09:50 ABG pH 7.530 (7.35-7.45) H 12/20/18 09:50 ABG pCO2 28.0 mmHg (35.0-45.0) L 12/20/18 09:50 ABG pO2 69.0 mmHg (80.0-100.0) L 12/20/18 09:50 ABG HCO3 23.4 mmol/L (22-26) 12/20/18 09:50 ABG O2 Saturation 96.0 % (90-100) 12/20/18 09:50 ABG Base Excess 1.6 mmol/L (-2.0-2.0) 12/20/18 09:50 Enrrique Test Positive 12/20/18 09:50 A-a Gradient 96.0 mmHg 12/20/18 09:50 FiO2 28.0 12/20/18 09:50 Blood Gas Comments Patient yvon abg well 12/20/18 09:50 Sodium 144 mmol/L (136-145) 12/20/18 11:05 Corrected Sodium 156 mmol/L (136-145) H 12/20/18 11:05 Potassium 2.6 mmol/L (3.5-5.1) L* 12/20/18 11:05 Potassium Cancelled 12/20/18 11:05 Chloride 104 mmol/L (98-107) 12/20/18 11:05 Carbon Dioxide 21.7 mmol/L (21-32) 12/20/18 11:05 BUN 60 mg/dL (7-18) H 12/20/18 11:05 Creatinine 1.75 mg/dL (0.55-1.02) H 12/20/18 11:05 Est GFR (MDRD) Af Amer 36 (>60) L 12/20/18 11:05 Est GFR (MDRD) Non-Af 30 (>60) L 12/20/18 11:05 Glucose 584 mg/dL (65-99) H* 12/20/18 11:05 POC Glucose (mg/dL) 498 mg/dL (65-99) H 12/20/18 09:51 Lactic Acid 6.6 mmol/L (0.4-2.0) H 12/20/18 11:05 Calcium 10.1 mg/dL (8.5-10.1) 12/20/18 11:05 Corrected Calcium 11.3 mg/dL (8.5-10.1) H 12/20/18 11:05 Magnesium 1.9 mg/dL (1.7-2.9) 12/20/18 04:40 Total Bilirubin 3.40 mg/dL (0.2-1.0) H 12/20/18 11:05 AST 306 Units/L (15-37) H 12/20/18 11:05 ALT 465 Units/L (12-78) H 12/20/18 11:05 Alkaline Phosphatase 397 Units/L (46-116) H 12/20/18 11:05 Creatine Kinase 209 Units/L (26-192) H 12/20/18 04:40 CK-MB (CK-2) < 1.0 ng/mL (0-4.0) 12/20/18 04:40 CK/CKMB % Calc 0.5 % (<4) 12/20/18 04:40 Troponin I 1.78 ng/mL (0-1.5) H* 12/20/18 11:05 Total Protein 7.8 g/dL (6.4-8.2) 12/20/18 11:05 Albumin 2.5 g/dL (3.4-5.0) L 12/20/18 11:05 Globulin 5.3 g/dL (2.5-4.5) H 12/20/18 11:05 Albumin/Globulin Ratio 0.5 Ratio (1.1-2.1) L 12/20/18 11:05 Specimen Type Catherized urine 12/20/18 06:18 Urine Color Yellow (YELLOW) 12/20/18 06:18 Urine Appearance Cloudy (CLEAR) 12/20/18 06:18 Urine pH 5.0 (5.0 - 8.0) 12/20/18 06:18 Ur Specific [place] 1.015 (1.000-1.030) 12/20/18 06:18 Urine Protein 2+ (NEGATIVE) 12/20/18 06:18 Urine Glucose (UA) 4+ (NEGATIVE) 12/20/18 06:18 Urine Ketones Negative (NEGATIVE) 12/20/18 06:18 Urine Occult Blood 4+ (NEGATIVE) 12/20/18 06:18 Urine Nitrite Negative (NEGATIVE) 12/20/18 06:18 Urine Bilirubin Negative (NEGATIVE) 12/20/18 06:18 Urine Urobilinogen Normal (NORMAL) 12/20/18 06:18 Ur Leukocyte Esterase 3+ (NEGATIVE) 12/20/18 06:18 Urine RBC 5-10 /HPF (0-3) A 12/20/18 06:18 Urine WBC Tntc /HPF (0-5) A 12/20/18 06:18 Ur Squamous Epith Cells Negative /HPF (NEGATIVE) 12/20/18 06:18 Urine Bacteria Negative /HPF (NEGATIVE) 12/20/18 06:18 Urine Yeast Numerous /HPF (NEGATIVE) 12/20/18 06:18 Ur Culture Indicated? Yes/culture set up 12/20/18 06:18 Influenza Type A (PCR) Negative (NEGATIVE) 12/20/18 09:46 Influenza Type B (PCR) Negative (NEGATIVE) 12/20/18 09:46 Reason For Visit: SIRS,UTI, DIABETES UNCONTROLLED, HYPOKALEMIA, Discharge Date Discharge Date: 12/20/18 Discharge Diagnosis All Active Problems (Updated 12/20/18 @ 12:27 by Paula Wolff) Multiorgan failure (Acute) Acute renal failure (Acute) NSTEMI (non-ST elevated myocardial infarction) (Acute) Lactic acidosis (Acute) Hyperlipidemia (Acute) Gastrointestinal tube present (Acute) Problem with gastrostomy tube (Acute) Gastrostomy tube in place (Acute) Nausea & vomiting (Acute) Altered mental status (Acute) Gastrojejunostomy tube dislodgement (Acute) PEG (percutaneous endoscopic gastrostomy) adjustment/replacement/removal (Acute) Dislodged gastrostomy tube (Acute) Gastrostomy in place (Acute) Small bowel obstruction (Acute) Urinary tract infection (Acute) Vomiting (Acute) Abdominal pain (Acute) Fever (Acute) Hyponatremia (Acute) Hypokalemia (Acute) Cystitis (Acute) Infection of PEG site (Acute) Diabetes mellitus type 2, uncontrolled (Acute) Chronic kidney disease (CKD) (Acute) Abnormal liver enzymes (Acute) SIRS (systemic inflammatory response syndrome) (Acute) Sinus tachycardia (Acute) DNR (do not resuscitate) (Acute) Hyperglycemia (Acute) Colovaginal fistula (Acute) Diabetes mellitus (Chronic) Alzheimer disease (Chronic) Hypertension (Chronic) CHF (congestive heart failure) (Chronic) Cholelithiasis (Chronic) Plan of Treatment: Continue with present treatment and follow up plan. Pt is to keep follow up appointment as instructed and take medications as ordered. Discharge Medications Discharge Medications: No Known Drug Allergies Allergy (Verified 05/02/18 14:58) CONTINUE taking the following medications nystatin 100,000 unit TOPICAL BID 12/20/18 [History] Discharge Disposition Discharge Disposition: Transfer to [facility].
== END 2018-12-20 13:50 | disposition short-term general hospital (02) | DRG 682 ==
LOC: ER 03:51 → ICU 08:06
PROVIDERS: ADMIT Internal Medicine; ATTEND Internal Medicine
DX: R40.0 Somnolence; N30.00 Acute cystitis without hematuria; R65.10 Systemic inflammatory response syndrome (SIRS) of non-infectious origin without acute organ dysfunction; E87.2 Acidosis; N17.8 Other acute kidney failure; B96.89 Other specified bacterial agents as the cause of diseases classified elsewhere; I21.4 Non-ST elevation (NSTEMI) myocardial infarction; E11.65 Type 2 diabetes mellitus with hyperglycemia; E87.6 Hypokalemia; N18.3 Chronic kidney disease, stage 3 (moderate); Z66 Do not resuscitate; R00.0 Tachycardia, unspecified; E78.2 Mixed hyperlipidemia; Z93.1 Gastrostomy status; R74.8 Abnormal levels of other serum enzymes
CPT/HCPCS: 36415; 36600; 51702; 71010; 71045; 80053; 81001; 82550; 82553; 82803; 82947; 83605; 83735; 84484; 85025; 85610; 85730; 87040; 87070; 87077; 87086; 87186; 87205; 87502; 93005; 96365; 96367; 96374; 96375; 99284; A4222; J0696; J1450; J1815; J1956; J3370; J7030; J7050; J8499

== ENCOUNTER 2019-06-16 17:35 | Inpatient (IN) ==
[2019-06-16] MEDS ORDERED: CONSULT PHARMACY - ANTIBIOTIC XX SCH (18:47)
[2019-06-16] MEDS ORDERED: NS 1000 ML 1,000 ML IV SCH (18:47)
[2019-06-16 19:18] LABS: BASOPHILS # (AUTO) 0.1 X10^3/uL (0.0-0.1); BASOPHILS % (AUTO) 0.5 % (0.2-1.0); EOSINOPHILS % (AUTO) 0.4 % (0.9-2.9); HEMATOCRIT 42.1 % (36.0-47.0); HEMOGLOBIN 14.1 g/dL (12.0-16.0); LYMPHOCYTES # (AUTO) 1.9 X10^3/uL (1.3-2.9); LYMPHOCYTES % (AUTO) 16.7 % (21.0-51.0); MEAN CORPUSCULAR HGB CONC 33.6 g/dL (33.0-35.0); MEAN CORPUSCULAR VOLUME 92.3 fL (80.0-100.0); MEAN PLATELET VOLUME 7.9 fL (7.4-11.0); MONOCYTES # (AUTO) 0.6 x10^3/uL (0.3-0.8); MONOCYTES % (AUTO) 5.1 % (0.0-13.0); NEUTROPHILS # (AUTO) 8.7 x10^3/uL (2.2-4.8); NEUTROPHILS % (AUTO) 77.3 % (42.0-75.0); PLATELET COUNT 357 X10^3/uL (150.0-450.0); RED BLOOD COUNT 4.56 X10^6/uL (3.5-5.4); RED CELL DISTRIBUTION WIDTH 15.6 % (11.6-16.5); WHITE BLOOD COUNT 11.3 X10^3/uL (3.6-10.0)
[2019-06-16 19:30] LABS: ALBUMIN 2.4 g/dL (3.4-5.0); CALCIUM 10.2 mg/dL (8.5-10.1); CARBON DIOXIDE 21.1 mmol/L (21-32); COR CA(FOR HYPOALB) 11.5 mg/dL (8.5-10.1); CREATININE 2.06 mg/dL (0.55-1.02); TOTAL PROTEIN 7.5 g/dL (6.4-8.2)
[2019-06-16] MEDS: MERREM VIAL 500 MG in NS 50 ML IV + SPIKE MINIBAG* 50 ML IV SCH (20:28)
[2019-06-16] MEDS ORDERED: NS 1/2 1000 ML IV 1,000 ML IV ONE (20:31)
[2019-06-16] MEDS ORDERED: PHARMACY CONSULT LTC MEDICATIONS XX SCH (21:00)
[2019-06-16] MEDS ORDERED: NS 1/2 1000 ML IV 1,000 ML IV SCH (21:00)
[2019-06-16] MEDS ORDERED: D5W 1000 ML IV 1,000 ML IV SCH (23:00)
[2019-06-17 05:06] LABS: ALBUMIN 2.3 g/dL (3.4-5.0); CALCIUM 9.4 mg/dL (8.5-10.1); CARBON DIOXIDE 23.7 mmol/L (21-32); COR CA(FOR HYPOALB) 10.8 mg/dL (8.5-10.1); CREATININE 1.9 mg/dL (0.55-1.02); TOTAL PROTEIN 7.2 g/dL (6.4-8.2)
[2019-06-17 05:09] LABS: BASOPHILS % (AUTO) 0.4 % (0.2-1.0); EOSINOPHILS % (AUTO) 0.3 % (0.9-2.9); HEMATOCRIT 41.4 % (36.0-47.0); HEMOGLOBIN 13.9 g/dL (12.0-16.0); LYMPHOCYTES # (AUTO) 1.6 X10^3/uL (1.3-2.9); LYMPHOCYTES % (AUTO) 15.2 % (21.0-51.0); MEAN CORPUSCULAR HEMOGLOBIN 31.5 pg (27.0-34.0); MEAN CORPUSCULAR HGB CONC 33.6 g/dL (33.0-35.0); MEAN CORPUSCULAR VOLUME 93.7 fL (80.0-100.0); MEAN PLATELET VOLUME 8.5 fL (7.4-11.0); MONOCYTES # (AUTO) 0.4 x10^3/uL (0.3-0.8); MONOCYTES % (AUTO) 4.2 % (0.0-13.0); NEUTROPHILS # (AUTO) 8.4 x10^3/uL (2.2-4.8); NEUTROPHILS % (AUTO) 79.9 % (42.0-75.0); PLATELET COUNT 359 X10^3/uL (150.0-450.0); RED BLOOD COUNT 4.41 X10^6/uL (3.5-5.4); RED CELL DISTRIBUTION WIDTH 15.4 % (11.6-16.5); WHITE BLOOD COUNT 10.5 X10^3/uL (3.6-10.0)
[2019-06-17] MEDS: HumuLIN R SC SCH ×3 (05:47→17:00)
[2019-06-17] MEDS: BENTYL CAP 10 MG PO SCH ×4 (05:50→21:00)
[2019-06-17] MEDS: REQUIP PO SCH ×4 (05:52→21:00)
[2019-06-17] MEDS ORDERED: D5W + KCL 20 MEQ/L 1,000 ML IV SCH (06:00)
[2019-06-17] MEDS: DUONEB 0.5 MG/3 MG (3 mL) NEB SCH ×3 (06:07→21:11)
[2019-06-17] MEDS: DIFLUCAN 200 MG IV PREMIX* 200 MG/100 ML BAG IV SCH (08:01)
[2019-06-17] MEDS: LEVEMIR SC SCH ×2 (08:01→21:00)
[2019-06-17] MEDS: VITAMIN C GT SCH ×4 (08:04→21:00)
[2019-06-17] MEDS: TAB-A-VITE PO SCH ×2 (08:05→09:56)
[2019-06-17] MEDS: PEPCID TAB 20 MG GT SCH ×2 (08:05→09:58)
[2019-06-17] MEDS ORDERED: POTASSIUM CHLORIDE INJ 20 MEQ VIAL IV ONE (08:28)
[2019-06-17] MEDS ORDERED: LOPRESSOR TAB 25 MG GT SCH (09:00)
[2019-06-17] MEDS ORDERED: PATIENT'S HOME MEDICATION (Carboxymethylcellulose Sodium [Refresh Tears] 1 DROP) OP SCH (09:00)
[2019-06-17] MEDS: NORCO 5/325 MG TAB PO PRN (09:56)
[2019-06-17] MEDS: MERREM VIAL 500 MG in NS 50 ML IV + SPIKE MINIBAG* 50 ML IV SCH ×2 (09:56→21:00)
[2019-06-17] MEDS: LOVENOX INJ 30 MG SYR SC SCH (10:05)
--- NOTE | 2019-06-17 10:34 | DR.H&P ---
H&P - History & Physical for Day of: H&P Date: 06/16/19 - Chief Complaint Chief Complaint: G-TUBE INFECTED - History of Present Illness History of Present Illness: IS A 78 YEAR OLD PATIENT OF OURS. SHE IS A RESIDENT OF [facility] / [facility]. SHE WAS A DIRECT ADMISSION FOR RECURRENT G- TUBE INFECTIONS. SKILLED NURSING STAFF REPORTS THAT G-TUBE HAS HAD DARK DRAINAGE WITH FOUL ODOR FROM SITE. THERE IS ALSO REDNESS AND IRRITATION SURROUNDING SITE. CULTURE FROM SITE ON 05/27/19 REVEALED GROWTH OF E.COLI AND ACINETOBACTER BAUMANII/HAEMOLY. SHE FINISHED ROCEPHIN 1G IV DAILY X 10 DAYS ON 06/12/19. ON ARRIVAL TO THE HOSPITAL, VITALS WERE 97.6-94-16-98%-76/49. LABS WERE OBTAINED. ABNORMAL LAB VALUES INCLUDED THE FOLLOWING: WBC 11.3, SODIUM 154, POTASSIUM 3.1, CHLORIDE 120, BUN 58, CREATININE 2.06, GLUCOSE 145, AST 72, ALK PHOS 159, ALBUM IN 2.4, GLOBULIN 5.1. A WOUND CULTURE WAS SET UP. SHE WAS STARTED ON D5W WITH 20MEQ KCL AT 80 ML/HR, MEROPENEM 500MG IV Q12H, DIFLUCAN 200MG IV DAILY, LOVENOX 30MG SC DAILY, SILVADENE OINTMENT BID, HUMULIN R SLIDIDNG SCALE, AND HOME MEDICATIONS WERE RESUMED. WE CONSULTED . HE WILL SEE PATIENT THIS MORNING. OTHERWISE, WE PLAN TO FOLLOW UP WITH AM LABS AND CONTINUE TO MONITOR. - Past Medical History Past Medical History: Hypertension, Dyslipidemia, Diabetes, Renal Disease, Alzheimers, Dementia, Arthritis, CHF Additional Medical History: H/O colovaginal fistula - Past Surgical History Surgical History: Bowel Resection Additional Surgical History: Complete diverting colostomy of transverse colon - Family History Family Medical History: Diabetes Mellitus, Cancer, Hypertension - Social History Alcohol Use: None Drug Use: None - Medications Home Medications: No Known Drug Allergies Allergy (Verified 05/25/19 14:26) CONTINUE taking the following medications ascorbic acid (vitamin C) [Vitamin C] 1,000 mg FEEDING TUBE BID 06/16/19 [History] carboxymethylcellulose sodium [Refresh Tears] 1 drp OPHTHALMIC (EYE) BID 06/16/19 [History] dicyclomine 10 mg FEEDING TUBE TID 06/16/19 [History] insulin detemir U-100 [Levemir U-100 Insulin] 7 unit SUBCUT QD-BID 06/16/19 [History] insulin regular human [Novolin R Regular U-100 Insuln] 1 unit IM PRN PRN 06/16/19 [History] multivitamin with minerals [Multiple Vitamin-Minerals] 1 tab PO DAILY 06/16/19 [History] ropinirole 0.5 mg FEEDING TUBE TID 06/16/19 [History] hydrocodone-acetaminophen 5 - 325 tab FEEDING TUBE Q6H 06/17/19 [History] ipratropium-albuterol 3 ml INHALATION Q6H PRN 06/17/19 [History] - Review of Systems Constitutional: No Symptoms Reported Eyes: No Symptoms Reported ENT: No Symptoms Reported Respiratory: No Symptoms Reported Cardiovascular: No Symptoms Reported Gastrointestinal: See HPI (DRAINAGE FROM G-TUBE ) Genitourinary: No Symptoms Reported Musculoskeletal: No Symptoms Reported Skin: See HPI, Wound Neurological: Weakness - Physical Exam Vital Signs: Temperature 98.3 F Pulse Rate [Left Brachial] 106 Pulse Rate 91 Respiratory Rate 18 Blood Pressure [Right Arm] 119/62 O2 Sat by Pulse Oximetry 97 Oriented: Unable to test Eyes: Normal Ear: Normal Nose: Normal Throat: Normal Respiratory: Diminished Throughout Cardiovascular: Normal : Normal Auscultation: Bowel Sounds: Normal Palpation: Normal Tenderness: Diffuse Skin: Red, Tender Musculoskeletal: Normal Psychiatric: Other Mood Description: Calm Affect: Normal Speech Pattern: Aphasic - Assessment/Plan (1) Skin infection at gastrostomy tube site Status: Acute Plan: MEROPENEM 500MG IV Q12H. SILVADINE CREAM, WOUND CARE, SURGICAL CONSULT FOR G-TUBE DRAINAGE, CONTINUE TO MONITOR (2) Hypernatremia Status: Acute Plan: D5W WITH 20MEQ KCL AT 80 ML/HR, CONTINUE TO MONITOR (3) Hypokalemia Status: Acute Plan: D5W WITH 20MEQ KCL AT 80 ML/HR, CONTINUE TO MONITOR (4) Hypotension Qualifiers: Hypotension type: unspecified hypotension type Qualified Code(s): I95.9 - Hypotension, unspecified Status: Acute Plan: D5W WITH 20MEQ KCL AT 80 ML/HR, CONTINUE TO MONITOR - Allergies Allergies/Adverse Reactions: Allergies Allergy/AdvReac Type Severity Reaction Status Date / Time No Known Drug Allergies Allergy Verified 05/25/19 14:26
[2019-06-17] MEDS: SILVADENE TOP SCH ×2 (11:13→21:00)
[2019-06-17 11:15] VITALS: BMI 15.5
[2019-06-17] MEDS: D5W + KCL 20 MEQ/L 1,000 ML IV SCH (15:08)
[2019-06-17] MEDS: PROCALAMINE 3 % 1,000 ML IV SCH (15:22)
[2019-06-17 16:54] LABS: BILIRUBIN,URINE NEGATIVE (NEGATIVE); BLOOD/HEMOGLOBIN,URINE 4+ (NEGATIVE); GLUCOSE, URINE NEGATIVE (NEGATIVE); KETONES,URINE 1+ (NEGATIVE); LEUKOCYTE ESTERASE ,URINE 3+ (NEGATIVE); NITRITES,URINE NEGATIVE (NEGATIVE); PROTEIN,URINE 3+ (NEGATIVE); UROBILINOGEN,URINE NORMAL (NORMAL)
[2019-06-17 17:14] LABS: APPEARANCE,URINE CLOUDY (CLEAR); COLOR,URINE YELLOW (YELLOW)
[2019-06-17 17:15] LABS: AMORPHOUS SEDIMENT,UR 4+ /HPF (NEGATIVE); BACTERIA,URINE TRACE /HPF (NEGATIVE); CALCIUM OXALATE CRYSTALS,UR MANY /HPF (NEGATIVE); GRANULAR CASTS,URINE FEW /LPF (NEGATIVE); HYALINE CASTS, URINE FEW /LPF (NEGATIVE); SQUAMOUS EPITHELIAL CELL,UR MODERATE /HPF (NEGATIVE)
[2019-06-17 17:16] LABS: YEAST,URINE NUMEROUS /HPF (NEGATIVE)
[2019-06-18] MEDS ORDERED: NS 100 ML IV 0 ML IV ONE (02:44)
[2019-06-18] MEDS ORDERED: D5W 1000 ML IV 1,000 ML IV ONE (04:18)
[2019-06-18] MEDS: D5W + KCL 20 MEQ/L 1,000 ML IV SCH ×2 (04:40→15:59)
[2019-06-18] MEDS: SNACK - Diabetic Appropriate PO SCH ×2 (05:27→20:28)
[2019-06-18] MEDS: HumuLIN R SC SCH ×5 (05:28→21:39)
[2019-06-18] MEDS: BENTYL CAP 10 MG PO SCH ×3 (05:30→21:41)
[2019-06-18] MEDS: REQUIP PO SCH ×3 (05:30→21:41)
[2019-06-18 05:57] LABS: BASOPHILS % (AUTO) 0.5 % (0.2-1.0); EOSINOPHILS % (AUTO) 0.1 % (0.9-2.9); HEMATOCRIT 36.7 % (36.0-47.0); HEMOGLOBIN 12.2 g/dL (12.0-16.0); LYMPHOCYTES # (AUTO) 1.7 X10^3/uL (1.3-2.9); LYMPHOCYTES % (AUTO) 21.9 % (21.0-51.0); MEAN CORPUSCULAR HEMOGLOBIN 30.8 pg (27.0-34.0); MEAN CORPUSCULAR HGB CONC 33.2 g/dL (33.0-35.0); MEAN CORPUSCULAR VOLUME 92.7 fL (80.0-100.0); MEAN PLATELET VOLUME 8.3 fL (7.4-11.0); MONOCYTES # (AUTO) 0.5 x10^3/uL (0.3-0.8); MONOCYTES % (AUTO) 6.2 % (0.0-13.0); NEUTROPHILS # (AUTO) 5.6 x10^3/uL (2.2-4.8); NEUTROPHILS % (AUTO) 71.3 % (42.0-75.0); PLATELET COUNT 337 X10^3/uL (150.0-450.0); RED BLOOD COUNT 3.96 X10^6/uL (3.5-5.4); RED CELL DISTRIBUTION WIDTH 15.4 % (11.6-16.5); WHITE BLOOD COUNT 7.9 X10^3/uL (3.6-10.0)
[2019-06-18] MEDS: DUONEB 0.5 MG/3 MG (3 mL) NEB SCH ×3 (06:14→21:00)
[2019-06-18 06:20] LABS: CALCIUM 9.5 mg/dL (8.5-10.1); CARBON DIOXIDE 20.9 mmol/L (21-32); COR CA(FOR HYPOALB) 11.1 mg/dL (8.5-10.1); CREATININE 1.28 mg/dL (0.55-1.02); TOTAL PROTEIN 6.5 g/dL (6.4-8.2)
[2019-06-18] MEDS: ARTIFICIAL TEARS DROPS OP SCH ×3 (06:50→20:28)
[2019-06-18] MEDS: DIFLUCAN 200 MG IV PREMIX* 200 MG/100 ML BAG IV SCH (09:41)
--- NOTE | 2019-06-18 09:42 | DR.PROGNOT ---
Hospital Progress Notes - Progress Note for Day of: Progress Note Date: 06/18/19 - Chief Complaint Chief Complaint: Pt is alert , none verbal but seems to be comfortable . still dehydrate with elevated Na , BUN, Creat. colostomy and PEG sites were inspected . skin looks better . - Past Medical Family Social History Past Med/Fam/Surg Hx: No changes since H&P Allergies: Allergies No Known Drug Allergies Allergy (Verified 05/25/19 14:26) - Review Of Systems ROS: No change since H&P - Vital Signs Vital Signs: Temperature 98.8 F Pulse Rate [Left Brachial] 92 Pulse Rate 93 Respiratory Rate 18 Blood Pressure [Left Arm] 126/64 Blood Pressure [Right Arm] 95/54 O2 Sat by Pulse Oximetry 98 - Physical Exam Oriented: Normal, Unable to test Ear: Normal Nose: Normal Throat: Normal Cardiovascular: Normal : Normal GI:Auscultation: Normal GI:Palpation: Normal GI: Tenderness: Diffuse, Other (soft , flat with mild tenderness . BS+) Skin: Red (moderate dermatitis and erythema of the skin around stoma sites , .no necrosis or abscess formation ) Musculoskeletal: Normal Psychiatric: Other Mood Description: Calm Affect: Normal Speech Pattern: Aphasic - Laboratory and Diagnostics Result Diagrams: 06/18/19 04:46 06/18/19 04:46 Labs: 06/16/19 20:50 G Tube Gram Stain - Final 06/16/19 20:50 G Tube Wound Culture - Preliminary Klebsiella Pneumoniae Laboratory WBC 7.9 X10^3/uL (3.6-10.0) 06/18/19 04:46 RBC 3.96 X10^6/uL (3.5-5.4) 06/18/19 04:46 Hgb 12.2 g/dL (12.0-16.0) 06/18/19 04:46 Hct 36.7 % (36.0-47.0) 06/18/19 04:46 MCV 92.7 fL (80.0-100.0) 06/18/19 04:46 MCH 30.8 pg (27.0-34.0) 06/18/19 04:46 MCHC 33.2 g/dL (33.0-35.0) 06/18/19 04:46 RDW 15.4 % (11.6-16.5) 06/18/19 04:46 Plt Count 337 X10^3/uL (150.0-450.0) 06/18/19 04:46 MPV 8.3 fL (7.4-11.0) 06/18/19 04:46 Neut % (Auto) 71.3 % (42.0-75.0) 06/18/19 04:46 Lymph % (Auto) 21.9 % (21.0-51.0) 06/18/19 04:46 [place] % (Auto) 6.2 % (0.0-13.0) 06/18/19 04:46 Eos % (Auto) 0.1 % (0.9-2.9) L 06/18/19 04:46 Baso % (Auto) 0.5 % (0.2-1.0) 06/18/19 04:46 Neut # (Auto) 5.6 x10^3/uL (2.2-4.8) H 06/18/19 04:46 Lymph # (Auto) 1.7 X10^3/uL (1.3-2.9) 06/18/19 04:46 [place] # (Auto) 0.5 x10^3/uL (0.3-0.8) 06/18/19 04:46 Eos # (Auto) 0.0 x10^3/uL (0.0-0.2) 06/18/19 04:46 Baso # (Auto) 0.0 X10^3/uL (0.0-0.1) 06/18/19 04:46 Absolute Nucleated RBC 0.3 /100WBC 06/18/19 04:46 Sodium 145 mmol/L (136-145) 06/18/19 04:46 Corrected Sodium 147 mmol/L (136-145) H 06/18/19 04:46 Potassium 3.7 mmol/L (3.5-5.1) 06/18/19 04:46 Chloride 113 mmol/L (98-107) H 06/18/19 04:46 Carbon Dioxide 20.9 mmol/L (21-32) L 06/18/19 04:46 BUN 46 mg/dL (7-18) H 06/18/19 04:46 Creatinine 1.28 mg/dL (0.55-1.02) H 06/18/19 04:46 Est GFR (MDRD) Af Amer 52 (>60) L 06/18/19 04:46 Est GFR (MDRD) Non-Af 43 (>60) L 06/18/19 04:46 Glucose 202 mg/dL (65-99) H 06/18/19 04:46 POC Glucose (mg/dL) 196 mg/dL (65-99) H 06/18/19 05:53 Calcium 9.5 mg/dL (8.5-10.1) 06/18/19 04:46 Corrected Calcium 11.1 mg/dL (8.5-10.1) H 06/18/19 04:46 Magnesium 1.9 mg/dL (1.7-2.9) 06/17/19 04:16 Total Bilirubin 0.60 mg/dL (0.2-1.0) 06/18/19 04:46 AST 64 Units/L (15-37) H 06/18/19 04:46 ALT 58 Units/L (12-78) 06/18/19 04:46 Alkaline Phosphatase 140 Units/L (46-116) H 06/18/19 04:46 Total Protein 6.5 g/dL (6.4-8.2) 06/18/19 04:46 Albumin 2.0 g/dL (3.4-5.0) L 06/18/19 04:46 Globulin 4.5 g/dL (2.5-4.5) 06/18/19 04:46 Albumin/Globulin Ratio 0.4 Ratio (1.1-2.1) L 06/18/19 04:46 Specimen Type Clean catch urine 06/17/19 16:24 Urine Color Yellow (YELLOW) 06/17/19 16:24 Urine Appearance Cloudy (CLEAR) 06/17/19 16:24 Urine pH 5.0 (5.0 - 8.0) 06/17/19 16:24 Ur Specific [place] 1.025 (1.000-1.030) 06/17/19 16:24 Urine Protein 3+ (NEGATIVE) 06/17/19 16:24 Urine Glucose (UA) Negative (NEGATIVE) 06/17/19 16:24 Urine Ketones 1+ (NEGATIVE) 06/17/19 16:24 Urine Occult Blood 4+ (NEGATIVE) 06/17/19 16:24 Urine Nitrite Negative (NEGATIVE) 06/17/19 16:24 Urine Bilirubin Negative (NEGATIVE) 06/17/19 16:24 Urine Urobilinogen Normal (NORMAL) 06/17/19 16:24 Ur Leukocyte Esterase 3+ (NEGATIVE) 06/17/19 16:24 Urine RBC 3-5 /HPF (0-3) A 06/17/19 16:24 Urine WBC Tntc /HPF (0-5) A 06/17/19 16:24 Ur Squamous Epith Cells Moderate /HPF (NEGATIVE) 06/17/19 16:24 Calcium Oxalate Crystal Many /HPF (NEGATIVE) 06/17/19 16:24 Amorphous Sediment 4+ /HPF (NEGATIVE) 06/17/19 16:24 Urine Bacteria Trace /HPF (NEGATIVE) 06/17/19 16:24 Hyaline Casts Few /LPF (NEGATIVE) 06/17/19 16:24 Granular Casts Few /LPF (NEGATIVE) 06/17/19 16:24 Urine Yeast Numerous /HPF (NEGATIVE) 06/17/19 16:24 Ur Culture Indicated? Yes/culture set up 06/17/19 16:24 - Assessment and Plan 1: mild cellulitis and dermatitis of abdominal wall around stomas . dehydration . CKD . UTI . to start feeding today . same local skin care , diabetic control , Diflucan - Problem Patient Problems: Patient Problems Skin infection at gastrostomy tube site (Acute) K94.22, L08.9 Hypernatremia (Acute) E87.0 Hypokalemia (Acute) E87.6 Hypotension (Acute) I95.9 DNR (do not resuscitate) (Acute) Z66 Infection of PEG site (Acute) K94.22
[2019-06-18] MEDS: PROCALAMINE 3 % 1,000 ML IV SCH ×2 (09:50→15:54)
[2019-06-18] MEDS: VITAMIN C GT SCH ×2 (09:51→20:24)
[2019-06-18] MEDS: TAB-A-VITE PO SCH (09:51)
[2019-06-18] MEDS: PEPCID TAB 20 MG GT SCH (09:52)
[2019-06-18] MEDS: LOVENOX INJ 30 MG SYR SC SCH (09:53)
[2019-06-18] MEDS: SILVADENE TOP SCH ×2 (09:53→20:25)
[2019-06-18] MEDS: LEVEMIR SC SCH ×2 (10:03→21:40)
[2019-06-18] MEDS: MERREM VIAL 500 MG in NS 50 ML IV + SPIKE MINIBAG* 50 ML IV SCH ×2 (10:04→20:51)
[2019-06-18] MEDS: NORCO 5/325 MG TAB PO PRN (20:24)
[2019-06-18] MEDS ORDERED: MERREM VIAL ONE (20:33)
[2019-06-18] MEDS ORDERED: NS 50 ML IV 50 ML IV ONE (20:34)
[2019-06-19] MEDS: BENTYL CAP 10 MG PO SCH ×3 (05:47→21:13)
[2019-06-19] MEDS: REQUIP PO SCH ×3 (05:48→21:13)
[2019-06-19] MEDS: HumuLIN R SC SCH ×4 (05:48→21:13)
[2019-06-19 05:52] LABS: BASOPHILS % (AUTO) 0.4 % (0.2-1.0); EOSINOPHILS % (AUTO) 0.6 % (0.9-2.9); HEMATOCRIT 35.4 % (36.0-47.0); HEMOGLOBIN 11.8 g/dL (12.0-16.0); LYMPHOCYTES # (AUTO) 1.9 X10^3/uL (1.3-2.9); LYMPHOCYTES % (AUTO) 26.1 % (21.0-51.0); MEAN CORPUSCULAR HEMOGLOBIN 31.2 pg (27.0-34.0); MEAN CORPUSCULAR HGB CONC 33.3 g/dL (33.0-35.0); MEAN CORPUSCULAR VOLUME 93.8 fL (80.0-100.0); MEAN PLATELET VOLUME 8.8 fL (7.4-11.0); MONOCYTES # (AUTO) 0.5 x10^3/uL (0.3-0.8); MONOCYTES % (AUTO) 6.8 % (0.0-13.0); NEUTROPHILS # (AUTO) 4.9 x10^3/uL (2.2-4.8); NEUTROPHILS % (AUTO) 66.1 % (42.0-75.0); PLATELET COUNT 306 X10^3/uL (150.0-450.0); RED BLOOD COUNT 3.77 X10^6/uL (3.5-5.4); RED CELL DISTRIBUTION WIDTH 15.8 % (11.6-16.5); WHITE BLOOD COUNT 7.4 X10^3/uL (3.6-10.0)
[2019-06-19] MEDS: D5W + KCL 20 MEQ/L 1,000 ML IV SCH ×2 (06:01→17:29)
[2019-06-19 06:05] LABS: ALBUMIN 1.9 g/dL (3.4-5.0); CALCIUM 9.4 mg/dL (8.5-10.1); CARBON DIOXIDE 22.7 mmol/L (21-32); COR CA(FOR HYPOALB) 11.1 mg/dL (8.5-10.1); CREATININE 1.2 mg/dL (0.55-1.02); TOTAL PROTEIN 6.2 g/dL (6.4-8.2)
[2019-06-19] MEDS: DUONEB 0.5 MG/3 MG (3 mL) NEB SCH ×3 (06:09→21:07)
[2019-06-19] MEDS: DIFLUCAN 200 MG IV PREMIX* 200 MG/100 ML BAG IV SCH (09:20)
[2019-06-19] MEDS: LEVEMIR SC SCH ×2 (09:21→21:14)
[2019-06-19] MEDS: PEPCID TAB 20 MG GT SCH (09:22)
[2019-06-19] MEDS: TAB-A-VITE PO SCH (09:22)
[2019-06-19] MEDS: VITAMIN C GT SCH ×2 (09:22→21:15)
[2019-06-19] MEDS: LOVENOX INJ 30 MG SYR SC SCH (09:22)
[2019-06-19] MEDS: SILVADENE TOP SCH ×2 (09:24→21:15)
[2019-06-19] MEDS: ARTIFICIAL TEARS DROPS OP SCH ×2 (09:24→21:13)
[2019-06-19] MEDS: MERREM VIAL 500 MG in NS 100 ML IV + SPIKE MINIBAG* 100 ML IV SCH ×2 (10:51→21:14)
[2019-06-19] MEDS: PROCALAMINE 3 % 1,000 ML IV SCH ×2 (17:29→18:20)
[2019-06-19] MEDS: NORCO 5/325 MG TAB PO PRN (20:34)
[2019-06-19] MEDS: SNACK - Diabetic Appropriate PO SCH (21:12)
[2019-06-20] MEDS: BENTYL CAP 10 MG PO SCH ×3 (05:32→21:49)
[2019-06-20] MEDS: REQUIP PO SCH ×3 (05:32→21:49)
[2019-06-20] MEDS: HumuLIN R SC SCH ×4 (05:33→21:50)
[2019-06-20] MEDS: DUONEB 0.5 MG/3 MG (3 mL) NEB SCH ×3 (06:10→21:30)
[2019-06-20] MEDS: DIFLUCAN 200 MG IV PREMIX* 200 MG/100 ML BAG IV SCH (08:57)
[2019-06-20] MEDS: TAB-A-VITE PO SCH (08:58)
[2019-06-20] MEDS: ARTIFICIAL TEARS DROPS OP SCH ×2 (08:58→21:48)
[2019-06-20] MEDS: VITAMIN C GT SCH ×2 (08:58→21:49)
[2019-06-20] MEDS: PEPCID TAB 20 MG GT SCH (09:00)
[2019-06-20] MEDS: SILVADENE TOP SCH ×2 (09:01→21:49)
[2019-06-20] MEDS: LOVENOX INJ 30 MG SYR SC SCH (09:01)
[2019-06-20] MEDS: LEVEMIR SC SCH ×2 (09:02→21:50)
[2019-06-20] MEDS: MERREM VIAL 500 MG in NS 100 ML IV + SPIKE MINIBAG* 100 ML IV SCH ×2 (10:15→21:50)
--- NOTE | 2019-06-20 14:13 | RAD ---
HISTORYstool leaking around g-tube, looking for fecal [id number] gastrostomy overlies the upper abdomen, sim ilar to prior. The bowel gas pattern is nonobstructive. No significantly colonic stool burden to sugg est constipation. No gross free air.IMPRESSIONNo acute abdominal process.If there is concern for PEG malfunction/malpositioning, recommend contrast injection with radiograph.Electronically signed by: CATRACHITO DONALDSON (Jun 20, 2019 14:11:58)
[2019-06-20] MEDS: D5W + KCL 20 MEQ/L 1,000 ML IV SCH (14:45)
[2019-06-20] MEDS: PROCALAMINE 3 % 1,000 ML IV SCH ×2 (15:00→21:48)
[2019-06-20] MEDS: SNACK - Diabetic Appropriate PO SCH (21:48)
[2019-06-20] MEDS: NORCO 5/325 MG TAB PO PRN (21:51)
[2019-06-21] MEDS: REQUIP PO SCH ×3 (05:36→21:27)
[2019-06-21] MEDS: HumuLIN R SC SCH ×4 (05:36→20:34)
[2019-06-21] MEDS: BENTYL CAP 10 MG PO SCH ×3 (05:36→21:27)
[2019-06-21] MEDS: DUONEB 0.5 MG/3 MG (3 mL) NEB SCH ×3 (06:05→21:00)
[2019-06-21] MEDS: PEPCID TAB 20 MG GT SCH (08:41)
[2019-06-21] MEDS: TAB-A-VITE PO SCH (08:41)
[2019-06-21] MEDS: DIFLUCAN 200 MG IV PREMIX* 200 MG/100 ML BAG IV SCH (08:41)
[2019-06-21] MEDS: NORCO 5/325 MG TAB PO PRN ×2 (08:41→20:36)
[2019-06-21] MEDS: VITAMIN C GT SCH ×2 (08:43→20:36)
[2019-06-21] MEDS: LOVENOX INJ 30 MG SYR SC SCH (08:44)
[2019-06-21] MEDS: ARTIFICIAL TEARS DROPS OP SCH ×2 (08:46→20:34)
[2019-06-21] MEDS: SILVADENE TOP SCH ×2 (08:46→20:35)
[2019-06-21] MEDS: LEVEMIR SC SCH ×2 (08:49→20:35)
[2019-06-21] MEDS: MERREM VIAL 500 MG in NS 100 ML IV + SPIKE MINIBAG* 100 ML IV SCH ×2 (09:50→20:35)
[2019-06-21] MEDS: NULYTELY or GO-LYTELY PO SCH (16:02)
[2019-06-21] MEDS: D5W + KCL 20 MEQ/L 1,000 ML IV SCH ×2 (18:03→21:00)
[2019-06-21] MEDS: PROCALAMINE 3 % 1,000 ML IV SCH ×2 (18:03→22:00)
[2019-06-21] MEDS: SNACK - Diabetic Appropriate PO SCH (20:33)
[2019-06-22] MEDS: BENTYL CAP 10 MG PO SCH (05:04)
[2019-06-22] MEDS: REQUIP PO SCH (05:04)
[2019-06-22 05:25] LABS: BASOPHILS % (AUTO) 0.3 % (0.2-1.0); EOSINOPHILS % (AUTO) 0.7 % (0.9-2.9); HEMATOCRIT 30.9 % (36.0-47.0); HEMOGLOBIN 10.2 g/dL (12.0-16.0); LYMPHOCYTES # (AUTO) 1.5 X10^3/uL (1.3-2.9); LYMPHOCYTES % (AUTO) 25.2 % (21.0-51.0); MEAN CORPUSCULAR HEMOGLOBIN 30.9 pg (27.0-34.0); MEAN CORPUSCULAR HGB CONC 33.2 g/dL (33.0-35.0); MONOCYTES # (AUTO) 0.6 x10^3/uL (0.3-0.8); MONOCYTES % (AUTO) 10.4 % (0.0-13.0); NEUTROPHILS # (AUTO) 3.8 x10^3/uL (2.2-4.8); NEUTROPHILS % (AUTO) 63.4 % (42.0-75.0); PLATELET COUNT 277 X10^3/uL (150.0-450.0); RED BLOOD COUNT 3.32 X10^6/uL (3.5-5.4); RED CELL DISTRIBUTION WIDTH 15.7 % (11.6-16.5)
[2019-06-22] MEDS: HumuLIN R SC SCH ×2 (05:30→11:58)
[2019-06-22] MEDS: DUONEB 0.5 MG/3 MG (3 mL) NEB SCH (05:44)
[2019-06-22 05:54] LABS: ALANINE AMINOTRANSFERASE 40 Units/L (12-78); ALBUMIN 1.7 g/dL (3.4-5.0); ALKALINE PHOSPHATASE 143 Units/L (46-116); ASPARTATE AMINO TRANSFERASE 41 Units/L (15-37); BLOOD UREA NITROGEN 17 mg/dL (7-18); CALCIUM 8.5 mg/dL (8.5-10.1); CARBON DIOXIDE 18.2 mmol/L (21-32); CHLORIDE 105 mmol/L (98-107); COR CA(FOR HYPOALB) 10.3 mg/dL (8.5-10.1); COR NA(FOR HYPERGLY) 134 mmol/L (136-145); CREATININE 0.75 mg/dL (0.55-1.02); SODIUM 133 mmol/L (136-145); TOTAL PROTEIN 5.9 g/dL (6.4-8.2); eGFR NON BLACK RACES > 60 (>60)
[2019-06-22] MEDS: DIFLUCAN 200 MG IV PREMIX* 200 MG/100 ML BAG IV SCH (09:54)
[2019-06-22] MEDS: PEPCID TAB 20 MG GT SCH (09:54)
[2019-06-22] MEDS: VITAMIN C GT SCH (09:55)
[2019-06-22] MEDS: MERREM VIAL 500 MG in NS 100 ML IV + SPIKE MINIBAG* 100 ML IV SCH (09:55)
[2019-06-22] MEDS: LOVENOX INJ 30 MG SYR SC SCH (09:56)
[2019-06-22] MEDS: ARTIFICIAL TEARS DROPS OP SCH (09:59)
[2019-06-22] MEDS: SILVADENE TOP SCH (09:59)
[2019-06-22] MEDS: TAB-A-VITE PO SCH (10:44)
[2019-06-22] MEDS: LEVEMIR SC SCH (10:44)
[2019-06-22] MEDS: NULYTELY or GO-LYTELY PO SCH (12:45)
[2019-06-22 12:59] VITALS: BP 118/61
== END 2019-06-22 14:00 | DRG 394 ==
LOC: MED/SURG 18:35
PROVIDERS: ADMIT Internal Medicine; ATTEND Internal Medicine
DX: B96.1 Klebsiella pneumoniae [K. pneumoniae] as the cause of diseases classified elsewhere; N18.9 Chronic kidney disease, unspecified; I95.89 Other hypotension; N39.0 Urinary tract infection, site not specified; N17.8 Other acute kidney failure; L89.152 Pressure ulcer of sacral region, stage 2; Z93.3 Colostomy status; B96.4 Proteus (mirabilis) (morganii) as the cause of diseases classified elsewhere; Z74.01 Bed confinement status; K94.22 Gastrostomy infection; E78.2 Mixed hyperlipidemia; F03.90 Unspecified dementia, unspecified severity, without behavioral disturbance, psychotic disturbance, mood disturbance, and anxiety; K21.9 Gastro-esophageal reflux disease without esophagitis; K56.41 Fecal impaction; E11.65 Type 2 diabetes mellitus with hyperglycemia; E87.0 Hyperosmolality and hypernatremia; I12.9 Hypertensive chronic kidney disease with stage 1 through stage 4 chronic kidney disease, or unspecified chronic kidney disease; L03.311 Cellulitis of abdominal wall; Z66 Do not resuscitate; E86.0 Dehydration; E87.6 Hypokalemia